=== PATIENT | female | born 1975 | race Caucasian/White ===

== ENCOUNTER → 2018-05-08 09:49 | Outpatient (CLI) | payer MEDICARE, BC, SELFPAY ==
[2018-05-08 10:51] LABS: Abs Immature Grans 0.03 k/cumm (0.0-0.09); Absolute Basophil Count 0.02 k/cumm (0.0-0.2); Absolute Eosinophil Count 0.11 k/cumm (0.0-0.7); Absolute Monocyte Count 0.44 k/cumm (0.11-0.7); Absolute Neutrophil Count 2.28 k/cumm (1.2-6.7); Basophils % 0.6; Eosinophils % 3.5; HCT 36.3 % (36.0-46.0); HGB 12.2 g/dL (12.0-15.5); Immature Grans % 0.9; Lymphocytes % 9.4; Mean Corp. HGB Concentration 33.6 g/dL (32.0-36.0); Mean Corpuscular Hemoglobin 33.2 pg (27.0-33.0); Mean Corpuscular Volume 98.6 fL (80-95); Mean Platelet Volume 9.7 fL (8.0-11.0); Monocytes % 13.8; Neutrophils % 71.8; Platelet Count 129 x1000/uL (130-400); RBC 3.68 m/cumm (4.00-5.20); RBC Distribution Width 18.2 % (11.7-14.6); White Blood Cell Count 3.18 k/cumm (4.4-10.8)
== END ==
PROVIDERS: PCP Family Medicine; Visit Provider Nurse Practitioner Adult Health
DX: C82.93 Follicular lymphoma, unspecified, intra-abdominal lymph nodes (principal)
CPT/HCPCS: 36415; 85025

== ENCOUNTER → 2018-05-16 11:56 | Outpatient (CLI) | payer MEDICARE, BC, SELFPAY ==
[2018-05-16 12:14] LABS: Abs Immature Grans 0.03 k/cumm (0.0-0.09); Absolute Eosinophil Count 0.04 k/cumm (0.0-0.7); HCT 31.6 % (36.0-46.0); HGB 10.8 g/dL (12.0-15.5); Mean Corp. HGB Concentration 34.2 g/dL (32.0-36.0); Mean Corpuscular Hemoglobin 34.1 pg (27.0-33.0); Mean Corpuscular Volume 99.7 fL (80-95); Mean Platelet Volume 8.8 fL (8.0-11.0); Platelet Count 111 x1000/uL (130-400); RBC 3.17 m/cumm (4.00-5.20); RBC Distribution Width 18.1 % (11.7-14.6)
[2018-05-16 13:00] LABS: Absolute Lymphocyte Count 0.19 k/cumm (1.2-3.4); Absolute Monocyte Count 0.06 k/cumm (0.11-0.7); Absolute Neutrophil Count 0.99 k/cumm (1.2-6.7); White Blood Cell Count 1.29 k/cumm (4.4-10.8)
[2018-05-16 13:02] LABS: Anisocytosis 1+; Hypochromasia 2+; Poikilocytes 2+
[2018-05-16 13:03] LABS: Diff Comment Manual Differential
== END ==
PROVIDERS: PCP Family Medicine; Visit Provider Nurse Practitioner Adult Health
DX: C82.93 Follicular lymphoma, unspecified, intra-abdominal lymph nodes (principal)
CPT/HCPCS: 36415; 85025

== ENCOUNTER → 2018-05-22 12:35 | Outpatient (CLI) | payer MEDICARE, BC, SELFPAY ==
[2018-05-22 13:31] LABS: Abs Immature Grans 0.07 k/cumm (0.0-0.09); HCT 33.5 % (36.0-46.0); HGB 11.5 g/dL (12.0-15.5); Mean Corp. HGB Concentration 34.3 g/dL (32.0-36.0); Mean Corpuscular Hemoglobin 33.8 pg (27.0-33.0); Mean Corpuscular Volume 98.5 fL (80-95); Mean Platelet Volume 12.5 fL (8.0-11.0); RBC Distribution Width 18.4 % (11.7-14.6)
[2018-05-22 14:13] LABS: Absolute Monocyte Count 0.21 k/cumm (0.11-0.7); Absolute Neutrophil Count 0.57 k/cumm (1.2-6.7); Atypical Lymphocytes % 2; Platelet Count 42 x1000/uL (130-400); White Blood Cell Count 1.11 k/cumm (4.4-10.8)
[2018-05-22 14:14] LABS: Absolute Eosinophil Count 0.02 k/cumm (0.0-0.7); Anisocytosis 1+
[2018-05-22 14:15] LABS: Poikilocytes 2+
== END ==
PROVIDERS: PCP Family Medicine; Visit Provider Nurse Practitioner Adult Health
DX: C82.93 Follicular lymphoma, unspecified, intra-abdominal lymph nodes (principal)
CPT/HCPCS: 36415; 85025

== ENCOUNTER 2018-05-30 13:42 | Inpatient (IN) | payer MEDICARE, BC, SELFPAY ==
[2018-05-30] VITALS (53 sets, daily range): BP systolic 74–106; BP diastolic 54–70; PULSE 58–130; RESP 14–33; TEMP 35.2–39.4; O2SAT 96–100
--- NOTE | 2018-05-30 14:31 | W.ED.GENAD ---
Discharge Plan Discharge Details Chief Complaint: Fever Clinical Impression: Neutropenic fever, Pneumonia, Sinusitis Reason For Visit: FEVER/VOMITING Admit Date/Time: 05/30/18 19:39 Admit Provider: Jordi Baez Attending Provider: Jordi Baez Primary Care Provider: Christy Enrique ED Provider: Yudy Souza Disposition Patient Disposition: [facility] INPATIENT Condition: Serious Discharge Data Discharge Date/Time-TO BE ENTERED AT DEPARTURE: 05/30/18 20:30 Medical Decision Making MDM Narrative Medical decision making narrative: Patient presents with chief complaint of fevers, chills, sinus pain x 4 days. On exam, she appears pale, dehydrated with rigors and malaise. Patient is febrile with temp of 39.4, she is tachycardic at 130. she is undergoing chemo, last received treatment 5 weeks ago. Is seen at [facility] in [place] for this. Was seen by PCP and begun on Augmentin for sinusitis. WBC 4 days ago was 1.1. Will obtain labs, CT of head and sinuses, cxr. We have been greatly delayed secondary to difficulty getting access. Once cultures are obtained, will start of Cefepime. Patient has not yet gone for imaging. Contacted by lab, WBC 0.3, platelet count 7, this is down from 47, ANC 110. Will contact [facility] once remaining labs have been obtained. Consulted with [facility] regarding laboratory findings, still awaiting imaging. Discussed above findings as well as other abnormalities noted on laboratory workup. Dr. Crocker, with oncology at [facility], call back and advised she would review the patient's chart and call us back. We discussed patients white count, ANC, platelet count, hypokalemia, kidney function. Potassium noted to be 3.0, we will begin replenishing this here. Creatinine 2.62, this is up slightly from baseline. Patient is recieving hydration while here. She does appear improved already, is currently on her second liter of fluids. Cefepime started. She received po Tylenol, temp is coming down. She is moving more in bed, appears much more comfortable. No longer rigoring, is more communicative and interactive. Spoke with [facility] once again, they agree with coverage with Cefepime. Also advised that she had right knee infection last year, advised checking this as possible source again. Evaluated patients right knee, no erythema, warmth, effusion. She has 2 surgical incisions. No pain with ROM either passive or active. She reports she has chronic pain in this knee but no acute change. CXR reviewed by radiologist. They advised findings are suspicious for mild airspace idsease in the posterior right lower lobe. Lungs are otherwise clear. No pneumothorax. No cardiomegaly. CT of the patient's sinuses reviewed by radiologist. They advised that there is extensive mucosal thickening and opacification of the maxillary sinuses with fluid levels in the right and left. Mucosal thickening within the left sphenoid sinus, clear right sphenoid sinus. No air-fluid levels of the sphenoid. Mucosal thickening wihtin the right and left frontal sinuses, no air fluid levels. Mucosal thickening of the bilateral ethmoid sinuses, no air-fluid levels. Smal right dillon bullosa. Occluded osteomeatal complexes. Midline bony nasal septum. Extensive left mastoid effusions. Tiny right mastoid effusions. No bone destruction. Mild bony thickening of the right and left maxillary sinuses consistent iwth chronic sinus inflammatory disease, no acute fracutre. Soft tissues are unremarkable. Discussed diagnosis of pneumonia and sinusitis with the patient. Discussed lab results. Advised admission for neutropenic fever, sinusitis, pneumonia. She is feeling much improved overall, likely associated with bringing her temp down and improving hydration status. Vital signs have normalized, patient is afebrile and HR is in the 80s. Consulted with Dr. Baez who evaluated the patient in the ED and agrees to admission. HPI - General Adult General Mode of arrival: ambulatory. Date/Time Provider Initiated Documentation: 05/30/18 14:09. Limitations to Documentation: no limitations. Information obtained by: patient and family. History of Present Illness 43 year old F presents to the emergency department with the chief complaint of Fever, sinus pain, described as severe, Quality is described as constant, and is localized to the head and face. Patient reports no radiation. Patient started experiencing this day(s) (4) and it has been constant. No relieving factors improve symptom(s), No exacerbating factors reported . Patient notes cough, diaphoresis, fever/chills, headaches, loss of appetite, malaise and nausea/vomiting (vomited x [address]); denies chest pain, rash and shortness of breath. Patient did receive the following treatments prior to arrival, none (Tylenol yesterday, no treatment today. She is on Augmentin placed on this 4 days ago by PCP for sinusitis) Related Data Home Medications Medication Instructions Recorded Confirmed acetaminophen [Tylenol Extra 1,000 mg PO Q6H PRN 05/30/18 05/30/18 Strength] Previous Rx's Medication Instructions Recorded albuterol sulfate 2.5 mg UPD Q4H PRN #20 vial 01/25/18 Allergies Allergy/AdvReac Type Severity Reaction Status Date / Time cytarabine AdvReac Severe neurological Verified 05/30/18 14:34 sxs NSAIDS (Non-Steroidal AdvReac Severe lymphoma/ki Verified 05/30/18 14:34 Anti-Inflamma dney General Stated Complaint: Fever LIAT: 2 Review of Systems Constitutional Reports anorexia, Reports body ache(s), Reports chills, Reports excessive sweating, Reports fatigue, Reports fever(s), Reports headache(s) (feels this is frontal and associated with sinus pain) and Reports weakness Eyes Patient Denies blurry vision, Denies change in vision and denies ENT Reports as per HPI, Denies dental pain, Denies vertigo, Denies dizziness, Denies dry mouth, Denies ear discharge, Denies otalgia, Reports headache(s) (feels this is frontal and associated with sinus pain), Denies mouth lesions, Denies mouth pain, Reports nasal congestion, Reports nasal discharge, Denies neck mass, Denies neck pain, Reports post nasal drip, Denies tinnitus, Reports sinus pain (points to maxillary and frontal sinuses bilaterally), Reports sinus pressure and Reports sore throat Cardiovascular Denies chest pain, Denies chest pain with activity, Denies pedal edema and Denies edema Respiratory Reports as per HPI, Reports cough, Denies hemoptysis, Denies pain with cough, Denies stridor and Denies wheezing Gastrointestinal Denies abdominal pain, Denies change in bowel habits, Denies coffee ground emesis, Denies diarrhea, Denies nausea (denies nausea currently) and Reports vomiting (x 1 just prior to arrival) Genitourinary Denies urinary frequency, Denies dyspareunia, Denies flank pain and Denies vaginal discharge Musculoskeletal Denies abnormal gait, Denies back pain, Reports arthralgias (reports chronic right knee pain, unchanged from baseline), Denies joint swelling, Denies limited range of motion and Denies neck pain Integumentary/Breasts Denies rash, Denies skin pain, Denies skin ulcer, Denies unusual bruising and Denies jaundice Neurologic Denies abnormal gait, Denies vertigo, Denies dizziness, Reports headache(s) (feels this is frontal and associated with sinus pain) and Reports weakness Endocrine Reports excessive sweating and Reports fatigue Allergic/Immunologic Denies wheezing PFSH Medical History B-cell lymphoma (Acute) Chronic renal insufficiency (Acute) Hypokalemia (Acute) PCOS (polycystic ovarian syndrome) (Acute) Pneumonia (Acute) Reactive arthritis of knee (Acute) DVT (deep venous thrombosis) (Chronic) Depression (Chronic) Multiple sclerosis (Chronic) Social History Smoking/Tobacco Use Status: Former Tobacco Use Surgical History Cholecystectomy Exam Const General: cooperative, diaphoretic, frail appearing, ill appearing, lethargic and other (rigors) Nutritional Appearance: cachectic Orientation: alert, awake and oriented x3 HENMT Head: normal to inspection, skull fracture palpable and normocephalic Ears: hearing grossly normal bilaterally, external ear abnormal, TM abnormal and unable to visualize TM General nose exam: external nose normal Face and sinus: sinuses tender and sinus tenderness frontal and maxillary Mouth: oral mucosae normal, lip normal, tongue normal and oropharynx normal (dry mucous membranes) Teeth and gingiva: dentition normal Throat: posterior oropharynx normal, tonsils normal, uvula midline, no peritonsillar masses and other (no trismus) Eyes Alignment and Position: alignment normal Periorbital: periorbital findings normal Eyelids: eyelids normal Conjunctivae: conjunctival abnormality bilaterally pallor Pupils: PERRL EOM: EOM intact bilaterally Direct ophthalmoscopy: normal light reflex Neck Neck: normal visual inspection, full ROM, lymphadenopathy noted, no meningeal signs, trachea midline, supple and no lymphadenopathy noted Chest Chest: normal inspection of the chest Resp Effort & Inspection: able to speak in complete sentences, cough Quality of cough: wet, not labored, no nasal flaring, tachypneic, no tripod positioning and no use of accessory muscles Auscultation: clear to auscultation bilaterally Cardio Rate: tachycardic Rhythm: regular rhythm Heart Sounds: S1 normal and S2 normal GI Inspection: normal to inspection Palpation: soft and no hepatosplenomegaly Percussion: normal to percussion Auscultation: normal bowel sounds Back/Spine/Pelvis Back: no CVA tenderness Skin General skin exam: no rashes or lesions noted Neuro General: alert, awake and oriented x3 Cranial Nerves: CN's II-XI intact bilaterally Cognition: normal cognition Speech: speech normal Extrem General: normal to inspection, full ROM, normal capillary refill, no joint enlargement, no pedal edema and no calf tenderness Course Vital Signs Temperature 39.4 C H 05/30/18 13:51 Pulse 130 H 05/30/18 13:51 Respiratory Rate 24 05/30/18 13:51 Blood Pressure 100/55 L 05/30/18 13:51 Pulse Oximetry 98 05/30/18 13:51 Temperature 39.4 C H 05/30/18 13:51 Pulse 130 H 05/30/18 13:51 Respiratory Rate 24 05/30/18 13:51 Blood Pressure 100/55 L 05/30/18 13:51 Pulse Oximetry 98 05/30/18 13:51
--- NOTE | 2018-05-30 14:35 | ED.GENADUL_ITS ---
Discharge Plan Discharge Details Chief Complaint: Fever Clinical Impression: Neutropenic fever, Pneumonia, Sinusitis Reason For Visit: FEVER/VOMITING Admit Date/Time: 05/30/18 19:39 Admit Provider: Jordi Baez Attending Provider: Jordi Baez Primary Care Provider: Christy Enrique ED Provider: Yudy Souza Disposition Patient Disposition: [facility] INPATIENT Condition: Serious Discharge Data Discharge Date/Time-TO BE ENTERED AT DEPARTURE: 05/30/18 20:30 Medical Decision Making MDM Narrative Medical decision making narrative: Patient presents with chief complaint of fevers, chills, sinus pain x 4 days. On exam, she appears pale, dehydrated with rigors and malaise. Patient is febrile with temp of 39.4, she is tachycardic at 130. she is undergoing chemo, last received treatment 5 weeks ago. Is seen at [facility] in [place] for this. Was seen by PCP and begun on Augmentin for sinusitis. WBC 4 days ago was 1.1. Will obtain labs, CT of head and sinuses, cxr. We have been greatly delayed secondary to difficulty getting access. Once cultures are obtained, will start of Cefepime. Patient has not yet gone for imaging. Contacted by lab, WBC 0.3, platelet count 7, this is down from 47, ANC 110. Will contact [facility] once remaining labs have been obtained. Consulted with [facility] regarding laboratory findings, still awaiting imaging. Discussed above findings as well as other abnormalities noted on laboratory workup. Dr. Crocker, with oncology at [facility], call back and advised she would review the patient's chart and call us back. We discussed patients white count, ANC, platelet count, hypokalemia, kidney function. Potassium noted to be 3.0, we will begin replenishing this here. Creatinine 2.62, this is up slightly from baseline. Patient is recieving hydration while here. She does appear improved already, is currently on her second liter of fluids. Cefepime started. She received po Tylenol, temp is coming down. She is moving more in bed, appears much more comfortable. No longer rigoring, is more communicative and interactive. Spoke with [facility] once again, they agree with coverage with Cefepime. Also advised that she had right knee infection last year, advised checking this as possible source again. Evaluated patients right knee, no erythema, warmth, effusion. She has 2 surgical incisions. No pain with ROM either passive or active. She reports she has chronic pain in this knee but no acute change. CXR reviewed by radiologist. They advised findings are suspicious for mild airspace idsease in the posterior right lower lobe. Lungs are otherwise clear. No pneumothorax. No cardiomegaly. CT of the patient's sinuses reviewed by radiologist. They advised that there is extensive mucosal thickening and opacification of the maxillary sinuses with fluid levels in the right and left. Mucosal thickening within the left sphenoid sinus, clear right sphenoid sinus. No air-fluid levels of the sphenoid. Mucosal thickening wihtin the right and left frontal sinuses, no air fluid levels. Mucosal thickening of the bilateral ethmoid sinuses, no air-fluid levels. Smal right dillon bullosa. Occluded osteomeatal complexes. Midline bony nasal septum. Extensive left mastoid effusions. Tiny right mastoid effusions. No bone destruction. Mild bony thickening of the right and left maxillary sinuses consistent iwth chronic sinus inflammatory disease, no acute fracutre. Soft tissues are unremarkable. Discussed diagnosis of pneumonia and sinusitis with the patient. Discussed lab results. Advised admission for neutropenic fever, sinusitis, pneumonia. She is feeling much improved overall, likely associated with bringing her temp down and improving hydration status. Vital signs have normalized, patient is afebrile and HR is in the 80s. Consulted with Dr. Baez who evaluated the patient in the ED and agrees to admission. HPI - General Adult General Mode of arrival: ambulatory . Date/Time Provider Initiated Documentation: 05/30/18 14:09 . Limitations to Documentation: no limitations . Information obtained by: patient and family . History of Present Illness 43 year old F presents to the emergency department with the chief complaint of Fever, sinus pain, described as severe, Quality is described as constant, and is localized to the head and face. Patient reports no radiation. Patient started experiencing this day(s) (4) and it has been constant. No relieving factors improve symptom(s), No exacerbating factors reported . Patient notes cough, diaphoresis, fever/chills, headaches, loss of appetite, malaise and nausea/vomiting (vomited x [address] here); denies chest pain, rash and shortness of breath. Patient did receive the following treatments prior to arrival, none (Tylenol yesterday, no treatment today. She is on Augmentin placed on this 4 days ago by PCP for sinusitis) Related Data Home Medications Medication Instructions Recorded Confirmed acetaminophen [Tylenol Extra 1,000 mg PO Q6H PRN 05/30/18 05/30/18 Strength] Previous Rx's Medication Instructions Recorded albuterol sulfate 2.5 mg UPD Q4H PRN #20 vial 01/25/18 Allergies Allergy/AdvReac Type Severity Reaction Status Date / Time cytarabine AdvReac Severe neurological Verified 05/30/18 14:34 sxs NSAIDS (Non-Steroidal AdvReac Severe lymphoma/ki Verified 05/30/18 14:34 Anti-Inflamma dney General Stated Complaint: Fever LIAT: 2 Review of Systems Constitutional Reports anorexia, Reports body ache(s), Reports chills, Reports excessive sweating, Reports fatigue, Reports fever(s), Reports headache(s) (feels this is frontal and associated with sinus pain) and Reports weakness Eyes Patient Denies blurry vision, Denies change in vision and denies ENT Reports as per HPI, Denies dental pain, Denies vertigo, Denies dizziness, Denies dry mouth, Denies ear discharge, Denies otalgia, Reports headache(s) ( feels this is frontal and associated with sinus pain), Denies mouth lesions, Denies mouth pain, Reports nasal congestion, Reports nasal discharge, Denies neck mass, Denies neck pain, Reports post nasal drip, Denies tinnitus, Reports sinus pain (points to maxillary and frontal sinuses bilaterally), Reports sinus pressure and Reports sore throat Cardiovascular Denies chest pain, Denies chest pain with activity, Denies pedal edema and Denies edema Respiratory Reports as per HPI, Reports cough, Denies hemoptysis, Denies pain with cough, Denies stridor and Denies wheezing Gastrointestinal Denies abdominal pain, Denies change in bowel habits, Denies coffee ground emesis, Denies diarrhea, Denies nausea (denies nausea currently) and Reports vomiting (x 1 just prior to arrival) Genitourinary Denies urinary frequency, Denies dyspareunia, Denies flank pain and Denies vaginal discharge Musculoskeletal Denies abnormal gait, Denies back pain, Reports arthralgias (reports chronic right knee pain, unchanged from baseline), Denies joint swelling, Denies limited range of motion and Denies neck pain Integumentary/Breasts Denies rash, Denies skin pain, Denies skin ulcer, Denies unusual bruising and Denies jaundice Neurologic Denies abnormal gait, Denies vertigo, Denies dizziness, Reports headache(s) ( feels this is frontal and associated with sinus pain) and Reports weakness Endocrine Reports excessive sweating and Reports fatigue Allergic/Immunologic Denies wheezing PFSH Medical History B-cell lymphoma (Acute) Chronic renal insufficiency (Acute) Hypokalemia (Acute) PCOS (polycystic ovarian syndrome) (Acute) Pneumonia (Acute) Reactive arthritis of knee (Acute) DVT (deep venous thrombosis) (Chronic) Depression (Chronic) Multiple sclerosis (Chronic) Social History Smoking/Tobacco Use Status: Former Tobacco Use Surgical History Cholecystectomy Exam Const General: cooperative, diaphoretic, frail appearing, ill appearing, lethargic and other (rigors) Nutritional Appearance: cachectic Orientation: alert, awake and oriented x3 HENMT Head: normal to inspection, skull fracture palpable and normocephalic Ears: hearing grossly normal bilaterally, external ear abnormal, TM abnormal and unable to visualize TM General nose exam: external nose normal Face and sinus: sinuses tender and sinus tenderness frontal and maxillary Mouth: oral mucosae normal, lip normal, tongue normal and oropharynx normal ( dry mucous membranes) Teeth and gingiva: dentition normal Throat: posterior oropharynx normal, tonsils normal, uvula midline, no peritonsillar masses and other (no trismus) Eyes Alignment and Position: alignment normal Periorbital: periorbital findings normal Eyelids: eyelids normal Conjunctivae: conjunctival abnormality bilaterally pallor Pupils: PERRL EOM: EOM intact bilaterally Direct ophthalmoscopy: normal light reflex Neck Neck: normal visual inspection, full ROM, lymphadenopathy noted, no meningeal signs, trachea midline, supple and no lymphadenopathy noted Chest Chest: normal inspection of the chest Resp Effort & Inspection: able to speak in complete sentences, cough Quality of cough : wet, not labored, no nasal flaring, tachypneic, no tripod positioning and no use of accessory muscles Auscultation: clear to auscultation bilaterally Cardio Rate: tachycardic Rhythm: regular rhythm Heart Sounds: S1 normal and S2 normal GI Inspection: normal to inspection Palpation: soft and no hepatosplenomegaly Percussion: normal to percussion Auscultation: normal bowel sounds Back/Spine/Pelvis Back: no CVA tenderness Skin General skin exam: no rashes or lesions noted Neuro General: alert, awake and oriented x3 Cranial Nerves: CN's II-XI intact bilaterally Cognition: normal cognition Speech: speech normal Extrem General: normal to inspection, full ROM, normal capillary refill, no joint enlargement, no pedal edema and no calf tenderness Course Vital Signs Temperature 39.4 C H 05/30/18 13:51 Pulse 130 H 05/30/18 13:51 Respiratory Rate 24 05/30/18 13:51 Blood Pressure 100/55 L 05/30/18 13:51 Pulse Oximetry 98 05/30/18 13:51 Temperature 39.4 C H 05/30/18 13:51 Pulse 130 H 05/30/18 13:51 Respiratory Rate 24 05/30/18 13:51 Blood Pressure 100/55 L 05/30/18 13:51 Pulse Oximetry 98 05/30/18 13:51
[2018-05-30 15:25] LABS: Abs Immature Grans 0.03 k/cumm (0.0-0.09); Absolute Basophil Count 0.01 k/cumm (0.0-0.2); Absolute Lymphocyte Count 0.19 k/cumm (1.2-3.4); Absolute Monocyte Count 0.04 k/cumm (0.11-0.7); Basophils % 2.6; HCT 29.7 % (36.0-46.0); HGB 10.5 g/dL (12.0-15.5); Immature Grans % 7.9; Mean Corp. HGB Concentration 35.4 g/dL (32.0-36.0); Mean Corpuscular Hemoglobin 33.5 pg (27.0-33.0); Mean Corpuscular Volume 94.9 fL (80-95); Monocytes % 10.5; RBC 3.13 m/cumm (4.00-5.20); RBC Distribution Width 17.2 % (11.7-14.6)
[2018-05-30] MEDS: Acetaminophen 500 MG TAB 1000 MG PO (15:34)
[2018-05-30] MEDS: Normal Saline 1,000 ML 1000 ML IV ×2 (15:34→20:20)
[2018-05-30 15:40] LABS: INR 1.1 (1.0-3.5); Prothrombin Time 10.5 sec (9.3-10.8)
[2018-05-30 15:42] LABS: ALT 14 U/L (12-78); AST 64 U/L (15-37); Albumin 2.8 g/dL (3.4-5.0); Alkaline Phosphatase 98 U/L (46-116); Anion Gap 9.4 mmol/L (3-11); BUN 27 mg/dL (7-18); Bilirubin, Total 0.8 mg/dL (0.2-1.0); CO2 23.6 mmol/L (21.0-32.0); CREATININE 2.62 mg/dL (0.55-1.02); Calcium 9.1 mg/dL (8.5-10.1); Chloride 95 mmol/L (98-107); Estimated GFR 19.73 (mL/min/1.73m2); Glucose 96 mg/dL (70-100); Sodium 128 mmol/L (136-145); Total Protein 7.1 g/dL (6.4-8.2)
[2018-05-30 15:45] LABS: Troponin I < 0.02 ng/mL (0.00-0.06)
--- NOTE | 2018-05-30 15:48 | W.ED.PROC ---
Procedures EJ/Peripheral Line Arm L: Time Out Performed: Yes Skin Cleansed in Sterile Fashion: Yes Size (gauge): 18 IV Secured and Dressing Applied: Yes Patient Tolerated Procedure: well Additional Comments: 1% lidocaine used to anesthetize the area locally. 1.88in extended catheter placed with guidance of [place]/S. Medical Decision Making Lab Data Lab Results 05/30/18 05/30/18 Range/Units 15:15 15:15 PT 10.5 (9.3-10.8) sec INR 1.1 (1.0-3.5) Sodium 128 L (136-145) mmol/L Potassium 3.0 L (3.5-5.1) mmol/L Chloride 95 L (98-107) mmol/L Carbon Dioxide 23.6 (21.0-32.0) mmol/L Anion Gap 9.4 (3-11) mmol/L BUN 27 H (7-18) mg/dL Creatinine 2.62 H (0.55-1.02) mg/dL Estimated GFR/1.73 m2 19.73 (mL/min/1.73m2) Glucose 96 (70-100) mg/dL Calcium 9.1 (8.5-10.1) mg/dL Total Bilirubin 0.8 (0.2-1.0) mg/dL AST 64 H (15-37) U/L ALT 14 (12-78) U/L Alkaline Phosphatase 98 (46-116) U/L Troponin I < 0.02 (0.00-0.06) ng/mL Total Protein 7.1 (6.4-8.2) g/dL Albumin 2.8 L (3.4-5.0) g/dL
[2018-05-30 15:58] LABS: White Blood Cell Count 0.38 k/cumm (4.4-10.8)
[2018-05-30 15:59] LABS: Absolute Neutrophil Count 0.11 k/cumm (1.2-6.7); Platelet Count 7 x1000/uL (130-400)
[2018-05-30 16:01] LABS: RBC Morphology Normal
[2018-05-30 16:13] LABS: D-Dimer 1664 ng/mlFEU (<500)
[2018-05-30] MEDS: CEFEPIME 2 GM in Normal Saline 100 ML IVPB (16:17)
[2018-05-30 16:19] LABS: Lactate-non-spesis 0.9 mmol/L (0.6-1.4)
--- NOTE | 2018-05-30 16:34 | DI.RAD_ITS ---
SYMPTOM/DIAGNOSIS: NEUTROPENIC FEVER AP AND LATERAL CHEST: Comparison is made with 02/10/18. Heart size and pulmonary vasculature are within normal limits. There are increased lung markings which appear to lie in the right lung base medially, more prominent than on the prior examination. This may represent atelectasis or pneumonia. The lungs are otherwise clear. No effusions or pneumothoraces are identified. The bones are intact. Degenerative changes are seen in the spine. IMPRESSION: Findings suspicious for a right basilar infiltrate. This may represent atelectasis or pneumonia.
--- NOTE | 2018-05-30 16:34 | DI.CT_ITS ---
SYMPTOM/DIAGNOSIS: NEUTROPENIC FEVER, SINUS PAIN SINUS CT: A noncontrast examination was performed. There is mild mucosal thickening in the frontal sinuses bilaterally. There is mucosal thickening in the ethmoid air cells bilaterally. There is mild mucosal thickening seen in the left sphenoid sinus. The right sphenoid sinus is clear. There is extensive near complete opacification of the maxillary sinuses bilaterally with fluid levels seen in the maxillary sinuses bilaterally. There is opacification of the mastoid air cells, left greater than right. There is thickening of the simeon of the maxillary sinuses and sphenoid sinuses consistent with chronic sinus disease. There is right middle turbinate dillon bullosa. There is obstruction of the ostiomeatal complexes bilaterally. The orbits and retro-orbital soft tissues are unremarkable. IMPRESSION: 1. Extensive sinus disease, particularly involving the maxillary sinuses. Findings consistent with chronic sinus disease. Fluid levels in the maxillary sinuses can be seen with acute sinusitis. 2. Bilateral mastoid effusions, left greater than right.
[2018-05-30] MEDS: Lactated Ringers 1,000 ML 1000 ML IV (16:51)
--- NOTE | 2018-05-30 17:28 | DI.VRAD_ITS ---
EXAM: CT Maxillofacial Sinuses Without Intravenous Contrast CLINICAL HISTORY: 43 years old, female; Pain; Other: Sinus pain neutropenic TECHNIQUE: Computed tomography images of the maxillofacial sinuses without intravenous contrast. Coronal reformatted images were created and reviewed. COMPARISON: No relevant prior studies available. FINDINGS: Maxillary sinuses: Extensive mucosal thickening and opacification with fluid levels in the right and left maxillary sinuses. Sphenoid sinuses: Mucosal thickening of the left sphenoid sinus. Clear right sphenoid sinus. No air-fluid levels. Frontal sinuses: Mucosal thickening within the right and left frontal sinuses. No air-fluid levels. Ethmoid air cells: Mucosal thickening of bilateral ethmoid sinuses. No air-fluid levels. Nasal cavity/septum: Small right dillon bullosa. Occluded osteomeatal complexes. Midline bony nasal septum. Mastoid air cells: Extensive left mastoid effusions. Tiny right mastoid effusions. Bones/joints: No bone destruction. Mild bony thickening of the right and left maxillary sinuses consistent with chronic sinus inflammatory disease. No acute fracture. Soft tissues: Unremarkable. IMPRESSION: 1. Paranasal sinus inflammatory disease, most severe in the maxillary sinuses. Severe mucosal thickening and fluid levels within both maxillary sinuses may be seen with acute sinusitis. 2. Bilateral mastoid effusions, worse on the left. Dictated and Authenticated by: Keshav Meyer MD. Ordering:JHONATAN CHRISTOPHER MD
--- NOTE | 2018-05-30 17:30 | DI.VRAD_ITS ---
EXAM: XR Chest, 2 Views CLINICAL HISTORY: 43 years old, female; Pain; Other: Neutropenic fever sinus pain TECHNIQUE: Frontal and lateral views of the chest. COMPARISON: CR - CHEST 2 VIEWS PA,LAT 02/10/2018 1:46 PM FINDINGS: Lungs: Mild patchy densities in the posterior right lower lobe seen on the lateral examination, slightly more prominent than those seen on the prior examination. The findings are suspicious for mild right posterior lower lobe airspace disease (atelectasis versus small pneumonia). The lungs are otherwise clear. Pleural space: Unremarkable. No pneumothorax. Heart: Unremarkable. No cardiomegaly. Mediastinum: Unremarkable. Bones/joints: Unremarkable. IMPRESSION: Findings suspicious for mild airspace disease in the posterior right lower lobe (atelectasis versus small pneumonia). Dictated and Authenticated by: Keshav Meyer MD. Ordering:JHONATAN CHRISTOPHER MD
[2018-05-30] MEDS: POTASSIUM CHLORIDE/D5-0.45NACL 1,000 ML 100 MEQ IV (19:01)
--- NOTE | 2018-05-30 19:15 | W.PM.HP.N ---
CC: fever, neutropenia HPI: 43 f with NHL, last chemo 5 weeks [employer], also undergoing XRT comes to ER with 1 week of fever and lethargy. Labs of note for WBC of 380 with ANC 110. CXR shows ? pneumonia and acute on chronic bilateral sinusitis. Pateinet endorses chronic PND, catarrh and cough, but unchanged over past 8 months. PMH NHL, chronic DVT, MS, HTN, depression, HSV, s/p choly, CTS All: see list Med: see list (note patient states not taking Ativan) PE: BP 94/70 (Patient reports baseline about 90/sys), p 91, RR 18, T 38.4 HEENT TM WNL , partially obscured AD but normal what is seen; neck supple; lungs clear; heart r/r/r w/o m/r/g; abd: soft, NT; extr: no edema Lab WBC 380, Hct 29, plt 7K Na 128, K 3.0, Bun 26, Cr 2.6 CXR: formal read ? right posterior infiltrate, none to my eye Sinus: acute on chronic sinusitis A/P: Neutropenic fever. Not convinced that sinuses or chest is source, will cover broadly, but certainly including those two potential sources. Will follow blood counts, replace K and hydrate with NS. As to pancytopenia itself: Unclear if prolonged reaction to chemo, disease progression or other unknown factor. Will trend out. Do not feel platelet transfusion required as no clinical signs bleeding. PFSH Social History Smoking/Tobacco Use Status: Former Tobacco Use Surgical History Cholecystectomy Meds Home Medications Medication Instructions Recorded Confirmed Type acyclovir 800 mg PO BID #180 tab-cap 10/18/15 05/30/18 Clinic escitalopram oxalate [Lexapro] 20 mg PO QAM #90 tab-cap 09/09/17 05/30/18 Clinic albuterol sulfate [Proair Hfa] 1 - 2 puff INHALATION QID PRN #1 10/17/17 05/30/18 Clinic inhaler lorazepam [Ativan] 1 mg PO HS #30 tab 02/22/18 05/30/18 Clinic bupropion HCl [Wellbutrin Xl] 300 mg PO DAILY #90 tab-cap 03/30/18 05/30/18 Clinic amoxicillin-pot clavulanate 1 tab-cap PO Q12H #14 tab-cap 05/26/18 05/30/18 Clinic benzonatate 100 - 200 mg PO TID #30 tab-cap 05/26/18 05/30/18 Clinic acetaminophen [Tylenol Extra 1,000 mg PO Q6H PRN 05/30/18 05/30/18 History Strength] Allergies Allergy/AdvReac Type Severity Reaction Status Date / Time cytarabine AdvReac Severe neurological Verified 05/30/18 14:34 sxs NSAIDS (Non-Steroidal AdvReac Severe lymphoma/ki Verified 05/30/18 14:34 Anti-Inflamma dney Results Labs : 05/30/18 15:15 05/30/18 15:15 Abnormal lab results 05/30/18 05/30/18 05/30/18 Range/Units 15:15 15:15 15:15 WBC 0.38 L* (4.4-10.8) k/cumm RBC 3.13 L (4.00-5.20) m/cumm Hgb 10.5 L (12.0-15.5) g/dL Hct 29.7 L (36.0-46.0) % MCH 33.5 H (27.0-33.0) pg RDW 17.2 H (11.7-14.6) % Plt Count 7 L* D (130-400) x1000/uL Absolute Neutrophils 0.11 L* (1.2-6.7) k/cumm Absolute Lymphocytes 0.19 L (1.2-3.4) k/cumm Absolute Monocytes 0.04 L (0.11-0.7) k/cumm D-Dimer 1664 H (<500) ng/mlFEU Sodium 128 L (136-145) mmol/L Potassium 3.0 L (3.5-5.1) mmol/L Chloride 95 L (98-107) mmol/L BUN 27 H (7-18) mg/dL Creatinine 2.62 H (0.55-1.02) mg/dL AST 64 H (15-37) U/L Albumin 2.8 L (3.4-5.0) g/dL Diabetes panel 05/30/18 Range/Units 15:15 Sodium 128 L (136-145) mmol/L Potassium 3.0 L (3.5-5.1) mmol/L Chloride 95 L (98-107) mmol/L Carbon Dioxide 23.6 (21.0-32.0) mmol/L BUN 27 H (7-18) mg/dL Creatinine 2.62 H (0.55-1.02) mg/dL Glucose 96 (70-100) mg/dL Calcium 9.1 (8.5-10.1) mg/dL AST 64 H (15-37) U/L ALT 14 (12-78) U/L Alkaline Phosphatase 98 (46-116) U/L Total Protein 7.1 (6.4-8.2) g/dL Albumin 2.8 L (3.4-5.0) g/dL Calcium panel 05/30/18 Range/Units 15:15 Calcium 9.1 (8.5-10.1) mg/dL Albumin 2.8 L (3.4-5.0) g/dL Pituitary panel 05/30/18 Range/Units 15:15 Sodium 128 L (136-145) mmol/L Potassium 3.0 L (3.5-5.1) mmol/L Chloride 95 L (98-107) mmol/L Carbon Dioxide 23.6 (21.0-32.0) mmol/L BUN 27 H (7-18) mg/dL Creatinine 2.62 H (0.55-1.02) mg/dL Glucose 96 (70-100) mg/dL Calcium 9.1 (8.5-10.1) mg/dL Adrenal panel 05/30/18 Range/Units 15:15 Sodium 128 L (136-145) mmol/L Potassium 3.0 L (3.5-5.1) mmol/L Chloride 95 L (98-107) mmol/L Carbon Dioxide 23.6 (21.0-32.0) mmol/L BUN 27 H (7-18) mg/dL Creatinine 2.62 H (0.55-1.02) mg/dL Glucose 96 (70-100) mg/dL Calcium 9.1 (8.5-10.1) mg/dL Total Bilirubin 0.8 (0.2-1.0) mg/dL AST 64 H (15-37) U/L ALT 14 (12-78) U/L Alkaline Phosphatase 98 (46-116) U/L Total Protein 7.1 (6.4-8.2) g/dL Albumin 2.8 L (3.4-5.0) g/dL Laboratory Tests 05/30/18 05/30/18 05/30/18 15:15 15:15 15:15 WBC 0.38 L* RBC 3.13 L Hgb 10.5 L Hct 29.7 L MCV 94.9 MCH 33.5 H MCHC 35.4 RDW 17.2 H Plt Count 7 L* D MPV Immature Gran % 7.9 Neutrophils % 29.0 Lymphocytes % 50.0 Monocytes % 10.5 Eosinophils % 0.0 Basophils % 2.6 Absolute Neutrophils 0.11 L* Absolute Lymphocytes 0.19 L Absolute Monocytes 0.04 L Absolute Eosinophils 0.00 Absolute Basophils 0.01 Differential Comment RBC Morphology Normal Poikilocytosis PT 10.5 INR 1.1 D-Dimer 1664 H Sodium 128 L Potassium 3.0 L Chloride 95 L Carbon Dioxide 23.6 Anion Gap 9.4 BUN 27 H Creatinine 2.62 H Estimated GFR/1.73 m2 19.73 Glucose 96 Lactate Calcium 9.1 Total Bilirubin 0.8 AST 64 H ALT 14 Alkaline Phosphatase 98 Troponin I < 0.02 Total Protein 7.1 Albumin 2.8 L 05/30/18 16:10 WBC RBC Hgb Hct MCV MCH MCHC RDW Plt Count MPV Immature Gran % Neutrophils % Lymphocytes % Monocytes % Eosinophils % Basophils % Absolute Neutrophils Absolute Lymphocytes Absolute Monocytes Absolute Eosinophils Absolute Basophils Differential Comment RBC Morphology Poikilocytosis PT INR D-Dimer Sodium Potassium Chloride Carbon Dioxide Anion Gap BUN Creatinine Estimated GFR/1.73 m2 Glucose Lactate 0.9 Calcium Total Bilirubin AST ALT Alkaline Phosphatase Troponin I Total Protein Albumin
[2018-05-30 19:51] LABS: Bilirubin Negative (Negative); Blood Trace-lysed (Negative); Clarity Clear; Glucose Negative (Negative); Ketones Negative (Negative); Leukocyte Esterase Negative (Negative); Nitrite Negative (Negative); Specific Gravity 1.015 (1.005-1.025); Urobilinogen 0.2 EU/dL (Up TO 0.2); pH 5.5 (5-8)
[2018-05-30 19:57] LABS: Bacteria Negative HPF (Negative); C & S Indicated? No; Casts 3-5 Fine Granular LPF (Negative); Crystals Moderate Amorphous HPF (Negative); Epithelial Cells Few HPF (Negative); Mucus Negative (Negative); RBC Negative (0-2)
[2018-05-30] MEDS: Benzonatate 100 MG CAP PO (21:32)
[2018-05-30] MEDS: POTASSIUM CHLORIDE/0.9% NACL 1,000 ML 150 MEQ IV (21:32)
[2018-05-30] MEDS: Acyclovir 400 MG TAB 800 MG PO (22:50)
[2018-05-31] VITALS (10 sets, daily range): BP systolic 85–96; BP diastolic 57–69; PULSE 62–81; RESP 16–20; TEMP 35.3–36.4; O2SAT 97–100
[2018-05-31] MEDS: POTASSIUM CHLORIDE/0.9% NACL 1,000 ML 150 MEQ IV ×3 (03:55→18:38)
[2018-05-31 07:10] LABS: Absolute Eosinophil Count 0.02 k/cumm (0.0-0.7); HCT 21.4 % (36.0-46.0); HGB 7.2 g/dL (12.0-15.5); Mean Corp. HGB Concentration 33.6 g/dL (32.0-36.0); Mean Corpuscular Hemoglobin 32.7 pg (27.0-33.0); Mean Corpuscular Volume 97.3 fL (80-95); RBC Distribution Width 17.1 % (11.7-14.6)
[2018-05-31 07:20] LABS: Anion Gap 10.5 mmol/L (3-11); CO2 18.5 mmol/L (21.0-32.0); Chloride 107 mmol/L (98-107); Potassium 3.5 mmol/L (3.5-5.1); Sodium 136 mmol/L (136-145)
[2018-05-31 07:40] LABS: White Blood Cell Count 0.61 k/cumm (4.4-10.8)
[2018-05-31 07:41] LABS: Platelet Count 7 x1000/uL (130-400)
[2018-05-31 07:42] LABS: Absolute Lymphocyte Count 0.37 k/cumm (1.2-3.4); Absolute Monocyte Count 0.05 k/cumm (0.11-0.7); Atypical Lymphocytes % 1
[2018-05-31 07:43] LABS: Absolute Neutrophil Count 0.17 k/cumm (1.2-6.7); Anisocytosis 2+; Diff Comment Manual Differential; Poikilocytes 2+
[2018-05-31] MEDS: Escitalopram 20 MG TAB PO (08:02)
[2018-05-31] MEDS: Benzonatate 100 MG CAP PO ×3 (08:02→21:03)
[2018-05-31] MEDS: Acyclovir 400 MG TAB 800 MG PO ×2 (08:02→21:03)
[2018-05-31] MEDS: buPROPion-XL 150 MG TABCR 300 MG PO (08:02)
[2018-05-31] MEDS: Acetaminophen 500 MG TAB 1000 MG PO ×3 (09:24→22:50)
[2018-05-31] MEDS: VANCOMYCIN 1,000 MG in Normal Saline 250 ML 166.667 MG IVPB (10:21)
--- NOTE | 2018-05-31 10:51 | PDOC.CMIN ---
- If Service Date Differs Date of service: 05/31/18 Time of Service: 10:51 Care Management Initial Assess REASON FOR HOSPITALIZATION:: Fever/Vomiting PAST MEDICAL HISTORY/PAST SURGICAL HISTORY:: Follicular B-cell lymphoma, Chronic renal insufficiency stage 4, Multiple sclerosis, Anxiety & Depression, H/O herpes simplex, Anemia, Carpal tunnel release, S/P cholecystectomy, S/P knee aspiration, S/P (R) knee arthroscopy PREVIOUS FUNCTIONAL STATUS/SOCIAL/FAMILY SUPPORTS:: Stacey lives in [place], [place] in her own home. She is , she has two school age children a son and daughter. She has a large family support system and friends in the community. Stacey is disabled. CURRENT FUNCTIONAL STATUS:: Stacey is lying in bed she is on precautions for neutropenia. Stacey will return home home when medically stable denies any needs at this time. ADVANCE DIRECTIVES:: None on file at [facility] Has patient been provided with information about the portal?: Yes Did the patient sign up for the portal?: No CODE STATUS:: Full Code INSURANCE COVERAGE / FINANCIAL ISSUES:: Medicare, BCBS CURRENT HOME/COMMUNITY SERVICES/EQUIPMENT:: [facility] for oncology treatments r/t non hodgkins lymphoma. PRIMARY CARE PHYSICIAN:: Christy Enrique POTENTIAL DISCHARGE NEEDS:: Follow up as directed with primary care and oncologist. PATIENT/FAMILY EDUCATION NEEDS:: Discharge education, limitation, and follow up plan of care self management and ask me three discussion. ANTICIPATED BARRIERS TO DISCHARGE:: None identified. TRANSPORTATION:: Via private car with family at time of discharge. PLAN:: Stacey will continue as a medical surgical patient no change in status today. She is receiving IV fluids, and antibiotics and is on oral antiviral. She will return home with when medically ready per provider. Readmission - Within the Past 30 Days Yes or No: N
[2018-05-31] MEDS: Normal Saline Flush 10 ML SYR IVP (11:05)
--- NOTE | 2018-05-31 11:19 | INITIAL_ITS ---
- If Service Date Differs Date of service: 05/31/18 Time of Service: 10:51 Care Management Initial Assess REASON FOR HOSPITALIZATION:: Fever/Vomiting PAST MEDICAL HISTORY/PAST SURGICAL HISTORY:: Follicular B-cell lymphoma, Chronic renal insufficiency stage 4, Multiple sclerosis, Anxiety & Depression, H /O herpes simplex, Anemia, Carpal tunnel release, S/P cholecystectomy, S/P knee aspiration, S/P (R) knee arthroscopy PREVIOUS FUNCTIONAL STATUS/SOCIAL/FAMILY SUPPORTS:: Stacey lives in [place], [place] in her own home. She is , she has two school age children a son and daughter. She has a large family support system and friends in the community. Stacey is disabled. CURRENT FUNCTIONAL STATUS:: Stacey is lying in bed she is on precautions for neutropenia. Stacey will return home home when medically stable denies any needs at this time. ADVANCE DIRECTIVES:: None on file at [facility] Has patient been provided with information about the portal?: Yes Did the patient sign up for the portal?: No CODE STATUS:: Full Code INSURANCE COVERAGE / FINANCIAL ISSUES:: Medicare, BCBS CURRENT HOME/COMMUNITY SERVICES/EQUIPMENT:: [facility] for oncology treatments r/t non hodgkins lymphoma. PRIMARY CARE PHYSICIAN:: Christy Enrique POTENTIAL DISCHARGE NEEDS:: Follow up as directed with primary care and oncologist. PATIENT/FAMILY EDUCATION NEEDS:: Discharge education, limitation, and follow up plan of care self management and ask me three discussion. ANTICIPATED BARRIERS TO DISCHARGE:: None identified. TRANSPORTATION:: Via private car with family at time of discharge. PLAN:: Stacey will continue as a medical surgical patient no change in status today. She is receiving IV fluids, and antibiotics and is on oral antiviral. She will return home with when medically ready per provider. Readmission - Within the Past 30 Days Yes or No: N
--- NOTE | 2018-05-31 11:21 | CHAPLAIN ---
Stacey was lying in bed when I visited. She said she is feeling some better. She's asked family members not to visit because of the precautions in place. Having not slept well last night, she hoping to rest today.
--- NOTE | 2018-05-31 12:09 | PHARADMIT ---
Addendum entered by Sharmila Romero 06/09/18 14:56: Pharmacy Note Subjective pt wants to go home per CM note Objective BP-86/54 other VS okay SCr-2.04(up) WBC-1.13 plt-18 ANC-0.41 Assessment vanco discontinued, cefepime and doxycycline continue neupogen continues, 1 units of platelets given yesterday Plan MD mentioned talking to hematology Original Note: Addendum entered by Chema Leiva III 06/07/18 11:43: Pharmacy Note Subjective Patient continues to be on reverse precautions, Remain afebrile. Objective VS-OK WBC- 1.12 ANC-0.231 Plts- 14 H&H- 8.8/26.1 Na-135 SCr-1.94. No BM Assessment Neupogen continues. On Vancomycin, Cefepime Plan Watch Vancomycn dosing SCr up again. Original Note: Addendum entered by Chema Leiva III 06/06/18 15:15: Pharmacy Note Subjective Still afebrile... Objective VS-OK, WBC-0.86 ANC--0.28 Plts-22 Assessment Vancomycin trough (25.9) dose held ...re-timed new frequency (q24hr) Cefepime continues until immune system recovers. Plan Continuing Neupogen Original Note: Addendum entered by Sharmila Romero 06/05/18 16:37: Pharmacy Note Subjective Objective VS-okay K+3.3 SCr-1.89(up) WBC-0.86(down) h/h-8.8/26.3(down) plt-24(up) ANC-0.24(down) Assessment vanco and cefepime continue Plan vanco trough scheduled for tomorrow, may be a little bit high due to last dose given late continue to order neupogen while order continues Original Note: Addendum entered by Chema Leiva III 06/04/18 12:04: Pharmacy Note Subjective Platelets dropped again. has ordered two units from [facility]. ANC & WBC continue to lag despite Neupogen therapy. Afebrile Objective VS-OK Lytes,SCr, H&H-OK Plts-8 ANC-0.32 WBC-0.91 Assessment Vancomycin & Cefepime continue while immune system is weak. Plan Be sure to order more Neupogen 480mcg. Original Note: Addendum entered by Chema Leiva III 06/03/18 14:56: Pharmacy Note Subjective ANC up grdadually, continue to treat prophylactically with IV ABX . Urine-negative. Objective VS-OK ANC-0.33 WBC-0.69 Plts-11 H&H-9.0/26.3 ad BM yesterday Assessment Neupogen continues, Vancomycin trough 23.6) dose adjusted, Cefepime continues. Plan She naif emainn here under treatment until ANC is above 0.50 Original Note: Addendum entered by Chema Leiva III 06/02/18 10:05: Pharmacy Note Subjective Patient to receive 2 units of blood today . Objective VS-OK ANC 0.17 WBC-0.57 Plts-18 H&H- 6.4/18.9 Last BM 05/31 Assessment Vancomycin adjusted due to improved renal functon (750MG q16hrs) Cefepime continues. Neupogen daily continues Plan Patient rmains afebrile, but awaiting immune system to improve Original Note: Addendum entered by Chema Leiva III 06/01/18 15:06: Pharmacy Note Subjective Patient recieived Platelets yesterday. Neupogen 480mcg daily has been started. believes her neutropenic fever is a delayed response to Chemotherapy. Objective VS-OK ANC-0.13 WBC-0.37 Plts-19 Assessment Vancomycin, Cefepime continues,Neupogen on order Plan Patient is showing improvement remains afebrile, continue current course of therapy. Original Note: Admission Pharmacy Clinical Review FEVER/VOMITING Code Status Full Code Current Weight 74.843 kg Renally Cleared and Narrow Therapeutic Index Meds CRCL ~23.4ML/MIN QTc Value / Action Taken BP Control, Fever 94/60 AFEBRILE Electrolytes reviewed OK DVT Prophylaxis NO Opiate Usage / Scheduled Bowel Regimen Ordered NO/NO Plt/SCr for Heparin / Enoxaparin 7/2.62 INR for Warfarin 1.1 H/H stable, WBC/Bands 7.2/21.4 Antibiotic appropriateness VANCOMYCIN, CEFEPIME Cultures and Sensitivities BC PENDING Surgical ABX d/c within 24 hr NA DM control / Insulin Dosing NA Heart Failure (Check EF%) (ALANA's, B-Block, Diuretics) NA IV to PO Switch Home Meds Reviewed Home Meds Not Ordered lorazepam [Ativan] 1 mg PO HS #30 tab 02/22/18 amoxicillin-pot clavulanate 1 tab-cap PO Q12H #14 tab-cap 05/26/18 Comments
--- NOTE | 2018-05-31 14:14 | W.PM.PROGNOT ---
Date of service: 05/31/18 Time of Service: 14:20 Assessment and Plan (1) Neutropenic fever: Current visit: Yes Status: Acute Initial presentation with neutropenic fever, with an ANC of 0.17. Urinalysis appears to be negative, but with imaging showing evidence of potential sinusitis as well as pulmonary infiltrate. CT of the sinuses show paranasal sinus inflammatory disease, most severe in the maxillary sinuses. Severe mucosal thickening was also noted with fluid levels within both maxillary sinuses, as seen with acute sinusitis. Also with bilateral mastoid effusions. Chest x-ray findings were suspicious for mild airspace disease in the posterior right lower lobe. Given her neutropenia the patient was initiated by cefepime in the emergency department, with vancomycin being added today due to evidence of pulmonary infiltrates. We will continue to await blood cultures and continue antibiotic therapy. Fever curve is favorable and the patient remains afebrile currently. Monitor closely. Given neutropenia will also start on Neulasta today. (2) Pneumonia: Current visit: No Status: Acute Treatment as above. (3) B-cell lymphoma: Current visit: No Status: Acute Discussed case with [facility] oncology. Patient is currently maintained on radio immunotherapy as well as rituximab, last received on May 03 of this year. (4) Pancytopenia: Current visit: Yes Status: Acute Evidence of significant pancytopenia, with neutropenia and significant thrombocytopenia by lab work. Mrs. Sahu is maintained on the radioimmunotherapy and rituximab for treatment of her relapsed follicular B-cell lymphoma. As per discussion with oncology at [facility] the expected josey of this combination treatment is rather prolonged. Following discussion plan will be administration of Neulasta as well as transfusion with irradiated platelets to maintain a count greater than 10. Monitor CBC carefully. (5) DVT prophylaxis: Current visit: Yes Status: Acute Avoid heparin given significant thrombocytopenia. Ensure SCDs. Subjective Interval history since last seen: 43-year-old woman with past medical history significant for follicular B-cell lymphoma, currently on treatment with radio immunotherapy, as well as rituximab, admitted from an [facility] emergency department on May with a diagnosis of neutropenic fever. Workup in the emergency department showed evidence for neutropenia, anemia, and significance thrombocytopenia. Chest x-ray showed evidence of a likely infiltrates. Patient was initially started on cefepime, with vancomycin being initiated due to evidence of potential pulmonary infiltrate. Today Mrs. Sahu reports improvement in overall symptoms, and she has remained afebrile since the time of admission. No other overnight events reported. Exam Const General: cooperative Orientation: alert, awake and oriented x3 Neck Neck: supple Resp Effort & Inspection: able to speak in complete sentences, not labored and no use of accessory muscles Auscultation: clear to auscultation bilaterally Cardio Heart Sounds: S1 normal and S2 normal GI Inspection: normal to inspection Palpation: soft Auscultation: normal bowel sounds Extrem General: no pedal edema Objective Objective Clinical Data: Abnormal lab results 05/30/18 05/30/18 05/30/18 Range/Units 15:15 15:15 15:15 WBC 0.38 L* (4.4-10.8) k/cumm RBC 3.13 L (4.00-5.20) m/cumm Hgb 10.5 L (12.0-15.5) g/dL Hct 29.7 L (36.0-46.0) % MCV (80-95) fL MCH 33.5 H (27.0-33.0) pg RDW 17.2 H (11.7-14.6) % Plt Count 7 L* D (130-400) x1000/uL Absolute Neutrophils 0.11 L* (1.2-6.7) k/cumm Absolute Lymphocytes 0.19 L (1.2-3.4) k/cumm Absolute Monocytes 0.04 L (0.11-0.7) k/cumm D-Dimer 1664 H (<500) ng/mlFEU Sodium 128 L (136-145) mmol/L Potassium 3.0 L (3.5-5.1) mmol/L Chloride 95 L (98-107) mmol/L Carbon Dioxide (21.0-32.0) mmol/L BUN 27 H (7-18) mg/dL Creatinine 2.62 H (0.55-1.02) mg/dL AST 64 H (15-37) U/L Albumin 2.8 L (3.4-5.0) g/dL Urine Protein (Negative) mg/dL Urine Blood (Negative) 05/30/18 05/31/18 05/31/18 Range/Units 19:30 06:50 06:50 WBC 0.61 L* D (4.4-10.8) k/cumm RBC 2.20 L (4.00-5.20) m/cumm Hgb 7.2 L D (12.0-15.5) g/dL Hct 21.4 L D (36.0-46.0) % MCV 97.3 H (80-95) fL MCH (27.0-33.0) pg RDW 17.1 H (11.7-14.6) % Plt Count 7 L* (130-400) x1000/uL Absolute Neutrophils 0.17 L* (1.2-6.7) k/cumm Absolute Lymphocytes 0.37 L (1.2-3.4) k/cumm Absolute Monocytes 0.05 L (0.11-0.7) k/cumm D-Dimer (<500) ng/mlFEU Sodium (136-145) mmol/L Potassium (3.5-5.1) mmol/L Chloride (98-107) mmol/L Carbon Dioxide 18.5 L (21.0-32.0) mmol/L BUN (7-18) mg/dL Creatinine (0.55-1.02) mg/dL AST (15-37) U/L Albumin (3.4-5.0) g/dL Urine Protein 100 H (Negative) mg/dL Urine Blood Trace-lysed H (Negative) Vital Signs Temp 35.3 C L 05/31/18 13:31 Pulse 74 05/31/18 13:31 Resp 16 05/31/18 13:31 BP 96/69 L 05/31/18 13:31 Pulse Ox 98 05/31/18 13:31 Intake & Output 05/30/18 05/31/18 05/31/18 23:59 11:59 23:59 Intake Total 5348.333 / 5348.333 2397.5 / 2397.5 Output Total 700 / 700 500 / 500 50 / 50 Balance 4648.333 / 4648.333 1897.5 / 1897.5 -50 / -50 Weight 74.843 kg Intake: IV 5348.333 / 5348.333 1907.5 / 1907.5 Oral 490 / 490 Output: Urine 700 / 700 500 / 500 Stool 50 / 50 Other: Urine Color Straw Straw Urine Appearance Clear Clear Urine Odor None Normal Stool Occult Blood Negative Stool Size Small Stool Characteristics Liquid Voiding Methods Toilet Toilet Laboratory Results WBC 0.61 k/cumm (4.4-10.8) L* D 05/31/18 06:50 RBC 2.20 m/cumm (4.00-5.20) L 05/31/18 06:50 Hgb 7.2 g/dL (12.0-15.5) L D 05/31/18 06:50 Hct 21.4 % (36.0-46.0) L D 05/31/18 06:50 MCV 97.3 fL (80-95) H 05/31/18 06:50 MCH 32.7 pg (27.0-33.0) 05/31/18 06:50 MCHC 33.6 g/dL (32.0-36.0) 05/31/18 06:50 RDW 17.1 % (11.7-14.6) H 05/31/18 06:50 Plt Count 7 x1000/uL (130-400) L* 05/31/18 06:50 MPV fL (8.0-11.0) 05/31/18 06:50 Immature Gran % 0.0 05/31/18 06:50 Neutrophils % 28.0 05/31/18 06:50 Lymphocytes % 59.0 05/31/18 06:50 Monocytes % 9.0 05/31/18 06:50 Eosinophils % 3.0 05/31/18 06:50 Basophils % 0.0 05/31/18 06:50 Absolute Neutrophils 0.17 k/cumm (1.2-6.7) L* 05/31/18 06:50 Absolute Lymphocytes 0.37 k/cumm (1.2-3.4) L 05/31/18 06:50 Absolute Monocytes 0.05 k/cumm (0.11-0.7) L 05/31/18 06:50 Absolute Eosinophils 0.02 k/cumm (0.0-0.7) 05/31/18 06:50 Absolute Basophils 0.00 k/cumm (0.0-0.2) 05/31/18 06:50 Differential Comment Manual differential 05/31/18 06:50 Atypical Lymphocytes 1 05/31/18 06:50 RBC Morphology See below 05/31/18 06:50 Poikilocytosis 2+ 05/31/18 06:50 Anisocytosis 2+ 05/31/18 06:50 PT 10.5 sec (9.3-10.8) 05/30/18 15:15 INR 1.1 (1.0-3.5) 05/30/18 15:15 D-Dimer 1664 ng/mlFEU (<500) H 05/30/18 15:15 Sodium 136 mmol/L (136-145) 05/31/18 06:50 Potassium 3.5 mmol/L (3.5-5.1) 05/31/18 06:50 Chloride 107 mmol/L (98-107) 05/31/18 06:50 Carbon Dioxide 18.5 mmol/L (21.0-32.0) L 05/31/18 06:50 Anion Gap 10.5 mmol/L (3-11) 05/31/18 06:50 BUN 27 mg/dL (7-18) H 05/30/18 15:15 Creatinine 2.62 mg/dL (0.55-1.02) H 05/30/18 15:15 Estimated GFR/1.73 m2 19.73 (mL/min/1.73m2) 05/30/18 15:15 Glucose 96 mg/dL (70-100) 05/30/18 15:15 Lactate 0.9 mmol/L (0.6-1.4) 05/30/18 16:10 Calcium 9.1 mg/dL (8.5-10.1) 05/30/18 15:15 Total Bilirubin 0.8 mg/dL (0.2-1.0) 05/30/18 15:15 AST 64 U/L (15-37) H 05/30/18 15:15 ALT 14 U/L (12-78) 05/30/18 15:15 Alkaline Phosphatase 98 U/L (46-116) 05/30/18 15:15 Troponin I < 0.02 ng/mL (0.00-0.06) 05/30/18 15:15 Total Protein 7.1 g/dL (6.4-8.2) 05/30/18 15:15 Albumin 2.8 g/dL (3.4-5.0) L 05/30/18 15:15 Urine Color Yellow (Yellow) 05/30/18 19:30 Urine Clarity Clear 05/30/18 19:30 Urine pH 5.5 (5-8) 05/30/18 19:30 Ur Specific [place] 1.015 (1.005-1.025) 05/30/18 19:30 Urine Protein 100 mg/dL (Negative) H 05/30/18 19:30 Urine Ketones Negative mg/dL (Negative) 05/30/18 19:30 Urine Blood Trace-lysed (Negative) H 05/30/18 19:30 Urine Nitrite Negative (Negative) 05/30/18 19:30 Urine Bilirubin Negative (Negative) 05/30/18 19:30 Urine Urobilinogen 0.2 EU/dL (Up TO 0.2) 05/30/18 19:30 Ur Leukocyte Esterase Negative (Negative) 05/30/18 19:30 Urine RBC Negative (0-2) 05/30/18 19:30 Urine WBC 3-5 HPF (0-5) 05/30/18 19:30 Ur Epithelial Cells Few HPF (Negative) 05/30/18 19:30 Urine Crystals Moderate amorphous HPF (Negative) 05/30/18 19:30 Urine Bacteria Negative HPF (Negative) 05/30/18 19:30 Urine Casts 3-5 fine granular LPF (Negative) 05/30/18 19:30 Urine Mucus Negative (Negative) 05/30/18 19:30 Ur Culture Indicated? No 05/30/18 19:30 Urine Glucose Negative mg/dL (Negative) 05/30/18 19:30
[2018-05-31] MEDS: CEFEPIME 2 GM in Normal Saline 100 ML IVPB (16:00)
[2018-06-01] VITALS (7 sets, daily range): BP systolic 100–117; BP diastolic 74–81; PULSE 73–80; RESP 14–19; TEMP 35.8–36.8; O2SAT 97–100
[2018-06-01] MEDS: POTASSIUM CHLORIDE/0.9% NACL 1,000 ML 150 MEQ IV (02:14)
[2018-06-01 08:25] LABS: Abs Immature Grans 0.03 k/cumm (0.0-0.09); Absolute Lymphocyte Count 0.19 k/cumm (1.2-3.4); Absolute Monocyte Count 0.02 k/cumm (0.11-0.7); Anion Gap 9.1 mmol/L (3-11); BUN 21 mg/dL (7-18); CO2 18.9 mmol/L (21.0-32.0); CREATININE 1.91 mg/dL (0.55-1.02); Calcium 7.6 mg/dL (8.5-10.1); Chloride 108 mmol/L (98-107); Estimated GFR 28.41 (mL/min/1.73m2); Glucose 78 mg/dL (70-100); HCT 21.1 % (36.0-46.0); HGB 7.1 g/dL (12.0-15.5); Mean Corp. HGB Concentration 33.6 g/dL (32.0-36.0); Mean Corpuscular Volume 98.1 fL (80-95); Potassium 3.9 mmol/L (3.5-5.1); RBC 2.15 m/cumm (4.00-5.20); RBC Distribution Width 17.5 % (11.7-14.6); Sodium 136 mmol/L (136-145)
[2018-06-01] MEDS: VANCOMYCIN 750 MG in Normal Saline 250 ML 166.667 MG IVPB (08:35)
[2018-06-01] MEDS: Benzonatate 100 MG CAP PO ×3 (08:36→20:08)
[2018-06-01] MEDS: Escitalopram 20 MG TAB PO (08:36)
[2018-06-01] MEDS: buPROPion-XL 150 MG TABCR 300 MG PO (08:36)
[2018-06-01] MEDS: Acyclovir 400 MG TAB 800 MG PO ×2 (08:36→20:08)
[2018-06-01 09:03] LABS: White Blood Cell Count 0.37 k/cumm (4.4-10.8)
[2018-06-01 09:04] LABS: Platelet Count 19 x1000/uL (130-400)
[2018-06-01 09:05] LABS: Absolute Eosinophil Count 0.04 k/cumm (0.0-0.7); Absolute Neutrophil Count 0.13 k/cumm (1.2-6.7); Atypical Lymphocytes % 0
[2018-06-01 09:06] LABS: Diff Comment Manual Differential
[2018-06-01 09:08] LABS: Anisocytosis 1+
--- NOTE | 2018-06-01 10:27 | PDOC.CMPRO ---
- If Service Date Differs Date of service: 06/01/18 Time of Service: 10:27 Care Management Progress Note S/O: Stacey is lying in bed when this conventional mortgage underwriter visits this morning. Yesterday she received one unit of platelets. Stacey remains on reverse precautions at this time and continues to receive IV antibiotics. DC plan reviewed which remains the same at this time. A: 43 y/o female admitted 05/30/18 for fever/vomiting P: Stacey will continue as a medical surgical patient no change in status today. She is receiving IV antibiotics and is on oral antiviral. She will return home with when medically ready per provider.
--- NOTE | 2018-06-01 10:33 | CMPROGNOTE_ITS ---
- If Service Date Differs Date of service: 06/01/18 Time of Service: 10:27 Care Management Progress Note S/O: Stacey is lying in bed when this public relations writer visits this morning. Yesterday she received one unit of platelets. Stacey remains on reverse precautions at this time and continues to receive IV antibiotics. DC plan reviewed which remains the same at this time. A: 43 y/o female admitted 05/30/18 for fever/vomiting P: Stacey will continue as a medical surgical patient no change in status today. She is receiving IV antibiotics and is on oral antiviral. She will return home with when medically ready per provider.
[2018-06-01] MEDS: Acetaminophen 500 MG TAB 1000 MG PO (12:20)
--- NOTE | 2018-06-01 12:25 | W.PM.PROGNOT ---
Assessment and Plan (1) Neutropenic fever: Current visit: Yes Status: Acute Initial presentation with neutropenic fever, with an ANC of 0.17. Urinalysis appears to be negative, but with imaging showing evidence of potential sinusitis as well as pulmonary infiltrate. CT of the sinuses show paranasal sinus inflammatory disease, most severe in the maxillary sinuses. Severe mucosal thickening was also noted with fluid levels within both maxillary sinuses, as seen with acute sinusitis. Also with bilateral mastoid effusions. Chest x-ray findings were suspicious for mild airspace disease in the posterior right lower lobe. Given her neutropenia the patient was initiated by cefepime (D#3) in the emergency department, with vancomycin (D#2) added due to evidence of pulmonary infiltrates. Blood Cultures with no growth X24 hours. Patient remains afebrile since time of admission. Monitor closely. Given neutropenia Ms. Lugo was also started on Neupogen. (2) Pneumonia: Current visit: No Status: Acute Day #3 of Cefepime, #2 Vancomycin. (3) B-cell lymphoma: Current visit: No Status: Acute Discussed case with [facility] oncology. Patient is currently maintained on radio immunotherapy as well as rituximab, last received on May 03 of this year. (4) Pancytopenia: Current visit: Yes Status: Acute Evidence of significant pancytopenia, with neutropenia and significant thrombocytopenia by lab work. No evidence of Schistocytes by blood smear, and with normal coags and bilirubin. Doubt TTP/HUS or DIC. S/p platelet transfusion with resultant increase from 7 --> 19. Mrs. Sahu is maintained on the radioimmunotherapy and rituximab for treatment of her relapsed follicular B-cell lymphoma. As per discussion with oncology at [facility] the expected josey of this combination treatment is rather prolonged. Following discussion plan will be administration of Neupogen as well as transfusion with irradiated platelets as above to maintain a count greater than 10. Monitor CBC carefully. (5) DVT prophylaxis: Current visit: Yes Status: Acute Avoid heparin given significant thrombocytopenia. Ensure SCDs. Subjective Interval history since last seen: 43-year-old woman with past medical history significant for follicular B-cell lymphoma, currently on treatment with radio immunotherapy and rituximab, admitted from an [facility] emergency department on May 30 with a diagnosis of neutropenic fever. Workup in the emergency department showed evidence for neutropenia, anemia, and significance thrombocytopenia. Chest x-ray showed evidence of a likely infiltrates. Patient was initially started on cefepime, with vancomycin being initiated due to evidence of potential pulmonary infiltrate. Mrs. Sahu was transfused with platelets, and Neupogen was initiated yesterday. She continues to report improvement in her overall symptoms, and she has remained afebrile since the time of admission. No other overnight events reported. Exam Const General: cooperative Orientation: alert, awake and oriented x3 Neck Neck: supple Resp Effort & Inspection: able to speak in complete sentences and not labored Auscultation: clear to auscultation bilaterally Cardio Rate: tachycardic Rhythm: regular rhythm Heart Sounds: S1 normal and S2 normal GI Palpation: soft Percussion: normal to percussion Auscultation: normal bowel sounds Skin General skin exam: no rashes or lesions noted Extrem General: no pedal edema Objective Objective Clinical Data: Abnormal lab results 06/01/18 06/01/18 Range/Units 07:58 07:58 WBC 0.37 L* D (4.4-10.8) k/cumm RBC 2.15 L (4.00-5.20) m/cumm Hgb 7.1 L (12.0-15.5) g/dL Hct 21.1 L (36.0-46.0) % MCV 98.1 H (80-95) fL RDW 17.5 H (11.7-14.6) % Plt Count 19 L* D (130-400) x1000/uL Absolute Neutrophils 0.13 L* (1.2-6.7) k/cumm Absolute Lymphocytes 0.19 L (1.2-3.4) k/cumm Absolute Monocytes 0.02 L (0.11-0.7) k/cumm Chloride 108 H (98-107) mmol/L Carbon Dioxide 18.9 L (21.0-32.0) mmol/L BUN 21 H D (7-18) mg/dL Creatinine 1.91 H D (0.55-1.02) mg/dL Calcium 7.6 L (8.5-10.1) mg/dL Vital Signs Temp 36.6 C 06/01/18 11:37 Pulse 76 06/01/18 11:37 Resp 16 06/01/18 11:37 BP 100/74 06/01/18 11:37 Pulse Ox 100 09/06/18 11:37 Intake & Output 05/31/18 06/01/18 06/01/18 23:59 11:59 23:59 Intake Total 1863.0 / 1863.0 3520 / 3520 Output Total 50 / 50 400 / 400 Balance 1813.0 / 1813.0 3120 / 3120 Intake: IV 1423.0 / 1423.0 1570 / 1570 Oral 240 / 240 1500 / 1500 Blood Product 200 / 200 400 / 400 Pheresis Platelets Unit 200 / 200 200 / 200 [id number] Pheresis Platelets Unit 200 / 200 [id number]* Other 50 / 50 Pheresis Platelets Unit 50 / 50 [id number]* Output: Urine 400 / 400 Stool 50 / 50 Other: Urine Color Yellow Urine Appearance Clear Clear Urine Odor Normal Stool Occult Blood Negative Stool Size Small Stool Characteristics Liquid Voiding Methods Toilet Laboratory Results WBC 0.37 k/cumm (4.4-10.8) L* D 06/01/18 07:58 RBC 2.15 m/cumm (4.00-5.20) L 06/01/18 07:58 Hgb 7.1 g/dL (12.0-15.5) L 06/01/18 07:58 Hct 21.1 % (36.0-46.0) L 06/01/18 07:58 MCV 98.1 fL (80-95) H 06/01/18 07:58 MCH 33.0 pg (27.0-33.0) 06/01/18 07:58 MCHC 33.6 g/dL (32.0-36.0) 06/01/18 07:58 RDW 17.5 % (11.7-14.6) H 06/01/18 07:58 Plt Count 19 x1000/uL (130-400) L* D 06/01/18 07:58 MPV 11.0 fL (8.0-11.0) 06/01/18 07:58 Immature Gran % 0.0 06/01/18 07:58 Neutrophils % 34.0 06/01/18 07:58 Lymphocytes % 50.0 06/01/18 07:58 Monocytes % 6.0 06/01/18 07:58 Eosinophils % 10.0 06/01/18 07:58 Basophils % 0.0 06/01/18 07:58 Absolute Neutrophils 0.13 k/cumm (1.2-6.7) L* 06/01/18 07:58 Band Neutrophils 0.0 % 06/01/18 07:58 Absolute Lymphocytes 0.19 k/cumm (1.2-3.4) L 06/01/18 07:58 Absolute Monocytes 0.02 k/cumm (0.11-0.7) L 06/01/18 07:58 Absolute Eosinophils 0.04 k/cumm (0.0-0.7) 06/01/18 07:58 Absolute Basophils 0.00 k/cumm (0.0-0.2) 06/01/18 07:58 Differential Comment Manual differential 06/01/18 07:58 Atypical Lymphocytes 0 06/01/18 07:58 RBC Morphology See below 05/31/18 06:50 Poikilocytosis 2+ 05/31/18 06:50 Anisocytosis 1+ 06/01/18 07:58 PT 10.5 sec (9.3-10.8) 05/30/18 15:15 INR 1.1 (1.0-3.5) 05/30/18 15:15 D-Dimer 1664 ng/mlFEU (<500) H 05/30/18 15:15 Sodium 136 mmol/L (136-145) 06/01/18 07:58 Potassium 3.9 mmol/L (3.5-5.1) 06/01/18 07:58 Chloride 108 mmol/L (98-107) H 06/01/18 07:58 Carbon Dioxide 18.9 mmol/L (21.0-32.0) L 06/01/18 07:58 Anion Gap 9.1 mmol/L (3-11) 06/01/18 07:58 BUN 21 mg/dL (7-18) H D 06/01/18 07:58 Creatinine 1.91 mg/dL (0.55-1.02) H D 06/01/18 07:58 Estimated GFR/1.73 m2 28.41 (mL/min/1.73m2) 06/01/18 07:58 Glucose 78 mg/dL (70-100) 06/01/18 07:58 Lactate 0.9 mmol/L (0.6-1.4) 05/30/18 16:10 Calcium 7.6 mg/dL (8.5-10.1) L 06/01/18 07:58 Total Bilirubin 0.8 mg/dL (0.2-1.0) 05/30/18 15:15 AST 64 U/L (15-37) H 05/30/18 15:15 ALT 14 U/L (12-78) 05/30/18 15:15 Alkaline Phosphatase 98 U/L (46-116) 05/30/18 15:15 Troponin I < 0.02 ng/mL (0.00-0.06) 05/30/18 15:15 Total Protein 7.1 g/dL (6.4-8.2) 05/30/18 15:15 Albumin 2.8 g/dL (3.4-5.0) L 05/30/18 15:15 Urine Color Yellow (Yellow) 05/30/18 19:30 Urine Clarity Clear 05/30/18 19:30 Urine pH 5.5 (5-8) 05/30/18 19:30 Ur Specific [place] 1.015 (1.005-1.025) 05/30/18 19:30 Urine Protein 100 mg/dL (Negative) H 05/30/18 19:30 Urine Ketones Negative mg/dL (Negative) 05/30/18 19:30 Urine Blood Trace-lysed (Negative) H 05/30/18 19:30 Urine Nitrite Negative (Negative) 05/30/18 19:30 Urine Bilirubin Negative (Negative) 05/30/18 19:30 Urine Urobilinogen 0.2 EU/dL (Up TO 0.2) 05/30/18 19:30 Ur Leukocyte Esterase Negative (Negative) 05/30/18 19:30 Urine RBC Negative (0-2) 05/30/18 19:30 Urine WBC 3-5 HPF (0-5) 05/30/18 19:30 Ur Epithelial Cells Few HPF (Negative) 05/30/18 19:30 Urine Crystals Moderate amorphous HPF (Negative) 05/30/18 19:30 Urine Bacteria Negative HPF (Negative) 05/30/18 19:30 Urine Casts 3-5 fine granular LPF (Negative) 05/30/18 19:30 Urine Mucus Negative (Negative) 05/30/18 19:30 Ur Culture Indicated? No 05/30/18 19:30 Urine Glucose Negative mg/dL (Negative) 05/30/18 19:30 Patient ABO/Rh O Negative 05/31/18 14:05
--- NOTE | 2018-06-01 12:40 | PGE_ITS ---
Assessment and Plan (1) Neutropenic fever: Current visit: Yes Status: Acute Initial presentation with neutropenic fever, with an ANC of 0.17. Urinalysis appears to be negative, but with imaging showing evidence of potential sinusitis as well as pulmonary infiltrate. CT of the sinuses show paranasal sinus inflammatory disease, most severe in the maxillary sinuses. Severe mucosal thickening was also noted with fluid levels within both maxillary sinuses, as seen with acute sinusitis. Also with bilateral mastoid effusions. Chest x-ray findings were suspicious for mild airspace disease in the posterior right lower lobe. Given her neutropenia the patient was initiated by cefepime (D#3) in the emergency department, with vancomycin (D#2) added due to evidence of pulmonary infiltrates. Blood Cultures with no growth X24 hours. Patient remains afebrile since time of admission. Monitor closely. Given neutropenia Ms. Lugo was also started on Neupogen. (2) Pneumonia: Current visit: No Status: Acute Day #3 of Cefepime, #2 Vancomycin. (3) B-cell lymphoma: Current visit: No Status: Acute Discussed case with [facility] oncology. Patient is currently maintained on radio immunotherapy as well as rituximab, last received on May 03 of this year. (4) Pancytopenia: Current visit: Yes Status: Acute Evidence of significant pancytopenia, with neutropenia and significant thrombocytopenia by lab work. No evidence of Schistocytes by blood smear, and with normal coags and bilirubin. Doubt TTP/HUS or DIC. S/p platelet transfusion with resultant increase from 7 --> 19. Mrs. Sahu is maintained on the radioimmunotherapy and rituximab for treatment of her relapsed follicular B-cell lymphoma. As per discussion with oncology at [facility] the expected josey of this combination treatment is rather prolonged. Following discussion plan will be administration of Neupogen as well as transfusion with irradiated platelets as above to maintain a count greater than 10. Monitor CBC carefully. (5) DVT prophylaxis: Current visit: Yes Status: Acute Avoid heparin given significant thrombocytopenia. Ensure SCDs. Subjective Interval history since last seen: 43-year-old woman with past medical history significant for follicular B-cell lymphoma, currently on treatment with radio immunotherapy and rituximab, admitted from an [facility] emergency department on May 30 with a diagnosis of neutropenic fever. Workup in the emergency department showed evidence for neutropenia, anemia, and significance thrombocytopenia. Chest x-ray showed evidence of a likely infiltrates. Patient was initially started on cefepime, with vancomycin being initiated due to evidence of potential pulmonary infiltrate. Mrs. Sahu was transfused with platelets, and Neupogen was initiated yesterday. She continues to report improvement in her overall symptoms, and she has remained afebrile since the time of admission. No other overnight events reported. Exam Const General: cooperative Orientation: alert, awake and oriented x3 Neck Neck: supple Resp Effort & Inspection: able to speak in complete sentences and not labored Auscultation: clear to auscultation bilaterally Cardio Rate: tachycardic Rhythm: regular rhythm Heart Sounds: S1 normal and S2 normal GI Palpation: soft Percussion: normal to percussion Auscultation: normal bowel sounds Skin General skin exam: no rashes or lesions noted Extrem General: no pedal edema Objective Objective Clinical Data: Abnormal lab results 06/01/18 06/01/18 Range/Units 07:58 07:58 WBC 0.37 L* D (4.4-10.8) k/cumm RBC 2.15 L (4.00-5.20) m/cumm Hgb 7.1 L (12.0-15.5) g/dL Hct 21.1 L (36.0-46.0) % MCV 98.1 H (80-95) fL RDW 17.5 H (11.7-14.6) % Plt Count 19 L* D (130-400) x1000/uL Absolute Neutrophils 0.13 L* (1.2-6.7) k/cumm Absolute Lymphocytes 0.19 L (1.2-3.4) k/cumm Absolute Monocytes 0.02 L (0.11-0.7) k/cumm Chloride 108 H (98-107) mmol/L Carbon Dioxide 18.9 L (21.0-32.0) mmol/L BUN 21 H D (7-18) mg/dL Creatinine 1.91 H D (0.55-1.02) mg/dL Calcium 7.6 L (8.5-10.1) mg/dL Vital Signs Temp 36.6 C 06/01/18 11:37 Pulse 76 06/01/18 11:37 Resp 16 06/01/18 11:37 BP 100/74 06/01/18 11:37 Pulse Ox 100 09/06/18 11:37 Intake & Output 05/31/18 06/01/18 06/01/18 23:59 11:59 23:59 Intake Total 1863.0 / 1863.0 3520 / 3520 Output Total 50 / 50 400 / 400 Balance 1813.0 / 1813.0 3120 / 3120 Intake: IV 1423.0 / 1423.0 1570 / 1570 Oral 240 / 240 1500 / 1500 Blood Product 200 / 200 400 / 400 Pheresis Platelets Unit 200 / 200 200 / 200 [id number] Pheresis Platelets Unit 200 / 200 [id number]* Other 50 / 50 Pheresis Platelets Unit 50 / 50 [id number]* Output: Urine 400 / 400 Stool 50 / 50 Other: Urine Color Yellow Urine Appearance Clear Clear Urine Odor Normal Stool Occult Blood Negative Stool Size Small Stool Characteristics Liquid Voiding Methods Toilet Laboratory Results WBC 0.37 k/cumm (4.4-10.8) L* D 06/01/18 07:58 RBC 2.15 m/cumm (4.00-5.20) L 06/01/18 07:58 Hgb 7.1 g/dL (12.0-15.5) L 06/01/18 07:58 Hct 21.1 % (36.0-46.0) L 06/01/18 07:58 MCV 98.1 fL (80-95) H 06/01/18 07:58 MCH 33.0 pg (27.0-33.0) 06/01/18 07:58 MCHC 33.6 g/dL (32.0-36.0) 06/01/18 07:58 RDW 17.5 % (11.7-14.6) H 06/01/18 07:58 Plt Count 19 x1000/uL (130-400) L* D 06/01/18 07:58 MPV 11.0 fL (8.0-11.0) 06/01/18 07:58 Immature Gran % 0.0 06/01/18 07:58 Neutrophils % 34.0 06/01/18 07:58 Lymphocytes % 50.0 06/01/18 07:58 Monocytes % 6.0 06/01/18 07:58 Eosinophils % 10.0 06/01/18 07:58 Basophils % 0.0 06/01/18 07:58 Absolute Neutrophils 0.13 k/cumm (1.2-6.7) L* 06/01/18 07:58 Band Neutrophils 0.0 % 06/01/18 07:58 Absolute Lymphocytes 0.19 k/cumm (1.2-3.4) L 06/01/18 07:58 Absolute Monocytes 0.02 k/cumm (0.11-0.7) L 06/01/18 07:58 Absolute Eosinophils 0.04 k/cumm (0.0-0.7) 06/01/18 07:58 Absolute Basophils 0.00 k/cumm (0.0-0.2) 06/01/18 07:58 Differential Comment Manual differential 06/01/18 07:58 Atypical Lymphocytes 0 06/01/18 07:58 RBC Morphology See below 05/31/18 06:50 Poikilocytosis 2+ 05/31/18 06:50 Anisocytosis 1+ 06/01/18 07:58 PT 10.5 sec (9.3-10.8) 05/30/18 15:15 INR 1.1 (1.0-3.5) 05/30/18 15:15 D-Dimer 1664 ng/mlFEU (<500) H 05/30/18 15:15 Sodium 136 mmol/L (136-145) 06/01/18 07:58 Potassium 3.9 mmol/L (3.5-5.1) 06/01/18 07:58 Chloride 108 mmol/L (98-107) H 06/01/18 07:58 Carbon Dioxide 18.9 mmol/L (21.0-32.0) L 06/01/18 07:58 Anion Gap 9.1 mmol/L (3-11) 06/01/18 07:58 BUN 21 mg/dL (7-18) H D 06/01/18 07:58 Creatinine 1.91 mg/dL (0.55-1.02) H D 06/01/18 07:58 Estimated GFR/1.73 m2 28.41 (mL/min/1.73m2) 06/01/18 07:58 Glucose 78 mg/dL (70-100) 06/01/18 07:58 Lactate 0.9 mmol/L (0.6-1.4) 05/30/18 16:10 Calcium 7.6 mg/dL (8.5-10.1) L 06/01/18 07:58 Total Bilirubin 0.8 mg/dL (0.2-1.0) 05/30/18 15:15 AST 64 U/L (15-37) H 05/30/18 15:15 ALT 14 U/L (12-78) 05/30/18 15:15 Alkaline Phosphatase 98 U/L (46-116) 05/30/18 15:15 Troponin I < 0.02 ng/mL (0.00-0.06) 05/30/18 15:15 Total Protein 7.1 g/dL (6.4-8.2) 05/30/18 15:15 Albumin 2.8 g/dL (3.4-5.0) L 05/30/18 15:15 Urine Color Yellow (Yellow) 05/30/18 19:30 Urine Clarity Clear 05/30/18 19:30 Urine pH 5.5 (5-8) 05/30/18 19:30 Ur Specific [place] 1.015 (1.005-1.025) 05/30/18 19:30 Urine Protein 100 mg/dL (Negative) H 05/30/18 19:30 Urine Ketones Negative mg/dL (Negative) 05/30/18 19:30 Urine Blood Trace-lysed (Negative) H 05/30/18 19:30 Urine Nitrite Negative (Negative) 05/30/18 19:30 Urine Bilirubin Negative (Negative) 05/30/18 19:30 Urine Urobilinogen 0.2 EU/dL (Up TO 0.2) 05/30/18 19:30 Ur Leukocyte Esterase Negative (Negative) 05/30/18 19:30 Urine RBC Negative (0-2) 05/30/18 19:30 Urine WBC 3-5 HPF (0-5) 05/30/18 19:30 Ur Epithelial Cells Few HPF (Negative) 05/30/18 19:30 Urine Crystals Moderate amorphous HPF (Negative) 05/30/18 19:30 Urine Bacteria Negative HPF (Negative) 05/30/18 19:30 Urine Casts 3-5 fine granular LPF (Negative) 05/30/18 19:30 Urine Mucus Negative (Negative) 05/30/18 19:30 Ur Culture Indicated? No 05/30/18 19:30 Urine Glucose Negative mg/dL (Negative) 05/30/18 19:30 Patient ABO/Rh O Negative 05/31/18 14:05
[2018-06-01] MEDS: Normal Saline Flush 10 ML SYR IVP (16:06)
[2018-06-01] MEDS: CEFEPIME 2 GM in Normal Saline 100 ML IVPB (16:06)
[2018-06-01] MEDS: LORazepam 1 MG TAB PO (22:24)
[2018-06-02] VITALS (11 sets, daily range): BP systolic 100–109; BP diastolic 61–79; PULSE 62–85; RESP 16–18; TEMP 36–37; O2SAT 98–100
[2018-06-02] MEDS: VANCOMYCIN 750 MG in Normal Saline 250 ML 166.667 MG IVPB ×2 (05:38→23:02)
[2018-06-02] MEDS: Normal Saline Flush 10 ML SYR IVP ×2 (07:33→15:49)
[2018-06-02] MEDS: Acyclovir 400 MG TAB 800 MG PO ×2 (07:33→19:59)
[2018-06-02] MEDS: Benzonatate 100 MG CAP PO ×3 (07:33→19:59)
[2018-06-02] MEDS: buPROPion-XL 150 MG TABCR 300 MG PO (07:33)
[2018-06-02] MEDS: Escitalopram 20 MG TAB PO (07:34)
[2018-06-02 07:49] LABS: Abs Immature Grans 0.04 k/cumm (0.0-0.09); Mean Corp. HGB Concentration 33.9 g/dL (32.0-36.0); Mean Corpuscular Hemoglobin 33.3 pg (27.0-33.0); Mean Corpuscular Volume 98.4 fL (80-95); Mean Platelet Volume 10.3 fL (8.0-11.0); RBC 1.92 m/cumm (4.00-5.20); RBC Distribution Width 17.3 % (11.7-14.6)
[2018-06-02 07:52] LABS: BUN 17 mg/dL (7-18); CREATININE 1.86 mg/dL (0.55-1.02); Calcium 7.8 mg/dL (8.5-10.1); Chloride 107 mmol/L (98-107); Glucose 83 mg/dL (70-100); Potassium 3.5 mmol/L (3.5-5.1); Sodium 135 mmol/L (136-145)
[2018-06-02 08:29] LABS: White Blood Cell Count 0.57 k/cumm (4.4-10.8)
[2018-06-02 08:30] LABS: HCT 18.9 % (36.0-46.0); HGB 6.4 g/dL (12.0-15.5)
[2018-06-02 08:31] LABS: Platelet Count 18 x1000/uL (130-400)
[2018-06-02 08:33] LABS: Absolute Eosinophil Count 0.02 k/cumm (0.0-0.7); Absolute Lymphocyte Count 0.32 k/cumm (1.2-3.4); Absolute Monocyte Count 0.04 k/cumm (0.11-0.7); Absolute Neutrophil Count 0.17 k/cumm (1.2-6.7); Atypical Lymphocytes % 0
[2018-06-02 08:34] LABS: Diff Comment Manual Differential; Macrocytosis 1+
[2018-06-02] MEDS: Magnesium Oxide 400 MG TAB PO (08:59)
[2018-06-02] MEDS: Potassium Chloride 20 MEQ TABCR 40 MEQ PO (08:59)
[2018-06-02] MEDS: Acetaminophen 500 MG TAB 1000 MG PO (14:48)
--- NOTE | 2018-06-02 15:35 | W.PM.PROGNOT ---
Date of service: 06/02/18 Time of Service: 15:36 Assessment and Plan (1) Neutropenic fever: Current visit: Yes Status: Acute Initial presentation with neutropenic fever, with an ANC of 0.17. Urinalysis appears to be negative, but with imaging showing evidence of potential sinusitis as well as pulmonary infiltrate. CT of the sinuses show paranasal sinus inflammatory disease, most severe in the maxillary sinuses. Severe mucosal thickening was also noted with fluid levels within both maxillary sinuses, as seen with acute sinusitis. Also with bilateral mastoid effusions. Chest x-ray findings were suspicious for mild airspace disease in the posterior right lower lobe. Given her neutropenia the patient was initiated by cefepime (D#4) in the emergency department, with vancomycin (D#3) added due to evidence of pulmonary infiltrates. Blood Cultures with no growth X48 hours. Patient remains afebrile since time of admission. Monitor closely. Given neutropenia Ms. Lugo was also started on Neupogen. (2) Pneumonia: Current visit: No Status: Acute Day #4 of Cefepime, #3 Vancomycin. (3) B-cell lymphoma: Current visit: No Status: Acute Discussed case with [facility] oncology. Patient is currently maintained on radio immunotherapy as well as rituximab, last received on May 03 of this year. (4) Pancytopenia: Current visit: Yes Status: Acute Evidence of significant pancytopenia, with neutropenia and significant thrombocytopenia by lab work. No evidence of Schistocytes by blood smear, and with normal coags and bilirubin. Doubt TTP/HUS or DIC. S/p platelet transfusion with resultant increase from 7 --> 19, now at 18 today. Significant anemia with Hemoglobin now <7 - will transfuse with 2 units of PRBC's. Mrs. Sahu is maintained on the radioimmunotherapy and rituximab for treatment of her relapsed follicular B-cell lymphoma. As per discussion with oncology at [facility] the expected josey of this combination treatment is rather prolonged. Following discussion plan will be administration of Neupogen as well as transfusion with irradiated platelets and PRBCs as above to maintain a count greater than 10 and Hemoglobin above 7. Monitor CBC carefully. (5) DVT prophylaxis: Current visit: Yes Status: Acute Avoid heparin given significant thrombocytopenia. Continue SCDs. Subjective Interval history since last seen: 43-year-old woman with past medical history significant for follicular B-cell lymphoma, currently on treatment with radioimmunotherapy and rituximab, admitted from an [facility] emergency department on May 30 with a diagnosis of neutropenic fever. Workup in the emergency department showed evidence for neutropenia, anemia, and significant thrombocytopenia. Chest x-ray showed evidence of likely infiltrates. Patient was initially started on cefepime, with vancomycin being initiated due to evidence of potential pulmonary infiltrate. Mrs. Sahu was transfused with platelets, and Neupogen was initiated yesterday. She continues to report improvement in her overall symptoms, and she has remained afebrile since the time of admission. Labwork this morning showed significant anemia, with worsening hemoglobin now <7. No other overnight events reported. Exam Const General: cooperative Orientation: alert, awake and oriented x3 Neck Neck: supple Resp Effort & Inspection: able to speak in complete sentences, not labored and no use of accessory muscles Auscultation: clear to auscultation bilaterally Cardio Rate: tachycardic Rhythm: regular rhythm Heart Sounds: S1 normal and S2 normal GI Inspection: normal to inspection Palpation: soft Percussion: normal to percussion Auscultation: normal bowel sounds Skin General skin exam: no rashes or lesions noted Extrem General: no pedal edema Objective Objective Clinical Data: Abnormal lab results 05/31/18 06/02/18 06/02/18 Range/Units 14:05 07:38 07:38 WBC 0.57 L* D (4.4-10.8) k/cumm RBC 1.92 L (4.00-5.20) m/cumm Hgb 6.4 L* (12.0-15.5) g/dL Hct 18.9 L* (36.0-46.0) % MCV 98.4 H (80-95) fL MCH 33.3 H (27.0-33.0) pg RDW 17.3 H (11.7-14.6) % Plt Count 18 L* (130-400) x1000/uL Absolute Neutrophils 0.17 L* (1.2-6.7) k/cumm Absolute Lymphocytes 0.32 L (1.2-3.4) k/cumm Absolute Monocytes 0.04 L (0.11-0.7) k/cumm Sodium 135 L (136-145) mmol/L Carbon Dioxide 17.0 L (21.0-32.0) mmol/L Creatinine 1.86 H (0.55-1.02) mg/dL Calcium 7.8 L (8.5-10.1) mg/dL Crossmatch See Detail Vital Signs Temp 37 C 06/02/18 07:10 Pulse 85 06/02/18 07:10 Resp 16 06/02/18 07:10 BP 109/74 06/02/18 07:10 Pulse Ox 98 06/02/18 07:20 Intake & Output 06/01/18 06/02/18 06/02/18 23:59 11:59 23:59 Intake Total 900 / 900 1060 / 1060 240 / 240 Output Total 0 / 2050 750 / 750 1200 / 1200 Balance -1150 / -1150 310 / 310 -960 / -960 Intake: IV 110 / 110 270 / 270 Oral 790 / 790 790 / 790 240 / 240 Output: Urine 2049 / 0 750 / 750 1100 / 1100 Stool 100 / 100 Other: Urine Color Yellow Pale Pale Yellow Yellow Urine Appearance Clear Clear Clear Urine Odor None None None Comment Void x1 in the toilet. Void x1 in the toilet. Void x1 in the toilet. Stool Occult Blood Negative Stool Size Moderate Stool Characteristics Soft Liquid Brown Voiding Methods Toilet Toilet Toilet Laboratory Results WBC 0.57 k/cumm (4.4-10.8) L* D 06/02/18 07:38 RBC 1.92 m/cumm (4.00-5.20) L 06/02/18 07:38 Hgb 6.4 g/dL (12.0-15.5) L* 06/02/18 07:38 Hct 18.9 % (36.0-46.0) L* 06/02/18 07:38 MCV 98.4 fL (80-95) H 06/02/18 07:38 MCH 33.3 pg (27.0-33.0) H 06/02/18 07:38 MCHC 33.9 g/dL (32.0-36.0) 06/02/18 07:38 RDW 17.3 % (11.7-14.6) H 06/02/18 07:38 Plt Count 18 x1000/uL (130-400) L* 06/02/18 07:38 MPV 10.3 fL (8.0-11.0) 06/02/18 07:38 Immature Gran % See Differential 06/02/18 07:38 Neutrophils % 28.0 06/02/18 07:38 Lymphocytes % 57.0 06/02/18 07:38 Monocytes % 7.0 06/02/18 07:38 Eosinophils % 4.0 06/02/18 07:38 Basophils % 0.0 06/02/18 07:38 Absolute Neutrophils 0.17 k/cumm (1.2-6.7) L* 06/02/18 07:38 Band Neutrophils 1.0 % 06/02/18 07:38 Absolute Lymphocytes 0.32 k/cumm (1.2-3.4) L 06/02/18 07:38 Absolute Monocytes 0.04 k/cumm (0.11-0.7) L 06/02/18 07:38 Absolute Eosinophils 0.02 k/cumm (0.0-0.7) 06/02/18 07:38 Absolute Basophils 0.00 k/cumm (0.0-0.2) 06/02/18 07:38 Metamyelocytes 2.0 % 06/02/18 07:38 Myelocytes 1.0 % 06/02/18 07:38 Differential Comment Manual differential 06/02/18 07:38 Atypical Lymphocytes 0 06/02/18 07:38 RBC Morphology See below 06/02/18 07:38 Poikilocytosis 2+ 05/31/18 06:50 Anisocytosis 1+ 06/01/18 07:58 Macrocytosis 1+ 06/02/18 07:38 PT 10.5 sec (9.3-10.8) 05/30/18 15:15 INR 1.1 (1.0-3.5) 05/30/18 15:15 D-Dimer 1664 ng/mlFEU (<500) H 05/30/18 15:15 Sodium 135 mmol/L (136-145) L 06/02/18 07:38 Potassium 3.5 mmol/L (3.5-5.1) 06/02/18 07:38 Chloride 107 mmol/L (98-107) 06/02/18 07:38 Carbon Dioxide 17.0 mmol/L (21.0-32.0) L 06/02/18 07:38 Anion Gap 11.0 mmol/L (3-11) 06/02/18 07:38 BUN 17 mg/dL (7-18) 06/02/18 07:38 Creatinine 1.86 mg/dL (0.55-1.02) H 06/02/18 07:38 Estimated GFR/1.73 m2 29.30 (mL/min/1.73m2) 06/02/18 07:38 Glucose 83 mg/dL (70-100) 06/02/18 07:38 Lactate 0.9 mmol/L (0.6-1.4) 05/30/18 16:10 Calcium 7.8 mg/dL (8.5-10.1) L 06/02/18 07:38 Total Bilirubin 0.8 mg/dL (0.2-1.0) 05/30/18 15:15 AST 64 U/L (15-37) H 05/30/18 15:15 ALT 14 U/L (12-78) 05/30/18 15:15 Alkaline Phosphatase 98 U/L (46-116) 05/30/18 15:15 Troponin I < 0.02 ng/mL (0.00-0.06) 05/30/18 15:15 Total Protein 7.1 g/dL (6.4-8.2) 05/30/18 15:15 Albumin 2.8 g/dL (3.4-5.0) L 05/30/18 15:15 Urine Color Yellow (Yellow) 05/30/18 19:30 Urine Clarity Clear 05/30/18 19:30 Urine pH 5.5 (5-8) 05/30/18 19:30 Ur Specific [place] 1.015 (1.005-1.025) 05/30/18 19:30 Urine Protein 100 mg/dL (Negative) H 05/30/18 19:30 Urine Ketones Negative mg/dL (Negative) 05/30/18 19:30 Urine Blood Trace-lysed (Negative) H 05/30/18 19:30 Urine Nitrite Negative (Negative) 05/30/18 19:30 Urine Bilirubin Negative (Negative) 05/30/18 19:30 Urine Urobilinogen 0.2 EU/dL (Up TO 0.2) 05/30/18 19:30 Ur Leukocyte Esterase Negative (Negative) 05/30/18 19:30 Urine RBC Negative (0-2) 05/30/18 19:30 Urine WBC 3-5 HPF (0-5) 05/30/18 19:30 Ur Epithelial Cells Few HPF (Negative) 05/30/18 19:30 Urine Crystals Moderate amorphous HPF (Negative) 05/30/18 19:30 Urine Bacteria Negative HPF (Negative) 05/30/18 19:30 Urine Casts 3-5 fine granular LPF (Negative) 05/30/18 19:30 Urine Mucus Negative (Negative) 05/30/18 19:30 Ur Culture Indicated? No 05/30/18 19:30 Urine Glucose Negative mg/dL (Negative) 05/30/18 19:30 Patient ABO/Rh O Negative 05/31/18 14:05 Antibody Screen Negative 05/31/18 14:05 Crossmatch See Detail 05/31/18 14:05
[2018-06-02] MEDS: CEFEPIME 2 GM in Normal Saline 100 ML IVPB (15:49)
--- NOTE | 2018-06-02 17:11 | PDOC.CMPRO ---
- If Service Date Differs Date of service: 06/02/18 Time of Service: 17:11 Care Management Progress Note S/O: Stacey is lying in bed when this investment underwriter visits this morning. Stacey is going to receive Irradiated Packed red blood cells this evening. Stacey remains on reverse precautions at this time and continues to receive IV antibiotics. DC plan reviewed which remains the same at this time. Anticipate she will need to transition to oral antibiotics prior to discharge. Provider will follow up with infectious disease to determine continued antibiotic course and length of treatment. Stacey's family is watching her children while she is in the hospital. A: 43 y/o female admitted 05/30/18 for fever/vomiting P: Stacey will continue as a medical surgical patient no change in status today. She is receiving IV antibiotics and is on oral antiviral. She will return home with when medically ready per provider.
--- NOTE | 2018-06-02 17:15 | CMPROGNOTE_ITS ---
- If Service Date Differs Date of service: 06/02/18 Time of Service: 17:11 Care Management Progress Note S/O: Stacey is lying in bed when this telegraphic typewriter mechanic visits this morning. Stacey is going to receive Irradiated Packed red blood cells this evening. Stacey remains on reverse precautions at this time and continues to receive IV antibiotics. DC plan reviewed which remains the same at this time. Anticipate she will need to transition to oral antibiotics prior to discharge. Provider will follow up with infectious disease to determine continued antibiotic course and length of treatment. Stacey's family is watching her children while she is in the hospital. A: 43 y/o female admitted 05/30/18 for fever/vomiting P: Stacey will continue as a medical surgical patient no change in status today. She is receiving IV antibiotics and is on oral antiviral. She will return home with when medically ready per provider.
[2018-06-02] MEDS: LORazepam 1 MG TAB PO (21:37)
[2018-06-02] MEDS: Acetaminophen 325 MG TAB 650 MG PO (22:12)
[2018-06-02] MEDS: diphenhydrAMINE 25 MG CAP PO (22:12)
[2018-06-03] VITALS (8 sets, daily range): BP systolic 97–136; BP diastolic 68–95; PULSE 60–78; RESP 16–20; TEMP 36.1–36.8; O2SAT 97–100
[2018-06-03 07:20] LABS: Absolute Eosinophil Count 0.03 k/cumm (0.0-0.7); HCT 26.3 % (36.0-46.0); Mean Corp. HGB Concentration 34.2 g/dL (32.0-36.0); Mean Corpuscular Hemoglobin 31.4 pg (27.0-33.0); Mean Corpuscular Volume 91.6 fL (80-95); RBC 2.87 m/cumm (4.00-5.20); RBC Distribution Width 19.5 % (11.7-14.6)
[2018-06-03 07:27] LABS: Anion Gap 10.5 mmol/L (3-11); BUN 17 mg/dL (7-18); CO2 19.5 mmol/L (21.0-32.0); CREATININE 1.77 mg/dL (0.55-1.02); Calcium 8.3 mg/dL (8.5-10.1); Chloride 108 mmol/L (98-107); Estimated GFR 31.02 (mL/min/1.73m2); Glucose 79 mg/dL (70-100); Potassium 3.9 mmol/L (3.5-5.1); Sodium 138 mmol/L (136-145)
[2018-06-03 07:40] LABS: White Blood Cell Count 0.69 k/cumm (4.4-10.8)
[2018-06-03 07:43] LABS: Absolute Lymphocyte Count 0.28 k/cumm (1.2-3.4); Absolute Neutrophil Count 0.33 k/cumm (1.2-6.7); Atypical Lymphocytes % 1
[2018-06-03 07:44] LABS: Absolute Monocyte Count 0.05 k/cumm (0.11-0.7); Anisocytosis 2+; Diff Comment Manual Differential
[2018-06-03 07:45] LABS: Platelet Count 11 x1000/uL (130-400)
[2018-06-03] MEDS: Acyclovir 400 MG TAB 800 MG PO ×2 (08:58→19:47)
[2018-06-03] MEDS: Benzonatate 100 MG CAP PO ×3 (08:58→19:49)
[2018-06-03] MEDS: buPROPion-XL 150 MG TABCR 300 MG PO (08:58)
[2018-06-03] MEDS: Escitalopram 20 MG TAB PO (08:58)
--- NOTE | 2018-06-03 09:26 | PDOC.CMPRO ---
- If Service Date Differs Date of service: 06/03/18 Time of Service: 09:26 Care Management Progress Note S/O: Stacey continues to be an inpatient anticipate no change in her status today. She continues to receive IV antibiotics her ANC is trending up however not yet to goal. Stacey remains on reverse precautions. DC plan reviewed which remains the same at this time. Anticipate she will need to transition to oral antibiotics prior to discharge. Provider will follow up with infectious disease to determine continued antibiotic course and length of treatment. Stacey's family is watching her children while she is in the hospital. A: 43 y/o female admitted 05/30/18 for fever/vomiting P: Stacey will continue as a medical surgical patient no change in status today. She is receiving IV antibiotics and is on oral antiviral. She will return home with when medically ready per provider.
--- NOTE | 2018-06-03 11:10 | W.PM.PROGNOT ---
Assessment and Plan (1) Neutropenic fever: Current visit: Yes Status: Acute Initial presentation with neutropenic fever, with an ANC of 0.17. Urinalysis appears to be negative, but with imaging showing evidence of potential sinusitis as well as pulmonary infiltrate. CT of the sinuses show paranasal sinus inflammatory disease, most severe in the maxillary sinuses. Severe mucosal thickening was also noted with fluid levels within both maxillary sinuses, as seen with acute sinusitis. Also with bilateral mastoid effusions. Chest x-ray findings were suspicious for mild airspace disease in the posterior right lower lobe. Given her neutropenia the patient was initiated by cefepime (D#5) in the emergency department, with vancomycin (D#4) added due to evidence of pulmonary infiltrates. Blood Cultures with no growth X72 hours. Patient remains afebrile since time of admission. Monitor closely. Given neutropenia Ms. Lugo was also started on Neupogen, with current ANC improved but still neutropenic. (2) Pneumonia: Current visit: Yes Status: Acute Day #5 of Cefepime, #4 Vancomycin. (3) B-cell lymphoma: Current visit: Yes Status: Acute Discussed case with [facility] oncology. Patient is currently maintained on radio immunotherapy as well as rituximab, last received on May 03 of this year. (4) Pancytopenia: Current visit: Yes Status: Acute Evidence of significant pancytopenia, with neutropenia and significant thrombocytopenia by lab work. No evidence of Schistocytes by blood smear, and with normal coags and bilirubin. Doubt TTP/HUS or DIC. S/p platelet transfusion with resultant increase from 7 --> 19, now at 11. Monitor and consider repeat transfusion when less than 10. Significant anemia with Hemoglobin <7 - improved to 9 with 2 units of PRBC's. Mrs. Sahu is maintained on the radioimmunotherapy and rituximab for treatment of her relapsed follicular B-cell lymphoma. As per discussion with oncology at [facility] the expected josey of this combination treatment is rather prolonged. Following discussion plan will be administration of Neupogen as well as transfusion with irradiated platelets and PRBCs as above to maintain a count greater than 10 and Hemoglobin above 7. Monitor CBC carefully. (5) Chronic renal insufficiency: Current visit: Yes Status: Acute Creatinine appears stable and actually better than baseline. Monitor, avoid nephrotoxins, and renally dose medications when appropriate. (6) DVT prophylaxis: Current visit: Yes Status: Acute Avoid heparin given significant thrombocytopenia. Continue SCDs. Subjective Interval history since last seen: 43-year-old woman with past medical history significant for follicular B-cell lymphoma, currently on treatment with radioimmunotherapy and rituximab, admitted from an [facility] emergency department on May 30 with a diagnosis of neutropenic fever. Workup in the emergency department showed evidence for neutropenia, anemia, and significant thrombocytopenia. Chest x-ray showed evidence of likely infiltrates, and CT showed sinusitis that was deemed likely acute. Patient was initially started on cefepime, with vancomycin being initiated due to evidence of potential pulmonary infiltrate. Mrs. Sahu was transfused with platelets, and Neupogen was initiated 06/01. She continues to report improvement in her overall symptoms, and she has remained afebrile since the time of admission. Labwork yesterday showed evidence of significant anemia with hemoglobin <7 which responded to transfusion with PRBCs. Platelet count remains above 10 but worsening. No other overnight events reported. She remains afebrile. Exam Const General: cooperative Orientation: alert, awake and oriented x3 Neck Neck: supple Resp Effort & Inspection: able to speak in complete sentences, not labored and no use of accessory muscles Auscultation: clear to auscultation bilaterally Cardio Rate: tachycardic Rhythm: regular rhythm Heart Sounds: S1 normal and S2 normal GI Inspection: normal to inspection Palpation: soft Percussion: normal to percussion Auscultation: normal bowel sounds Skin General skin exam: no rashes or lesions noted Extrem General: no pedal edema Objective Objective Clinical Data: Abnormal lab results 05/31/18 06/03/18 06/03/18 Range/Units 14:05 06:20 06:20 WBC 0.69 L* (4.4-10.8) k/cumm RBC 2.87 L (4.00-5.20) m/cumm Hgb 9.0 L D (12.0-15.5) g/dL Hct 26.3 L D (36.0-46.0) % RDW 19.5 H (11.7-14.6) % Plt Count 11 L* (130-400) x1000/uL Absolute Neutrophils 0.33 L* (1.2-6.7) k/cumm Absolute Lymphocytes 0.28 L (1.2-3.4) k/cumm Absolute Monocytes 0.05 L (0.11-0.7) k/cumm Chloride 108 H (98-107) mmol/L Carbon Dioxide 19.5 L (21.0-32.0) mmol/L Creatinine 1.77 H (0.55-1.02) mg/dL Calcium 8.3 L (8.5-10.1) mg/dL Crossmatch See Detail Vital Signs Temp 36.5 C 06/03/18 08:25 Pulse 65 06/03/18 08:25 Resp 18 06/03/18 08:25 BP 117/83 06/03/18 08:25 Pulse Ox 100 06/03/18 08:25 Intake & Output 06/02/18 06/02/18 06/03/18 11:59 23:59 11:59 Intake Total 1060 / 1060 947 / 947 696 / 696 Output Total 750 / 750 1950 / 1950 1000 / 1000 Balance 310 / 310 -1003 / -1003 -304 / -304 Intake: IV 270 / 270 110 / 110 0 / 0 Oral 790 / 790 480 / 480 360 / 360 Blood Product 357 / 357 336 / 336 Rbc Leuko Reduced Unit 336 / 336 [id number] Rbc Leuko Reduced Unit 357 / 357 [id number] Output: Urine 750 / 750 1850 / 1850 1000 / 1000 Stool 100 / 100 Other: Urine Color Pale Yellow Yellow Yellow Urine Appearance Clear Clear Clear Urine Odor None None Normal Comment Void x1 in the toilet. Void x1 in the toilet. Stool Occult Blood Negative Stool Size Moderate Stool Characteristics Soft Liquid Brown Voiding Methods Toilet Toilet Toilet Laboratory Results WBC 0.69 k/cumm (4.4-10.8) L* 06/03/18 06:20 RBC 2.87 m/cumm (4.00-5.20) L 06/03/18 06:20 Hgb 9.0 g/dL (12.0-15.5) L D 06/03/18 06:20 Hct 26.3 % (36.0-46.0) L D 06/03/18 06:20 MCV 91.6 fL (80-95) D 06/03/18 06:20 MCH 31.4 pg (27.0-33.0) 06/03/18 06:20 MCHC 34.2 g/dL (32.0-36.0) 06/03/18 06:20 RDW 19.5 % (11.7-14.6) H 06/03/18 06:20 Plt Count 11 x1000/uL (130-400) L* 06/03/18 06:20 MPV fL (8.0-11.0) 06/03/18 06:20 Immature Gran % 0.0 06/03/18 06:20 Neutrophils % 42.0 06/03/18 06:20 Lymphocytes % 40.0 06/03/18 06:20 Monocytes % 7.0 06/03/18 06:20 Eosinophils % 4.0 06/03/18 06:20 Basophils % 0.0 06/03/18 06:20 Absolute Neutrophils 0.33 k/cumm (1.2-6.7) L* 06/03/18 06:20 Band Neutrophils 6.0 % 06/03/18 06:20 Absolute Lymphocytes 0.28 k/cumm (1.2-3.4) L 06/03/18 06:20 Absolute Monocytes 0.05 k/cumm (0.11-0.7) L 06/03/18 06:20 Absolute Eosinophils 0.03 k/cumm (0.0-0.7) 06/03/18 06:20 Absolute Basophils 0.00 k/cumm (0.0-0.2) 06/03/18 06:20 Metamyelocytes 2.0 % 06/02/18 07:38 Myelocytes 1.0 % 06/02/18 07:38 Differential Comment Manual differential 06/03/18 06:20 Atypical Lymphocytes 1 06/03/18 06:20 RBC Morphology See below 06/03/18 06:20 Poikilocytosis 2+ 05/31/18 06:50 Anisocytosis 2+ 06/03/18 06:20 Macrocytosis 1+ 06/02/18 07:38 PT 10.5 sec (9.3-10.8) 05/30/18 15:15 INR 1.1 (1.0-3.5) 05/30/18 15:15 D-Dimer 1664 ng/mlFEU (<500) H 05/30/18 15:15 Sodium 138 mmol/L (136-145) 06/03/18 06:20 Potassium 3.9 mmol/L (3.5-5.1) 06/03/18 06:20 Chloride 108 mmol/L (98-107) H 06/03/18 06:20 Carbon Dioxide 19.5 mmol/L (21.0-32.0) L 06/03/18 06:20 Anion Gap 10.5 mmol/L (3-11) 06/03/18 06:20 BUN 17 mg/dL (7-18) 06/03/18 06:20 Creatinine 1.77 mg/dL (0.55-1.02) H 06/03/18 06:20 Estimated GFR/1.73 m2 31.02 (mL/min/1.73m2) 06/03/18 06:20 Glucose 79 mg/dL (70-100) 06/03/18 06:20 Lactate 0.9 mmol/L (0.6-1.4) 05/30/18 16:10 Calcium 8.3 mg/dL (8.5-10.1) L 06/03/18 06:20 Total Bilirubin 0.8 mg/dL (0.2-1.0) 05/30/18 15:15 AST 64 U/L (15-37) H 05/30/18 15:15 ALT 14 U/L (12-78) 05/30/18 15:15 Alkaline Phosphatase 98 U/L (46-116) 05/30/18 15:15 Troponin I < 0.02 ng/mL (0.00-0.06) 05/30/18 15:15 Total Protein 7.1 g/dL (6.4-8.2) 05/30/18 15:15 Albumin 2.8 g/dL (3.4-5.0) L 05/30/18 15:15 Urine Color Yellow (Yellow) 05/30/18 19:30 Urine Clarity Clear 05/30/18 19:30 Urine pH 5.5 (5-8) 05/30/18 19:30 Ur Specific [place] 1.015 (1.005-1.025) 05/30/18 19:30 Urine Protein 100 mg/dL (Negative) H 05/30/18 19:30 Urine Ketones Negative mg/dL (Negative) 05/30/18 19:30 Urine Blood Trace-lysed (Negative) H 05/30/18 19:30 Urine Nitrite Negative (Negative) 05/30/18 19:30 Urine Bilirubin Negative (Negative) 05/30/18 19:30 Urine Urobilinogen 0.2 EU/dL (Up TO 0.2) 05/30/18 19:30 Ur Leukocyte Esterase Negative (Negative) 05/30/18 19:30 Urine RBC Negative (0-2) 05/30/18 19:30 Urine WBC 3-5 HPF (0-5) 05/30/18 19:30 Ur Epithelial Cells Few HPF (Negative) 05/30/18 19:30 Urine Crystals Moderate amorphous HPF (Negative) 05/30/18 19:30 Urine Bacteria Negative HPF (Negative) 05/30/18 19:30 Urine Casts 3-5 fine granular LPF (Negative) 05/30/18 19:30 Urine Mucus Negative (Negative) 05/30/18 19:30 Ur Culture Indicated? No 05/30/18 19:30 Urine Glucose Negative mg/dL (Negative) 05/30/18 19:30 Patient ABO/Rh O Negative 05/31/18 14:05 Antibody Screen Negative 05/31/18 14:05 Crossmatch See Detail 05/31/18 14:05
--- NOTE | 2018-06-03 11:17 | PGE_ITS ---
Assessment and Plan (1) Neutropenic fever: Current visit: Yes Status: Acute Initial presentation with neutropenic fever, with an ANC of 0.17. Urinalysis appears to be negative, but with imaging showing evidence of potential sinusitis as well as pulmonary infiltrate. CT of the sinuses show paranasal sinus inflammatory disease, most severe in the maxillary sinuses. Severe mucosal thickening was also noted with fluid levels within both maxillary sinuses, as seen with acute sinusitis. Also with bilateral mastoid effusions. Chest x-ray findings were suspicious for mild airspace disease in the posterior right lower lobe. Given her neutropenia the patient was initiated by cefepime (D#5) in the emergency department, with vancomycin (D#4) added due to evidence of pulmonary infiltrates. Blood Cultures with no growth X72 hours. Patient remains afebrile since time of admission. Monitor closely. Given neutropenia Ms. Lugo was also started on Neupogen, with current ANC improved but still neutropenic. (2) Pneumonia: Current visit: Yes Status: Acute Day #5 of Cefepime, #4 Vancomycin. (3) B-cell lymphoma: Current visit: Yes Status: Acute Discussed case with [facility] oncology. Patient is currently maintained on radio immunotherapy as well as rituximab, last received on May 03 of this year. (4) Pancytopenia: Current visit: Yes Status: Acute Evidence of significant pancytopenia, with neutropenia and significant thrombocytopenia by lab work. No evidence of Schistocytes by blood smear, and with normal coags and bilirubin. Doubt TTP/HUS or DIC. S/p platelet transfusion with resultant increase from 7 --> 19, now at 11. Monitor and consider repeat transfusion when less than 10. Significant anemia with Hemoglobin <7 - improved to 9 with 2 units of PRBC's. Mrs. Sahu is maintained on the radioimmunotherapy and rituximab for treatment of her relapsed follicular B-cell lymphoma. As per discussion with oncology at [facility] the expected josey of this combination treatment is rather prolonged. Following discussion plan will be administration of Neupogen as well as transfusion with irradiated platelets and PRBCs as above to maintain a count greater than 10 and Hemoglobin above 7. Monitor CBC carefully. (5) Chronic renal insufficiency: Current visit: Yes Status: Acute Creatinine appears stable and actually better than baseline. Monitor, avoid nephrotoxins, and renally dose medications when appropriate. (6) DVT prophylaxis: Current visit: Yes Status: Acute Avoid heparin given significant thrombocytopenia. Continue SCDs. Subjective Interval history since last seen: 43-year-old woman with past medical history significant for follicular B-cell lymphoma, currently on treatment with radioimmunotherapy and rituximab, admitted from an [facility] emergency department on May 30 with a diagnosis of neutropenic fever. Workup in the emergency department showed evidence for neutropenia, anemia, and significant thrombocytopenia. Chest x-ray showed evidence of likely infiltrates , and CT showed sinusitis that was deemed likely acute. Patient was initially started on cefepime, with vancomycin being initiated due to evidence of potential pulmonary infiltrate. Mrs. Sahu was transfused with platelets, and Neupogen was initiated 06/01. She continues to report improvement in her overall symptoms, and she has remained afebrile since the time of admission. Labwork yesterday showed evidence of significant anemia with hemoglobin <7 which responded to transfusion with PRBCs. Platelet count remains above 10 but worsening. No other overnight events reported. She remains afebrile. Exam Const General: cooperative Orientation: alert, awake and oriented x3 Neck Neck: supple Resp Effort & Inspection: able to speak in complete sentences, not labored and no use of accessory muscles Auscultation: clear to auscultation bilaterally Cardio Rate: tachycardic Rhythm: regular rhythm Heart Sounds: S1 normal and S2 normal GI Inspection: normal to inspection Palpation: soft Percussion: normal to percussion Auscultation: normal bowel sounds Skin General skin exam: no rashes or lesions noted Extrem General: no pedal edema Objective Objective Clinical Data: Abnormal lab results 05/31/18 06/03/18 06/03/18 Range/Units 14:05 06:20 06:20 WBC 0.69 L* (4.4-10.8) k/cumm RBC 2.87 L (4.00-5.20) m/cumm Hgb 9.0 L D (12.0-15.5) g/dL Hct 26.3 L D (36.0-46.0) % RDW 19.5 H (11.7-14.6) % Plt Count 11 L* (130-400) x1000/uL Absolute Neutrophils 0.33 L* (1.2-6.7) k/cumm Absolute Lymphocytes 0.28 L (1.2-3.4) k/cumm Absolute Monocytes 0.05 L (0.11-0.7) k/cumm Chloride 108 H (98-107) mmol/L Carbon Dioxide 19.5 L (21.0-32.0) mmol/L Creatinine 1.77 H (0.55-1.02) mg/dL Calcium 8.3 L (8.5-10.1) mg/dL Crossmatch See Detail Vital Signs Temp 36.5 C 06/03/18 08:25 Pulse 65 06/03/18 08:25 Resp 18 06/03/18 08:25 BP 117/83 06/03/18 08:25 Pulse Ox 100 06/03/18 08:25 Intake & Output 06/02/18 06/02/18 06/03/18 11:59 23:59 11:59 Intake Total 1060 / 1060 947 / 947 696 / 696 Output Total 750 / 750 1950 / 1950 1000 / 1000 Balance 310 / 310 -1003 / -1003 -304 / -304 Intake: IV 270 / 270 110 / 110 0 / 0 Oral 790 / 790 480 / 480 360 / 360 Blood Product 357 / 357 336 / 336 Rbc Leuko Reduced Unit 336 / 336 [id number] Rbc Leuko Reduced Unit 357 / 357 [id number] Output: Urine 750 / 750 1850 / 1850 1000 / 1000 Stool 100 / 100 Other: Urine Color Pale Yellow Yellow Yellow Urine Appearance Clear Clear Clear Urine Odor None None Normal Comment Void x1 in the toilet. Void x1 in the toilet. Stool Occult Blood Negative Stool Size Moderate Stool Characteristics Soft Liquid Brown Voiding Methods Toilet Toilet Toilet Laboratory Results WBC 0.69 k/cumm (4.4-10.8) L* 06/03/18 06:20 RBC 2.87 m/cumm (4.00-5.20) L 06/03/18 06:20 Hgb 9.0 g/dL (12.0-15.5) L D 06/03/18 06:20 Hct 26.3 % (36.0-46.0) L D 06/03/18 06:20 MCV 91.6 fL (80-95) D 06/03/18 06:20 MCH 31.4 pg (27.0-33.0) 06/03/18 06:20 MCHC 34.2 g/dL (32.0-36.0) 06/03/18 06:20 RDW 19.5 % (11.7-14.6) H 06/03/18 06:20 Plt Count 11 x1000/uL (130-400) L* 06/03/18 06:20 MPV fL (8.0-11.0) 06/03/18 06:20 Immature Gran % 0.0 06/03/18 06:20 Neutrophils % 42.0 06/03/18 06:20 Lymphocytes % 40.0 06/03/18 06:20 Monocytes % 7.0 06/03/18 06:20 Eosinophils % 4.0 06/03/18 06:20 Basophils % 0.0 06/03/18 06:20 Absolute Neutrophils 0.33 k/cumm (1.2-6.7) L* 06/03/18 06:20 Band Neutrophils 6.0 % 06/03/18 06:20 Absolute Lymphocytes 0.28 k/cumm (1.2-3.4) L 06/03/18 06:20 Absolute Monocytes 0.05 k/cumm (0.11-0.7) L 06/03/18 06:20 Absolute Eosinophils 0.03 k/cumm (0.0-0.7) 06/03/18 06:20 Absolute Basophils 0.00 k/cumm (0.0-0.2) 06/03/18 06:20 Metamyelocytes 2.0 % 06/02/18 07:38 Myelocytes 1.0 % 06/02/18 07:38 Differential Comment Manual differential 06/03/18 06:20 Atypical Lymphocytes 1 06/03/18 06:20 RBC Morphology See below 06/03/18 06:20 Poikilocytosis 2+ 05/31/18 06:50 Anisocytosis 2+ 06/03/18 06:20 Macrocytosis 1+ 06/02/18 07:38 PT 10.5 sec (9.3-10.8) 05/30/18 15:15 INR 1.1 (1.0-3.5) 05/30/18 15:15 D-Dimer 1664 ng/mlFEU (<500) H 05/30/18 15:15 Sodium 138 mmol/L (136-145) 06/03/18 06:20 Potassium 3.9 mmol/L (3.5-5.1) 06/03/18 06:20 Chloride 108 mmol/L (98-107) H 06/03/18 06:20 Carbon Dioxide 19.5 mmol/L (21.0-32.0) L 06/03/18 06:20 Anion Gap 10.5 mmol/L (3-11) 06/03/18 06:20 BUN 17 mg/dL (7-18) 06/03/18 06:20 Creatinine 1.77 mg/dL (0.55-1.02) H 06/03/18 06:20 Estimated GFR/1.73 m2 31.02 (mL/min/1.73m2) 06/03/18 06:20 Glucose 79 mg/dL (70-100) 06/03/18 06:20 Lactate 0.9 mmol/L (0.6-1.4) 05/30/18 16:10 Calcium 8.3 mg/dL (8.5-10.1) L 06/03/18 06:20 Total Bilirubin 0.8 mg/dL (0.2-1.0) 05/30/18 15:15 AST 64 U/L (15-37) H 05/30/18 15:15 ALT 14 U/L (12-78) 05/30/18 15:15 Alkaline Phosphatase 98 U/L (46-116) 05/30/18 15:15 Troponin I < 0.02 ng/mL (0.00-0.06) 05/30/18 15:15 Total Protein 7.1 g/dL (6.4-8.2) 05/30/18 15:15 Albumin 2.8 g/dL (3.4-5.0) L 05/30/18 15:15 Urine Color Yellow (Yellow) 05/30/18 19:30 Urine Clarity Clear 05/30/18 19:30 Urine pH 5.5 (5-8) 05/30/18 19:30 Ur Specific [place] 1.015 (1.005-1.025) 05/30/18 19:30 Urine Protein 100 mg/dL (Negative) H 05/30/18 19:30 Urine Ketones Negative mg/dL (Negative) 05/30/18 19:30 Urine Blood Trace-lysed (Negative) H 05/30/18 19:30 Urine Nitrite Negative (Negative) 05/30/18 19:30 Urine Bilirubin Negative (Negative) 05/30/18 19:30 Urine Urobilinogen 0.2 EU/dL (Up TO 0.2) 05/30/18 19:30 Ur Leukocyte Esterase Negative (Negative) 05/30/18 19:30 Urine RBC Negative (0-2) 05/30/18 19:30 Urine WBC 3-5 HPF (0-5) 05/30/18 19:30 Ur Epithelial Cells Few HPF (Negative) 05/30/18 19:30 Urine Crystals Moderate amorphous HPF (Negative) 05/30/18 19:30 Urine Bacteria Negative HPF (Negative) 05/30/18 19:30 Urine Casts 3-5 fine granular LPF (Negative) 05/30/18 19:30 Urine Mucus Negative (Negative) 05/30/18 19:30 Ur Culture Indicated? No 05/30/18 19:30 Urine Glucose Negative mg/dL (Negative) 05/30/18 19:30 Patient ABO/Rh O Negative 05/31/18 14:05 Antibody Screen Negative 05/31/18 14:05 Crossmatch See Detail 05/31/18 14:05
[2018-06-03 13:33] LABS: Vancomycin, Trough 23.6 ug/mL (10.0-20.0)
[2018-06-03] MEDS: CEFEPIME 2 GM in Normal Saline 100 ML IVPB (16:55)
[2018-06-03] MEDS: Acetaminophen 500 MG TAB 1000 MG PO (19:49)
[2018-06-03] MEDS: LORazepam 1 MG TAB PO (19:50)
[2018-06-03] MEDS: VANCOMYCIN 750 MG in Normal Saline 250 ML 166.667 MG IVPB (22:17)
[2018-06-04] VITALS (11 sets, daily range): BP systolic 94–115; BP diastolic 50–83; PULSE 68–98; RESP 12–20; TEMP 36.3–36.7; O2SAT 96–100
[2018-06-04 07:25] LABS: Anion Gap 11.4 mmol/L (3-11); BUN 18 mg/dL (7-18); CO2 21.6 mmol/L (21.0-32.0); CREATININE 1.83 mg/dL (0.55-1.02); Calcium 8.7 mg/dL (8.5-10.1); Chloride 105 mmol/L (98-107); Estimated GFR 29.85 (mL/min/1.73m2); Glucose 83 mg/dL (70-100); Potassium 3.9 mmol/L (3.5-5.1); Sodium 138 mmol/L (136-145)
[2018-06-04 07:43] LABS: HCT 28.2 % (36.0-46.0); HGB 9.7 g/dL (12.0-15.5); Mean Corp. HGB Concentration 34.4 g/dL (32.0-36.0); Mean Corpuscular Hemoglobin 31.4 pg (27.0-33.0); Mean Corpuscular Volume 91.3 fL (80-95); RBC 3.09 m/cumm (4.00-5.20); White Blood Cell Count 0.91 k/cumm (4.4-10.8)
[2018-06-04 07:44] LABS: Platelet Count 8 x1000/uL (130-400)
[2018-06-04 07:45] LABS: Absolute Basophil Count 0.01 k/cumm (0.0-0.2); Absolute Eosinophil Count 0.03 k/cumm (0.0-0.7); Absolute Lymphocyte Count 0.45 k/cumm (1.2-3.4); Absolute Monocyte Count 0.11 k/cumm (0.11-0.7); Absolute Neutrophil Count 0.32 k/cumm (1.2-6.7); Atypical Lymphocytes % 3
[2018-06-04 07:46] LABS: Anisocytosis 2+; Diff Comment Manual Differential
[2018-06-04] MEDS: Escitalopram 20 MG TAB PO (08:55)
[2018-06-04] MEDS: buPROPion-XL 150 MG TABCR 300 MG PO (08:55)
[2018-06-04] MEDS: Acyclovir 400 MG TAB 800 MG PO ×2 (08:55→19:45)
[2018-06-04] MEDS: Benzonatate 100 MG CAP PO ×3 (08:55→19:45)
[2018-06-04] MEDS: Acetaminophen 325 MG TAB 650 MG PO (11:23)
[2018-06-04] MEDS: diphenhydrAMINE 25 MG CAP PO (11:24)
[2018-06-04] MEDS: Normal Saline Flush 10 ML SYR IVP ×2 (13:27→17:10)
--- NOTE | 2018-06-04 13:56 | PDOC.CMPRO ---
- If Service Date Differs Date of service: 06/04/18 Time of Service: 13:57 Care Management Progress Note S/O: Stacey continues to be an inpatient anticipate no change in her status today.She states she is feeling better and wants to return home. She misses her children who are staying with family. Sherine continues to be neutropenic, she is receiving irradiated platelet 2 units today. She continues to receive IV antibiotics her ANC is trending up however not yet to goal. Stacey remains on reverse precautions. DC plan reviewed which remains the same at this time. Anticipate she will need to transition to oral antibiotics prior to discharge. Provider will follow up with infectious disease to determine continued antibiotic course and length of treatment. A: 43 y/o female admitted 05/30/18 for fever/vomiting P: Stacey will continue as a medical surgical patient no change in status today. She is receiving IV antibiotics, platelets and is on oral antivirals. She continues to have daily lab draws. She will return home with when medically ready per provider.
--- NOTE | 2018-06-04 14:12 | PGE_ITS ---
Assessment and Plan (1) Neutropenic fever: Current visit: Yes Status: Acute Initial presentation with neutropenic fever, with an ANC of 0.17. Urinalysis appears to be negative, but with imaging showing evidence of potential sinusitis as well as pulmonary infiltrate. CT of the sinuses show paranasal sinus inflammatory disease, most severe in the maxillary sinuses. Severe mucosal thickening was also noted with fluid levels within both maxillary sinuses, as seen with acute sinusitis. Also with bilateral mastoid effusions. Chest x-ray findings were suspicious for mild airspace disease in the posterior right lower lobe. Given her neutropenia the patient was initiated by cefepime (D#6) in the emergency department, with vancomycin (D#5) added due to evidence of pulmonary infiltrates. Blood Cultures with no growth X96 hours. Patient remains afebrile since time of admission. Monitor closely. Given neutropenia Ms. Lugo was also started on Neupogen, with current ANC improved but still neutropenic. (2) Pneumonia: Current visit: Yes Status: Acute Day #6 of Cefepime, #5 Vancomycin. (3) B-cell lymphoma: Current visit: Yes Status: Acute Discussed case with [facility] oncology. Patient is currently maintained on radio-immunotherapy as well as rituximab, last received on May 03 of this year. (4) Pancytopenia: Current visit: Yes Status: Acute Evidence of significant pancytopenia, with neutropenia and significant thrombocytopenia by lab work. No evidence of Schistocytes by blood smear, and with normal coags and bilirubin. Doubt TTP/HUS or DIC. S/p platelet transfusion with resultant increase from 7 --> 19, now at 8. Will transfuse again with 2 units of platelets. Monitor closely. Significant anemia with Hemoglobin <7 - improved with 2 units of PRBC's. Mrs. Sahu is maintained on the radioimmunotherapy and rituximab for treatment of her relapsed follicular B-cell lymphoma. As per discussion with oncology at [facility] the expected josey of this combination treatment is rather prolonged. Following discussion plan will be administration of Neupogen as well as transfusion with irradiated platelets and PRBCs as above to maintain a count greater than 10 and Hemoglobin above 7. Monitor CBC carefully. (5) Chronic renal insufficiency: Current visit: Yes Status: Acute Creatinine appears stable and actually better than baseline. Monitor, avoid nephrotoxins, and renally dose medications when appropriate. (6) DVT prophylaxis: Current visit: Yes Status: Acute Avoid heparin given significant thrombocytopenia. Continue SCDs. Subjective Interval history since last seen: 43-year-old woman with past medical history significant for follicular B-cell lymphoma, currently on treatment with radioimmunotherapy and rituximab, admitted from an [facility] emergency department on May 30 with a diagnosis of neutropenic fever. Workup in the emergency department showed evidence for neutropenia, anemia, and significant thrombocytopenia. Chest x-ray showed evidence of likely infiltrates , and CT showed sinusitis that was deemed likely acute. Patient was initially started on cefepime, with vancomycin being initiated due to evidence of potential pulmonary infiltrate. Mrs. Sahu was transfused with platelets, and Neupogen was initiated 06/01. She continues to report improvement in her overall symptoms, and she has remained afebrile since the time of admission. Labwork previously showed evidence of significant anemia with hemoglobin <7 which responded to transfusion with PRBCs. Platelet count now < 10 again and worsening. No other overnight events reported. She remains afebrile. Exam Const General: cooperative Orientation: alert, awake and oriented x3 Neck Neck: supple Resp Effort & Inspection: able to speak in complete sentences, not labored and no use of accessory muscles Auscultation: clear to auscultation bilaterally Cardio Rate: tachycardic Rhythm: regular rhythm Heart Sounds: S1 normal and S2 normal GI Inspection: normal to inspection Palpation: soft Percussion: normal to percussion Auscultation: normal bowel sounds Skin General skin exam: no rashes or lesions noted Extrem General: no pedal edema Objective Objective Clinical Data: Abnormal lab results 06/04/18 06/04/18 Range/Units 06:20 06:20 WBC 0.91 L* D (4.4-10.8) k/cumm RBC 3.09 L (4.00-5.20) m/cumm Hgb 9.7 L (12.0-15.5) g/dL Hct 28.2 L (36.0-46.0) % RDW 20.0 H (11.7-14.6) % Plt Count 8 L* (130-400) x1000/uL Absolute Neutrophils 0.32 L* (1.2-6.7) k/cumm Absolute Lymphocytes 0.45 L (1.2-3.4) k/cumm Anion Gap 11.4 H (3-11) mmol/L Creatinine 1.83 H (0.55-1.02) mg/dL Vital Signs Temp 36.4 C L 06/04/18 13:17 Pulse 78 06/04/18 13:17 Resp 16 06/04/18 13:17 BP 97/66 L 06/04/18 13:17 Pulse Ox 96 06/04/18 13:17 Intake & Output 06/03/18 06/04/18 06/04/18 23:59 11:59 23:59 Intake Total 470 / 470 650 / 650 Output Total 450 / 450 1500 / 1500 Balance -850 / -850 Intake: IV 250 / 250 40 / 40 Oral 450 / 450 400 / 400 Blood Product Pheresis Platelets Unit [id number] Output: Urine 450 / 450 1500 / 1500 Other: Urine Color Yellow Yellow Urine Appearance Clear Clear Urine Odor Normal Normal Comment voided x 2 in toilet Voiding Methods Toilet Toilet Laboratory Results WBC 0.91 k/cumm (4.4-10.8) L* D 06/04/18 06:20 RBC 3.09 m/cumm (4.00-5.20) L 06/04/18 06:20 Hgb 9.7 g/dL (12.0-15.5) L 06/04/18 06:20 Hct 28.2 % (36.0-46.0) L 06/04/18 06:20 MCV 91.3 fL (80-95) 06/04/18 06:20 MCH 31.4 pg (27.0-33.0) 06/04/18 06:20 MCHC 34.4 g/dL (32.0-36.0) 06/04/18 06:20 RDW 20.0 % (11.7-14.6) H 06/04/18 06:20 Plt Count 8 x1000/uL (130-400) L* 06/04/18 06:20 MPV fL (8.0-11.0) 06/04/18 06:20 Immature Gran % 0.0 06/04/18 06:20 Neutrophils % 32.0 06/04/18 06:20 Lymphocytes % 46.0 06/04/18 06:20 Monocytes % 12.0 06/04/18 06:20 Eosinophils % 3.0 06/04/18 06:20 Basophils % 1.0 06/04/18 06:20 Absolute Neutrophils 0.32 k/cumm (1.2-6.7) L* 06/04/18 06:20 Band Neutrophils 3.0 % 06/04/18 06:20 Absolute Lymphocytes 0.45 k/cumm (1.2-3.4) L 06/04/18 06:20 Absolute Monocytes 0.11 k/cumm (0.11-0.7) 06/04/18 06:20 Absolute Eosinophils 0.03 k/cumm (0.0-0.7) 06/04/18 06:20 Absolute Basophils 0.01 k/cumm (0.0-0.2) 06/04/18 06:20 Metamyelocytes 2.0 % 06/02/18 07:38 Myelocytes 1.0 % 06/02/18 07:38 Differential Comment Manual differential 06/04/18 06:20 Atypical Lymphocytes 3 06/04/18 06:20 RBC Morphology See below 06/04/18 06:20 Poikilocytosis 2+ 05/31/18 06:50 Anisocytosis 2+ 06/04/18 06:20 Macrocytosis 1+ 06/02/18 07:38 PT 10.5 sec (9.3-10.8) 05/30/18 15:15 INR 1.1 (1.0-3.5) 05/30/18 15:15 D-Dimer 1664 ng/mlFEU (<500) H 05/30/18 15:15 Sodium 138 mmol/L (136-145) 06/04/18 06:20 Potassium 3.9 mmol/L (3.5-5.1) 06/04/18 06:20 Chloride 105 mmol/L (98-107) 06/04/18 06:20 Carbon Dioxide 21.6 mmol/L (21.0-32.0) 06/04/18 06:20 Anion Gap 11.4 mmol/L (3-11) H 06/04/18 06:20 BUN 18 mg/dL (7-18) 06/04/18 06:20 Creatinine 1.83 mg/dL (0.55-1.02) H 06/04/18 06:20 Estimated GFR/1.73 m2 29.85 (mL/min/1.73m2) 06/04/18 06:20 Glucose 83 mg/dL (70-100) 06/04/18 06:20 Lactate 0.9 mmol/L (0.6-1.4) 05/30/18 16:10 Calcium 8.7 mg/dL (8.5-10.1) 06/04/18 06:20 Total Bilirubin 0.8 mg/dL (0.2-1.0) 05/30/18 15:15 AST 64 U/L (15-37) H 05/30/18 15:15 ALT 14 U/L (12-78) 05/30/18 15:15 Alkaline Phosphatase 98 U/L (46-116) 05/30/18 15:15 Troponin I < 0.02 ng/mL (0.00-0.06) 05/30/18 15:15 Total Protein 7.1 g/dL (6.4-8.2) 05/30/18 15:15 Albumin 2.8 g/dL (3.4-5.0) L 05/30/18 15:15 Urine Color Yellow (Yellow) 05/30/18 19:30 Urine Clarity Clear 05/30/18 19:30 Urine pH 5.5 (5-8) 05/30/18 19:30 Ur Specific [place] 1.015 (1.005-1.025) 05/30/18 19:30 Urine Protein 100 mg/dL (Negative) H 05/30/18 19:30 Urine Ketones Negative mg/dL (Negative) 05/30/18 19:30 Urine Blood Trace-lysed (Negative) H 05/30/18 19:30 Urine Nitrite Negative (Negative) 05/30/18 19:30 Urine Bilirubin Negative (Negative) 05/30/18 19:30 Urine Urobilinogen 0.2 EU/dL (Up TO 0.2) 05/30/18 19:30 Ur Leukocyte Esterase Negative (Negative) 05/30/18 19:30 Urine RBC Negative (0-2) 05/30/18 19:30 Urine WBC 3-5 HPF (0-5) 05/30/18 19:30 Ur Epithelial Cells Few HPF (Negative) 05/30/18 19:30 Urine Crystals Moderate amorphous HPF (Negative) 05/30/18 19:30 Urine Bacteria Negative HPF (Negative) 05/30/18 19:30 Urine Casts 3-5 fine granular LPF (Negative) 05/30/18 19:30 Urine Mucus Negative (Negative) 05/30/18 19:30 Ur Culture Indicated? No 05/30/18 19:30 Urine Glucose Negative mg/dL (Negative) 05/30/18 19:30 Vancomycin Trough 23.6 ug/mL (10.0-20.0) H* 06/03/18 13:05 Patient ABO/Rh O Negative 06/04/18 06:20 Antibody Screen Negative 05/31/18 14:05 Crossmatch See Detail 05/31/18 14:05
[2018-06-04] MEDS: CEFEPIME 2 GM in Normal Saline 100 ML IVPB (17:10)
[2018-06-04] MEDS: VANCOMYCIN 750 MG in Normal Saline 250 ML 166.7 MG IVPB (19:44)
[2018-06-04] MEDS: LORazepam 1 MG TAB PO (22:01)
[2018-06-05 07:20] VITALS: BP 82/52; PULSE 70; RESP 16; TEMP 36.3; O2SAT 98
[2018-06-05 07:34] LABS: Anion Gap 8.7 mmol/L (3-11); BUN 19 mg/dL (7-18); CO2 24.3 mmol/L (21.0-32.0); CREATININE 1.89 mg/dL (0.55-1.02); Calcium 8.4 mg/dL (8.5-10.1); Chloride 106 mmol/L (98-107); Estimated GFR 28.76 (mL/min/1.73m2); Glucose 90 mg/dL (70-100); Potassium 3.3 mmol/L (3.5-5.1); Sodium 139 mmol/L (136-145)
[2018-06-05 07:36] LABS: Abs Immature Grans 0.06 k/cumm (0.0-0.09); Absolute Eosinophil Count 0.03 k/cumm (0.0-0.7); HCT 26.3 % (36.0-46.0); HGB 8.8 g/dL (12.0-15.5); Mean Corp. HGB Concentration 33.5 g/dL (32.0-36.0); Mean Corpuscular Hemoglobin 31.3 pg (27.0-33.0); Mean Corpuscular Volume 93.6 fL (80-95); Mean Platelet Volume 9.7 fL (8.0-11.0); RBC 2.81 m/cumm (4.00-5.20)
[2018-06-05] MEDS: Escitalopram 20 MG TAB PO (08:09)
[2018-06-05] MEDS: Acyclovir 400 MG TAB 800 MG PO ×2 (08:09→20:29)
[2018-06-05] MEDS: buPROPion-XL 150 MG TABCR 300 MG PO (08:09)
[2018-06-05] MEDS: Benzonatate 100 MG CAP PO ×3 (08:10→20:29)
[2018-06-05] MEDS: Normal Saline Flush 10 ML SYR IVP (08:22)
[2018-06-05] MEDS: Magnesium Oxide 400 MG TAB PO (08:23)
[2018-06-05] MEDS: Potassium Chloride 20 MEQ TABCR 40 MEQ PO (08:23)
[2018-06-05 08:38] LABS: White Blood Cell Count 0.86 k/cumm (4.4-10.8)
[2018-06-05 08:40] LABS: Platelet Count 24 x1000/uL (130-400)
[2018-06-05 08:44] LABS: Absolute Lymphocyte Count 0.48 k/cumm (1.2-3.4); Absolute Monocyte Count 0.09 k/cumm (0.11-0.7); Absolute Neutrophil Count 0.24 k/cumm (1.2-6.7); Atypical Lymphocytes % 3
[2018-06-05 08:45] LABS: Diff Comment Manual Differential
[2018-06-05 08:46] LABS: Anisocytosis 2+; Poikilocytes 1+
--- NOTE | 2018-06-05 10:10 | PDOC.CMPRO ---
- If Service Date Differs Date of service: 06/05/18 Time of Service: 10:10 Care Management Progress Note S/O: Stacey continues to be an acute inpatient anticipate no change in her status today She continues to receive IV antibiotics continue to trend her ANC which is not at goal.Stacey remains on reverse precautions. DC plan reviewed which remains the same at this time. Anticipate she will need to transition to oral antibiotics prior to discharge. She continues on daily Neupogen. Provider in consulting her oncologist and infectious disease to determine continued antibiotic course and length of treatment. A: 43 y/o female admitted 05/30/18 for fever/vomiting, with B-cell Non- Hodgkins lymphoma P: Stacey will continue as a medical surgical patient no change in status today. She is receiving IV antibiotics, and antiviral, and is receiving daily Neupogen injections. She continues to have daily lab draws. She will return home with when medically ready per provider.
--- NOTE | 2018-06-05 12:19 | W.PM.PROGNOT ---
Assessment and Plan (1) Neutropenic fever: Current visit: Yes Status: Acute Initial presentation with neutropenic fever, with an ANC of 0.17. Urinalysis appears to be negative, but with imaging showing evidence of potential sinusitis as well as pulmonary infiltrate. Given her neutropenia the patient was initiated by cefepime (D#7) in the emergency department, with vancomycin (D#6) added due to evidence of pulmonary infiltrates. Blood Cultures with no growth X120 hours. Patient remains afebrile since time of admission. Monitor closely. Given neutropenia Ms. Lugo was also started on Neupogen, with current ANC improved but still neutropenic. As per discussion with Heme/Onc plan is for discontinuation of Vancomycin soon, and continuation of Cefepime until no longer neutropenic. Will be contacting patient's clinic as well. (2) Pneumonia: Current visit: Yes Status: Acute Day #7 of Cefepime, #6 Vancomycin. (3) B-cell lymphoma: Current visit: Yes Status: Acute Discussed case with [facility] oncology. Patient is currently maintained on radio-immunotherapy as well as rituximab, last received on May 03 of this year. (4) Pancytopenia: Current visit: Yes Status: Acute Evidence of significant pancytopenia, with neutropenia and significant thrombocytopenia by lab work. No evidence of Schistocytes by blood smear, and with normal coags and bilirubin. Doubt TTP/HUS or DIC. S/p platelet transfusion with resultant increase from 7 --> 19, now at 8. Transfused again with 2 units of platelets, now at 24. Monitor closely. Significant anemia with Hemoglobin <7 - improved with 2 units of PRBC's. Mrs. Sahu is maintained on the radioimmunotherapy and rituximab for treatment of her relapsed follicular B-cell lymphoma. As per discussion with Hem/Onc at [facility] the expected josey of this combination treatment is rather prolonged. Following discussion plan will be administration of Neupogen as well as transfusion with irradiated platelets and PRBCs as above to maintain a count greater than 10 and Hemoglobin above 7. Monitor CBC carefully. (5) Chronic renal insufficiency: Current visit: Yes Status: Acute Creatinine appears stable and actually better than baseline. Monitor, avoid nephrotoxins, and renally dose medications when appropriate. (6) DVT prophylaxis: Current visit: Yes Status: Acute Avoid heparin given significant thrombocytopenia. Continue SCDs. Subjective Interval history since last seen: 43-year-old woman with past medical history significant for follicular B-cell lymphoma, currently on treatment with radioimmunotherapy and rituximab, admitted from an [facility] emergency department on May 30 with a diagnosis of neutropenic fever. Workup in the emergency department showed evidence for neutropenia, anemia, and significant thrombocytopenia. Chest x-ray showed evidence of likely infiltrates, and CT showed sinusitis that was deemed likely acute. Patient was initially started on cefepime, with vancomycin being initiated due to evidence of potential pulmonary infiltrate. Mrs. Sahu was transfused with platelets, and Neupogen was initiated 06/01. She continues to report improvement in her overall symptoms, and she has remained afebrile since the time of admission. Labwork previously showed evidence of significant anemia with hemoglobin <7 which responded to transfusion with PRBCs. Platelet count were again < 10 yesterday, and Mrs. Lugo was transfused again with good response by platelet count this morning. No other overnight events reported. She remains afebrile. Exam Const General: cooperative Orientation: alert, awake and oriented x3 Neck Neck: supple Resp Effort & Inspection: able to speak in complete sentences, not labored and no use of accessory muscles Auscultation: clear to auscultation bilaterally Cardio Rate: tachycardic Rhythm: regular rhythm Heart Sounds: S1 normal and S2 normal GI Inspection: normal to inspection Palpation: soft Percussion: normal to percussion Auscultation: normal bowel sounds Skin General skin exam: no rashes or lesions noted Extrem General: no pedal edema Objective Objective Clinical Data: Abnormal lab results 06/05/18 06/05/18 Range/Units 06:55 06:55 WBC 0.86 L* (4.4-10.8) k/cumm RBC 2.81 L (4.00-5.20) m/cumm Hgb 8.8 L (12.0-15.5) g/dL Hct 26.3 L (36.0-46.0) % RDW 19.0 H (11.7-14.6) % Plt Count 24 L* D (130-400) x1000/uL Absolute Neutrophils 0.24 L* (1.2-6.7) k/cumm Absolute Lymphocytes 0.48 L (1.2-3.4) k/cumm Absolute Monocytes 0.09 L (0.11-0.7) k/cumm Potassium 3.3 L (3.5-5.1) mmol/L BUN 19 H (7-18) mg/dL Creatinine 1.89 H (0.55-1.02) mg/dL Calcium 8.4 L (8.5-10.1) mg/dL Vital Signs Temp 36.3 C L 06/05/18 07:20 Pulse 70 06/05/18 07:20 Resp 16 06/05/18 07:20 BP 82/52 L 06/05/18 07:20 Pulse Ox 98 06/05/18 07:20 Intake & Output 06/04/18 06/05/18 06/05/18 23:59 11:59 23:59 Intake Total 771 / 771 400 / 400 Output Total 1600 / 1600 1600 / 1600 Balance -829 / -829 -1200 / -1200 Intake: IV 430 / 430 Oral 400 / 400 Blood Product Pheresis Platelets Unit 52 / 52 [id number] Pheresis Platelets Unit 39 / 39 [id number] Other 250 / 250 Pheresis Platelets Unit 200 / 200 [id number] Pheresis Platelets Unit 50 / 50 [id number] Output: Urine 1600 / 1600 1600 / 1600 Other: Urine Color Yellow Yellow Urine Appearance Clear Clear Urine Odor Normal None Voiding Methods Toilet Toilet Laboratory Results WBC 0.86 k/cumm (4.4-10.8) L* 06/05/18 06:55 RBC 2.81 m/cumm (4.00-5.20) L 06/05/18 06:55 Hgb 8.8 g/dL (12.0-15.5) L 06/05/18 06:55 Hct 26.3 % (36.0-46.0) L 06/05/18 06:55 MCV 93.6 fL (80-95) 06/05/18 06:55 MCH 31.3 pg (27.0-33.0) 06/05/18 06:55 MCHC 33.5 g/dL (32.0-36.0) 06/05/18 06:55 RDW 19.0 % (11.7-14.6) H 06/05/18 06:55 Plt Count 24 x1000/uL (130-400) L* D 06/05/18 06:55 MPV 9.7 fL (8.0-11.0) 06/05/18 06:55 Immature Gran % See Differential 06/05/18 06:55 Neutrophils % 17.0 06/05/18 06:55 Lymphocytes % 53.0 06/05/18 06:55 Monocytes % 11.0 06/05/18 06:55 Eosinophils % 4.0 06/05/18 06:55 Basophils % 0.0 06/05/18 06:55 Absolute Neutrophils 0.24 k/cumm (1.2-6.7) L* 06/05/18 06:55 Band Neutrophils 11.0 % 06/05/18 06:55 Absolute Lymphocytes 0.48 k/cumm (1.2-3.4) L 06/05/18 06:55 Absolute Monocytes 0.09 k/cumm (0.11-0.7) L 06/05/18 06:55 Absolute Eosinophils 0.03 k/cumm (0.0-0.7) 06/05/18 06:55 Absolute Basophils 0.00 k/cumm (0.0-0.2) 06/05/18 06:55 Metamyelocytes 1.0 % 06/05/18 06:55 Myelocytes 1.0 % 06/02/18 07:38 Differential Comment Manual differential 06/05/18 06:55 Atypical Lymphocytes 3 06/05/18 06:55 RBC Morphology See below 06/05/18 06:55 Poikilocytosis 1+ 06/05/18 06:55 Anisocytosis 2+ 06/05/18 06:55 Macrocytosis 1+ 06/02/18 07:38 PT 10.5 sec (9.3-10.8) 05/30/18 15:15 INR 1.1 (1.0-3.5) 05/30/18 15:15 D-Dimer 1664 ng/mlFEU (<500) H 05/30/18 15:15 Sodium 139 mmol/L (136-145) 06/05/18 06:55 Potassium 3.3 mmol/L (3.5-5.1) L 06/05/18 06:55 Chloride 106 mmol/L (98-107) 06/05/18 06:55 Carbon Dioxide 24.3 mmol/L (21.0-32.0) 06/05/18 06:55 Anion Gap 8.7 mmol/L (3-11) 06/05/18 06:55 BUN 19 mg/dL (7-18) H 06/05/18 06:55 Creatinine 1.89 mg/dL (0.55-1.02) H 06/05/18 06:55 Estimated GFR/1.73 m2 28.76 (mL/min/1.73m2) 06/05/18 06:55 Glucose 90 mg/dL (70-100) 06/05/18 06:55 Lactate 0.9 mmol/L (0.6-1.4) 05/30/18 16:10 Calcium 8.4 mg/dL (8.5-10.1) L 06/05/18 06:55 Total Bilirubin 0.8 mg/dL (0.2-1.0) 05/30/18 15:15 AST 64 U/L (15-37) H 05/30/18 15:15 ALT 14 U/L (12-78) 05/30/18 15:15 Alkaline Phosphatase 98 U/L (46-116) 05/30/18 15:15 Troponin I < 0.02 ng/mL (0.00-0.06) 05/30/18 15:15 Total Protein 7.1 g/dL (6.4-8.2) 05/30/18 15:15 Albumin 2.8 g/dL (3.4-5.0) L 05/30/18 15:15 Urine Color Yellow (Yellow) 05/30/18 19:30 Urine Clarity Clear 05/30/18 19:30 Urine pH 5.5 (5-8) 05/30/18 19:30 Ur Specific [place] 1.015 (1.005-1.025) 05/30/18 19:30 Urine Protein 100 mg/dL (Negative) H 05/30/18 19:30 Urine Ketones Negative mg/dL (Negative) 05/30/18 19:30 Urine Blood Trace-lysed (Negative) H 05/30/18 19:30 Urine Nitrite Negative (Negative) 05/30/18 19:30 Urine Bilirubin Negative (Negative) 05/30/18 19:30 Urine Urobilinogen 0.2 EU/dL (Up TO 0.2) 05/30/18 19:30 Ur Leukocyte Esterase Negative (Negative) 05/30/18 19:30 Urine RBC Negative (0-2) 05/30/18 19:30 Urine WBC 3-5 HPF (0-5) 05/30/18 19:30 Ur Epithelial Cells Few HPF (Negative) 05/30/18 19:30 Urine Crystals Moderate amorphous HPF (Negative) 05/30/18 19:30 Urine Bacteria Negative HPF (Negative) 05/30/18 19:30 Urine Casts 3-5 fine granular LPF (Negative) 05/30/18 19:30 Urine Mucus Negative (Negative) 05/30/18 19:30 Ur Culture Indicated? No 05/30/18 19:30 Urine Glucose Negative mg/dL (Negative) 05/30/18 19:30 Vancomycin Trough 23.6 ug/mL (10.0-20.0) H* 06/03/18 13:05 Patient ABO/Rh O Negative 06/04/18 06:20 Antibody Screen Negative 05/31/18 14:05 Crossmatch See Detail 05/31/18 14:05
--- NOTE | 2018-06-05 12:27 | PGE_ITS ---
Assessment and Plan (1) Neutropenic fever: Current visit: Yes Status: Acute Initial presentation with neutropenic fever, with an ANC of 0.17. Urinalysis appears to be negative, but with imaging showing evidence of potential sinusitis as well as pulmonary infiltrate. Given her neutropenia the patient was initiated by cefepime (D#7) in the emergency department, with vancomycin (D#6) added due to evidence of pulmonary infiltrates. Blood Cultures with no growth X120 hours. Patient remains afebrile since time of admission. Monitor closely. Given neutropenia Ms. Lugo was also started on Neupogen, with current ANC improved but still neutropenic. As per discussion with Heme/Onc plan is for discontinuation of Vancomycin soon, and continuation of Cefepime until no longer neutropenic. Will be contacting patient's clinic as well. (2) Pneumonia: Current visit: Yes Status: Acute Day #7 of Cefepime, #6 Vancomycin. (3) B-cell lymphoma: Current visit: Yes Status: Acute Discussed case with [facility] oncology. Patient is currently maintained on radio-immunotherapy as well as rituximab, last received on May 03 of this year. (4) Pancytopenia: Current visit: Yes Status: Acute Evidence of significant pancytopenia, with neutropenia and significant thrombocytopenia by lab work. No evidence of Schistocytes by blood smear, and with normal coags and bilirubin. Doubt TTP/HUS or DIC. S/p platelet transfusion with resultant increase from 7 --> 19, now at 8. Transfused again with 2 units of platelets, now at 24. Monitor closely. Significant anemia with Hemoglobin <7 - improved with 2 units of PRBC's. Mrs. Sahu is maintained on the radioimmunotherapy and rituximab for treatment of her relapsed follicular B-cell lymphoma. As per discussion with Hem/Onc at [facility] the expected josey of this combination treatment is rather prolonged. Following discussion plan will be administration of Neupogen as well as transfusion with irradiated platelets and PRBCs as above to maintain a count greater than 10 and Hemoglobin above 7. Monitor CBC carefully. (5) Chronic renal insufficiency: Current visit: Yes Status: Acute Creatinine appears stable and actually better than baseline. Monitor, avoid nephrotoxins, and renally dose medications when appropriate. (6) DVT prophylaxis: Current visit: Yes Status: Acute Avoid heparin given significant thrombocytopenia. Continue SCDs. Subjective Interval history since last seen: 43-year-old woman with past medical history significant for follicular B-cell lymphoma, currently on treatment with radioimmunotherapy and rituximab, admitted from an [facility] emergency department on May 30 with a diagnosis of neutropenic fever. Workup in the emergency department showed evidence for neutropenia, anemia, and significant thrombocytopenia. Chest x-ray showed evidence of likely infiltrates , and CT showed sinusitis that was deemed likely acute. Patient was initially started on cefepime, with vancomycin being initiated due to evidence of potential pulmonary infiltrate. Mrs. Sahu was transfused with platelets, and Neupogen was initiated 06/01. She continues to report improvement in her overall symptoms, and she has remained afebrile since the time of admission. Labwork previously showed evidence of significant anemia with hemoglobin <7 which responded to transfusion with PRBCs. Platelet count were again < 10 yesterday, and Mrs. Lugo was transfused again with good response by platelet count this morning. No other overnight events reported. She remains afebrile. Exam Const General: cooperative Orientation: alert, awake and oriented x3 Neck Neck: supple Resp Effort & Inspection: able to speak in complete sentences, not labored and no use of accessory muscles Auscultation: clear to auscultation bilaterally Cardio Rate: tachycardic Rhythm: regular rhythm Heart Sounds: S1 normal and S2 normal GI Inspection: normal to inspection Palpation: soft Percussion: normal to percussion Auscultation: normal bowel sounds Skin General skin exam: no rashes or lesions noted Extrem General: no pedal edema Objective Objective Clinical Data: Abnormal lab results 06/05/18 06/05/18 Range/Units 06:55 06:55 WBC 0.86 L* (4.4-10.8) k/cumm RBC 2.81 L (4.00-5.20) m/cumm Hgb 8.8 L (12.0-15.5) g/dL Hct 26.3 L (36.0-46.0) % RDW 19.0 H (11.7-14.6) % Plt Count 24 L* D (130-400) x1000/uL Absolute Neutrophils 0.24 L* (1.2-6.7) k/cumm Absolute Lymphocytes 0.48 L (1.2-3.4) k/cumm Absolute Monocytes 0.09 L (0.11-0.7) k/cumm Potassium 3.3 L (3.5-5.1) mmol/L BUN 19 H (7-18) mg/dL Creatinine 1.89 H (0.55-1.02) mg/dL Calcium 8.4 L (8.5-10.1) mg/dL Vital Signs Temp 36.3 C L 06/05/18 07:20 Pulse 70 06/05/18 07:20 Resp 16 06/05/18 07:20 BP 82/52 L 06/05/18 07:20 Pulse Ox 98 06/05/18 07:20 Intake & Output 06/04/18 06/05/18 06/05/18 23:59 11:59 23:59 Intake Total 771 / 771 400 / 400 Output Total 1600 / 1600 1600 / 1600 Balance -829 / -829 -1200 / -1200 Intake: IV 430 / 430 Oral 400 / 400 Blood Product Pheresis Platelets Unit 52 / 52 [id number] Pheresis Platelets Unit 39 / 39 [id number] Other 250 / 250 Pheresis Platelets Unit 200 / 200 [id number] Pheresis Platelets Unit 50 / 50 [id number] Output: Urine 1600 / 1600 1600 / 1600 Other: Urine Color Yellow Yellow Urine Appearance Clear Clear Urine Odor Normal None Voiding Methods Toilet Toilet Laboratory Results WBC 0.86 k/cumm (4.4-10.8) L* 06/05/18 06:55 RBC 2.81 m/cumm (4.00-5.20) L 06/05/18 06:55 Hgb 8.8 g/dL (12.0-15.5) L 06/05/18 06:55 Hct 26.3 % (36.0-46.0) L 06/05/18 06:55 MCV 93.6 fL (80-95) 06/05/18 06:55 MCH 31.3 pg (27.0-33.0) 06/05/18 06:55 MCHC 33.5 g/dL (32.0-36.0) 06/05/18 06:55 RDW 19.0 % (11.7-14.6) H 06/05/18 06:55 Plt Count 24 x1000/uL (130-400) L* D 06/05/18 06:55 MPV 9.7 fL (8.0-11.0) 06/05/18 06:55 Immature Gran % See Differential 06/05/18 06:55 Neutrophils % 17.0 06/05/18 06:55 Lymphocytes % 53.0 06/05/18 06:55 Monocytes % 11.0 06/05/18 06:55 Eosinophils % 4.0 06/05/18 06:55 Basophils % 0.0 06/05/18 06:55 Absolute Neutrophils 0.24 k/cumm (1.2-6.7) L* 06/05/18 06:55 Band Neutrophils 11.0 % 06/05/18 06:55 Absolute Lymphocytes 0.48 k/cumm (1.2-3.4) L 06/05/18 06:55 Absolute Monocytes 0.09 k/cumm (0.11-0.7) L 06/05/18 06:55 Absolute Eosinophils 0.03 k/cumm (0.0-0.7) 06/05/18 06:55 Absolute Basophils 0.00 k/cumm (0.0-0.2) 06/05/18 06:55 Metamyelocytes 1.0 % 06/05/18 06:55 Myelocytes 1.0 % 06/02/18 07:38 Differential Comment Manual differential 06/05/18 06:55 Atypical Lymphocytes 3 06/05/18 06:55 RBC Morphology See below 06/05/18 06:55 Poikilocytosis 1+ 06/05/18 06:55 Anisocytosis 2+ 06/05/18 06:55 Macrocytosis 1+ 06/02/18 07:38 PT 10.5 sec (9.3-10.8) 05/30/18 15:15 INR 1.1 (1.0-3.5) 05/30/18 15:15 D-Dimer 1664 ng/mlFEU (<500) H 05/30/18 15:15 Sodium 139 mmol/L (136-145) 06/05/18 06:55 Potassium 3.3 mmol/L (3.5-5.1) L 06/05/18 06:55 Chloride 106 mmol/L (98-107) 06/05/18 06:55 Carbon Dioxide 24.3 mmol/L (21.0-32.0) 06/05/18 06:55 Anion Gap 8.7 mmol/L (3-11) 06/05/18 06:55 BUN 19 mg/dL (7-18) H 06/05/18 06:55 Creatinine 1.89 mg/dL (0.55-1.02) H 06/05/18 06:55 Estimated GFR/1.73 m2 28.76 (mL/min/1.73m2) 06/05/18 06:55 Glucose 90 mg/dL (70-100) 06/05/18 06:55 Lactate 0.9 mmol/L (0.6-1.4) 05/30/18 16:10 Calcium 8.4 mg/dL (8.5-10.1) L 06/05/18 06:55 Total Bilirubin 0.8 mg/dL (0.2-1.0) 05/30/18 15:15 AST 64 U/L (15-37) H 05/30/18 15:15 ALT 14 U/L (12-78) 05/30/18 15:15 Alkaline Phosphatase 98 U/L (46-116) 05/30/18 15:15 Troponin I < 0.02 ng/mL (0.00-0.06) 05/30/18 15:15 Total Protein 7.1 g/dL (6.4-8.2) 05/30/18 15:15 Albumin 2.8 g/dL (3.4-5.0) L 05/30/18 15:15 Urine Color Yellow (Yellow) 05/30/18 19:30 Urine Clarity Clear 05/30/18 19:30 Urine pH 5.5 (5-8) 05/30/18 19:30 Ur Specific [place] 1.015 (1.005-1.025) 05/30/18 19:30 Urine Protein 100 mg/dL (Negative) H 05/30/18 19:30 Urine Ketones Negative mg/dL (Negative) 05/30/18 19:30 Urine Blood Trace-lysed (Negative) H 05/30/18 19:30 Urine Nitrite Negative (Negative) 05/30/18 19:30 Urine Bilirubin Negative (Negative) 05/30/18 19:30 Urine Urobilinogen 0.2 EU/dL (Up TO 0.2) 05/30/18 19:30 Ur Leukocyte Esterase Negative (Negative) 05/30/18 19:30 Urine RBC Negative (0-2) 05/30/18 19:30 Urine WBC 3-5 HPF (0-5) 05/30/18 19:30 Ur Epithelial Cells Few HPF (Negative) 05/30/18 19:30 Urine Crystals Moderate amorphous HPF (Negative) 05/30/18 19:30 Urine Bacteria Negative HPF (Negative) 05/30/18 19:30 Urine Casts 3-5 fine granular LPF (Negative) 05/30/18 19:30 Urine Mucus Negative (Negative) 05/30/18 19:30 Ur Culture Indicated? No 05/30/18 19:30 Urine Glucose Negative mg/dL (Negative) 05/30/18 19:30 Vancomycin Trough 23.6 ug/mL (10.0-20.0) H* 06/03/18 13:05 Patient ABO/Rh O Negative 06/04/18 06:20 Antibody Screen Negative 05/31/18 14:05 Crossmatch See Detail 05/31/18 14:05
[2018-06-05] MEDS: traMADol 50 MG TAB PO ×2 (13:50→20:28)
[2018-06-05] MEDS: VANCOMYCIN 750 MG in Normal Saline 250 ML 167 MG IVPB (15:02)
[2018-06-05] MEDS: POTASSIUM CHLORIDE 20 MEQ, POTASSIUM CHLORIDE 10 MEQ 30 MEQ PO (15:05)
[2018-06-05] MEDS: Doxycycline Hyclate 100 MG CAP PO (15:06)
[2018-06-05 16:22] VITALS: BP 112/82; PULSE 77; RESP 18; TEMP 36.8; O2SAT 100
--- NOTE | 2018-06-05 16:22 | NUR.NOTE ---
Patient had an episode of nausea at about 1530. Patient felt it was due to her increasing pain. Her pulse was 77, bp 112 /77 temp 36.5. She also stated to have had half a john with [facility], and felt sick immediately after. After her brief incident of emesis , she felt better in the regard of nausea but still felt in pain, will attempt tylenol next
[2018-06-05] MEDS: CEFEPIME 2 GM in Normal Saline 100 ML IVPB (16:44)
[2018-06-05] MEDS: Acetaminophen 500 MG TAB 1000 MG PO (16:45)
[2018-06-05] MEDS: LORazepam 1 MG TAB PO (20:29)
[2018-06-06 00:35] VITALS: BP 87/60; PULSE 75; RESP 15; TEMP 36.4; O2SAT 96
[2018-06-06] MEDS: Doxycycline Hyclate 100 MG CAP PO ×2 (02:51→19:13)
[2018-06-06 02:54] VITALS: BP 103/75
[2018-06-06 07:34] LABS: Abs Immature Grans 0.07 k/cumm (0.0-0.09); HCT 27.5 % (36.0-46.0); HGB 9.2 g/dL (12.0-15.5); Mean Corp. HGB Concentration 33.5 g/dL (32.0-36.0); Mean Corpuscular Hemoglobin 31.4 pg (27.0-33.0); Mean Corpuscular Volume 93.9 fL (80-95); Mean Platelet Volume 9.6 fL (8.0-11.0); RBC 2.93 m/cumm (4.00-5.20)
[2018-06-06 07:49] LABS: Anion Gap 7.5 mmol/L (3-11); BUN 22 mg/dL (7-18); CO2 25.5 mmol/L (21.0-32.0); CREATININE 1.89 mg/dL (0.55-1.02); Calcium 8.7 mg/dL (8.5-10.1); Chloride 103 mmol/L (98-107); Estimated GFR 28.76 (mL/min/1.73m2); Glucose 92 mg/dL (70-100); Potassium 4.2 mmol/L (3.5-5.1); Sodium 136 mmol/L (136-145)
[2018-06-06 08:17] LABS: White Blood Cell Count 0.86 k/cumm (4.4-10.8)
[2018-06-06 08:21] LABS: Absolute Eosinophil Count 0.02 k/cumm (0.0-0.7); Absolute Lymphocyte Count 0.48 k/cumm (1.2-3.4); Absolute Monocyte Count 0.07 k/cumm (0.11-0.7); Absolute Neutrophil Count 0.28 k/cumm (1.2-6.7); Diff Comment Manual Differential
[2018-06-06 08:22] LABS: Hypochromasia 1+
[2018-06-06 08:23] LABS: Platelet Count 22 x1000/uL (130-400)
[2018-06-06] MEDS: Escitalopram 20 MG TAB PO (08:28)
[2018-06-06] MEDS: Benzonatate 100 MG CAP PO ×3 (08:28→19:13)
[2018-06-06] MEDS: Acyclovir 400 MG TAB 800 MG PO ×2 (08:28→19:13)
[2018-06-06] MEDS: buPROPion-XL 150 MG TABCR 300 MG PO (08:28)
[2018-06-06 09:12] VITALS: BP 106/78; PULSE 75; RESP 17; TEMP 36.6; O2SAT 100
[2018-06-06 09:34] LABS: Vancomycin, Trough 25.9 ug/mL (10.0-20.0)
--- NOTE | 2018-06-06 13:47 | PDOC.CMPRO ---
- If Service Date Differs Date of service: 06/06/18 Time of Service: 13:47 Care Management Progress Note S/O: Stacey is lying in bed this morning, pleasant throughout interaction. Stacey is hopeful to be able to return home soon as she misses her children. Stacey continues to be on reverse precautions and is receiving IV antibiotics. CM reviewed DC plan which remains unchanged at this time. A: 43 y/o female admitted 05/30/18 for fever/vomiting, with B-cell Non- Hodgkins lymphoma P: Stacey will continue as a medical surgical patient no change in status today. She is receiving IV antibiotics, and antiviral, and is receiving daily Neupogen injections. She continues to have daily lab draws. She will return home with when medically ready per provider.
[2018-06-06] MEDS: CEFEPIME 2 GM in Normal Saline 100 ML IVPB (16:47)
[2018-06-06] MEDS: Normal Saline Flush 10 ML SYR IVP (17:54)
--- NOTE | 2018-06-06 17:58 | PGE_ITS ---
Date of service: 06/06/18 Time of Service: 17:53 Assessment and Plan (1) Neutropenic fever: Current visit: Yes Status: Acute ANC remains low at 280. Continue reverse precautions. Continue cefepime and vancomycin. (2) Pancytopenia: Current visit: Yes Status: Acute White count remains low at 860, platelets are low at 22,000, hemoglobin hematocrit are stable. Continue to follow daily counts. No transfusion today. (3) Depression: Current visit: Yes Status: Chronic Depression seems to be stable. Displays a full affect today. Continue present meds. (4) B-cell lymphoma: Current visit: Yes Status: Acute Continues on Neupogen for bone marrow support. Follow-up with oncology as an outpatient. (5) Reactive arthritis of knee: Current visit: No Status: Acute She is on doxycycline 100 mg twice daily for 1 more month. Further follow -up with infectious disease. (6) Discharge planning issues: Current visit: Yes Status: Acute Continue to monitor in acute care status. Plan is to continue on IV antibiotics until her ANC is greater than 500. We can DC the vancomycin tomorrow if she is stable. Continue cefepime and doxycycline. She remains a full code. Subjective Patient reports: no new complaints and feels better Interval history since last seen: Patient denies any physical complaints. She expresses a desire to go home. She understands that her counts remain low and she still requires IV antibiotics to protect her from infection. Exam Narrative Exam Narrative: Patient appears comfortable and in no respiratory distress. Her affect is full. She had no respiratory difficulty, no cough, denied any physical ailments. Objective Objective Clinical Data: Abnormal lab results 06/06/18 06/06/18 06/06/18 Range/Units 06:45 06:45 09:02 WBC 0.86 L* (4.4-10.8) k/cumm RBC 2.93 L (4.00-5.20) m/cumm Hgb 9.2 L (12.0-15.5) g/dL Hct 27.5 L (36.0-46.0) % RDW 19.0 H (11.7-14.6) % Plt Count 22 L* (130-400) x1000/uL Absolute Neutrophils 0.28 L* (1.2-6.7) k/cumm Absolute Lymphocytes 0.48 L (1.2-3.4) k/cumm Absolute Monocytes 0.07 L (0.11-0.7) k/cumm BUN 22 H (7-18) mg/dL Creatinine 1.89 H (0.55-1.02) mg/dL Vancomycin Trough 25.9 H* (10.0-20.0) ug/mL Vital Signs Temp 36.6 C 06/06/18 09:12 Pulse 75 06/06/18 09:12 Resp 17 06/06/18 09:12 BP 106/78 06/06/18 09:12 Pulse Ox 100 06/06/18 09:12 Intake & Output 06/05/18 06/06/18 06/06/18 23:59 11:59 23:59 Intake Total 395 / 395 480 / 480 100 / 100 Output Total 1450 / 1450 1949 / 1950 Balance -1055 / -1055 -1470 / -1470 100 / 100 Intake: IV 395 / 395 100 / 100 Oral 480 / 480 Output: Urine 1450 / 1450 1949 Other: Urine Color Yellow Yellow Straw Urine Appearance Clear Clear Urine Odor None Normal Comment hat in toilet emptied. Voiding Methods Toilet Toilet Laboratory Results WBC 0.86 k/cumm (4.4-10.8) L* 06/06/18 06:45 RBC 2.93 m/cumm (4.00-5.20) L 06/06/18 06:45 Hgb 9.2 g/dL (12.0-15.5) L 06/06/18 06:45 Hct 27.5 % (36.0-46.0) L 06/06/18 06:45 MCV 93.9 fL (80-95) 06/06/18 06:45 MCH 31.4 pg (27.0-33.0) 06/06/18 06:45 MCHC 33.5 g/dL (32.0-36.0) 06/06/18 06:45 RDW 19.0 % (11.7-14.6) H 06/06/18 06:45 Plt Count 22 x1000/uL (130-400) L* 06/06/18 06:45 MPV 9.6 fL (8.0-11.0) 06/06/18 06:45 Immature Gran % See Differential 06/06/18 06:45 Neutrophils % 30.0 06/06/18 06:45 Lymphocytes % 56.0 06/06/18 06:45 Monocytes % 8.0 06/06/18 06:45 Eosinophils % 2.0 06/06/18 06:45 Basophils % 0.0 06/06/18 06:45 Absolute Neutrophils 0.28 k/cumm (1.2-6.7) L* 06/06/18 06:45 Band Neutrophils 2.0 % 06/06/18 06:45 Absolute Lymphocytes 0.48 k/cumm (1.2-3.4) L 06/06/18 06:45 Absolute Monocytes 0.07 k/cumm (0.11-0.7) L 06/06/18 06:45 Absolute Eosinophils 0.02 k/cumm (0.0-0.7) 06/06/18 06:45 Absolute Basophils 0.00 k/cumm (0.0-0.2) 06/06/18 06:45 Metamyelocytes 2.0 % 06/06/18 06:45 Myelocytes 1.0 % 06/02/18 07:38 Differential Comment Manual differential 06/06/18 06:45 Atypical Lymphocytes 3 06/05/18 06:55 RBC Morphology See below 06/06/18 06:45 Hypochromasia 1+ 06/06/18 06:45 Poikilocytosis 1+ 06/05/18 06:55 Anisocytosis 2+ 06/05/18 06:55 Macrocytosis 1+ 06/02/18 07:38 PT 10.5 sec (9.3-10.8) 05/30/18 15:15 INR 1.1 (1.0-3.5) 05/30/18 15:15 D-Dimer 1664 ng/mlFEU (<500) H 05/30/18 15:15 Sodium 136 mmol/L (136-145) 06/06/18 06:45 Potassium 4.2 mmol/L (3.5-5.1) D 06/06/18 06:45 Chloride 103 mmol/L (98-107) 06/06/18 06:45 Carbon Dioxide 25.5 mmol/L (21.0-32.0) 06/06/18 06:45 Anion Gap 7.5 mmol/L (3-11) 06/06/18 06:45 BUN 22 mg/dL (7-18) H 06/06/18 06:45 Creatinine 1.89 mg/dL (0.55-1.02) H 06/06/18 06:45 Estimated GFR/1.73 m2 28.76 (mL/min/1.73m2) 06/06/18 06:45 Glucose 92 mg/dL (70-100) 06/06/18 06:45 Lactate 0.9 mmol/L (0.6-1.4) 05/30/18 16:10 Calcium 8.7 mg/dL (8.5-10.1) 06/06/18 06:45 Total Bilirubin 0.8 mg/dL (0.2-1.0) 05/30/18 15:15 AST 64 U/L (15-37) H 05/30/18 15:15 ALT 14 U/L (12-78) 05/30/18 15:15 Alkaline Phosphatase 98 U/L (46-116) 05/30/18 15:15 Troponin I < 0.02 ng/mL (0.00-0.06) 05/30/18 15:15 Total Protein 7.1 g/dL (6.4-8.2) 05/30/18 15:15 Albumin 2.8 g/dL (3.4-5.0) L 05/30/18 15:15 Urine Color Yellow (Yellow) 05/30/18 19:30 Urine Clarity Clear 05/30/18 19:30 Urine pH 5.5 (5-8) 05/30/18 19:30 Ur Specific [place] 1.015 (1.005-1.025) 05/30/18 19:30 Urine Protein 100 mg/dL (Negative) H 05/30/18 19:30 Urine Ketones Negative mg/dL (Negative) 05/30/18 19:30 Urine Blood Trace-lysed (Negative) H 05/30/18 19:30 Urine Nitrite Negative (Negative) 05/30/18 19:30 Urine Bilirubin Negative (Negative) 05/30/18 19:30 Urine Urobilinogen 0.2 EU/dL (Up TO 0.2) 05/30/18 19:30 Ur Leukocyte Esterase Negative (Negative) 05/30/18 19:30 Urine RBC Negative (0-2) 05/30/18 19:30 Urine WBC 3-5 HPF (0-5) 05/30/18 19:30 Ur Epithelial Cells Few HPF (Negative) 05/30/18 19:30 Urine Crystals Moderate amorphous HPF (Negative) 05/30/18 19:30 Urine Bacteria Negative HPF (Negative) 05/30/18 19:30 Urine Casts 3-5 fine granular LPF (Negative) 05/30/18 19:30 Urine Mucus Negative (Negative) 05/30/18 19:30 Ur Culture Indicated? No 05/30/18 19:30 Urine Glucose Negative mg/dL (Negative) 05/30/18 19:30 Vancomycin Trough 25.9 ug/mL (10.0-20.0) H* 06/06/18 09:02 Patient ABO/Rh O Negative 06/04/18 06:20 Antibody Screen Negative 05/31/18 14:05 Crossmatch See Detail 05/31/18 14:05
[2018-06-06] MEDS: VANCOMYCIN 750 MG in Normal Saline 250 ML 166.667 MG IVPB (19:12)
[2018-06-06 20:23] VITALS: BP 99/66; PULSE 86; RESP 19; TEMP 37.6; O2SAT 98
[2018-06-06] MEDS: LORazepam 1 MG TAB PO (20:23)
[2018-06-07 04:07] VITALS: BP 88/60; PULSE 72; RESP 18; TEMP 36.4; O2SAT 98
[2018-06-07] MEDS: Doxycycline Hyclate 100 MG CAP PO ×2 (05:51→17:20)
[2018-06-07 06:56] LABS: Abs Immature Grans 0.07 k/cumm (0.0-0.09); Anion Gap 7.2 mmol/L (3-11); BUN 24 mg/dL (7-18); CO2 26.8 mmol/L (21.0-32.0); CREATININE 1.94 mg/dL (0.55-1.02); Calcium 8.8 mg/dL (8.5-10.1); Chloride 101 mmol/L (98-107); Estimated GFR 27.91 (mL/min/1.73m2); Glucose 90 mg/dL (70-100); HCT 26.1 % (36.0-46.0); HGB 8.8 g/dL (12.0-15.5); Mean Corp. HGB Concentration 33.7 g/dL (32.0-36.0); Mean Corpuscular Hemoglobin 31.8 pg (27.0-33.0); Mean Corpuscular Volume 94.2 fL (80-95); Mean Platelet Volume 10.1 fL (8.0-11.0); RBC 2.77 m/cumm (4.00-5.20); RBC Distribution Width 18.6 % (11.7-14.6); Sodium 135 mmol/L (136-145)
[2018-06-07 07:03] LABS: White Blood Cell Count 1.12 k/cumm (4.4-10.8)
[2018-06-07 07:30] VITALS: BP 94/65; PULSE 72; RESP 18; TEMP 36.3; O2SAT 98
[2018-06-07] MEDS: Benzonatate 100 MG CAP PO ×3 (07:48→19:11)
[2018-06-07] MEDS: Escitalopram 20 MG TAB PO (07:48)
[2018-06-07] MEDS: Acyclovir 400 MG TAB 800 MG PO ×2 (07:48→19:11)
[2018-06-07] MEDS: buPROPion-XL 150 MG TABCR 300 MG PO (07:49)
[2018-06-07 08:06] LABS: Platelet Count 14 x1000/uL (130-400)
[2018-06-07 08:08] LABS: Absolute Eosinophil Count 0.04 k/cumm (0.0-0.7); Absolute Monocyte Count 0.09 k/cumm (0.11-0.7)
[2018-06-07 08:09] LABS: Absolute Lymphocyte Count 0.67 k/cumm (1.2-3.4); Atypical Lymphocytes % 2
[2018-06-07 08:10] LABS: Absolute Neutrophil Count 0.31 k/cumm (1.2-6.7); Diff Comment Manual Differential
[2018-06-07 08:11] LABS: Anisocytosis 1+; Hypochromasia 2+
--- NOTE | 2018-06-07 11:16 | PDOC.CMPRO ---
- If Service Date Differs Date of service: 06/07/18 Time of Service: 11:16 Care Management Progress Note S/O: Stacey continues to be on reverse precautions and is receiving IV antibiotics. CM reviewed DC plan which remains unchanged at this time. Stacey is comfortable she wants to return home however understands why she continues to need hospitalization. Stacey will continue to have daily lab draws to monitor WBC, awaiting ANC to return to goal. A: 43 y/o female admitted 05/30/18 for fever/vomiting, with B-cell Non- Hodgkins lymphoma P: Stacey will continue as a medical surgical patient no change in status today. She is receiving IV antibiotics, and antiviral, and is receiving daily Neupogen injections. She continues to have daily lab draws. She will return home with when medically ready per provider.
[2018-06-07] MEDS: Normal Saline Flush 10 ML SYR IVP (14:47)
[2018-06-07 15:40] VITALS: BP 84/55; PULSE 88; RESP 18; TEMP 36.6; O2SAT 100
[2018-06-07 15:59] VITALS: BP 100/62
[2018-06-07] MEDS: CEFEPIME 2 GM in Normal Saline 100 ML IVPB (16:34)
[2018-06-07] MEDS: VANCOMYCIN 750 MG in Normal Saline 250 ML 166.667 MG IVPB (17:20)
--- NOTE | 2018-06-07 18:38 | PGE_ITS ---
Date of service: 06/07/18 Time of Service: 18:33 Assessment and Plan (1) Neutropenic fever: Current visit: Yes Status: Acute ANC is come up to 310. No fevers. No evidence of opportunistic infection at this point. Recheck counts again in the a.m. Continue reverse precautions. (2) Pancytopenia: Current visit: Yes Status: Acute White count has come up to 1120. Hemoglobin stable. Platelets dropped to 14,000 no evidence of bleeding. Recheck counts in the a.m. (3) B-cell lymphoma: Current visit: Yes Status: Acute Holding on further chemo for now. Continue to monitor in acute care status. Subjective Patient reports: no new complaints Interval history since last seen: Feels fine. No respiratory issues. No GI issues. She says she is fairly solitary and is not upset about staying in the hospital at this point. Exam Const General: cooperative, healthy appearing, comfortable, no acute distress, well developed and well groomed Nutritional Appearance: average body habitus Orientation: alert, awake and oriented x3 Chest Chest: normal inspection of the chest Resp Effort & Inspection: normal respiratory effort Auscultation: clear to auscultation bilaterally Cardio Rate: regular rate Rhythm: regular rhythm Heart Sounds: S1 normal, S2 normal and no murmurs GI Inspection: normal to inspection Palpation: soft and nontender Back/Spine/Pelvis Back: no CVA tenderness Skin General skin exam: no rashes or lesions noted and no petechiae Neuro General: alert, awake and moves all extremities Extrem Right upper extremity: no edema Left upper extremity: no edema Right lower extremity: no edema Left lower extremity: no edema Psych Appearance: grossly normal Mood: congruent mood Affect: normal affect Attitude: cooperative Thought Process: normal Objective Objective Clinical Data: Abnormal lab results 06/07/18 06/07/18 Range/Units 06:25 06:25 WBC 1.12 L* D (4.4-10.8) k/cumm RBC 2.77 L (4.00-5.20) m/cumm Hgb 8.8 L (12.0-15.5) g/dL Hct 26.1 L (36.0-46.0) % RDW 18.6 H (11.7-14.6) % Plt Count 14 L* (130-400) x1000/uL Absolute Neutrophils 0.31 L* (1.2-6.7) k/cumm Absolute Lymphocytes 0.67 L (1.2-3.4) k/cumm Absolute Monocytes 0.09 L (0.11-0.7) k/cumm Sodium 135 L (136-145) mmol/L BUN 24 H (7-18) mg/dL Creatinine 1.94 H (0.55-1.02) mg/dL Vital Signs Temp 36.6 C 06/07/18 15:40 Pulse 88 06/07/18 15:40 Resp 18 06/07/18 15:40 BP 100/62 06/07/18 15:59 Pulse Ox 100 06/07/18 15:40 Intake & Output 06/06/18 06/07/18 06/07/18 23:59 11:59 23:59 Intake Total 1388 / 1388 600 / 600 100 / 100 Output Total 800 / 800 Balance 588 / 588 600 / 600 100 / 100 Intake: IV 588 / 588 100 / 100 Oral 800 / 800 600 / 600 0 / 0 Output: Urine 800 / 800 Other: Urine Color Straw Urine Appearance Clear Clear Urine Odor Normal Comment UP INDEPENDENTLY TO TOILET, URINE NOT SEEN Stool Size Small Stool Characteristics Soft Liquid Voiding Methods Toilet Laboratory Results WBC 1.12 k/cumm (4.4-10.8) L* D 06/07/18 06:25 RBC 2.77 m/cumm (4.00-5.20) L 06/07/18 06:25 Hgb 8.8 g/dL (12.0-15.5) L 06/07/18 06:25 Hct 26.1 % (36.0-46.0) L 06/07/18 06:25 MCV 94.2 fL (80-95) 06/07/18 06:25 MCH 31.8 pg (27.0-33.0) 06/07/18 06:25 MCHC 33.7 g/dL (32.0-36.0) 06/07/18 06:25 RDW 18.6 % (11.7-14.6) H 06/07/18 06:25 Plt Count 14 x1000/uL (130-400) L* 06/07/18 06:25 MPV 10.1 fL (8.0-11.0) 06/07/18 06:25 Immature Gran % 0.0 06/07/18 06:25 Neutrophils % 26.0 06/07/18 06:25 Lymphocytes % 58.0 06/07/18 06:25 Monocytes % 8.0 06/07/18 06:25 Eosinophils % 4.0 06/07/18 06:25 Basophils % 0.0 06/07/18 06:25 Absolute Neutrophils 0.31 k/cumm (1.2-6.7) L* 06/07/18 06:25 Band Neutrophils 2.0 % 06/07/18 06:25 Absolute Lymphocytes 0.67 k/cumm (1.2-3.4) L 06/07/18 06:25 Absolute Monocytes 0.09 k/cumm (0.11-0.7) L 06/07/18 06:25 Absolute Eosinophils 0.04 k/cumm (0.0-0.7) 06/07/18 06:25 Absolute Basophils 0.00 k/cumm (0.0-0.2) 06/07/18 06:25 Metamyelocytes 2.0 % 06/06/18 06:45 Myelocytes 1.0 % 06/02/18 07:38 Differential Comment Manual differential 06/07/18 06:25 Atypical Lymphocytes 2 06/07/18 06:25 RBC Morphology See below 06/07/18 06:25 Hypochromasia 2+ 06/07/18 06:25 Poikilocytosis 1+ 06/05/18 06:55 Anisocytosis 1+ 06/07/18 06:25 Macrocytosis 1+ 06/02/18 07:38 PT 10.5 sec (9.3-10.8) 05/30/18 15:15 INR 1.1 (1.0-3.5) 05/30/18 15:15 D-Dimer 1664 ng/mlFEU (<500) H 05/30/18 15:15 Sodium 135 mmol/L (136-145) L 06/07/18 06:25 Potassium 4.0 mmol/L (3.5-5.1) 06/07/18 06:25 Chloride 101 mmol/L (98-107) 06/07/18 06:25 Carbon Dioxide 26.8 mmol/L (21.0-32.0) 06/07/18 06:25 Anion Gap 7.2 mmol/L (3-11) 06/07/18 06:25 BUN 24 mg/dL (7-18) H 06/07/18 06:25 Creatinine 1.94 mg/dL (0.55-1.02) H 06/07/18 06:25 Estimated GFR/1.73 m2 27.91 (mL/min/1.73m2) 06/07/18 06:25 Glucose 90 mg/dL (70-100) 06/07/18 06:25 Lactate 0.9 mmol/L (0.6-1.4) 05/30/18 16:10 Calcium 8.8 mg/dL (8.5-10.1) 06/07/18 06:25 Total Bilirubin 0.8 mg/dL (0.2-1.0) 05/30/18 15:15 AST 64 U/L (15-37) H 05/30/18 15:15 ALT 14 U/L (12-78) 05/30/18 15:15 Alkaline Phosphatase 98 U/L (46-116) 05/30/18 15:15 Troponin I < 0.02 ng/mL (0.00-0.06) 05/30/18 15:15 Total Protein 7.1 g/dL (6.4-8.2) 05/30/18 15:15 Albumin 2.8 g/dL (3.4-5.0) L 05/30/18 15:15 Urine Color Yellow (Yellow) 05/30/18 19:30 Urine Clarity Clear 05/30/18 19:30 Urine pH 5.5 (5-8) 05/30/18 19:30 Ur Specific [place] 1.015 (1.005-1.025) 05/30/18 19:30 Urine Protein 100 mg/dL (Negative) H 05/30/18 19:30 Urine Ketones Negative mg/dL (Negative) 05/30/18 19:30 Urine Blood Trace-lysed (Negative) H 05/30/18 19:30 Urine Nitrite Negative (Negative) 05/30/18 19:30 Urine Bilirubin Negative (Negative) 05/30/18 19:30 Urine Urobilinogen 0.2 EU/dL (Up TO 0.2) 05/30/18 19:30 Ur Leukocyte Esterase Negative (Negative) 05/30/18 19:30 Urine RBC Negative (0-2) 05/30/18 19:30 Urine WBC 3-5 HPF (0-5) 05/30/18 19:30 Ur Epithelial Cells Few HPF (Negative) 05/30/18 19:30 Urine Crystals Moderate amorphous HPF (Negative) 05/30/18 19:30 Urine Bacteria Negative HPF (Negative) 05/30/18 19:30 Urine Casts 3-5 fine granular LPF (Negative) 05/30/18 19:30 Urine Mucus Negative (Negative) 05/30/18 19:30 Ur Culture Indicated? No 05/30/18 19:30 Urine Glucose Negative mg/dL (Negative) 05/30/18 19:30 Vancomycin Trough 25.9 ug/mL (10.0-20.0) H* 06/06/18 09:02 Patient ABO/Rh O Negative 06/04/18 06:20 Antibody Screen Negative 05/31/18 14:05 Crossmatch See Detail 05/31/18 14:05
[2018-06-07] MEDS: LORazepam 1 MG TAB PO (19:11)
[2018-06-08] VITALS (8 sets, daily range): BP systolic 80–100; BP diastolic 53–64; PULSE 74–87; RESP 16–20; TEMP 36.3–36.9; O2SAT 95–100
[2018-06-08] MEDS: Doxycycline Hyclate 100 MG CAP PO ×2 (06:07→17:31)
[2018-06-08 07:38] LABS: HCT 26.1 % (36.0-46.0); HGB 8.7 g/dL (12.0-15.5); RBC 2.74 m/cumm (4.00-5.20); White Blood Cell Count 1.13 k/cumm (4.4-10.8)
[2018-06-08 07:39] LABS: Mean Corp. HGB Concentration 33.3 g/dL (32.0-36.0); Mean Corpuscular Hemoglobin 31.8 pg (27.0-33.0); Mean Corpuscular Volume 95.3 fL (80-95); Platelet Count 11 x1000/uL (130-400); RBC Distribution Width 18.1 % (11.7-14.6)
[2018-06-08 07:40] LABS: Absolute Lymphocyte Count 0.52 k/cumm (1.2-3.4); Absolute Monocyte Count 0.15 k/cumm (0.11-0.7); Absolute Neutrophil Count 0.43 k/cumm (1.2-6.7)
[2018-06-08 07:41] LABS: Absolute Eosinophil Count 0.03 k/cumm (0.0-0.7); Anisocytosis 2+; Diff Comment Manual Differential; Hypochromasia 1+
[2018-06-08] MEDS: buPROPion-XL 150 MG TABCR 300 MG PO (08:54)
[2018-06-08] MEDS: Acyclovir 400 MG TAB 800 MG PO ×2 (08:54→20:48)
[2018-06-08] MEDS: Escitalopram 20 MG TAB PO (08:55)
[2018-06-08] MEDS: Benzonatate 100 MG CAP PO ×3 (08:55→20:48)
[2018-06-08] MEDS: Normal Saline Flush 10 ML SYR IVP ×2 (11:23→16:27)
--- NOTE | 2018-06-08 12:07 | PDOC.CMPRO ---
- If Service Date Differs Date of service: 06/08/18 Time of Service: 12:07 Care Management Progress Note S/O: Stacey continues to be on reverse precautions and is receiving IV antibiotics. CM reviewed DC plan which remains unchanged at this time. Stacey is comfortable she wants to return home however understands why she continues to need hospitalization. She would like to be discharged by Tuesday her son has his first soccer game. Stacey will continue to have daily lab draws to monitor WBC, awaiting ANC to return to goal. She will have a platelet transfusion today and continues on IV antibiotics. A: 43 y/o female admitted 05/30/18 for fever/vomiting, with B-cell Non- Hodgkins lymphoma P: Stacey will continue as a medical surgical patient no change in status today. She is receiving IV antibiotics, and antiviral, and is receiving daily Neupogen injections. She continues to have daily lab draws. She will return home with when medically ready per provider.
[2018-06-08] MEDS: CEFEPIME 2 GM in Normal Saline 100 ML IVPB (16:27)
[2018-06-08] MEDS: VANCOMYCIN 750 MG in Normal Saline 250 ML 166.667 MG IVPB (17:30)
--- NOTE | 2018-06-08 19:11 | W.PM.PROGNOT ---
Date of service: 06/08/18 Time of Service: 19:11 Assessment and Plan (1) Neutropenic fever: Current visit: Yes Status: Acute No further fevers. ANC now 420. She continues to show improvement. DC reverse precautions once ANC greater than 500. (2) Pancytopenia: Current visit: Yes Status: Acute Counts continue to improve. Recheck counts again in the a.m. (3) B-cell lymphoma: Current visit: Yes Status: Acute Stable continue to hold on further Rx until counts returned to normal. (4) Thrombocytopenia: Current visit: Yes Status: Chronic Platelets dropped to 11,000 today. Will transfuse 1 unit of platelets. Recheck counts in the a.m. (5) Discharge planning issues: Current visit: Yes Status: Acute Continue to monitor in acute care status until counts improve. Subjective Patient reports: no new complaints Interval history since last seen: Feels well no new complaints. Mild cough with clear sputum. No fever chills or rigors. Exam Narrative Exam Narrative: She looks well. Displays a full affect. No respiratory difficulties whatsoever. Benign exam. Objective Objective Clinical Data: Abnormal lab results 06/08/18 Range/Units 06:35 WBC 1.13 L* (4.4-10.8) k/cumm RBC 2.74 L (4.00-5.20) m/cumm Hgb 8.7 L (12.0-15.5) g/dL Hct 26.1 L (36.0-46.0) % MCV 95.3 H (80-95) fL RDW 18.1 H (11.7-14.6) % Plt Count 11 L* (130-400) x1000/uL Absolute Neutrophils 0.43 L* (1.2-6.7) k/cumm Absolute Lymphocytes 0.52 L (1.2-3.4) k/cumm Vital Signs Temp 36.5 C 06/08/18 15:30 Pulse 75 06/08/18 15:30 Resp 18 06/08/18 15:30 BP 90/58 L 06/08/18 15:30 Pulse Ox 99 06/08/18 15:30 Intake & Output 06/07/18 06/08/18 06/08/18 23:59 11:59 23:59 Intake Total 590 / 590 240 / 240 100 / 100 Output Total 100 / 100 Balance 590 / 590 140 / 140 100 / 100 Intake: IV 350 / 350 100 / 100 Oral 240 / 240 240 / 240 Output: Emesis 100 / 100 Other: Comment pt. up independently throughout shift Stool Size Small Stool Characteristics Soft Liquid Emesis Description Bile Voiding Methods Toilet Laboratory Results WBC 1.13 k/cumm (4.4-10.8) L* 06/08/18 06:35 RBC 2.74 m/cumm (4.00-5.20) L 06/08/18 06:35 Hgb 8.7 g/dL (12.0-15.5) L 06/08/18 06:35 Hct 26.1 % (36.0-46.0) L 06/08/18 06:35 MCV 95.3 fL (80-95) H 06/08/18 06:35 MCH 31.8 pg (27.0-33.0) 06/08/18 06:35 MCHC 33.3 g/dL (32.0-36.0) 06/08/18 06:35 RDW 18.1 % (11.7-14.6) H 06/08/18 06:35 Plt Count 11 x1000/uL (130-400) L* 06/08/18 06:35 MPV fL (8.0-11.0) 06/08/18 06:35 Immature Gran % 0.0 06/08/18 06:35 Neutrophils % 38.0 06/08/18 06:35 Lymphocytes % 46.0 06/08/18 06:35 Monocytes % 13.0 06/08/18 06:35 Eosinophils % 3.0 06/08/18 06:35 Basophils % 0.0 06/08/18 06:35 Absolute Neutrophils 0.43 k/cumm (1.2-6.7) L* 06/08/18 06:35 Band Neutrophils 2.0 % 06/07/18 06:25 Absolute Lymphocytes 0.52 k/cumm (1.2-3.4) L 06/08/18 06:35 Absolute Monocytes 0.15 k/cumm (0.11-0.7) 06/08/18 06:35 Absolute Eosinophils 0.03 k/cumm (0.0-0.7) 06/08/18 06:35 Absolute Basophils 0.00 k/cumm (0.0-0.2) 06/08/18 06:35 Metamyelocytes 2.0 % 06/06/18 06:45 Myelocytes 1.0 % 06/02/18 07:38 Differential Comment Manual differential 06/08/18 06:35 Atypical Lymphocytes 2 06/07/18 06:25 RBC Morphology See below 06/08/18 06:35 Hypochromasia 1+ 06/08/18 06:35 Poikilocytosis 1+ 06/05/18 06:55 Anisocytosis 2+ 06/08/18 06:35 Macrocytosis 1+ 06/02/18 07:38 PT 10.5 sec (9.3-10.8) 05/30/18 15:15 INR 1.1 (1.0-3.5) 05/30/18 15:15 D-Dimer 1664 ng/mlFEU (<500) H 05/30/18 15:15 Sodium 135 mmol/L (136-145) L 06/07/18 06:25 Potassium 4.0 mmol/L (3.5-5.1) 06/07/18 06:25 Chloride 101 mmol/L (98-107) 06/07/18 06:25 Carbon Dioxide 26.8 mmol/L (21.0-32.0) 06/07/18 06:25 Anion Gap 7.2 mmol/L (3-11) 06/07/18 06:25 BUN 24 mg/dL (7-18) H 06/07/18 06:25 Creatinine 1.94 mg/dL (0.55-1.02) H 06/07/18 06:25 Estimated GFR/1.73 m2 27.91 (mL/min/1.73m2) 06/07/18 06:25 Glucose 90 mg/dL (70-100) 06/07/18 06:25 Lactate 0.9 mmol/L (0.6-1.4) 05/30/18 16:10 Calcium 8.8 mg/dL (8.5-10.1) 06/07/18 06:25 Total Bilirubin 0.8 mg/dL (0.2-1.0) 05/30/18 15:15 AST 64 U/L (15-37) H 05/30/18 15:15 ALT 14 U/L (12-78) 05/30/18 15:15 Alkaline Phosphatase 98 U/L (46-116) 05/30/18 15:15 Troponin I < 0.02 ng/mL (0.00-0.06) 05/30/18 15:15 Total Protein 7.1 g/dL (6.4-8.2) 05/30/18 15:15 Albumin 2.8 g/dL (3.4-5.0) L 05/30/18 15:15 Urine Color Yellow (Yellow) 05/30/18 19:30 Urine Clarity Clear 05/30/18 19:30 Urine pH 5.5 (5-8) 05/30/18 19:30 Ur Specific [place] 1.015 (1.005-1.025) 05/30/18 19:30 Urine Protein 100 mg/dL (Negative) H 05/30/18 19:30 Urine Ketones Negative mg/dL (Negative) 05/30/18 19:30 Urine Blood Trace-lysed (Negative) H 05/30/18 19:30 Urine Nitrite Negative (Negative) 05/30/18 19:30 Urine Bilirubin Negative (Negative) 05/30/18 19:30 Urine Urobilinogen 0.2 EU/dL (Up TO 0.2) 05/30/18 19:30 Ur Leukocyte Esterase Negative (Negative) 05/30/18 19:30 Urine RBC Negative (0-2) 05/30/18 19:30 Urine WBC 3-5 HPF (0-5) 05/30/18 19:30 Ur Epithelial Cells Few HPF (Negative) 05/30/18 19:30 Urine Crystals Moderate amorphous HPF (Negative) 05/30/18 19:30 Urine Bacteria Negative HPF (Negative) 05/30/18 19:30 Urine Casts 3-5 fine granular LPF (Negative) 05/30/18 19:30 Urine Mucus Negative (Negative) 05/30/18 19:30 Ur Culture Indicated? No 05/30/18 19:30 Urine Glucose Negative mg/dL (Negative) 05/30/18 19:30 Vancomycin Trough 25.9 ug/mL (10.0-20.0) H* 06/06/18 09:02 Patient ABO/Rh O Negative 06/08/18 06:35 Antibody Screen Negative 05/31/18 14:05 Crossmatch See Detail 05/31/18 14:05
[2018-06-08] MEDS: LORazepam 1 MG TAB PO (21:16)
[2018-06-09] MEDS: Doxycycline Hyclate 100 MG CAP PO ×2 (06:56→18:05)
[2018-06-09 07:24] LABS: Abs Immature Grans 0.07 k/cumm (0.0-0.09); Absolute Basophil Count 0.01 k/cumm (0.0-0.2); HCT 26.3 % (36.0-46.0); HGB 8.7 g/dL (12.0-15.5); Mean Corp. HGB Concentration 33.1 g/dL (32.0-36.0); Mean Corpuscular Hemoglobin 31.5 pg (27.0-33.0); Mean Corpuscular Volume 95.3 fL (80-95); Mean Platelet Volume 9.2 fL (8.0-11.0); RBC 2.76 m/cumm (4.00-5.20)
[2018-06-09 07:29] LABS: Anion Gap 8.6 mmol/L (3-11); BUN 30 mg/dL (7-18); CO2 27.4 mmol/L (21.0-32.0); CREATININE 2.04 mg/dL (0.55-1.02); Calcium 8.9 mg/dL (8.5-10.1); Chloride 102 mmol/L (98-107); Estimated GFR 26.33 (mL/min/1.73m2); Glucose 88 mg/dL (70-100); Potassium 3.9 mmol/L (3.5-5.1); Sodium 138 mmol/L (136-145)
[2018-06-09 07:58] LABS: White Blood Cell Count 1.13 k/cumm (4.4-10.8)
[2018-06-09 07:59] LABS: Absolute Neutrophil Count 0.41 k/cumm (1.2-6.7); Platelet Count 18 x1000/uL (130-400)
[2018-06-09 08:00] LABS: Absolute Eosinophil Count 0.01 k/cumm (0.0-0.7); Absolute Lymphocyte Count 0.54 k/cumm (1.2-3.4); Absolute Monocyte Count 0.09 k/cumm (0.11-0.7); Atypical Lymphocytes % 0; Diff Comment Manual Differential; RBC Morphology Normal
[2018-06-09] MEDS: Acyclovir 400 MG TAB 800 MG PO ×2 (09:00→20:00)
[2018-06-09] MEDS: Normal Saline Flush 10 ML SYR IVP (09:00)
[2018-06-09] MEDS: Escitalopram 20 MG TAB PO (09:01)
[2018-06-09] MEDS: Benzonatate 100 MG CAP PO ×3 (09:01→19:59)
[2018-06-09] MEDS: buPROPion-XL 150 MG TABCR 300 MG PO (09:01)
[2018-06-09 09:04] VITALS: BP 86/54; PULSE 84; RESP 20; TEMP 36.5; O2SAT 98
--- NOTE | 2018-06-09 12:35 | PDOC.CMPRO ---
- If Service Date Differs Date of service: 06/09/18 Time of Service: 12:35 Care Management Progress Note S/O: Stacey continues to be on reverse precautions and is receiving IV antibiotics. CM reviewed DC plan which remains unchanged at this time. Stacey states she is board and she expresses wanting to go home. Pt did receive a phone call while CM in the room and Stacey is unable to continue meeting with CM at that time. She would like to be discharged by Tuesday her son has his first soccer game. Stacey will continue to have daily lab draws to monitor WBC, awaiting ANC to return to goal. CM intended to review possible palliative services with patient and unable to complete at this time. Will plan to reproach when she has time to discuss referral and purpose of the services. A: 43 y/o female admitted 05/30/18 for fever/vomiting, with B-cell Non- Hodgkins lymphoma P: Stacey will continue as a medical surgical patient no change in status today. She is receiving IV antibiotics, and antiviral, and is receiving daily Neupogen injections. She continues to have daily lab draws. She will return home with when medically ready per provider.
--- NOTE | 2018-06-09 12:41 | CMPROGNOTE_ITS ---
- If Service Date Differs Date of service: 06/09/18 Time of Service: 12:35 Care Management Progress Note S/O: Stacey continues to be on reverse precautions and is receiving IV antibiotics. CM reviewed DC plan which remains unchanged at this time. Stacey states she is board and she expresses wanting to go home. Pt did receive a phone call while CM in the room and Stacey is unable to continue meeting with CM at that time. She would like to be discharged by Tuesday her son has his first soccer game. Stacey will continue to have daily lab draws to monitor WBC , awaiting ANC to return to goal. CM intended to review possible palliative services with patient and unable to complete at this time. Will plan to reproach when she has time to discuss referral and purpose of the services. A: 43 y/o female admitted 05/30/18 for fever/vomiting, with B-cell Non- Hodgkins lymphoma P: Stacey will continue as a medical surgical patient no change in status today. She is receiving IV antibiotics, and antiviral, and is receiving daily Neupogen injections. She continues to have daily lab draws. She will return home with when medically ready per provider.
[2018-06-09 16:07] VITALS: BP 95/63; PULSE 85; RESP 17; TEMP 36.3; O2SAT 99
[2018-06-09] MEDS: Normal Saline 500 ML IV (16:26)
[2018-06-09] MEDS: CEFEPIME 2 GM in Normal Saline 100 ML IVPB (16:27)
--- NOTE | 2018-06-09 16:32 | W.PM.PROGNOT ---
Date of service: 06/09/18 Time of Service: 16:32 Assessment and Plan (1) Thrombocytopenia: Current visit: Yes Status: Chronic Her platelets came back at 18,000. I spoke with Dr. Claire hematology at [facility]. He felt that a transfusion threshold of 5004 the platelets would be okay as an inpatient. Obviously with assessment for bleeding. The goal is to minimize platelet transfusion to prevent platelet antibodies. As an outpatient the goal would be to keep her above 20,000 platelets. He feels she will need platelet transfusions twice a week for a few weeks once discharged. Plan is for blood work every Tuesday and . He will see her in his clinic on or Fridays. (2) Neutropenic fever: Current visit: Yes Status: Acute No further fevers. Will DC the vancomycin today. Continue cefepime and doxycycline. The plan is to discharge on Levaquin 750 mg p.o. daily once her ANC is greater than 500. (3) Pancytopenia: Current visit: Yes Status: Acute She continues on daily Filgranstin. The plan is to discharge once ANC is greater than 500. One day after discharge she should come back in and get a dose of Neulasta, a long-acting call in the stimulating factor. Her josey from this recent radiation therapy can last up to 12 weeks. (4) Depression: Current visit: Yes Status: Chronic This appears to be stable. She displays a full affect. She seems willing to accept her treatments at this time. Remains on reverse isolation precautions. (5) B-cell lymphoma: Current visit: Yes Status: Acute This is the last of several therapeutics that she has had for her B-cell lymphoma. Thus far there appears to be a good response. (6) Chronic renal insufficiency: Current visit: Yes Status: Acute Creatinine is bumped to 2.04. She may not be taking adequate p.o. Will encourage p.o. fluids and recheck labs in the a.m. (7) Discharge planning issues: Current visit: Yes Status: Acute Continue to monitor in acute care status. Remains on reverse precautions. Goal is ANC greater than 500. Subjective Patient reports: no new complaints Interval history since last seen: Feels fine. She thinks her cough is a little better. She has no desire to cough most of the time and occasionally has a small paroxysm of cough productive of clear sputum. No fever chills or rigors. Her overall attitude remains good. 1 of her goals was to make her child's soccer game on Tuesday. She is somewhat disappointed that it may not happen. Exam Narrative Exam Narrative: She is lying comfortable in bed. No respiratory difficulty. Her posterior lung exam is completely clear. Her heart sounds are regular, no murmur. Abdomen is soft and nontender. Skin showed no lesions. Objective Objective Clinical Data: Abnormal lab results 06/09/18 06/09/18 Range/Units 06:55 06:55 WBC 1.13 L* (4.4-10.8) k/cumm RBC 2.76 L (4.00-5.20) m/cumm Hgb 8.7 L (12.0-15.5) g/dL Hct 26.3 L (36.0-46.0) % MCV 95.3 H (80-95) fL RDW 18.0 H (11.7-14.6) % Plt Count 18 L* D (130-400) x1000/uL Absolute Neutrophils 0.41 L* (1.2-6.7) k/cumm Absolute Lymphocytes 0.54 L (1.2-3.4) k/cumm Absolute Monocytes 0.09 L (0.11-0.7) k/cumm BUN 30 H (7-18) mg/dL Creatinine 2.04 H (0.55-1.02) mg/dL Vital Signs Temp 36.3 C L 06/09/18 16:07 Pulse 85 06/09/18 16:07 Resp 17 06/09/18 16:07 BP 95/63 L 06/09/18 16:07 Pulse Ox 99 06/09/18 16:07 Intake & Output 06/08/18 06/09/18 06/09/18 23:59 11:59 23:59 Intake Total 790 / 790 410 / 410 Balance 790 / 790 410 / 410 Intake: IV 350 / 350 10 / 10 Oral 240 / 240 400 / 400 Blood Product 200 / 200 Pheresis Platelets Unit 200 / 200 [id number] Other: Urine Color Yellow Urine Appearance Clear Clear Comment pt. up independently throughout shift void x 1 during noc Voiding Methods Toilet Toilet Toilet Laboratory Results WBC 1.13 k/cumm (4.4-10.8) L* 06/09/18 06:55 RBC 2.76 m/cumm (4.00-5.20) L 06/09/18 06:55 Hgb 8.7 g/dL (12.0-15.5) L 06/09/18 06:55 Hct 26.3 % (36.0-46.0) L 06/09/18 06:55 MCV 95.3 fL (80-95) H 06/09/18 06:55 MCH 31.5 pg (27.0-33.0) 06/09/18 06:55 MCHC 33.1 g/dL (32.0-36.0) 06/09/18 06:55 RDW 18.0 % (11.7-14.6) H 06/09/18 06:55 Plt Count 18 x1000/uL (130-400) L* D 06/09/18 06:55 MPV 9.2 fL (8.0-11.0) 06/09/18 06:55 Immature Gran % See Differential 06/09/18 06:55 Neutrophils % 36.0 06/09/18 06:55 Lymphocytes % 48.0 06/09/18 06:55 Monocytes % 8.0 06/09/18 06:55 Eosinophils % 1.0 06/09/18 06:55 Basophils % 1.0 06/09/18 06:55 Absolute Neutrophils 0.41 k/cumm (1.2-6.7) L* 06/09/18 06:55 Band Neutrophils 0.0 % 06/09/18 06:55 Absolute Lymphocytes 0.54 k/cumm (1.2-3.4) L 06/09/18 06:55 Absolute Monocytes 0.09 k/cumm (0.11-0.7) L 06/09/18 06:55 Absolute Eosinophils 0.01 k/cumm (0.0-0.7) 06/09/18 06:55 Absolute Basophils 0.01 k/cumm (0.0-0.2) 06/09/18 06:55 Metamyelocytes 2.0 % 06/09/18 06:55 Myelocytes 4.0 % 06/09/18 06:55 Differential Comment Manual differential 06/09/18 06:55 Atypical Lymphocytes 0 06/09/18 06:55 RBC Morphology Normal 06/09/18 06:55 Hypochromasia 1+ 06/08/18 06:35 Poikilocytosis 1+ 06/05/18 06:55 Anisocytosis 2+ 06/08/18 06:35 Macrocytosis 1+ 06/02/18 07:38 PT 10.5 sec (9.3-10.8) 05/30/18 15:15 INR 1.1 (1.0-3.5) 05/30/18 15:15 D-Dimer 1664 ng/mlFEU (<500) H 05/30/18 15:15 Sodium 138 mmol/L (136-145) 06/09/18 06:55 Potassium 3.9 mmol/L (3.5-5.1) 06/09/18 06:55 Chloride 102 mmol/L (98-107) 06/09/18 06:55 Carbon Dioxide 27.4 mmol/L (21.0-32.0) 06/09/18 06:55 Anion Gap 8.6 mmol/L (3-11) 06/09/18 06:55 BUN 30 mg/dL (7-18) H 06/09/18 06:55 Creatinine 2.04 mg/dL (0.55-1.02) H 06/09/18 06:55 Estimated GFR/1.73 m2 26.33 (mL/min/1.73m2) 06/09/18 06:55 Glucose 88 mg/dL (70-100) 06/09/18 06:55 Lactate 0.9 mmol/L (0.6-1.4) 05/30/18 16:10 Calcium 8.9 mg/dL (8.5-10.1) 06/09/18 06:55 Total Bilirubin 0.8 mg/dL (0.2-1.0) 05/30/18 15:15 AST 64 U/L (15-37) H 05/30/18 15:15 ALT 14 U/L (12-78) 05/30/18 15:15 Alkaline Phosphatase 98 U/L (46-116) 05/30/18 15:15 Troponin I < 0.02 ng/mL (0.00-0.06) 05/30/18 15:15 Total Protein 7.1 g/dL (6.4-8.2) 05/30/18 15:15 Albumin 2.8 g/dL (3.4-5.0) L 05/30/18 15:15 Urine Color Yellow (Yellow) 05/30/18 19:30 Urine Clarity Clear 05/30/18 19:30 Urine pH 5.5 (5-8) 05/30/18 19:30 Ur Specific [place] 1.015 (1.005-1.025) 05/30/18 19:30 Urine Protein 100 mg/dL (Negative) H 05/30/18 19:30 Urine Ketones Negative mg/dL (Negative) 05/30/18 19:30 Urine Blood Trace-lysed (Negative) H 05/30/18 19:30 Urine Nitrite Negative (Negative) 05/30/18 19:30 Urine Bilirubin Negative (Negative) 05/30/18 19:30 Urine Urobilinogen 0.2 EU/dL (Up TO 0.2) 05/30/18 19:30 Ur Leukocyte Esterase Negative (Negative) 05/30/18 19:30 Urine RBC Negative (0-2) 05/30/18 19:30 Urine WBC 3-5 HPF (0-5) 05/30/18 19:30 Ur Epithelial Cells Few HPF (Negative) 05/30/18 19:30 Urine Crystals Moderate amorphous HPF (Negative) 05/30/18 19:30 Urine Bacteria Negative HPF (Negative) 05/30/18 19:30 Urine Casts 3-5 fine granular LPF (Negative) 05/30/18 19:30 Urine Mucus Negative (Negative) 05/30/18 19:30 Ur Culture Indicated? No 05/30/18 19:30 Urine Glucose Negative mg/dL (Negative) 05/30/18 19:30 Vancomycin Trough 25.9 ug/mL (10.0-20.0) H* 06/06/18 09:02 Patient ABO/Rh O Negative 06/08/18 06:35 Antibody Screen Negative 05/31/18 14:05 Crossmatch See Detail 05/31/18 14:05
[2018-06-09 19:54] VITALS: BP 96/66; PULSE 79; RESP 16; TEMP 36.8; O2SAT 100
[2018-06-09] MEDS: LORazepam 1 MG TAB PO (19:59)
[2018-06-10 00:07] VITALS: BP 77/50; PULSE 75; RESP 15; TEMP 35.9; O2SAT 99
[2018-06-10] MEDS: Doxycycline Hyclate 100 MG CAP PO (05:56)
[2018-06-10 06:20] LABS: HCT 28.5 % (36.0-46.0); HGB 9.4 g/dL (12.0-15.5); Mean Corpuscular Hemoglobin 31.3 pg (27.0-33.0); Mean Platelet Volume 13.5 fL (8.0-11.0); RBC Distribution Width 17.9 % (11.7-14.6)
[2018-06-10 06:26] LABS: Platelet Count 21 x1000/uL (130-400); White Blood Cell Count 1.46 k/cumm (4.4-10.8)
[2018-06-10 06:43] LABS: Anion Gap 7.9 mmol/L (3-11); BUN 34 mg/dL (7-18); CO2 30.1 mmol/L (21.0-32.0); CREATININE 2.24 mg/dL (0.55-1.02); Calcium 9.6 mg/dL (8.5-10.1); Chloride 101 mmol/L (98-107); Estimated GFR 23.64 (mL/min/1.73m2); Glucose 90 mg/dL (70-100); Sodium 139 mmol/L (136-145)
[2018-06-10 07:30] VITALS: O2SAT 98
[2018-06-10 08:07] VITALS: BP 88/61; PULSE 81; RESP 16; TEMP 36.2; O2SAT 100
[2018-06-10] MEDS: buPROPion-XL 150 MG TABCR 300 MG PO (08:34)
[2018-06-10] MEDS: Acyclovir 400 MG TAB 800 MG PO (08:34)
[2018-06-10] MEDS: Escitalopram 20 MG TAB PO (08:35)
[2018-06-10] MEDS: Benzonatate 100 MG CAP PO ×2 (08:35→14:03)
--- NOTE | 2018-06-10 12:31 | PGE_ITS ---
Date of service: 06/10/18 Time of Service: 12:30 Assessment and Plan (1) Neutropenic fever: Current visit: Yes Status: Acute Patient has been afebrile and hemodynamically stable with no active evidence of ongoing infection she will continue to receive cefepime and doxycycline IV until her ANC is greater than 500 her vancomycin was discontinued yesterday. (2) Pancytopenia: Current visit: Yes Status: Acute Stable with platelets up from 18 to 21 today and ANC at 410. We will continue to closely monitor. Continue Neupogen daily will receive Neulasta after discharge as per oncology (3) DVT prophylaxis: Current visit: Yes Status: Acute Ab stockings and ambulation only in the setting of thrombocytopenia and active bleeding risk (4) Discharge planning issues: Current visit: Yes Status: Acute Plan is to discharge to home once her ANC is greater than 500 she will be discharged on antibiotics until otherwise advised by her oncologist Subjective Patient reports: no new complaints Interval history since last seen: This is a 43-year-old female patient with B- cell lymphoma who was admitted to med/surg unit for neutropenic fever on cefepime and doxycycline IV until her ANC is greater than 500, her vancomycin has been discontinued yesterday. She reports feeling great . Hemodynamically she has been stable she has been afebrile she is eating and drinking bowels and bladder are functioning she is looking forward to returning home soon. Exam Const General: cooperative, healthy appearing, comfortable, no acute distress, well developed and well groomed Nutritional Appearance: average body habitus Orientation: alert, awake and oriented x3 HENMT Head: normal to inspection Mouth: moist mucous membranes Chest Chest: normal inspection of the chest Resp Effort & Inspection: normal respiratory effort Auscultation: clear to auscultation bilaterally Cardio Rate: regular rate Rhythm: regular rhythm GI Inspection: normal to inspection Neuro General: alert, awake and oriented x3 Extrem General: normal to inspection and full ROM Objective Objective Clinical Data: Abnormal lab results 06/10/18 06/10/18 Range/Units 06:14 06:14 WBC 1.46 L* (4.4-10.8) k/cumm RBC 3.00 L (4.00-5.20) m/cumm Hgb 9.4 L (12.0-15.5) g/dL Hct 28.5 L (36.0-46.0) % RDW 17.9 H (11.7-14.6) % Plt Count 21 L* (130-400) x1000/uL MPV 13.5 H (8.0-11.0) fL BUN 34 H (7-18) mg/dL Creatinine 2.24 H (0.55-1.02) mg/dL Vital Signs Temp 36.2 C L 06/10/18 08:07 Pulse 81 06/10/18 08:07 Resp 16 06/10/18 08:07 BP 88/61 L 06/10/18 08:07 Pulse Ox 100 06/10/18 08:07 Intake & Output 06/09/18 06/10/18 06/10/18 23:59 11:59 23:59 Intake Total 100.001 / 100.001 Balance 100.001 / 100.001 Intake: IV 100.001 / 100.001 Other: Urine Color Yellow Urine Appearance Clear Urine Odor Normal Comment PT VOIDS INDEPENDENTLY IN ROOM, SHE REPORTS NO CONCERNS Voiding Methods Toilet Laboratory Results WBC 1.46 k/cumm (4.4-10.8) L* 06/10/18 06:14 RBC 3.00 m/cumm (4.00-5.20) L 06/10/18 06:14 Hgb 9.4 g/dL (12.0-15.5) L 06/10/18 06:14 Hct 28.5 % (36.0-46.0) L 06/10/18 06:14 MCV 95.0 fL (80-95) 06/10/18 06:14 MCH 31.3 pg (27.0-33.0) 06/10/18 06:14 MCHC 33.0 g/dL (32.0-36.0) 06/10/18 06:14 RDW 17.9 % (11.7-14.6) H 06/10/18 06:14 Plt Count 21 x1000/uL (130-400) L* 06/10/18 06:14 MPV 13.5 fL (8.0-11.0) H 06/10/18 06:14 Immature Gran % See Differential 06/09/18 06:55 Neutrophils % 36.0 06/09/18 06:55 Lymphocytes % 48.0 06/09/18 06:55 Monocytes % 8.0 06/09/18 06:55 Eosinophils % 1.0 06/09/18 06:55 Basophils % 1.0 06/09/18 06:55 Absolute Neutrophils 0.41 k/cumm (1.2-6.7) L* 06/09/18 06:55 Band Neutrophils 0.0 % 06/09/18 06:55 Absolute Lymphocytes 0.54 k/cumm (1.2-3.4) L 06/09/18 06:55 Absolute Monocytes 0.09 k/cumm (0.11-0.7) L 06/09/18 06:55 Absolute Eosinophils 0.01 k/cumm (0.0-0.7) 06/09/18 06:55 Absolute Basophils 0.01 k/cumm (0.0-0.2) 06/09/18 06:55 Metamyelocytes 2.0 % 06/09/18 06:55 Myelocytes 4.0 % 06/09/18 06:55 Differential Comment Manual differential 06/09/18 06:55 Atypical Lymphocytes 0 06/09/18 06:55 RBC Morphology Normal 06/09/18 06:55 Hypochromasia 1+ 06/08/18 06:35 Poikilocytosis 1+ 06/05/18 06:55 Anisocytosis 2+ 06/08/18 06:35 Macrocytosis 1+ 06/02/18 07:38 PT 10.5 sec (9.3-10.8) 05/30/18 15:15 INR 1.1 (1.0-3.5) 05/30/18 15:15 D-Dimer 1664 ng/mlFEU (<500) H 05/30/18 15:15 Sodium 139 mmol/L (136-145) 06/10/18 06:14 Potassium 4.0 mmol/L (3.5-5.1) 06/10/18 06:14 Chloride 101 mmol/L (98-107) 06/10/18 06:14 Carbon Dioxide 30.1 mmol/L (21.0-32.0) 06/10/18 06:14 Anion Gap 7.9 mmol/L (3-11) 06/10/18 06:14 BUN 34 mg/dL (7-18) H 06/10/18 06:14 Creatinine 2.24 mg/dL (0.55-1.02) H 06/10/18 06:14 Estimated GFR/1.73 m2 23.64 (mL/min/1.73m2) 06/10/18 06:14 Glucose 90 mg/dL (70-100) 06/10/18 06:14 Lactate 0.9 mmol/L (0.6-1.4) 05/30/18 16:10 Calcium 9.6 mg/dL (8.5-10.1) 06/10/18 06:14 Total Bilirubin 0.8 mg/dL (0.2-1.0) 05/30/18 15:15 AST 64 U/L (15-37) H 05/30/18 15:15 ALT 14 U/L (12-78) 05/30/18 15:15 Alkaline Phosphatase 98 U/L (46-116) 05/30/18 15:15 Troponin I < 0.02 ng/mL (0.00-0.06) 05/30/18 15:15 Total Protein 7.1 g/dL (6.4-8.2) 05/30/18 15:15 Albumin 2.8 g/dL (3.4-5.0) L 05/30/18 15:15 Urine Color Yellow (Yellow) 05/30/18 19:30 Urine Clarity Clear 05/30/18 19:30 Urine pH 5.5 (5-8) 05/30/18 19:30 Ur Specific [place] 1.015 (1.005-1.025) 05/30/18 19:30 Urine Protein 100 mg/dL (Negative) H 05/30/18 19:30 Urine Ketones Negative mg/dL (Negative) 05/30/18 19:30 Urine Blood Trace-lysed (Negative) H 05/30/18 19:30 Urine Nitrite Negative (Negative) 05/30/18 19:30 Urine Bilirubin Negative (Negative) 05/30/18 19:30 Urine Urobilinogen 0.2 EU/dL (Up TO 0.2) 05/30/18 19:30 Ur Leukocyte Esterase Negative (Negative) 05/30/18 19:30 Urine RBC Negative (0-2) 05/30/18 19:30 Urine WBC 3-5 HPF (0-5) 05/30/18 19:30 Ur Epithelial Cells Few HPF (Negative) 05/30/18 19:30 Urine Crystals Moderate amorphous HPF (Negative) 05/30/18 19:30 Urine Bacteria Negative HPF (Negative) 05/30/18 19:30 Urine Casts 3-5 fine granular LPF (Negative) 05/30/18 19:30 Urine Mucus Negative (Negative) 05/30/18 19:30 Ur Culture Indicated? No 05/30/18 19:30 Urine Glucose Negative mg/dL (Negative) 05/30/18 19:30 Vancomycin Trough 25.9 ug/mL (10.0-20.0) H* 06/06/18 09:02 Patient ABO/Rh O Negative 06/08/18 06:35 Antibody Screen Negative 05/31/18 14:05 Crossmatch See Detail 05/31/18 14:05
[2018-06-10 13:31] VITALS: BP 87/58; PULSE 75; RESP 19; TEMP 36.6; O2SAT 99
--- NOTE | 2018-06-10 13:51 | W.PM.DS.N ---
Date of service: 06/10/18 DS: Diagnosis Discharge Diagnosis (1) Neutropenic fever: Status: Acute (2) Pancytopenia: Status: Acute (3) DVT prophylaxis: Status: Acute (4) Discharge planning issues: Status: Acute Discharge Plan Disposition Patient Disposition: HOME Condition: Serious Discharge Details Reason For Visit: FEVER/VOMITING Admit Date/Time: 05/30/18 19:39 Admit Provider: Jordi Baez Attending Provider: Jordi Baez Primary Care [facility] Hospital Course: This is a 43-year-old female patient with B-cell lymphoma who presented to the emergency department 11 days ago with complaints of fever and malaise. Workup in the emergency department was concerning for pneumonia and pancytopenia with ANC of 110. She was admitted to med/surg unit for neutropenic fever on cefepime and vancomycin and doxycycline IV. Her oncologist recommended that she stay on IV antibiotics until her ANC is greater than 500, she has been receiving Neupogen daily with a steady improvement in her ANC. She has been afebrile and hemodynamically stable . She has had negative cultures to date. Her vancomycin has been discontinued yesterday. She reports feeling great today. Hemodynamically she has been stable she has been afebrile she is eating and drinking bowels and bladder are functioning. Today her ANC is 0.64 so she does meet criteria for discharge her oncology. We have been following her creatinine which was up again to 2.4 she has been advised to push fluids as it was thought to be due to inadequate fluid intake. She will need to continue following her kidney functions at discharge. She will be discharged on Levaquin 750 mg daily and doxycycline 100 mg twice daily until advised by her oncologist. She has standing lab work that is due on June 12. Her prescriptions will be called to [facility] in [facility] and New Rx's Prescriptions: New doxycycline hyclate 100 mg Capsule 100 mg PO Q12H Qty: 60 RF: 0 lorazepam 1 mg Tablet 1 mg PO HS Qty: 14 RF: 0 levofloxacin [Levaquin] 750 mg tablet 750 mg PO DAILY Qty: 30 RF: 0 ondansetron 4 mg tablet,disintegrating 4 mg PO TID PRN (Reason: nausea) 5 Days Qty: 10 RF: 0 Continue acyclovir 800 MG tablet 800 mg PO BID Qty: 180 RF: 4 escitalopram oxalate [Lexapro] 20 MG tablet 20 mg PO QAM Qty: 90 RF: 4 albuterol sulfate [ProAir HFA] 8.5 GM HFA aerosol inhaler 1 - 2 puff Inhalation QID PRNQty: 1 RF: 4 lorazepam [Ativan] 1 MG tablet 1 mg PO HS Qty: 30 RF: 1 bupropion HCl [Wellbutrin XL] 300 MG tablet extended release 24 hr 300 mg PO DAILY Qty: 90 RF: 4 benzonatate 100 MG capsule 100 - 200 mg PO TID Qty: 30 RF: 0 acetaminophen [Tylenol Extra Strength] 500 mg Tablet 1,000 mg PO Q6H PRNRF: 0 albuterol sulfate 2.5 MG/3 ML solution for nebulization 2.5 mg UPD Q4H PRNQty: 20 RF: 0 Discontinued amoxicillin-pot clavulanate 1 EACH tablet 1 tab-cap PO Q12H Qty: 14 RF: 0 Discharge Instructions Instructions: Neutropenia (DC) Additional Instructions: Push fluids drinking at least 6-8 glasses of water daily to stay well-hydrated. Take antibiotics as prescribed until advised otherwise. Lab draw as scheduled for Tuesday, June 12, 2018. Return immediately for new or worsening symptoms. [facility] have been called to [facility] and [facility] Stand Alone Forms: Nursing Discharge Form Referrals: Christy Enrique MD [Primary Care Provider] - (Please call the office on Tuesday to schedule a follow up appointment for within the next week or two. [phone]) Activity:: Activity as Tolerated Equipment/Supplies:: No Equipment Needed Diet:: regular diet Discharge Orders Discharge Orders: Discharge Order (Routine); Ordered 06/10/18 Ordered By: Kasandra Mcintyre Discharge Data Discharge Date/Time-TO BE ENTERED AT DEPARTURE: 06/10/18 14:27 Exam Const General: cooperative, healthy appearing, comfortable, no acute distress, well developed and well groomed Nutritional Appearance: average body habitus Orientation: alert, awake and oriented x3 HENMT Head: normal to inspection Mouth: moist mucous membranes abnormal Resp Effort & Inspection: normal respiratory effort Auscultation: clear to auscultation bilaterally Cardio Rate: regular rate Rhythm: regular rhythm GI Inspection: normal to inspection Palpation: soft Auscultation: normal bowel sounds Skin General skin exam: no rashes or lesions noted Neuro General: alert, awake and oriented x3 Cognition: normal cognition Speech: speech normal Gait: normal gait Motor: muscle tone normal throughout Extrem General: normal to inspection and full ROM DS: Data Vitals/I&O Vitals and I&O: Vital Signs Temp 36.6 C 06/10/18 13:31 Pulse 75 06/10/18 13:31 Resp 19 06/10/18 13:31 BP 87/58 L 06/10/18 13:31 Pulse Ox 99 06/10/18 13:31 Intake & Output 06/09/18 06/10/18 06/10/18 23:59 11:59 23:59 Intake Total 100.001 / 100.001 Balance 100.001 / 100.001 Intake: IV 100.001 / 100.001 Other: Urine Color Yellow Urine Appearance Clear Urine Odor Normal Comment PT VOIDS INDEPENDENTLY IN ROOM, SHE REPORTS NO CONCERNS Voiding Methods Toilet Labs on day of discharge: Labs from last 24 hours 06/10/18 06/10/18 06:14 06:14 WBC 1.46 L* RBC 3.00 L Hgb 9.4 L Hct 28.5 L MCV 95.0 MCH 31.3 MCHC 33.0 RDW 17.9 H Plt Count 21 L* MPV 13.5 H Sodium 139 Potassium 4.0 Chloride 101 Carbon Dioxide 30.1 Anion Gap 7.9 BUN 34 H Creatinine 2.24 H Estimated GFR/1.73 m2 23.64 Glucose 90 Calcium 9.6
--- NOTE | 2018-06-10 13:54 | DSE_ITS ---
Date of service: 06/10/18 DS: Diagnosis Discharge Diagnosis (1) Neutropenic fever: Status: Acute (2) Pancytopenia: Status: Acute (3) DVT prophylaxis: Status: Acute (4) Discharge planning issues: Status: Acute Discharge Plan Disposition Patient Disposition: HOME Condition: Serious Discharge Details Reason For Visit: FEVER/VOMITING Admit Date/Time: 05/30/18 19:39 Admit Provider: Jordi Baez Attending Provider: Jordi Baez Primary Care Provider: [facility] Course Hospital Course: This is a 43-year-old female patient with B-cell lymphoma who presented to the emergency department 11 days ago with complaints of fever and malaise. Workup in the emergency department was concerning for pneumonia and pancytopenia with ANC of 110. She was admitted to med/surg unit for neutropenic fever on cefepime and vancomycin and doxycycline IV. Her oncologist recommended that she stay on IV antibiotics until her ANC is greater than 500, she has been receiving Neupogen daily with a steady improvement in her ANC. She has been afebrile and hemodynamically stable . She has had negative cultures to date. Her vancomycin has been discontinued yesterday. She reports feeling great today. Hemodynamically she has been stable she has been afebrile she is eating and drinking bowels and bladder are functioning. Today her ANC is 0.64 so she does meet criteria for discharge her oncology. We have been following her creatinine which was up again to 2.4 she has been advised to push fluids as it was thought to be due to inadequate fluid intake. She will need to continue following her kidney functions at discharge. She will be discharged on Levaquin 750 mg daily and doxycycline 100 mg twice daily until advised by her oncologist. She has standing lab work that is due on June 12. Her prescriptions will be called to [facility] in [facility] and New Rx's Prescriptions: New doxycycline hyclate 100 mg Capsule 100 mg PO Q12H Qty: 60 RF: 0 lorazepam 1 mg Tablet 1 mg PO HS Qty: 14 RF: 0 levofloxacin [Levaquin] 750 mg tablet 750 mg PO DAILY Qty: 30 RF: 0 ondansetron 4 mg tablet,disintegrating 4 mg PO TID PRN (Reason: nausea) 5 Days Qty: 10 RF: 0 Continue acyclovir 800 MG tablet 800 mg PO BID Qty: 180 RF: 4 escitalopram oxalate [Lexapro] 20 MG tablet 20 mg PO QAM Qty: 90 RF: 4 albuterol sulfate [ProAir HFA] 8.5 GM HFA aerosol inhaler 1 - 2 puff Inhalation QID PRNQty: 1 RF: 4 lorazepam [Ativan] 1 MG tablet 1 mg PO HS Qty: 30 RF: 1 bupropion HCl [Wellbutrin XL] 300 MG tablet extended release 24 hr 300 mg PO DAILY Qty: 90 RF: 4 benzonatate 100 MG capsule 100 - 200 mg PO TID Qty: 30 RF: 0 acetaminophen [Tylenol Extra Strength] 500 mg Tablet 1,000 mg PO Q6H PRNRF: 0 albuterol sulfate 2.5 MG/3 ML solution for nebulization 2.5 mg UPD Q4H PRNQty: 20 RF: 0 Discontinued amoxicillin-pot clavulanate 1 EACH tablet 1 tab-cap PO Q12H Qty: 14 RF: 0 Discharge Instructions Instructions: Neutropenia (DC) Additional Instructions: Push fluids drinking at least 6-8 glasses of water daily to stay well-hydrated. Take antibiotics as prescribed until advised otherwise. Lab draw as scheduled for Tuesday, June 12, 2018. Return immediately for new or worsening symptoms. Your [facility] have been called to [facility] and [facility] Stand Alone Forms: Nursing Discharge Form Referrals: Christy Enrique MD [Primary Care Provider] - (Please call the office on Tuesday to schedule a follow up appointment for within the next week or two. [phone]) Activity:: Activity as Tolerated Equipment/Supplies:: No Equipment Needed Diet:: regular diet Discharge Orders Discharge Orders: Discharge Order (Routine); Ordered 06/10/18 Ordered By: Kasandra Mcintyre Discharge Data Discharge Date/Time-TO BE ENTERED AT DEPARTURE: 06/10/18 14:27 Exam Const General: cooperative, healthy appearing, comfortable, no acute distress, well developed and well groomed Nutritional Appearance: average body habitus Orientation: alert, awake and oriented x3 HENMT Head: normal to inspection Mouth: moist mucous membranes abnormal Resp Effort & Inspection: normal respiratory effort Auscultation: clear to auscultation bilaterally Cardio Rate: regular rate Rhythm: regular rhythm GI Inspection: normal to inspection Palpation: soft Auscultation: normal bowel sounds Skin General skin exam: no rashes or lesions noted Neuro General: alert, awake and oriented x3 Cognition: normal cognition Speech: speech normal Gait: normal gait Motor: muscle tone normal throughout Extrem General: normal to inspection and full ROM DS: Data Vitals/I&O Vitals and I&O: Vital Signs Temp 36.6 C 06/10/18 13:31 Pulse 75 06/10/18 13:31 Resp 19 06/10/18 13:31 BP 87/58 L 06/10/18 13:31 Pulse Ox 99 06/10/18 13:31 Intake & Output 06/09/18 06/10/18 06/10/18 23:59 11:59 23:59 Intake Total 100.001 / 100.001 Balance 100.001 / 100.001 Intake: IV 100.001 / 100.001 Other: Urine Color Yellow Urine Appearance Clear Urine Odor Normal Comment PT VOIDS INDEPENDENTLY IN ROOM, SHE REPORTS NO CONCERNS Voiding Methods Toilet Labs on day of discharge: Labs from last 24 hours 06/10/18 06/10/18 06:14 06:14 WBC 1.46 L* RBC 3.00 L Hgb 9.4 L Hct 28.5 L MCV 95.0 MCH 31.3 MCHC 33.0 RDW 17.9 H Plt Count 21 L* MPV 13.5 H Sodium 139 Potassium 4.0 Chloride 101 Carbon Dioxide 30.1 Anion Gap 7.9 BUN 34 H Creatinine 2.24 H Estimated GFR/1.73 m2 23.64 Glucose 90 Calcium 9.6
--- NOTE | 2018-06-10 14:15 | PDOC.CMDIS ---
LACE Index Scoring Tool - Questions: Length of Stay (in days): 7 - 13 Acuity (Admit via E.D.?): Yes Comorbidities: Any Tumor, Liver or Renal Disease E.D. Visits: 1 - Answers: Total Score: 14 Risk of Readmission: High Risk Care Management Discharge Reason for Hospitalization: Fever/Vomiting Discharge Plan: Stacey was anxious to return home when met with her. She reported her daughter has a soccer game in the next few days and she has not been able to see her play yet this season. Stacey shared that her daughter scored four goals in her last game, and would really love to see her play. Stacey will return home with no additional services anticipated. She will transport via private vehicle with family. Patient/Family Education Needs: Review discharge instructions, discuss Ask Me Three.
== END 2018-06-10 14:27 | disposition home or self-care (01) | DRG 808 ==
LOC: ER 20:17 → MS 23:03
PROVIDERS: Family Medicine; Internal Medicine; Admitting Provider General Practice; Emergency Provider Physician Assistant; PCP Family Medicine; Visit Provider Internal Medicine
DX: D70.9 Neutropenia, unspecified (principal); J18.9 Pneumonia, unspecified organism; C85.10 Unspecified B-cell lymphoma, unspecified site; I82.509 Chronic embolism and thrombosis of unspecified deep veins of unspecified lower extremity; M02.369 Reiter's disease, unspecified knee; R50.81 Fever presenting with conditions classified elsewhere; D61.818 Other pancytopenia; J01.80 Other acute sinusitis; J32.8 Other chronic sinusitis; F32.9 Major depressive disorder, single episode, unspecified; N18.9 Chronic kidney disease, unspecified; I12.9 Hypertensive chronic kidney disease with stage 1 through stage 4 chronic kidney disease, or unspecified chronic kidney disease
CPT/HCPCS: 36415; 36416; 36430; 80048; 80051; 80053; 82962; 85027; 86850; 86900; 86901; 86920; 86945; 87040; 93005; 96361; 96365; 99222; 99232; 99233; 99239; 99285; 70486; 71046; 80202; 81003; 81015; 83605; 84484; 85025; 85379; 85610; 86644; 93010; J3490; P9016; P9035

== ENCOUNTER 2018-06-12 08:36 | Outpatient (CLI) | payer MEDICARE, BC, SELFPAY ==
[2018-06-12 09:07] LABS: Abs Immature Grans 0.03 k/cumm (0.0-0.09); HCT 30.1 % (36.0-46.0); HGB 10.3 g/dL (12.0-15.5); Mean Corp. HGB Concentration 34.2 g/dL (32.0-36.0); Mean Corpuscular Hemoglobin 32.6 pg (27.0-33.0); Mean Corpuscular Volume 95.3 fL (80-95); RBC 3.16 m/cumm (4.00-5.20); RBC Distribution Width 17.8 % (11.7-14.6); White Blood Cell Count 2.17 k/cumm (4.4-10.8)
[2018-06-12 10:00] LABS: Absolute Eosinophil Count 0.02 k/cumm (0.0-0.7); Absolute Lymphocyte Count 0.65 k/cumm (1.2-3.4); Absolute Monocyte Count 0.22 k/cumm (0.11-0.7); Absolute Neutrophil Count 1.28 k/cumm (1.2-6.7)
[2018-06-12 10:01] LABS: Anisocytosis 1+; Diff Comment Manual Differential; Hypochromasia 1+; Macrocytosis 1+
[2018-06-12 10:03] LABS: Platelet Count 12 x1000/uL (130-400)
== END 2018-06-12 08:56 ==
PROVIDERS: PCP Family Medicine; Visit Provider Nurse Practitioner Adult Health
DX: C82.93 Follicular lymphoma, unspecified, intra-abdominal lymph nodes (principal)
CPT/HCPCS: 36415; 85025

== ENCOUNTER 2018-06-13 01:29 | Outpatient (RCR) | payer MEDICARE, BC, SELFPAY ==
[2018-06-13] MEDS: Normal Saline Flush 10 ML SYR IVP (09:00)
[2018-06-13 09:45] VITALS: BP 97/71; PULSE 70; RESP 18; TEMP 36.8; O2SAT 100
[2018-06-13 10:08] VITALS: BP 105/76; PULSE 71; RESP 18; TEMP 36.7
== END 2018-06-25 23:59 | disposition home or self-care (01) ==
LOC: INF 01:29
PROVIDERS: PCP Family Medicine; Visit Provider Internal Medicine Hematology & Oncology
DX: C85.10 Unspecified B-cell lymphoma, unspecified site (principal)
CPT/HCPCS: 36415; 36430; 86900; 86901; 86945; 85025; 86644; P9035

== ENCOUNTER 2018-06-19 08:15 | Outpatient (CLI) | payer MEDICARE, BC, SELFPAY ==
[2018-06-19 08:45] LABS: HCT 26.8 % (36.0-46.0); HGB 9.2 g/dL (12.0-15.5); Mean Corp. HGB Concentration 34.3 g/dL (32.0-36.0); Mean Corpuscular Hemoglobin 32.5 pg (27.0-33.0); Mean Corpuscular Volume 94.7 fL (80-95); Mean Platelet Volume 11.2 fL (8.0-11.0); RBC 2.83 m/cumm (4.00-5.20); White Blood Cell Count 5.51 k/cumm (4.4-10.8)
[2018-06-19 09:23] LABS: Absolute Eosinophil Count 0.06 k/cumm (0.0-0.7); Absolute Monocyte Count 0.22 k/cumm (0.11-0.7); Platelet Count 23 x1000/uL (130-400)
[2018-06-19 09:24] LABS: Absolute Basophil Count 0.06 k/cumm (0.0-0.2); Absolute Lymphocyte Count 0.77 k/cumm (1.2-3.4)
[2018-06-19 09:25] LABS: Hypochromasia 2+
[2018-06-19 09:26] LABS: Poikilocytes 2+
== END 2018-06-19 08:35 ==
PROVIDERS: PCP Family Medicine; Visit Provider Nurse Practitioner Adult Health
DX: C82.93 Follicular lymphoma, unspecified, intra-abdominal lymph nodes (principal)
CPT/HCPCS: 36415; 85025

== ENCOUNTER 2018-06-26 08:25 | Outpatient (CLI) | payer MEDICARE, BC, SELFPAY ==
[2018-06-26 08:54] LABS: Abs Immature Grans 0.09 k/cumm (0.0-0.09); Absolute Basophil Count 0.02 k/cumm (0.0-0.2); Absolute Eosinophil Count 0.01 k/cumm (0.0-0.7); Absolute Lymphocyte Count 0.56 k/cumm (1.2-3.4); Absolute Monocyte Count 0.53 k/cumm (0.11-0.7); Absolute Neutrophil Count 3.54 k/cumm (1.2-6.7); Basophils % 0.4; Eosinophils % 0.2; HCT 27.4 % (36.0-46.0); HGB 9.3 g/dL (12.0-15.5); Immature Grans % 1.9; Lymphocytes % 11.8; Mean Corp. HGB Concentration 33.9 g/dL (32.0-36.0); Mean Corpuscular Hemoglobin 33.1 pg (27.0-33.0); Mean Corpuscular Volume 97.5 fL (80-95); Mean Platelet Volume 9.9 fL (8.0-11.0); Monocytes % 11.2; Neutrophils % 74.5; RBC 2.81 m/cumm (4.00-5.20); RBC Distribution Width 19.5 % (11.7-14.6); White Blood Cell Count 4.75 k/cumm (4.4-10.8)
[2018-06-26 09:10] LABS: Anisocytosis 2+; Diff Comment RBC Morph Reviewed; Macrocytosis 1+; Microcytosis 1+; Platelet Count 55 x1000/uL (130-400); Polychromasia Present
== END 2018-06-26 08:45 ==
PROVIDERS: PCP Family Medicine; Visit Provider Nurse Practitioner Adult Health
DX: C82.93 Follicular lymphoma, unspecified, intra-abdominal lymph nodes (principal)
CPT/HCPCS: 36415; 85025

== ENCOUNTER 2018-07-04 08:29 | Outpatient (CLI) | payer MEDICARE, BC, SELFPAY ==
[2018-07-04 08:55] LABS: Abs Immature Grans 0.04 k/cumm (0.0-0.09); Absolute Basophil Count 0.04 k/cumm (0.0-0.2); Absolute Eosinophil Count 0.03 k/cumm (0.0-0.7); Absolute Lymphocyte Count 0.69 k/cumm (1.2-3.4); Absolute Neutrophil Count 1.59 k/cumm (1.2-6.7); Basophils % 1.4; HCT 26.3 % (36.0-46.0); HGB 8.8 g/dL (12.0-15.5); Immature Grans % 1.4; Lymphocytes % 23.9; Mean Corp. HGB Concentration 33.5 g/dL (32.0-36.0); Mean Corpuscular Hemoglobin 33.2 pg (27.0-33.0); Mean Corpuscular Volume 99.2 fL (80-95); Mean Platelet Volume 9.3 fL (8.0-11.0); Monocytes % 17.3; Platelet Count 110 x1000/uL (130-400); RBC 2.65 m/cumm (4.00-5.20); RBC Distribution Width 22.3 % (11.7-14.6); White Blood Cell Count 2.89 k/cumm (4.4-10.8)
== END 2018-07-04 08:49 ==
PROVIDERS: PCP Family Medicine; Visit Provider Nurse Practitioner Adult Health
DX: C82.93 Follicular lymphoma, unspecified, intra-abdominal lymph nodes (principal)
CPT/HCPCS: 36415; 85025

== ENCOUNTER 2018-07-10 09:15 | Outpatient (CLI) | payer MEDICARE, BC, SELFPAY ==
[2018-07-10 09:56] LABS: Abs Immature Grans 0.02 k/cumm (0.0-0.09); Absolute Basophil Count 0.04 k/cumm (0.0-0.2); Absolute Eosinophil Count 0.04 k/cumm (0.0-0.7); Absolute Lymphocyte Count 0.69 k/cumm (1.2-3.4); Absolute Monocyte Count 0.52 k/cumm (0.11-0.7); Absolute Neutrophil Count 2.02 k/cumm (1.2-6.7); Basophils % 1.2; Eosinophils % 1.2; HCT 25.6 % (36.0-46.0); HGB 8.5 g/dL (12.0-15.5); Immature Grans % 0.6; Lymphocytes % 20.7; Mean Corp. HGB Concentration 33.2 g/dL (32.0-36.0); Mean Corpuscular Hemoglobin 35.1 pg (27.0-33.0); Mean Corpuscular Volume 105.8 fL (80-95); Mean Platelet Volume 9.7 fL (8.0-11.0); Monocytes % 15.6; Neutrophils % 60.7; Platelet Count 134 x1000/uL (130-400); RBC 2.42 m/cumm (4.00-5.20); RBC Distribution Width 25.9 % (11.7-14.6); White Blood Cell Count 3.33 k/cumm (4.4-10.8)
== END 2018-07-10 09:35 ==
PROVIDERS: PCP Family Medicine; Visit Provider Nurse Practitioner Adult Health
DX: C82.93 Follicular lymphoma, unspecified, intra-abdominal lymph nodes (principal)
CPT/HCPCS: 36415; 85025

== ENCOUNTER 2018-07-17 08:24 | Outpatient (CLI) | payer MEDICARE, BC, SELFPAY ==
[2018-07-17 08:45] LABS: HCT 26.1 % (36.0-46.0); HGB 8.8 g/dL (12.0-15.5); Mean Corp. HGB Concentration 33.7 g/dL (32.0-36.0); Mean Corpuscular Hemoglobin 36.5 pg (27.0-33.0); Mean Corpuscular Volume 108.3 fL (80-95); Mean Platelet Volume 9.5 fL (8.0-11.0); Platelet Count 122 x1000/uL (130-400); RBC 2.41 m/cumm (4.00-5.20); RBC Distribution Width 26.6 % (11.7-14.6); White Blood Cell Count 2.64 k/cumm (4.4-10.8)
[2018-07-17 09:29] LABS: Absolute Eosinophil Count 0.08 k/cumm (0.0-0.7); Absolute Lymphocyte Count 0.66 k/cumm (1.2-3.4); Absolute Monocyte Count 0.18 k/cumm (0.11-0.7); Absolute Neutrophil Count 1.72 k/cumm (1.2-6.7); Atypical Lymphocytes % 1
[2018-07-17 09:30] LABS: Anisocytosis 3+; Hypochromasia 2+; Macrocytosis 2+; Polychromasia Present
[2018-07-17 09:31] LABS: Poikilocytes 2+
== END 2018-07-17 08:44 ==
PROVIDERS: PCP Family Medicine; Visit Provider Internal Medicine Hematology & Oncology
DX: C82.93 Follicular lymphoma, unspecified, intra-abdominal lymph nodes (principal)
CPT/HCPCS: 36415; 85025

== ENCOUNTER 2018-07-24 08:46 | Outpatient (CLI) | payer MEDICARE, BC, SELFPAY ==
[2018-07-24 09:14] LABS: Abs Immature Grans 0.01 k/cumm (0.0-0.09); Absolute Basophil Count 0.04 k/cumm (0.0-0.2); Absolute Eosinophil Count 0.05 k/cumm (0.0-0.7); Absolute Lymphocyte Count 0.61 k/cumm (1.2-3.4); Absolute Monocyte Count 0.42 k/cumm (0.11-0.7); Absolute Neutrophil Count 1.56 k/cumm (1.2-6.7); Basophils % 1.5; Eosinophils % 1.9; HCT 28.1 % (36.0-46.0); HGB 9.3 g/dL (12.0-15.5); Immature Grans % 0.4; Lymphocytes % 22.7; Mean Corp. HGB Concentration 33.1 g/dL (32.0-36.0); Mean Corpuscular Hemoglobin 36.9 pg (27.0-33.0); Mean Corpuscular Volume 111.5 fL (80-95); Mean Platelet Volume 9.4 fL (8.0-11.0); Monocytes % 15.6; Neutrophils % 57.9; Platelet Count 122 x1000/uL (130-400); RBC 2.52 m/cumm (4.00-5.20); RBC Distribution Width 25.6 % (11.7-14.6); White Blood Cell Count 2.69 k/cumm (4.4-10.8)
== END 2018-07-24 09:06 ==
PROVIDERS: PCP Family Medicine; Visit Provider Internal Medicine Hematology & Oncology
DX: C82.93 Follicular lymphoma, unspecified, intra-abdominal lymph nodes (principal)
CPT/HCPCS: 36415; 85025

== ENCOUNTER 2018-07-31 08:32 | Outpatient (CLI) | payer MEDICARE, BC, SELFPAY ==
[2018-07-31 09:25] LABS: Abs Immature Grans 0.02 k/cumm (0.0-0.09); Absolute Basophil Count 0.07 k/cumm (0.0-0.2); Absolute Eosinophil Count 0.16 k/cumm (0.0-0.7); Absolute Lymphocyte Count 0.53 k/cumm (1.2-3.4); Absolute Neutrophil Count 1.82 k/cumm (1.2-6.7); Basophils % 2.3; Eosinophils % 5.2; HCT 26.7 % (36.0-46.0); HGB 9.1 g/dL (12.0-15.5); Immature Grans % 0.6; Lymphocytes % 17.1; Mean Corp. HGB Concentration 34.1 g/dL (32.0-36.0); Mean Corpuscular Hemoglobin 37.9 pg (27.0-33.0); Mean Corpuscular Volume 111.3 fL (80-95); Mean Platelet Volume 10.6 fL (8.0-11.0); Monocytes % 16.1; Neutrophils % 58.7; RBC Distribution Width 22.8 % (11.7-14.6)
[2018-07-31 10:25] LABS: Anisocytosis 3+; Diff Comment RBC Morph Reviewed; Macrocytosis 2+; Microcytosis 1+; Platelet Count 106 x1000/uL (130-400); Polychromasia Present; Tear Drop Cells 2+
== END 2018-07-31 08:52 ==
PROVIDERS: PCP Family Medicine; Visit Provider Internal Medicine Hematology & Oncology
DX: C82.93 Follicular lymphoma, unspecified, intra-abdominal lymph nodes (principal)
CPT/HCPCS: 36415; 85025

== ENCOUNTER 2018-08-07 08:15 | Outpatient (CLI) | payer MEDICARE, BC, SELFPAY ==
[2018-08-07 08:35] LABS: Abs Immature Grans 0.02 k/cumm (0.0-0.09); Absolute Basophil Count 0.02 k/cumm (0.0-0.2); Absolute Eosinophil Count 0.08 k/cumm (0.0-0.7); Absolute Lymphocyte Count 0.66 k/cumm (1.2-3.4); Absolute Monocyte Count 0.47 k/cumm (0.11-0.7); Absolute Neutrophil Count 1.78 k/cumm (1.2-6.7); Basophils % 0.7; Eosinophils % 2.6; HCT 27.7 % (36.0-46.0); HGB 9.5 g/dL (12.0-15.5); Immature Grans % 0.7; Lymphocytes % 21.8; Mean Corp. HGB Concentration 34.3 g/dL (32.0-36.0); Mean Corpuscular Hemoglobin 38.6 pg (27.0-33.0); Mean Corpuscular Volume 112.6 fL (80-95); Mean Platelet Volume 10.2 fL (8.0-11.0); Monocytes % 15.5; Neutrophils % 58.7; RBC 2.46 m/cumm (4.00-5.20); RBC Distribution Width 20.4 % (11.7-14.6); White Blood Cell Count 3.03 k/cumm (4.4-10.8)
[2018-08-07 08:45] LABS: Anisocytosis 3+; Diff Comment Diff Reviewed; Hypochromasia 2+; Macrocytosis 2+; Polychromasia Present
[2018-08-07 08:46] LABS: Poikilocytes 3+
[2018-08-07 08:47] LABS: Platelet Count 104 x1000/uL (130-400)
== END 2018-08-07 08:35 ==
PROVIDERS: PCP Family Medicine; Visit Provider Internal Medicine Hematology & Oncology
DX: C82.93 Follicular lymphoma, unspecified, intra-abdominal lymph nodes (principal)
CPT/HCPCS: 36415; 85025

== ENCOUNTER 2018-10-20 16:03 | Emergency (ER) | payer MEDICARE, BC, SELFPAY ==
[2018-10-20 16:10] VITALS: BP 124/76; PULSE 66; RESP 18; TEMP 36.6; O2SAT 99
--- NOTE | 2018-10-20 16:19 | DI.RAD_ITS ---
SYMPTOM/DIAGNOSIS: PALPITATIONS, R/O ACUTE DISEASE PA AND LATERAL CHEST: Comparison is made with 30 May 2018. A port is now seen overlying the right chest with the tip in the superior vena cava. The heart size is normal. There is again noted to be left sided volume loss and mild left sided pleural thickening. The lungs are otherwise clear. No infiltrate, effusion or pulmonary edema is seen. No pulmonary nodules or adenopathy are identified. IMPRESSION: No acute abnormality.
[2018-10-20 16:31] LABS: Abs Immature Grans 0.03 k/cumm (0.0-0.09); HCT 29.8 % (36.0-46.0); HGB 9.8 g/dL (12.0-15.5); Mean Corp. HGB Concentration 32.9 g/dL (32.0-36.0); Mean Corpuscular Hemoglobin 33.6 pg (27.0-33.0); Mean Corpuscular Volume 102.1 fL (80-95); Mean Platelet Volume 9.5 fL (8.0-11.0); Platelet Count 122 x1000/uL (130-400); RBC 2.92 m/cumm (4.00-5.20); RBC Distribution Width 13.4 % (11.7-14.6); White Blood Cell Count 4.78 k/cumm (4.4-10.8)
[2018-10-20] MEDS: Normal Saline Flush 10 ML SYR IVP (16:36)
[2018-10-20 16:46] LABS: ALT 7 U/L (12-78); AST 21 U/L (15-37); Albumin 2.7 g/dL (3.4-5.0); Alkaline Phosphatase 81 U/L (46-116); Anion Gap 10.7 mmol/L (3-11); BUN 23 mg/dL (7-18); Bilirubin, Total 0.2 mg/dL (0.2-1.0); CO2 25.3 mmol/L (21.0-32.0); CREATININE 2.32 mg/dL (0.55-1.02); Calcium 8.7 mg/dL (8.5-10.1); Chloride 103 mmol/L (98-107); Glucose 106 mg/dL (70-100); Magnesium 1.6 mg/dL (1.8-2.4); Potassium 3.4 mmol/L (3.5-5.1); Sodium 139 mmol/L (136-145); Total Protein 6.3 g/dL (6.4-8.2)
[2018-10-20 16:48] LABS: Troponin I < 0.02 ng/mL (0.00-0.06)
[2018-10-20 17:03] LABS: Absolute Eosinophil Count 0.05 k/cumm (0.0-0.7); Absolute Lymphocyte Count 1.82 k/cumm (1.2-3.4); Absolute Monocyte Count 0.48 k/cumm (0.11-0.7); Absolute Neutrophil Count 2.44 k/cumm (1.2-6.7); Diff Comment Manual Differential
[2018-10-20 17:04] LABS: Anisocytosis 1+; Hypochromasia 2+; Macrocytosis 1+; Poikilocytes 2+
--- NOTE | 2018-10-20 17:36 | NUR.NOTE ---
pt stated that she is having heart fluttering but the monitor is SR ER doctor notified Nursing Note:
[2018-10-20 17:38] VITALS: BP 114/84; PULSE 65; RESP 14; O2SAT 100
--- NOTE | 2018-10-20 17:52 | DI.VRAD_ITS ---
EXAM: XR Chest, 2 Views EXAM DATE/TIME: 10/20/2018 4:22 PM CLINICAL HISTORY: 43 years old, female; Signs and symptoms; Other: Palpitations; Patient HX: Palpitations; Per PT: Since 1330hrs TECHNIQUE: XR of the chest, 2 views. COMPARISON: SC XR CHEST 2V PA LATERAL 05/30/2018 4:50 PM FINDINGS: Lungs: Unremarkable. No consolidation. Pleural space: Blunting in the left costophrenic angle may represent pleural reaction or small pleural effusion. Heart/Mediastinum: Unremarkable. No cardiomegaly. Vasculature: MediPort terminates in the superior vena cava Bones/joints: Unremarkable. IMPRESSION: Blunting in the left costophrenic angle may represent pleural reaction or small pleural effusion. Dictated and Authenticated by: Dawit Gallo MD. Ordering:RYANNE Pleitez MD
--- NOTE | 2018-10-20 18:11 | ED.GENADUL_ITS ---
Discharge Plan Disposition Patient Disposition: HOME Condition: Improving Discharge Details Chief Complaint: Palpitatns Clinical Impression: Palpitations, Atypical chest pain Primary Care Provider: Christy Enrique ED Provider: Pricilla Art Home Meds and New Rx's Prescriptions: Continued albuterol sulfate [ProAir HFA] 90 mcg/actuation HFA aerosol inhaler 1 - 2 puff Inhalation QID PRN (Reason: bronchospasm) Qty: 1 RF: 4 lorazepam [Ativan] 1 mg tablet 1 mg PO HS Qty: 30 RF: 1 acyclovir 800 MG tablet 800 mg PO BID Qty: 180 RF: 4 escitalopram oxalate [Lexapro] 20 MG tablet 20 mg PO QAM Qty: 90 RF: 4 bupropion HCl [Wellbutrin XL] 300 MG tablet extended release 24 hr 300 mg PO DAILY Qty: 90 RF: 4 benzonatate 100 MG capsule 100 - 200 mg PO TID Qty: 30 RF: 0 acetaminophen [Tylenol Extra Strength] 500 mg Tablet 1,000 mg PO Q6H PRNRF: 0 doxycycline hyclate 100 mg Capsule 100 mg PO Q12H Qty: 60 RF: 0 levofloxacin [Levaquin] 750 mg tablet 750 mg PO DAILY Qty: 30 RF: 0 albuterol sulfate 2.5 MG/3 ML solution for nebulization 2.5 mg UPD Q4H PRNQty: 20 RF: 0 Discharge Instructions Instructions: Chest Pain (ED), Palpitations (ED) Additional Instructions: Take your regular medications as directed. Follow-up with your primary care doctor or your oncologist in the next week for reevaluation. Return immediately to the emergency department any worsening or new concerning symptoms. Return your Zio patch as directed per respiratory therapy. Discharge Data Discharge Date/Time-TO BE ENTERED AT DEPARTURE: 10/20/18 19:44 Discharge Physician: Pricilla Art Medical Decision Making 43-year-old female with a history of non-Hodgkin's lymphoma currently on chemo for the past 4 years who presents with a complaint of palpitations and chest pain today. Chest pain now resolved and palpitations intermittent. EKG on arrival notes a rate of 66, sinus and no acute ST elevation or depression. Cardiac workup ordered on arrival and unremarkable. Troponin negative. Patient has a history of chronic renal insufficiency and creatinine 2.32. She has been as high as 3.92 since 2016. Patient states she had recent right arm IV infiltration for which she is taking Dilaudid twice daily. Patient states she feels like her chest pain radiates from this and is muscular skeletal. She has no complaints of shortness of breath, nausea or vomiting and her vitals are within normal limits with normal oxygen saturation. Again she has no chest pain since arrival to the emergency department. CXR notes blunting in the left costophrenic angle which may be a small pleural effusion but no obvious acute disease. Patient has a low well score based on her history of active malignancy but otherwise no other acute PE risk factors. She has no tachycardia, hypotension or hypoxia. She has no leg pain or swelling, recent travel or recent surgery. Discussed with patient that with her history of malignancy, with a complaint of palpitations and intermittent chest pain, pulmonary embolism could be a possibility however her exam does not appear consistent with this. Due to her history of chronic kidney disease, we will not be able to obtain a CT chest. Discussed that the plan would be for a VQ scan but the patient is refusing this at this time. She understands the risks of and disability due to this and demonstrates capacity to make decisions. Heart score 1, low risk. She is agreeable to stay for a second troponin. 1930 --second troponin negative. Patient states she feels much better and de nies any palpitations or chest pain at this time. A zio patch was placed. Patient is requesting to leave. She is instructed to follow-up with the primary care doctor and oncologist. She is instructed return at any time if worse. Medical Records Medical records reviewed: Yes I reviewed the patient's medical records. Imaging Data Radiologic Study: Radiologist's impression: XR Chest, 2 Views FINDINGS: Lungs: Unremarkable. No consolidation. Pleural space: Blunting in the left costophrenic angle may represent pleural reaction or small pleural effusion. Heart/Mediastinum: Unremarkable. No cardiomegaly. Vasculature: MediPort terminates in the superior vena cava Bones/joints: Unremarkable. IMPRESSION: Blunting in the left costophrenic angle may represent pleural reaction or small pleural effusion. Lab Data Lab results reviewed: Yes I reviewed the patient's lab results. Laboratory Tests Range/Units 10/20/18 10/20/18 10/20/18 16:15 16:15 18:37 WBC (4.4-10.8) k/cumm 4.78 RBC (4.00-5.20) m/cumm 2.92 L Hgb (12.0-15.5) g/dL 9.8 L Hct (36.0-46.0) % 29.8 L MCV (80-95) fL 102.1 H MCH (27.0-33.0) pg 33.6 H MCHC (32.0-36.0) g/dL 32.9 RDW (11.7-14.6) % 13.4 Plt Count (130-400) x1000/uL 122 L MPV (8.0-11.0) fL 9.5 Immature Gran % 0.0 Neutrophils % 45.0 Band Neutrophils % % 6.0 Lymphocytes % 38.0 Monocytes % 10.0 Eosinophils % 1.0 Basophils % 0.0 Absolute Neutrophils (1.2-6.7) k/cumm 2.44 Absolute Lymphocytes (1.2-3.4) k/cumm 1.82 Absolute Monocytes (0.11-0.7) k/cumm 0.48 Absolute Eosinophils (0.0-0.7) k/cumm 0.05 Absolute Basophils (0.0-0.2) k/cumm 0.00 Differential Comment Manual differential RBC Morphology See below Hypochromasia 2+ Poikilocytosis 2+ Anisocytosis 1+ Macrocytosis 1+ Sodium (136-145) mmol/L 139 Potassium (3.5-5.1) mmol/L 3.4 L Chloride (98-107) mmol/L 103 Carbon Dioxide (21.0-32.0) mmol/L 25.3 Anion Gap (3-11) mmol/L 10.7 BUN (7-18) mg/dL 23 H Creatinine (0.55-1.02) mg/dL 2.32 H Estimated GFR/1.73 m2 (mL/min/1.73m2) 22.70 Glucose (70-100) mg/dL 106 H Calcium (8.5-10.1) mg/dL 8.7 Magnesium (1.8-2.4) mg/dL 1.6 L Total Bilirubin (0.2-1.0) mg/dL 0.2 AST (15-37) U/L 21 ALT (12-78) U/L 7 L Alkaline Phosphatase (46-116) U/L 81 Troponin I (0.00-0.06) ng/mL < 0.02 < 0.02 Total Protein (6.4-8.2) g/dL 6.3 L Albumin (3.4-5.0) g/dL 2.7 L HPI General Mode of arrival: ambulatory . Date/Time Provider Initiated Documentation: 10/20/18 16:18 . Limitations to Documentation: no limitations . Information obtained by: patient . HPI Narrative: Patient is a 43-year-old female with a history of non-Hodgkin's lymphoma diagnosed first in 2013 who has had chemo off and on for the past 4 years, restarted 9 weeks ago with last chemo session last week who presents with complaint of palpitations that started 1:30 PM today while laying in bed. Patient states the palpitations have been off and on since they started but denies any at present. States she had some chest pain earlier today but denies any at present. She states the chest pain felt sharp. States she thought the pain in her chest was more musculoskeletal as it radiates occasionally into her right arm. States she has had right arm pain off and on for the past 2 weeks due to an IV infiltration for which she has been taking Dilaudid twice daily. Patient denies any shortness of breath, nausea, vomiting, dizziness, fever or cough. Related Data Home Medications Medication Instructions Recorded Confirmed acyclovir 800 mg PO BID #180 tab-cap 10/18/15 06/21/18 escitalopram oxalate [Lexapro] 20 mg PO QAM #90 tab-cap 09/09/17 06/21/18 albuterol sulfate 2.5 mg UPD Q4H PRN #20 vial 01/25/18 06/21/18 bupropion HCl [Wellbutrin XL] 300 mg PO DAILY #90 tab-cap 03/30/18 06/21/18 benzonatate 100 - 200 mg PO TID #30 tab-cap 05/26/18 06/21/18 acetaminophen [Tylenol Extra 1,000 mg PO Q6H PRN 05/30/18 06/21/18 Strength] doxycycline hyclate 100 mg PO Q12H #60 cap 06/10/18 06/21/18 levofloxacin [Levaquin] 750 mg PO DAILY #30 tab 06/10/18 06/21/18 albuterol sulfate HFA 90 1 - 2 puff INHALATION QID PRN #1 06/21/18 06/21/18 mcg/actuation aerosol inhaler inhaler lorazepam 1 mg tablet 1 mg PO HS #30 tab 06/21/18 06/21/18 Previous Rx's Medication Instructions Recorded escitalopram oxalate [Lexapro] 20 mg PO QAM #90 tab-cap 09/09/17 albuterol sulfate 2.5 mg UPD Q4H PRN #20 vial 01/25/18 bupropion HCl [Wellbutrin XL] 300 mg PO DAILY #90 tab-cap 03/30/18 benzonatate 100 - 200 mg PO TID #30 tab-cap 05/26/18 doxycycline hyclate 100 mg PO Q12H #60 cap 06/10/18 levofloxacin [Levaquin] 750 mg PO DAILY #30 tab 06/10/18 albuterol sulfate HFA 90 1 - 2 puff INHALATION QID PRN #1 06/21/18 mcg/actuation aerosol inhaler inhaler lorazepam 1 mg tablet 1 mg PO HS #30 tab 06/21/18 Allergies Allergy/AdvReac Type Severity Reaction Status Date / Time cytarabine AdvReac Severe neurological Verified 06/21/18 10:14 sxs NSAIDS (Non-Steroidal AdvReac Severe lymphoma/ki Verified 06/21/18 10:14 Anti-Inflamma dney General Stated Complaint: Palpitatns LIAT: 2 Review of Systems Review of Systems All systems reviewed & are unremarkable except as noted in HPI and below Constitutional Reports as per HPI, Denies chills and Denies fever(s) Eyes Denies blurry vision ENT Denies dizziness, Denies sore throat and Denies throat swelling Cardiovascular Denies chest pain, Reports palpitations and Denies dyspnea Respiratory Denies dyspnea Gastrointestinal Denies abdominal pain, Denies diarrhea and Denies vomiting Genitourinary Denies hematuria and Denies dysuria Musculoskeletal Denies back pain and Denies numbness Integumentary/Breasts Denies lesions and Denies rash Neurologic Denies dizziness and Denies numbness Endocrine Reports palpitations Allergic/Immunologic Denies throat swelling PFSH Medical History Neutropenic fever (Acute) Pancytopenia (Acute) Polycystic ovarian syndrome (Chronic) Stable multiple sclerosis (Chronic) Depression (Chronic) Cellulitis of left arm (Resolved 01/15/14) Pleural effusion associated with pulmonary infection (Resolved) Pneumonia (Acute) B-cell lymphoma (Acute) Anemia associated with chemotherapy (Acute) Chronic renal insufficiency (Acute) B-cell lymphoma (Acute) Chronic renal insufficiency (Acute) Hypokalemia (Acute) PCOS (polycystic ovarian syndrome) (Acute) Pneumonia (Acute) Reactive arthritis of knee (Acute) DVT (deep venous thrombosis) (Chronic) Depression (Chronic) Multiple sclerosis (Chronic) Surgical History History of surgery (Chronic) Cholecystectomy Social History Smoking/Tobacco Use Status: Former Tobacco Use Exam Const General: cooperative, healthy appearing and no acute distress HENMT Head: normal to inspection Face and sinus: normal facial exam Eyes General: appearance normal, both eyes and all related structures Pupils: PERRL EOM: EOM intact bilaterally Neck Neck: normal visual inspection and No submandibular swelling Lymphatic: no lymphadenopathy noted Chest Chest: normal inspection of the chest and no tenderness Resp Effort & Inspection: normal respiratory effort and able to speak in complete sentences Auscultation: clear to auscultation bilaterally Cardio Rate: regular rate Rhythm: regular rhythm GI Inspection: normal to inspection Palpation: soft, not firm, not rigid and nontender Auscultation: normal bowel sounds Skin General skin exam: no rashes or lesions noted Neuro General: alert, awake and oriented x3 Cognition: normal cognition Speech: speech normal Motor: muscle tone normal throughout Sensory Exam: no sensory deficits noted Extrem General: normal to inspection, full ROM, no calf tenderness bilaterally and no edema Psych Appearance: grossly normal Mental Status: mental status grossly normal Speech and Movement: speech and movement normal Affect: normal affect Course Vital Signs Temperature 97.9 F 10/20/18 16:10 Pulse 66 10/20/18 16:10 Respiratory Rate 18 10/20/18 16:10 Blood Pressure 124/76 10/20/18 16:10 Pulse Oximetry 99 10/20/18 16:10 Temperature 97.9 F 10/20/18 16:10 Temperature Source Temporal Artery Scan 10/20/18 16:10 Pulse 65 10/20/18 17:38 Respiratory Rate 14 10/20/18 17:38 Respiratory Effort Non-Labored 10/20/18 16:10 Blood Pressure 114/84 10/20/18 17:38 Pulse Oximetry 100 10/20/18 17:38 Oxygen Delivery Method Room Air 10/20/18 17:38 Oxygen Flow Rate 0 10/20/18 17:38 Pain Level 0 10/20/18 17:38 Lab/Test Results Lab/Test Results: Laboratory Tests Range/Units 10/20/18 10/20/18 16:15 16:15 WBC (4.4-10.8) k/cumm 4.78 RBC (4.00-5.20) m/cumm 2.92 L Hgb (12.0-15.5) g/dL 9.8 L Hct (36.0-46.0) % 29.8 L MCV (80-95) fL 102.1 H MCH (27.0-33.0) pg 33.6 H MCHC (32.0-36.0) g/dL 32.9 RDW (11.7-14.6) % 13.4 Plt Count (130-400) x1000/uL 122 L MPV (8.0-11.0) fL 9.5 Immature Gran % 0.0 Neutrophils % 45.0 Band Neutrophils % % 6.0 Lymphocytes % 38.0 Monocytes % 10.0 Eosinophils % 1.0 Basophils % 0.0 Absolute Neutrophils (1.2-6.7) k/cumm 2.44 Absolute Lymphocytes (1.2-3.4) k/cumm 1.82 Absolute Monocytes (0.11-0.7) k/cumm 0.48 Absolute Eosinophils (0.0-0.7) k/cumm 0.05 Absolute Basophils (0.0-0.2) k/cumm 0.00 Differential Comment Manual differential RBC Morphology See below Hypochromasia 2+ Poikilocytosis 2+ Anisocytosis 1+ Macrocytosis 1+ Sodium (136-145) mmol/L 139 Potassium (3.5-5.1) mmol/L 3.4 L Chloride (98-107) mmol/L 103 Carbon Dioxide (21.0-32.0) mmol/L 25.3 Anion Gap (3-11) mmol/L 10.7 BUN (7-18) mg/dL 23 H Creatinine (0.55-1.02) mg/dL 2.32 H Estimated GFR/1.73 m2 (mL/min/1.73m2) 22.70 Glucose (70-100) mg/dL 106 H Calcium (8.5-10.1) mg/dL 8.7 Magnesium (1.8-2.4) mg/dL 1.6 L Total Bilirubin (0.2-1.0) mg/dL 0.2 AST (15-37) U/L 21 ALT (12-78) U/L 7 L Alkaline Phosphatase (46-116) U/L 81 Troponin I (0.00-0.06) ng/mL < 0.02 Total Protein (6.4-8.2) g/dL 6.3 L Albumin (3.4-5.0) g/dL 2.7 L POC- Test(urine) Negative
[2018-10-20 19:01] VITALS: BP 113/75; PULSE 64; RESP 14; TEMP 36.5; O2SAT 100
[2018-10-20 19:09] LABS: Troponin I < 0.02 ng/mL (0.00-0.06)
[2018-10-20 19:42] VITALS: BP 113/75; PULSE 64; RESP 14; TEMP 36.5; O2SAT 100
[2018-10-20] MEDS: Heparin 500 UNITS/5 ML SYRINGE (19:44)
== END 2018-10-20 19:44 | disposition home or self-care (01) ==
PROVIDERS: Emergency Provider Physician Assistant; PCP Family Medicine
DX: R07.9 Chest pain, unspecified (principal); R00.2 Palpitations; C85.90 Non-Hodgkin lymphoma, unspecified, unspecified site; Z79.899 Other long term (current) drug therapy; Z94.84 Stem cells transplant status; Z95.828 Presence of other vascular implants and grafts; G35 Multiple sclerosis
CPT/HCPCS: 36591; 80053; 81025; 93005; 93225; 99284; 71046; 83735; 84484; 85025; 93010; 99285

== ENCOUNTER 2018-11-21 09:45 | Inpatient (IN) | payer MEDICARE, BC, SELFPAY ==
[2018-11-21] VITALS (72 sets, daily range): BP systolic 83–124; BP diastolic 53–74; PULSE 71–111; RESP 4–30; TEMP 36.6–38.6; O2SAT 94–100
--- NOTE | 2018-11-21 09:58 | DI.CT_ITS ---
SYMPTOMS/DIAGNOSIS: S/P FALL, ? ACUTE PROCESS CT BRAIN: Noncontrast examination was performed. Comparison 05/30/18. The ventricles and sulci are consistent with the patient's age. No evidence of an acute intracranial hemorrhage, midline shift or mass effect is identified. There are areas of decreased attenuation in the white matter suggesting small vessel ischemic disease or other demyelinating process. These areas appear stable compared to 05/30/18. No skull fracture is seen. There is near complete opacification of the maxillary sinuses. There is thickening of the simeon of the maxillary sinuses. These findings are suggestive of chronic sinusitis. IMPRESSION: No acute intracranial process. CT SCAN OF THE CERVICAL SPINE. Multiple contiguous axial images of the cervical spine were obtained. Sagittal and coronal reformatted images were evaluated on the Siemens workstation. There is normal alignment. No acute fractures or subluxations are seen. The prevertebral soft tissues are unremarkable. IMPRESSION: No acute fracture or subluxation in the cervical spine. The findings were discussed with the emergency department on the date of the examination.
--- NOTE | 2018-11-21 09:58 | DI.RAD_ITS ---
SYMPTOMS/DIAGNOSIS: S/P FALL, ? ACUTE FRACTURE, COUGH, ? ACUTE DISEASE/PNEUMONIA LEFT KNEE: Four views. No acute fracture or dislocation is identified. RIGHT KNEE: Four views. No acute fracture or dislocation is identified. No radiopaque foreign bodies are seen in the soft tissues. There are degenerative changes seen in the knee. IMPRESSION: No acute fracture or dislocation. PELVIS: Single view. No acute fracture or dislocation is seen. The bones are normally mineralized. The sacroiliac joints and symphysis pubis are intact. The soft tissues are unremarkable. IMPRESSION: No acute fracture or dislocation. AP CHEST: Comparison 10/20/18. The heart size and pulmonary vasculature are within normal limits. The lungs are clear and well expanded. No effusions or pneumothoraces are identified. The tip of the indwelling central venous catheter is in good position in the region of the junction of the superior vena cava and right atrium. The bones appear intact. IMPRESSION: No acute pulmonary process.
--- NOTE | 2018-11-21 10:03 | ED.GENADUL_ITS ---
Discharge Plan Disposition Patient Disposition: [facility] IN[facility]IENT Condition: Fair Discharge Details Chief Complaint: GenMedical Clinical Impression: UTI (urinary tract infection), Dehydration, Generalized weakness, Sepsis, Hypotension, Bandemia Reason For Visit: SEPSIS, UTI Admit Date/Time: 11/21/18 13:36 Admit Provider: Rod Sands Attending Provider: Rod Sands Primary Care Provider: Christy Enrique ED Provider: Pricilla Art Discharge Data Discharge Date/Time-TO BE ENTERED AT DEPARTURE: 11/21/18 15:42 Medical Decision Making 43-year-old female with a history of non-Hodgkin's lymphoma currently on chemotherapy who presents for episode of dizziness last night in which she fell striking her knees on the ground, with significant weakness and fatigue since then. Also admits to recent cold symptoms for the past 2 weeks. Temp 103 tympanic per EMS. Heart rate 90s, systolic blood pressure 108. Temp on arrival 100.7 oral. Patient appears generally weak and lethargic. She has dried feces noted to her bilateral lower extremities and states she was unable to make it to the bathroom at times this morning. C-spine/T-spine/L-spine clinically cleared. Chest and abdomen nontender. Some pain with range of motion in right hip and bilateral knee knees. Differential diagnosis includes influenza, pneumonia, UTI. Will place an IV, bolus IV fluids, labs, CK, lactate, blood cultures, urinalysis, chest x-ray, CT head/C-spine, pelvis x-ray bilateral knee x-rays. Will also give a dose of Tylenol and albuterol neb treatment. Due to her lethargy and report of dizziness, will check a CT head and C-spine. Will also check pelvis x-ray and bilateral knee x-rays. 1215 --labs and imaging reviewed. Influenza negative. White blood cell count 3 which is close to baseline, hemoglobin 8.1 which is one-point lower than baseline recently. Platelets 88 which is low compared to recent baseline. 9 bands. Creatinine 2.55 which is close to her recent baseline. Magnesium 1.1, CK 337. Troponin negative. Urinalysis notes UTI. Imaging reviewed and all negative. Will admit for significant dehydration, fatigue, generalized weakness, fever, UTI in a cancer pt currently on chemo. No neutropenia. 1230 --d/w hospitalist - accepts pt for admission. 1320 --pt drowsy but arousable. Alert and able to answer questions appropriately when aroused. 1400 --BP downtrending, SBP 88. Patient seems very drowsy, she is arousable and oriented x3. She seems significantly dehydrated. Starting another liter IV bolus. D/w hospitalist, will change from med surg to ICU for likely sepsis, Will consider central line placement. 1425 --BP improving, systolic 102. Pt is more awake and alert. Can hold on central line at this time. Hospitalist notified and agreeable. Medical Records Medical records reviewed: Yes I reviewed the patient's medical records. Imaging Data Radiologic Study: Radiologist's impression: CT BRAIN: Noncontrast examination was performed. Comparison 05/30/18. The ventricles and sulci are consistent with the patient's age. No evidence of an acute intracranial hemorrhage, midline shift or mass effect is identified. There are areas of decreased attenuation in the white matter suggesting small vessel ische neal disease or other demyelinating process. These areas appear stable compared to 05/30/18. No skull fracture is seen. There is near complete opacification of the maxillary sinuses. There is thickening of the simeon of the maxillary sinuses. These findings are suggestive of chronic sinusitis. IMPRESSION: No acute intracranial process. CT SCAN OF THE CERVICAL SPINE. Multiple contiguous axial images of the cervical spine were obtained. Sagittal and coronal reformatted images were evaluated on the Siemens workstation. There is normal alignment. No acute fractures or subluxations are seen. The prevertebral soft tissues are unremarkable. IMPRESSION: No acute fracture or subluxation in the cervical spine. LEFT KNEE: Four views. No acute fracture or dislocation is identified. RIGHT KNEE: Four views. No acute fracture or dislocation is identified. No radiopaque foreign bodies are seen in the soft tissues. There are degenerative changes seen in the knee. IMPRESSION: No acute fracture or dislocation. PELVIS: Single view. No acute fracture or dislocation is seen. The bones are normally mineralized. The sacroiliac joints and symphysis pubis are intact. The soft tissues are unremarkable. IMPRESSION: No acute fracture or dislocation. AP CHEST: Comparison 10/20/18. The heart size and pulmonary vasculature are within normal limits. The lungs are clear and well expanded. No effusions or pneumothoraces are identified. The tip of the indwelling central venous catheter is in good position in the region of the junction of the superior vena cava and right atrium. The bones appear intact. IMPRESSION: No acute pulmonary process. Lab Data Lab results reviewed: Yes I reviewed the patient's lab results. 11/21/18 10:38 Urine - Reflex from Ua Urine Culture - Pending 11/21/18 10:20 Blood Blood Culture - Pending 11/21/18 09:57 Nasopharynx Influenza Types A,B Antigen - Final 11/21/18 09:37 Blood Blood Culture - Pending Laboratory Tests Range/Units 11/21/18 11/21/18 11/21/18 10:20 10:20 10:20 WBC (4.4-10.8) k/cumm 3.00 L RBC (4.00-5.20) m/cumm 2.57 L Hgb (12.0-15.5) g/dL 8.1 L Hct (36.0-46.0) % 25.0 L MCV (80-95) fL 97.3 H MCH (27.0-33.0) pg 31.5 MCHC (32.0-36.0) g/dL 32.4 RDW (11.7-14.6) % 14.4 Plt Count (130-400) x1000/uL 88 L MPV (8.0-11.0) fL 10.2 Immature Gran % See Differential Neutrophils % 75.0 Band Neutrophils % % 9.0 Lymphocytes % 2.0 Monocytes % 10.0 Eosinophils % 0.0 Basophils % 0.0 Metamyelocytes % % 1.0 Myelocytes % % 3.0 Absolute Neutrophils (1.2-6.7) k/cumm 2.52 Absolute Lymphocytes (1.2-3.4) k/cumm 0.06 L Absolute Monocytes (0.11-0.7) k/cumm 0.30 Absolute Eosinophils (0.0-0.7) k/cumm 0.00 Absolute Basophils (0.0-0.2) k/cumm 0.00 Differential Comment Manual differential RBC Morphology See below Polychromasia Present Hypochromasia 1+ Poikilocytosis 1+ Anisocytosis 1+ Microcytosis 1+ Macrocytosis 1+ Sodium (136-145) mmol/L 134 L Potassium (3.5-5.1) mmol/L 3.4 L Chloride (98-107) mmol/L 100 Carbon Dioxide (21.0-32.0) mmol/L 22.9 Anion Gap (3-11) mmol/L 11.1 H BUN (7-18) mg/dL 32 H Creatinine (0.55-1.02) mg/dL 2.55 H Estimated GFR/1.73 m2 (mL/min/1.73m2) 20.36 Glucose (70-100) mg/dL 96 Lactate (0.6-1.4) mmol/l 0.6 Calcium (8.5-10.1) mg/dL 8.2 L Magnesium (1.8-2.4) mg/dL 1.1 L Total Bilirubin (0.2-1.0) mg/dL 0.7 AST (15-37) U/L 30 ALT (12-78) U/L 5 L Alkaline Phosphatase (46-116) U/L 71 Creatine Kinase (26-192) U/L 337 H Troponin I (0.00-0.06) ng/mL < 0.02 Total Protein (6.4-8.2) g/dL 5.7 L Albumin (3.4-5.0) g/dL 2.5 L Lipase (73-393) U/L 50 L Urine Color (Yellow) Urine Clarity Urine pH (5-8) Ur Specific Fosters (1.005-1.025) Urine Protein (Negative) mg/dL Urine Ketones (Negative) mg/dL Urine Blood (Negative) Urine Nitrite (Negative) Urine Bilirubin (Negative) Urine Urobilinogen (Up TO 0.2) EU/dL Ur Leukocyte Esterase (Negative) Urine RBC (0-2) Urine WBC (0-5) HPF Ur Epithelial Cells (Negative) HPF Urine Crystals Urine Bacteria (Negative) HPF Urine Casts (Negative) LPF Urine Mucus Ur Culture Indicated? Urine Glucose (Negative) mg/dL Urine HCG, Qual Range/Units 11/21/18 11/21/18 10:38 10:38 WBC (4.4-10.8) k/cumm RBC (4.00-5.20) m/cumm Hgb (12.0-15.5) g/dL Hct (36.0-46.0) % MCV (80-95) fL MCH (27.0-33.0) pg MCHC (32.0-36.0) g/dL RDW (11.7-14.6) % Plt Count (130-400) x1000/uL MPV (8.0-11.0) fL Immature Gran % Neutrophils % Band Neutrophils % % Lymphocytes % Monocytes % Eosinophils % Basophils % Metamyelocytes % % Myelocytes % % Absolute Neutrophils (1.2-6.7) k/cumm Absolute Lymphocytes (1.2-3.4) k/cumm Absolute Monocytes (0.11-0.7) k/cumm Absolute Eosinophils (0.0-0.7) k/cumm Absolute Basophils (0.0-0.2) k/cumm Differential Comment RBC Morphology Polychromasia Hypochromasia Poikilocytosis Anisocytosis Microcytosis Macrocytosis Sodium (136-145) mmol/L Potassium (3.5-5.1) mmol/L Chloride (98-107) mmol/L Carbon Dioxide (21.0-32.0) mmol/L Anion Gap (3-11) mmol/L BUN (7-18) mg/dL Creatinine (0.55-1.02) mg/dL Estimated GFR/1.73 m2 (mL/min/1.73m2) Glucose (70-100) mg/dL Lactate (0.6-1.4) mmol/l Calcium (8.5-10.1) mg/dL Magnesium (1.8-2.4) mg/dL Total Bilirubin (0.2-1.0) mg/dL AST (15-37) U/L ALT (12-78) U/L Alkaline Phosphatase (46-116) U/L Creatine Kinase (26-192) U/L Troponin I (0.00-0.06) ng/mL Total Protein (6.4-8.2) g/dL Albumin (3.4-5.0) g/dL Lipase (73-393) U/L Urine Color (Yellow) Yellow Urine Clarity Sl cloudy Urine pH (5-8) 5.5 Ur Specific Fosters (1.005-1.025) 1.015 Urine Protein (Negative) mg/dL 30 H Urine Ketones (Negative) mg/dL Negative Urine Blood (Negative) Moderate H Urine Nitrite (Negative) Positive H Urine Bilirubin (Negative) Negative Urine Urobilinogen (Up TO 0.2) EU/dL 0.2 Ur Leukocyte Esterase (Negative) Small H Urine RBC (0-2) 3-5 H Urine WBC (0-5) HPF >50 Ur Epithelial Cells (Negative) HPF Few Urine Crystals Not Applicable Urine Bacteria (Negative) HPF Many Urine Casts (Negative) LPF 0-2 coarse granular Urine Mucus Not Applicable Ur Culture Indicated? Yes Urine Glucose (Negative) mg/dL Negative Urine HCG, Qual Negative ECG Data Attestation: I personally reviewed and interpreted this ECG (s) as follows: Interpretation: rate of 98, sinus, no acute ST elevation or depression. QTc 439. QRS 92. HPI General Mode of arrival: EMS . Date/Time Provider Initiated Documentation: 11/21/18 10:02 . Limitations to Documentation: no limitations . Information obtained by: patient . HPI Narrative: Patient is a 43-year-old female who presents the ED with a complaint of dizziness with fall last night. Patient states she was turning around in her bedroom to get something out of her dresser and she turned quickly, became dizzy and fell to the ground. She states she fell gently and denies any significant injury. She does admit to some knee pain after the fall. She states she was too weak and tired to get up from the ground, so her daughter made her bed and she slept on her bedroom floor all night. Patient admits to feeling extremely weak and tired this morning. EMS states that patient required significant assistance getting into the stretcher. Patient is currently receiving chemo for non-Hodgkin's lymphoma, her last treatment was 3 days ago. Patient also admits to cold symptoms for the past 2 weeks. She states she did not receive a flu shot this year. She states she is followed by [facility] oncology Dr. Claire. Patient last ate at 6 PM last night. Patient denies any known fevers, head injury, headache, neck pain, chest pain, abdominal pain, chest pain, shortness of breath, vomiting, diarrhea or urinary symptoms. EMS states that patient had a temp of 103 tympanic this morning. Related Data Home Medications Medication Instructions Recorded Confirmed acyclovir 800 mg PO BID #180 tab-cap 10/18/15 11/21/18 escitalopram oxalate [Lexapro] 20 mg PO QAM #90 tab-cap 09/09/17 11/21/18 albuterol sulfate 2.5 mg UPD Q4H PRN #20 vial 01/25/18 11/21/18 bupropion HCl [Wellbutrin XL] 300 mg PO DAILY #90 tab-cap 18 11/21/18 acetaminophen [Tylenol Extra 1,000 mg PO Q6H PRN 05/30/18 11/21/18 Strength] doxycycline hyclate 100 mg PO Q12H #60 cap 06/10/18 11/21/18 albuterol sulfate HFA 90 1 - 2 puff INHALATION QID PRN #1 06/21/18 11/21/18 mcg/actuation aerosol inhaler inhaler Previous Rx's Medication Instructions Recorded escitalopram oxalate [Lexapro] 20 mg PO QAM #90 tab-cap 09/09/17 albuterol sulfate 2.5 mg UPD Q4H PRN #20 vial 01/25/18 bupropion HCl [Wellbutrin XL] 300 mg PO DAILY #90 tab-cap 03/30/18 doxycycline hyclate 100 mg PO Q12H #60 cap 06/10/18 albuterol sulfate HFA 90 1 - 2 puff INHALATION QID PRN #1 06/21/18 mcg/actuation aerosol inhaler inhaler Allergies Allergy/AdvReac Type Severity Reaction Status Date / Time cytarabine AdvReac Severe neurological Verified 11/21/18 11:02 sxs NSAIDS (Non-Steroidal AdvReac Severe lymphoma/ki Verified 11/21/18 11:02 Anti-Inflamma dney General Stated Complaint: GenMedical LIAT: 3 Review of Systems Review of Systems All systems reviewed & are unremarkable except as noted in HPI and below Constitutional Reports as per HPI, Denies chills, Reports fatigue, Denies fever(s) and Reports weakness Eyes Denies blurry vision ENT Denies dizziness, Denies sore throat and Denies throat swelling Cardiovascular Denies chest pain and Denies dyspnea Respiratory Reports cough and Denies dyspnea Gastrointestinal Denies abdominal pain, Denies diarrhea and Denies vomiting Genitourinary Denies hematuria and Denies dysuria Musculoskeletal Denies back pain and Denies numbness Integumentary/Breasts Denies lesions and Denies rash Neurologic Denies dizziness, Denies focal weakness, Denies numbness and Reports weakness Endocrine Reports fatigue Allergic/Immunologic Denies throat swelling [facility] Medical History Renal insufficiency (Chronic 06/03/15) Obesity (Chronic) Multiple sclerosis (Chronic 01/19/13) Lymphoma (Chronic 05/03/14) Irregular menstruation (Chronic 09/14/13) Gouty arthritis (Chronic 04/05/17) Essential hypertension (Chronic 09/04/13) Depression (Chronic 09/03/14) Thrombocytopenia (Chronic) DVT prophylaxis (Acute) Pancytopenia (Chronic) Polycystic ovarian syndrome (Chronic) Depression (Chronic) Cellulitis of left arm (Resolved 01/15/14) Pleural effusion associated with pulmonary infection (Resolved) Pneumonia (Resolved) Chronic deep vein thrombosis (DVT) of both femoral veins (Chronic) 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 (Acute) Chronic renal insufficiency (Acute) Hypokalemia (Acute) PCOS (polycystic ovarian syndrome) (Acute) Pneumonia (Acute) Reactive arthritis of knee (Acute) DVT (deep venous thrombosis) (Chronic) Depression (Chronic) Multiple sclerosis (Chronic) Surgical History History of surgery (Chronic) Cholecystectomy Social History Smoking and Tabacco status: Former Tobacco Use Exam Const General: cooperative, ill appearing and No well hydrated Orientation: alert, awake and oriented x3 HENMT Head: normal to inspection Ears: hearing grossly normal bilaterally, external ears normal and TM's normal bilaterally General nose exam: external nose normal Face and sinus: normal facial exam Mouth: mucous membranes dry Teeth and gingiva: dentition normal Throat: postnasal drainage (Green discharge in posterior pharynx) Eyes General: appearance normal, both eyes and all related structures Eyelids: eyelids normal Pupils: PERRL EOM: EOM intact bilaterally Neck Neck: normal visual inspection Lymphatic: no lymphadenopathy noted Chest Chest: normal inspection of the chest, normal palpation of entire chest wall and no tenderness Resp Effort & Inspection: normal respiratory effort and able to speak in complete sentences Auscultation: clear to auscultation bilaterally Cardio Rate: regular rate Rhythm: regular rhythm GI Inspection: normal to inspection Palpation: soft, not firm, no guarding, no hepatosplenomegaly, no masses and tender suprapubicly Auscultation: normal bowel sounds Back/Spine/Pelvis Cervical Spine: No cervical spinal tenderness Thoracic/Lumbar Spine: thoracic and lumbar spine normal to inspection, No thoracic spinal tenderness and No lumbar spinal tenderness Pelvis: no pain with anterior-posterior compression Skin Other: dried feces noted to b/l lower extremities Neuro General: alert, awake, oriented x3, moves all extremities, no meningeal signs, no focal motor deficits and other (drowsy, lethargic) Cranial Nerves: CN's II-XI intact bilaterally Cognition: normal cognition Speech: speech normal Motor: muscle tone normal throughout and strength 5/5 throughout Sensory Exam: no sensory deficits noted Extrem Right upper extremity: normal to inspection and full ROM Left upper extremity: normal to inspection and full ROM Right lower extremity: hip/thigh Details: normal to inspection and abnormal ROM Details: pain with passive ROM during, knee Details: tenderness Location: of the patella and ecchymosis (anterior) and foot Details: vascular exam Details: dorsalis pedis pulse present and posterior tibial pulse present Left lower extremity: hip/thigh Details: normal to inspection and normal ROM, knee Details: tenderness Location: of the patella and ecchymosis (anterior) and foot Details: vascular exam Details: dorsalis pedis pulse present and posterior tibial pulse present Psych Appearance: grossly normal Mental Status: mental status grossly normal Speech and Movement: speech and movement normal Affect: normal affect Thought Process: normal Course Vital Signs Temperature 97.9 F 11/21/18 09:46 Pulse 106 H 11/21/18 09:46 Respiratory Rate 18 11/21/18 09:46 Blood Pressure 108/70 11/21/18 09:46 Pulse Oximetry 100 11/21/18 09:46 Temperature 100.7 F H 11/21/18 09:57 Temperature Source Oral 11/21/18 09:57 Pulse 106 H 11/21/18 09:46 Respiratory Rate 18 11/21/18 09:46 Respiratory Effort Incrsd Work of Breathing 11/21/18 09:51 Blood Pressure 108/70 11/21/18 09:46 Blood Pressure Position Supine 11/21/18 09:46 Pulse Oximetry 100 11/21/18 09:46 Oxygen Delivery Method Nasal Cannula 11/21/18 09:46 Oxygen Flow Rate 4 11/21/18 09:46 Pain Level 3 11/21/18 09:46 Lab/Test Results Lab/Test Results: 11/21/18 09:57 Nasopharynx Influenza Types A,B Antigen - Pending 11/21/18 09:37 Blood Blood Culture - Pending 11/21/18 09:37 Blood Blood Culture - Pending
[2018-11-21] MEDS: Normal Saline 1,000 ML 1000 ML IV (10:26)
[2018-11-21] MEDS: Acetaminophen 500 MG TAB 1000 MG PO (10:29)
[2018-11-21] MEDS: Albuterol/Ipratropium 3 ML UPD VIAL UPD (10:29)
--- NOTE | 2018-11-21 10:31 | NUR.NOTE ---
patient medicated per MD order Nursing Note:
[2018-11-21 10:35] LABS: Lactate-non-spesis 0.6 mmol/l (0.6-1.4)
[2018-11-21 10:36] LABS: HGB 8.1 g/dL (12.0-15.5); Mean Corp. HGB Concentration 32.4 g/dL (32.0-36.0); Mean Corpuscular Hemoglobin 31.5 pg (27.0-33.0); Mean Corpuscular Volume 97.3 fL (80-95); Mean Platelet Volume 10.2 fL (8.0-11.0); RBC 2.57 m/cumm (4.00-5.20); RBC Distribution Width 14.4 % (11.7-14.6)
[2018-11-21 10:52] LABS: Bilirubin Negative (Negative); Blood Moderate (Negative); Clarity Sl Cloudy; Glucose Negative (Negative); Ketones Negative (Negative); Leukocyte Esterase Small (Negative); Nitrite Positive (Negative); Specific Gravity 1.015 (1.005-1.025); Urobilinogen 0.2 EU/dL (Up TO 0.2); pH 5.5 (5-8)
[2018-11-21 10:53] LABS: AST 30 U/L (15-37); Albumin 2.5 g/dL (3.4-5.0); Alkaline Phosphatase 71 U/L (46-116); Anion Gap 11.1 mmol/L (3-11); BUN 32 mg/dL (7-18); Bilirubin, Total 0.7 mg/dL (0.2-1.0); CO2 22.9 mmol/L (21.0-32.0); CREATININE 2.55 mg/dL (0.55-1.02); Calcium 8.2 mg/dL (8.5-10.1); Chloride 100 mmol/L (98-107); Creatine Kinase 337 U/L (26-192); Estimated GFR 20.36 (mL/min/1.73m2); Glucose 96 mg/dL (70-100); Lipase 50 U/L (73-393); Magnesium 1.1 mg/dL (1.8-2.4); Potassium 3.4 mmol/L (3.5-5.1); Sodium 134 mmol/L (136-145); Total Protein 5.7 g/dL (6.4-8.2)
[2018-11-21 10:55] LABS: ALT 5 U/L (12-78); Troponin I < 0.02 ng/mL (0.00-0.06)
[2018-11-21 11:04] LABS: Platelet Count 88 x1000/uL (130-400)
[2018-11-21 11:07] LABS: Absolute Lymphocyte Count 0.06 k/cumm (1.2-3.4); Absolute Neutrophil Count 2.52 k/cumm (1.2-6.7); Diff Comment Manual Differential
[2018-11-21 11:08] LABS: Anisocytosis 1+; Hypochromasia 1+; Macrocytosis 1+; Microcytosis 1+; Poikilocytes 1+; Polychromasia Present
[2018-11-21 11:12] LABS: HCG Qual (Urine) Negative; WBC >50 HPF (0-5)
[2018-11-21 11:13] LABS: Bacteria Many HPF (Negative); Casts 0-2 Coarse Granular LPF (Negative); Epithelial Cells Few HPF (Negative)
[2018-11-21 11:14] LABS: C & S Indicated? Yes
--- NOTE | 2018-11-21 12:12 | NUR.NOTE ---
patient returned from DI, placed on monmitor call light within [facility] Nursing Note:
--- NOTE | 2018-11-21 13:01 | NUR.NOTE ---
patient awaiting admission. will continue to monitor Nursing Note:
--- NOTE | 2018-11-21 13:32 | PDOC.ERCMPRO ---
Care Management Progress Note 11/21-Petr FERRIS requested this CM call [facility] in [place] for med list. At this time, Stacey is unable to verify her meds. [facility] and she will fax the med list to this ED.
--- NOTE | 2018-11-21 13:34 | CMPROGNOTE_ITS ---
Care Management Progress Note 11/21-Petr FERRIS requested this CM call [email or web address] in [place] for med list. At this time, Stacey is unable to verify her meds. [facility] at [facility] and she will fax the med list to this ED.
--- NOTE | 2018-11-21 13:55 | NUR.NOTE ---
patient blood pressure has been trending downward, aware, 2nd liter bolus infusing Nursing Note:
--- NOTE | 2018-11-21 14:45 | NUR.NOTE ---
patient more alert, using bed levy, liquid stool x 1, will continue to monitor Nursing Note:
--- NOTE | 2018-11-21 15:43 | NUR.NOTE ---
report given to RN Subha ICU, patient being transfered to ICU with RN Nursing Note:
[2018-11-21] MEDS: Doxycycline Hyclate 100 MG CAP PO (17:48)
--- NOTE | 2018-11-21 17:54 | W.PM.HP.N ---
Date of service: 11/21/18 Time of Service: 17:55 Assessment and Plan (1) Sepsis: Current visit: Yes Status: Acute Based on evidence of Tachycardia, Hypotension, altered mental status and Urinary source. Patient also with low WBC and platelet count, but chronic (history of pancytopenia). Broad Coverage to include MRSA and ESBL with Vanco and Meropenem, renally dosed. Prior culture results not revealing. Monitor blood and urine cultures, repeat lactate, maintain on aggressive IVFs, and initiate pressor therapy if needed via port. Will also check renal ultrasound. (2) Renal insufficiency: Current visit: Yes Status: Chronic INDERJIT on CKD. Continue IVFs, renally dose medications, and avoid nephrotoxins. Baseline creatinine is 1.8-2.2 (3) Lymphoma: Current visit: Yes Status: Chronic Discovered as patient was found to have an elevated creatinine, with evidence of hydronephrosis on ultrasound. Subsequent CT showed Retroperitoneal Mass, biopsy with Lymphoma in 2014. Follicular B-Cell Lymphoma, recurrent. Has initially undergone multiple cycles of R-CHOP, High dose Methotrexate, and is s/p Autologous Stem Cell Transplant. Her Lymphoma relapsed, and then recurred despite treatment with Lenalidomide and Rituximab. Patient is also s/p cycles of R-DHAP & R-ICE. Last oncology note with report of patient on Obinotuzimab and Bendamustine. Follows chronically with [facility] [place]. (4) Pancytopenia: Current visit: Yes Status: Chronic Noted. Currently not neutropenic, and hgb and platelet count appear stable. Monitor closely. (5) DVT prophylaxis: Current visit: Yes Status: Acute Heparin SC, with very close monitoring of platelet count. History of Present Illness Chief Complaint: Fall Narrative: 43 year old woman with a history of Recurrent Lymphoma, Pancytopenia, and prior Neutropenic Fever with Pneumonia, referred for admission on 11/21 from [facility] Emergency Department with a diagnosis of Sepsis. Ms. Lugo has a history of MS, HTN, Gout, and CKD. 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 She also follows with [facility] [place] for recurrent Follicular B-Cell Lymphoma, currently on chemotherapy. The patient reported feeling weak at home, with onset of fever 2 days ago. She also reported a 2 week history of coughing. She suffered a fall last night without striking her head, and could not get back up from the floor. Her 9 year old daughter made her a soft bedding on the floor, and in the morning she was discovered by her brother. She was transported to the ED by EMS, and found to be hypotensive, tachycardic, and eventually with an altered mental status consisting of somnolence. Labwork was significant for pancytopenia, mild INDERJIT on CKD, hypokalemia and hypomagnesemia, and a UTI. Her CPK was checked and minimally elevated only. Imaging with CT of the brain, Pelvic Xray, b/l knee xray, and CXR were all negative. She was referred for admission at that time. Review of Systems Review of Systems All systems reviewed & are unremarkable except as noted in HPI and below PFSH Medical History Renal insufficiency (Chronic 06/03/15) Obesity (Chronic) Multiple sclerosis (Chronic 01/19/13) Lymphoma (Chronic 05/03/14) Irregular menstruation (Chronic 09/14/13) Gouty arthritis (Chronic 04/05/17) Essential hypertension (Chronic 09/04/13) Depression (Chronic 09/03/14) Thrombocytopenia (Chronic) DVT prophylaxis (Acute) Pancytopenia (Chronic) Polycystic ovarian syndrome (Chronic) Depression (Chronic) Cellulitis of left arm (Resolved 01/15/14) Pleural effusion associated with pulmonary infection (Resolved) Pneumonia (Resolved) Chronic deep vein thrombosis (DVT) of both femoral veins (Chronic) 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 (Acute) Chronic renal insufficiency (Acute) Hypokalemia (Acute) PCOS (polycystic ovarian syndrome) (Acute) Pneumonia (Acute) Reactive arthritis of knee (Acute) DVT (deep venous thrombosis) (Chronic) Depression (Chronic) Multiple sclerosis (Chronic) Surgical History History of surgery (Chronic) Cholecystectomy Social History Smoking and Tabacco status: Former Tobacco Use Meds Home Medications Medication Instructions Recorded Confirmed Type acyclovir 800 mg PO BID #180 tab-cap 10/18/15 11/21/18 History escitalopram oxalate [Lexapro] 20 mg PO QAM #90 tab-cap 09/09/17 11/21/18 Rx albuterol sulfate 2.5 mg UPD Q4H PRN #20 vial 01/25/18 11/21/18 Rx bupropion HCl [Wellbutrin XL] 300 mg PO DAILY #90 tab-cap 03/30/18 11/21/18 Rx acetaminophen [Tylenol Extra 1,000 mg PO Q6H PRN 05/30/18 11/21/18 History Strength] doxycycline hyclate 100 mg PO Q12H #60 cap 06/10/18 11/21/18 Rx albuterol sulfate HFA 90 1 - 2 puff INHALATION QID PRN #1 06/21/18 11/21/18 Rx mcg/actuation aerosol inhaler inhaler Allergies Allergy/AdvReac Type Severity Reaction Status Date / Time cytarabine AdvReac Severe neurological Verified 11/21/18 11:02 sxs NSAIDS (Non-Steroidal AdvReac Severe lymphoma/ki Verified 11/21/18 11:02 Anti-Inflamma dney Exam Narrative Exam Narrative: GEN: Patient appears somnolent but arousable, appropriate when answering questions. Oriented X3. Acutely ill appearing. Neck: Supple CV: Regular, tachycardic Pulmonary: Minimal bibasilar crackles, otherwise clear Abdomen: +BS, soft, NT, ND Vasc: No LE Edema Results Labs : 11/21/18 10:20 11/21/18 10:20 Laboratory Results - last 24 hr 11/21/18 11/21/18 11/21/18 10:20 10:20 10:20 WBC 3.00 L RBC 2.57 L Hgb 8.1 L Hct 25.0 L MCV 97.3 H MCH 31.5 MCHC 32.4 RDW 14.4 Plt Count 88 L MPV 10.2 Immature Gran % See Differential Neutrophils % 75.0 Band Neutrophils % 9.0 Lymphocytes % 2.0 Monocytes % 10.0 Eosinophils % 0.0 Basophils % 0.0 Metamyelocytes % 1.0 Myelocytes % 3.0 Absolute Neutrophils 2.52 Absolute Lymphocytes 0.06 L Absolute Monocytes 0.30 Absolute Eosinophils 0.00 Absolute Basophils 0.00 Differential Comment Manual differential RBC Morphology See below Polychromasia Present Hypochromasia 1+ Poikilocytosis 1+ Anisocytosis 1+ Microcytosis 1+ Macrocytosis 1+ Sodium 134 L Potassium 3.4 L Chloride 100 Carbon Dioxide 22.9 Anion Gap 11.1 H BUN 32 H Creatinine 2.55 H Estimated GFR/1.73 m2 20.36 Glucose 96 Lactate 0.6 Calcium 8.2 L Magnesium 1.1 L Total Bilirubin 0.7 AST 30 ALT 5 L Alkaline Phosphatase 71 Creatine Kinase 337 H Troponin I < 0.02 Total Protein 5.7 L Albumin 2.5 L Lipase 50 L Urine Color Urine Clarity Urine pH Ur Specific [place] Urine Protein Urine Ketones Urine Blood Urine Nitrite Urine Bilirubin Urine Urobilinogen Ur Leukocyte Esterase Urine RBC Urine WBC Ur Epithelial Cells Urine Crystals Urine Bacteria Urine Casts Urine Mucus Ur Culture Indicated? Urine Glucose Urine HCG, Qual 11/21/18 11/21/18 10:38 10:38 WBC RBC Hgb Hct MCV MCH MCHC RDW Plt Count MPV Immature Gran % Neutrophils % Band Neutrophils % Lymphocytes % Monocytes % Eosinophils % Basophils % Metamyelocytes % Myelocytes % Absolute Neutrophils Absolute Lymphocytes Absolute Monocytes Absolute Eosinophils Absolute Basophils Differential Comment RBC Morphology Polychromasia Hypochromasia Poikilocytosis Anisocytosis Microcytosis Macrocytosis Sodium Potassium Chloride Carbon Dioxide Anion Gap BUN Creatinine Estimated GFR/1.73 m2 Glucose Lactate Calcium Magnesium Total Bilirubin AST ALT Alkaline Phosphatase Creatine Kinase Troponin I Total Protein Albumin Lipase Urine Color Yellow Urine Clarity Sl cloudy Urine pH 5.5 Ur Specific [place] 1.015 Urine Protein 30 H Urine Ketones Negative Urine Blood Moderate H Urine Nitrite Positive H Urine Bilirubin Negative Urine Urobilinogen 0.2 Ur Leukocyte Esterase Small H Urine RBC 3-5 H Urine WBC >50 Ur Epithelial Cells Few Urine Crystals Not Applicable Urine Bacteria Many Urine Casts 0-2 coarse granular Urine Mucus Not Applicable Ur Culture Indicated? Yes Urine Glucose Negative Urine HCG, Qual Negative Last Vital Signs Temp 37.3 C 11/21/18 16:00 Pulse 76 11/21/18 17:30 Resp 17 11/21/18 17:30 BP 86/56 L 11/21/18 17:30 Pulse Ox 97 11/21/18 17:30
[2018-11-21] MEDS: Heparin 5,000 UNITS/ML VIAL 5000 UNITS SC (18:34)
[2018-11-21] MEDS: Potassium Chloride 20 MEQ TABCR 40 MEQ PO (18:34)
[2018-11-21] MEDS: MAGNESIUM SULFATE 2 GM/50 ML BAG IV ×2 (19:59→21:39)
[2018-11-21] MEDS: Normal Saline 1,000 ML 250 ML IV (20:21)
[2018-11-21] MEDS: Acyclovir 400 MG TAB 800 MG PO (20:29)
[2018-11-21] MEDS: Acetaminophen 325 MG TAB 650 MG PO (23:16)
[2018-11-22] VITALS (135 sets, daily range): BP systolic 88–139; BP diastolic 53–86; PULSE 66–101; RESP 0–37; TEMP 36.7–38.3; O2SAT 1–100
[2018-11-22] MEDS: Albuterol/Ipratropium 3 ML UPD VIAL UPD (00:12)
[2018-11-22] MEDS: Normal Saline 1,000 ML 250 ML IV ×2 (00:25→04:29)
[2018-11-22] MEDS: Heparin 5,000 UNITS/ML VIAL 5000 UNITS SC (03:38)
[2018-11-22] MEDS: Acetaminophen 325 MG TAB 650 MG PO ×2 (04:35→18:33)
[2018-11-22 07:29] LABS: Lactate-non-spesis 0.4 mmol/l (0.6-1.4)
[2018-11-22 07:41] LABS: Abs Immature Grans 0.09 k/cumm (0.0-0.09); Absolute Basophil Count 0.01 k/cumm (0.0-0.2); Mean Corp. HGB Concentration 31.3 g/dL (32.0-36.0); Mean Platelet Volume 9.6 fL (8.0-11.0); RBC 1.97 m/cumm (4.00-5.20); RBC Distribution Width 14.6 % (11.7-14.6)
[2018-11-22 07:49] LABS: Anion Gap 10.4 mmol/L (3-11); BUN 26 mg/dL (7-18); CO2 19.6 mmol/L (21.0-32.0); CREATININE 2.32 mg/dL (0.55-1.02); Calcium 7.5 mg/dL (8.5-10.1); Chloride 111 mmol/L (98-107); Creatine Kinase 316 U/L (26-192); Glucose 75 mg/dL (70-100); Magnesium 2.2 mg/dL (1.8-2.4); Sodium 141 mmol/L (136-145)
--- NOTE | 2018-11-22 07:52 | INITIAL_ITS ---
- If Service Date Differs Date of service: 11/22/18 Time of Service: 07:50 Care Management Initial Assess REASON FOR HOSPITALIZATION:: Sepsis, UTI PAST MEDICAL HISTORY/PAST SURGICAL HISTORY:: Follicular B-cell lymphoma, Chronic renal insufficiency stage 4, Multiple sclerosis, Anxiety & Depression, H/O herpes simplex, Anemia, Carpal tunnel release, S/P cholecystectomy, S/P knee aspiration, S/P (R) knee arthroscopy PREVIOUS FUNCTIONAL STATUS/SOCIAL/FAMILY SUPPORTS:: Stacey lives in [place], [place] in her own home. She is , she has two school age children a son and daughter. She has a large family support system and friends in the community. Stacey is disabled. CURRENT FUNCTIONAL STATUS:: Stacey is sleeping when CM enters the room. CM did not awake the patient. CM reviewed the plan with primary nurse. ADVANCE DIRECTIVES:: None on file- CM provided forms for her to review Has patient been provided with information about the portal?: Yes Did the patient sign up for the portal?: No (enrolled) CODE STATUS:: Full Code INSURANCE COVERAGE / FINANCIAL ISSUES:: Medicare and BCBS CURRENT HOME/COMMUNITY SERVICES/EQUIPMENT:: [facility] PRIMARY CARE PHYSICIAN:: POTENTIAL DISCHARGE NEEDS:: Follow-up appointment primary care, and oncologist as directed. PATIENT/FAMILY EDUCATION NEEDS:: Discharge education, limitations, follow-up plan of care, asked me 3 and self-management, ANTICIPATED BARRIERS TO DISCHARGE:: None identified. TRANSPORTATION:: Via private car with family at time of discharge. PLAN:: Stacey, is receiving care in the ICU, antibiotics and fluids. She will have transfusion today related to her low h/h and platelet count. She will be discharged home when medically ready per provider. Anticipate no addtional services and follow up with her primary care and oncology as directed.
[2018-11-22 08:35] LABS: White Blood Cell Count 1.07 k/cumm (4.4-10.8)
[2018-11-22 08:36] LABS: HGB 6.1 g/dL (12.0-15.5)
[2018-11-22 08:37] LABS: HCT 19.5 % (36.0-46.0)
[2018-11-22 08:38] LABS: Absolute Neutrophil Count 0.88 k/cumm (1.2-6.7); Platelet Count 67 x1000/uL (130-400)
[2018-11-22 08:39] LABS: Absolute Eosinophil Count 0.03 k/cumm (0.0-0.7); Absolute Lymphocyte Count 0.06 k/cumm (1.2-3.4); Absolute Monocyte Count 0.06 k/cumm (0.11-0.7); Atypical Lymphocytes % 1
[2018-11-22 08:40] LABS: Diff Comment Manual Differential
[2018-11-22 08:41] LABS: Anisocytosis 1+; Macrocytosis 1+; Microcytosis 1+; Polychromasia Present
[2018-11-22 08:43] LABS: Poikilocytes 1+
--- NOTE | 2018-11-22 08:44 | DI.US_ITS ---
SYMPTOM/DIAGNOSIS: UROSEPSIS, UTI RENAL ULTRASOUND: Routine examination. Comparison is made with 02/06/14. The right kidney measures 11.5 cm. long. No renal mass, calculus or obstruction is seen. There is blood flow to the right kidney. The left kidney measures 9.5 cm. long. There is marked hydronephrosis. No obstructing stone is seen. The degree of dilatation of the collecting system is slightly more prominent compared to the examination from 2014. No solid renal mass is seen. There is blood flow to the left kidney. The prevoid urinary bladder volume is 50 cc's. The ureteral jets were not visualized. The patient has a felton catheter in place. The bladder wall is not thickened. Note is made of free fluid in the pelvis and a small left pleural effusion. IMPRESSION: 1. Marked left hydronephrosis. No evidence of an obstructing stone. 2. Small left pleural effusion. 3. Free fluid in the pelvis.
[2018-11-22] MEDS: Normal Saline Flush 10 ML SYR IVP (09:21)
[2018-11-22] MEDS: Escitalopram 20 MG TAB PO (09:24)
[2018-11-22] MEDS: Folic Acid 1 MG TAB PO (09:24)
[2018-11-22] MEDS: buPROPion-XL 150 MG TABCR 300 MG PO (09:24)
[2018-11-22] MEDS: Acyclovir 400 MG TAB 800 MG PO ×2 (09:24→20:13)
[2018-11-22] MEDS: Doxycycline Hyclate 100 MG CAP PO ×2 (09:26→17:31)
[2018-11-22] MEDS: Normal Saline 1,000 ML 175 ML IV ×2 (11:38→20:13)
--- NOTE | 2018-11-22 12:25 | DI.RAD_ITS ---
SYMPTOMS/DIAGNOSIS: ? PNEUMONIA, SEPSIS PA AND LATERAL CHEST: Comparison 10/20/18 and 11/21/18. The heart size and pulmonary vasculature are within normal limits. There is unchanged mild elevation of the left hemidiaphragm. No infiltrates or effusions are seen. No pneumothorax is identified. The tip of the indwelling central venous catheter is in good position at the junction of the superior vena cava and right atrium. Mild degenerative changes are seen in the spine. IMPRESSION: No acute pulmonary process.
--- NOTE | 2018-11-22 18:27 | W.PM.PROGNOT ---
Date of Service Date of service: 11/22/18 Time of Service: 18:28 Assessment and Plan (1) Sepsis: Current visit: Yes Status: Acute Based on evidence of Tachycardia, Hypotension, altered mental status and Urinary source. Patient also with low WBC and platelet count, but chronic (history of pancytopenia). Appears resolved. Broad Coverage to include MRSA and ESBL with Vanco and Meropenem, renally dosed. Prior culture results not revealing. Monitor blood and urine cultures. Repeat lactate normalized. Decrease rate but continue IVFs. (2) Renal insufficiency: Current visit: Yes Status: Chronic INEDRJIT on CKD, with creatinine back to baseline with IVFs. Given sepsis picture a renal ultrasound was obtained showing significant left side hydronephrosis. 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 Avoid nephrotoxins, and avoid nephrotoxins. Baseline creatinine is 1.8-2.2 - monitor renal function. (3) Lymphoma: Current visit: Yes Status: Chronic Discovered as patient was found to have an elevated creatinine, with evidence of hydronephrosis on ultrasound. Subsequent CT showed Retroperitoneal Mass, biopsy with Lymphoma in 2015. Follicular B-Cell Lymphoma, recurrent. Has initially undergone multiple cycles of R-CHOP, High dose Methotrexate, and is s/p Autologous Stem Cell Transplant. Her Lymphoma relapsed, and then recurred despite treatment with Lenalidomide and Rituximab. Patient is also s/p cycles of R-DHAP & R-ICE. Last oncology note with report of patient on Obinotuzimab and Bendamustine, confirmed via conversation with [facility] Hematology today. (4) Pancytopenia: Current visit: Yes Status: Chronic Noted. Worsened this morning with IVF resuscitation. Currently not neutropenic, but hgb with significant drop. Transfuse with 2 units. Monitor closely. (5) DVT prophylaxis: Current visit: Yes Status: Acute Heparin SC on hold given drop in platelet count. Continue SCDs, TEDs. Subjective Interval history since last seen: 43 year old woman with a history of Recurrent Lymphoma, Pancytopenia, and prior Neutropenic Fever with Pneumonia, referred for admission on 11/21 from [facility] Emergency Department with a diagnosis of Sepsis. Ms. Lugo has a history of MS, HTN, Gout, and CKD. 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 She also follows with [facility] for recurrent Follicular B-Cell Lymphoma, currently on chemotherapy. The patient reported feeling weak at home, with onset of fever 2 days ago. She also reported a 2 week history of coughing. She suffered a fall last night without striking her head, and could not get back up from the floor. Her 9 year old daughter made her a soft bedding on the floor, and in the morning she was discovered by her brother. She was transported to the ED by EMS, and found to be hypotensive, tachycardic, and eventually with an altered mental status consisting of somnolence. Labwork was significant for pancytopenia, mild INDERJIT on CKD, hypokalemia and hypomagnesemia, and a UTI. Her CPK was checked and minimally elevated only. Imaging with CT of the brain, Pelvic Xray, b/l knee xray, and CXR were all negative. She was referred for admission at that time. The patient was significantly hypotensive following admission, but responded well to fluid resuscitation. Her tachycardia is resolved, and her mental status has improved. She is now afebrile. Exam Narrative Exam Narrative: General: Patient appears comfortable, AAOX3, NAD Neck: Supple CV: Regular, nontachycardic, S1S2, No rubs, murmurs, or gallops. Pulmonary: Clear to auscultation bilaterally, no crackles, wheezing, or rhonchi Abdomen: + Bowel Sounds, soft, nontender, nondistended Vascular: No lower extremity edema Psych: Normal mood and affect. Objective Objective Clinical Data: Abnormal lab results 11/22/18 11/22/18 11/22/18 Range/Units 07:10 07:10 07:10 WBC 1.07 L* D (4.4-10.8) k/cumm RBC 1.97 L (4.00-5.20) m/cumm Hgb 6.1 L* (12.0-15.5) g/dL Hct 19.5 L* D (36.0-46.0) % MCV 99.0 H (80-95) fL MCHC 31.3 L (32.0-36.0) g/dL Plt Count 67 L (130-400) x1000/uL Absolute Neutrophils 0.88 L (1.2-6.7) k/cumm Absolute Lymphocytes 0.06 L (1.2-3.4) k/cumm Absolute Monocytes 0.06 L (0.11-0.7) k/cumm Chloride 111 H (98-107) mmol/L Carbon Dioxide 19.6 L (21.0-32.0) mmol/L BUN 26 H (7-18) mg/dL Creatinine 2.32 H (0.55-1.02) mg/dL Lactate 0.4 L (0.6-1.4) mmol/l Calcium 7.5 L (8.5-10.1) mg/dL Creatine Kinase 316 H (26-192) U/L Crossmatch 11/22/18 Range/Units 09:16 WBC (4.4-10.8) k/cumm RBC (4.00-5.20) m/cumm Hgb (12.0-15.5) g/dL Hct (36.0-46.0) % MCV (80-95) fL MCHC (32.0-36.0) g/dL Plt Count (130-400) x1000/uL Absolute Neutrophils (1.2-6.7) k/cumm Absolute Lymphocytes (1.2-3.4) k/cumm Absolute Monocytes (0.11-0.7) k/cumm Chloride (98-107) mmol/L Carbon Dioxide (21.0-32.0) mmol/L BUN (7-18) mg/dL Creatinine (0.55-1.02) mg/dL Lactate (0.6-1.4) mmol/l Calcium (8.5-10.1) mg/dL Creatine Kinase (26-192) U/L Crossmatch See Detail Vital Signs Temperature 37.7 C H 11/22/18 17:10 Temperature Source Temporal Artery Scan 11/22/18 15:56 Pulse 86 11/22/18 17:10 Pulse 76 11/22/18 15:45 Respiratory Rate 29 H 11/22/18 17:10 Respiratory Effort Non-Labored 11/22/18 15:56 Respiratory Depth Shallow 11/22/18 15:56 Respiratory Pattern Normal 11/22/18 15:56 Blood Pressure 128/80 11/22/18 17:10 Blood Pressure Mean 90 11/22/18 15:56 Blood Pressure Position Supine 11/22/18 15:56 Pulse Oximetry 100 11/22/18 17:10 Oxygen Delivery Method Room Air 11/22/18 17:10 Oxygen Flow Rate 0 11/22/18 17:10 Pain Level 0 11/22/18 15:56 Comment 11/22/18 00:03 Intake & Output 11/21/18 11/22/18 11/22/18 23:59 11:59 23:59 Intake Total 1511.667 / 4793.720 0220 / 4480.833 1260.833 / 4480.833 Output Total 1075 / 1075 Balance 1511.667 / 4021.970 9541 / 3405.833 1260.833 / 3405.833 Weight 78.5 kg 69.7 kg Intake: IV 1391.667 / 7768.062 7997 / 3770.833 670.833 / 3770.833 Oral 120 / 120 120 / 360 240 / 360 Blood Product 350 / 350 Rbc Leuko Reduced Unit 350 / 350 [id number] Output: Urine 950 / 950 Stool 125 / 125 Other: Urine Color Yellow Pale Yellow Urine Appearance Clear Comment felton catheter in place, patent and draining Felton intact and draining slightly cloudy urine. Felton intact and draining cloudy urine with white clumps noted in Felton tubing. Stool Occult Blood Negative Stool Characteristics Liquid Laboratory Results WBC 1.07 k/cumm (4.4-10.8) L* D 11/22/18 07:10 RBC 1.97 m/cumm (4.00-5.20) L 11/22/18 07:10 Hgb 6.1 g/dL (12.0-15.5) L* 11/22/18 07:10 Hct 19.5 % (36.0-46.0) L* D 11/22/18 07:10 MCV 99.0 fL (80-95) H 11/22/18 07:10 MCH 31.0 pg (27.0-33.0) 11/22/18 07:10 MCHC 31.3 g/dL (32.0-36.0) L 11/22/18 07:10 RDW 14.6 % (11.7-14.6) 11/22/18 07:10 Plt Count 67 x1000/uL (130-400) L 11/22/18 07:10 MPV 9.6 fL (8.0-11.0) 11/22/18 07:10 Immature Gran % See Differential 11/22/18 07:10 Neutrophils % 75.0 11/22/18 07:10 Band Neutrophils % 7.0 % 11/22/18 07:10 Lymphocytes % 5.0 11/22/18 07:10 Atypical Lymphs % 1 11/22/18 07:10 Monocytes % 6.0 11/22/18 07:10 Eosinophils % 3.0 11/22/18 07:10 Basophils % 1.0 11/22/18 07:10 Metamyelocytes % 2.0 % 11/22/18 07:10 Myelocytes % 3.0 % 11/21/18 10:20 Absolute Neutrophils 0.88 k/cumm (1.2-6.7) L 11/22/18 07:10 Absolute Lymphocytes 0.06 k/cumm (1.2-3.4) L 11/22/18 07:10 Absolute Monocytes 0.06 k/cumm (0.11-0.7) L 11/22/18 07:10 Absolute Eosinophils 0.03 k/cumm (0.0-0.7) 11/22/18 07:10 Absolute Basophils 0.01 k/cumm (0.0-0.2) 11/22/18 07:10 Differential Comment Manual differential 11/22/18 07:10 RBC Morphology See below 11/22/18 07:10 Polychromasia Present 11/22/18 07:10 Hypochromasia 1+ 11/21/18 10:20 Poikilocytosis 1+ 11/22/18 07:10 Anisocytosis 1+ 11/22/18 07:10 Microcytosis 1+ 11/22/18 07:10 Macrocytosis 1+ 11/22/18 07:10 Sodium 141 mmol/L (136-145) 11/22/18 07:10 Potassium 4.0 mmol/L (3.5-5.1) 11/22/18 07:10 Chloride 111 mmol/L (98-107) H 11/22/18 07:10 Carbon Dioxide 19.6 mmol/L (21.0-32.0) L 11/22/18 07:10 Anion Gap 10.4 mmol/L (3-11) 11/22/18 07:10 BUN 26 mg/dL (7-18) H 11/22/18 07:10 Creatinine 2.32 mg/dL (0.55-1.02) H 11/22/18 07:10 Estimated GFR/1.73 m2 22.70 (mL/min/1.73m2) 11/22/18 07:10 Glucose 75 mg/dL (70-100) 11/22/18 07:10 Lactate 0.4 mmol/l (0.6-1.4) L 11/22/18 07:10 Calcium 7.5 mg/dL (8.5-10.1) L 11/22/18 07:10 Magnesium 2.2 mg/dL (1.8-2.4) 11/22/18 07:10 Total Bilirubin 0.7 mg/dL (0.2-1.0) 11/21/18 10:20 AST 30 U/L (15-37) 11/21/18 10:20 ALT 5 U/L (12-78) L 11/21/18 10:20 Alkaline Phosphatase 71 U/L (46-116) 11/21/18 10:20 Creatine Kinase 316 U/L (26-192) H 11/22/18 07:10 Troponin I < 0.02 ng/mL (0.00-0.06) 11/21/18 10:20 Total Protein 5.7 g/dL (6.4-8.2) L 11/21/18 10:20 Albumin 2.5 g/dL (3.4-5.0) L 11/21/18 10:20 Lipase 50 U/L (73-393) L 11/21/18 10:20 Urine Color Yellow (Yellow) 11/21/18 10:38 Urine Clarity Sl cloudy 11/21/18 10:38 Urine pH 5.5 (5-8) 11/21/18 10:38 Ur Specific [place] 1.015 (1.005-1.025) 11/21/18 10:38 Urine Protein 30 mg/dL (Negative) H 11/21/18 10:38 Urine Ketones Negative mg/dL (Negative) 11/21/18 10:38 Urine Blood Moderate (Negative) H 11/21/18 10:38 Urine Nitrite Positive (Negative) H 11/21/18 10:38 Urine Bilirubin Negative (Negative) 11/21/18 10:38 Urine Urobilinogen 0.2 EU/dL (Up TO 0.2) 11/21/18 10:38 Ur Leukocyte Esterase Small (Negative) H 11/21/18 10:38 Urine RBC 3-5 (0-2) H 11/21/18 10:38 Urine WBC >50 HPF (0-5) 11/21/18 10:38 Ur Epithelial Cells Few HPF (Negative) 11/21/18 10:38 Urine Crystals Not Applicable 11/21/18 10:38 Urine Bacteria Many HPF (Negative) 11/21/18 10:38 Urine Casts 0-2 coarse granular LPF (Negative) 11/21/18 10:38 Urine Mucus Not Applicable 11/21/18 10:38 Ur Culture Indicated? Yes 11/21/18 10:38 Urine Glucose Negative mg/dL (Negative) 11/21/18 10:38 Urine HCG, Qual Negative 11/21/18 10:38 Patient ABO/Rh O Negative 11/22/18 09:16 Antibody Screen Negative 11/22/18 09:16 Crossmatch See Detail 11/22/18 09:16
--- NOTE | 2018-11-22 18:32 | PGE_ITS ---
Date of Service Date of service: 11/22/18 Time of Service: 18:28 Assessment and Plan (1) Sepsis: Current visit: Yes Status: Acute Based on evidence of Tachycardia, Hypotension, altered mental status and Urinary source. Patient also with low WBC and platelet count, but chronic (history of pancytopenia). Appears resolved. Broad Coverage to include MRSA and ESBL with Vanco and Meropenem, renally dosed. Prior culture results not revealing. Monitor blood and urine cultures. Repeat lactate normalized. Decrease rate but continue IVFs. (2) Renal insufficiency: Current visit: Yes Status: Chronic INDERJIT on CKD, with creatinine back to baseline with IVFs. Given sepsis picture a renal ultrasound was obtained showing significant left side hydronephrosis. 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 Avoid nephrotoxins, and avoid nephrotoxins. Baseline creatinine is 1.8-2.2 - monitor renal function. (3) Lymphoma: Current visit: Yes Status: Chronic Discovered as patient was found to have an elevated creatinine, with evidence of hydronephrosis on ultrasound. Subsequent CT showed Retroperitoneal Mass, biopsy with Lymphoma in 2015. Follicular B-Cell Lymphoma, recurrent. Has initially undergone multiple cycles of R-CHOP, High dose Methotrexate, and is s/p Autologous Stem Cell Transplant. Her Lymphoma relapsed, and then recurred despite treatment with Lenalidomide and Rituximab. Patient is also s/p cycles of R-DHAP & R-ICE. Last oncology note with report of patient on Obinotuzimab and Bendamustine, confirmed via conversation with [facility] [place] today. (4) Pancytopenia: Current visit: Yes Status: Chronic Noted. Worsened this morning with IVF resuscitation. Currently not neutropenic, but hgb with significant drop. Transfuse with 2 units. Monitor closely. (5) DVT prophylaxis: Current visit: Yes Status: Acute Heparin SC on hold given drop in platelet count. Continue SCDs, TEDs. Subjective Interval history since last seen: 43 year old woman with a history of Recurrent Lymphoma, Pancytopenia, and prior Neutropenic Fever with Pneumonia, referred for admission on 11/21 from [facility] Emergency Department with a diagnosis of Sepsis. Ms. Lugo has a history of MS, HTN, Gout, and CKD. 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 She also follows with [facility] [place] Follicular B- Cell Lymphoma, currently on chemotherapy. The patient reported feeling weak at home, with onset of fever 2 days ago. She also reported a 2 week history of coughing. She suffered a fall last night without striking her head, and could not get back up from the floor. Her 9 year old daughter made her a soft bedding on the floor, and in the morning she was discovered by her brother. She was transported to the ED by EMS, and found to be hypotensive, tachycardic, and eventually with an altered mental status consisting of somnolence. Labwork was significant for pancytopenia, mild INDERJIT on CKD, hypokalemia and hypomagnesemia, and a UTI. Her CPK was checked and minimally elevated only. Imaging with CT of t he brain, Pelvic Xray, b/l knee xray, and CXR were all negative. She was referred for admission at that time. The patient was significantly hypotensive following admission, but responded well to fluid resuscitation. Her tachycardia is resolved, and her mental status has improved. She is now afebrile. Exam Narrative Exam Narrative: General: Patient appears comfortable, AAOX3, NAD Neck: Supple CV: Regular, nontachycardic, S1S2, No rubs, murmurs, or gallops. Pulmonary: Clear to auscultation bilaterally, no crackles, wheezing, or rhonchi Abdomen: + Bowel Sounds, soft, nontender, nondistended Vascular: No lower extremity edema Psych: Normal mood and affect. Objective Objective Clinical Data: Abnormal lab results 11/22/18 11/22/18 11/22/18 Range/Units 07:10 07:10 07:10 WBC 1.07 L* D (4.4-10.8) k/cumm RBC 1.97 L (4.00-5.20) m/cumm Hgb 6.1 L* (12.0-15.5) g/dL Hct 19.5 L* D (36.0-46.0) % MCV 99.0 H (80-95) fL MCHC 31.3 L (32.0-36.0) g/dL Plt Count 67 L (130-400) x1000/uL Absolute Neutrophils 0.88 L (1.2-6.7) k/cumm Absolute Lymphocytes 0.06 L (1.2-3.4) k/cumm Absolute Monocytes 0.06 L (0.11-0.7) k/cumm Chloride 111 H (98-107) mmol/L Carbon Dioxide 19.6 L (21.0-32.0) mmol/L BUN 26 H (7-18) mg/dL Creatinine 2.32 H (0.55-1.02) mg/dL Lactate 0.4 L (0.6-1.4) mmol/l Calcium 7.5 L (8.5-10.1) mg/dL Creatine Kinase 316 H (26-192) U/L Crossmatch 11/22/18 Range/Units 09:16 WBC (4.4-10.8) k/cumm RBC (4.00-5.20) m/cumm Hgb (12.0-15.5) g/dL Hct (36.0-46.0) % MCV (80-95) fL MCHC (32.0-36.0) g/dL Plt Count (130-400) x1000/uL Absolute Neutrophils (1.2-6.7) k/cumm Absolute Lymphocytes (1.2-3.4) k/cumm Absolute Monocytes (0.11-0.7) k/cumm Chloride (98-107) mmol/L Carbon Dioxide (21.0-32.0) mmol/L BUN (7-18) mg/dL Creatinine (0.55-1.02) mg/dL Lactate (0.6-1.4) mmol/l Calcium (8.5-10.1) mg/dL Creatine Kinase (26-192) U/L Crossmatch See Detail Vital Signs Temperature 37.7 C H 11/22/18 17:10 Temperature Source Temporal Artery Scan 11/22/18 15:56 Pulse 86 11/22/18 17:10 Pulse 76 11/22/18 15:45 Respiratory Rate 29 H 11/22/18 17:10 Respiratory Effort Non-Labored 11/22/18 15:56 Respiratory Depth Shallow 11/22/18 15:56 Respiratory Pattern Normal 11/22/18 15:56 Blood Pressure 128/80 11/22/18 17:10 Blood Pressure Mean 90 11/22/18 15:56 Blood Pressure Position Supine 11/22/18 15:56 Pulse Oximetry 100 11/22/18 17:10 Oxygen Delivery Method Room Air 11/22/18 17:10 Oxygen Flow Rate 0 11/22/18 17:10 Pain Level 0 11/22/18 15:56 Comment 11/22/18 00:03 Intake & Output 11/21/18 11/22/18 11/22/18 23:59 11:59 23:59 Intake Total 1511.667 / 8543.622 1544 / 4480.833 1260.833 / 4480.833 Output Total 1075 / 1075 Balance 1511.667 / 2246.807 0699 / 3405.833 1260.833 / 3405.833 Weight 78.5 kg 69.7 kg Intake: IV 1391.667 / 3897.120 3201 / 3770.833 670.833 / 3770.833 Oral 120 / 120 120 / 360 240 / 360 Blood Product 350 / 350 Rbc Leuko Reduced Unit 350 / 350 [id number] Output: Urine 950 / 950 Stool 125 / 125 Other: Urine Color Yellow Pale Yellow Urine Appearance Clear Comment felton catheter in place, patent and draining [place] intact and draining slightly cloudy urine. [place] intact and draining cloudy urine with white clumps noted in [place] tubing. Stool Occult Blood Negative Stool Characteristics Liquid Laboratory Results WBC 1.07 k/cumm (4.4-10.8) L* D 11/22/18 07:10 RBC 1.97 m/cumm (4.00-5.20) L 11/22/18 07:10 Hgb 6.1 g/dL (12.0-15.5) L* 11/22/18 07:10 Hct 19.5 % (36.0-46.0) L* D 11/22/18 07:10 MCV 99.0 fL (80-95) H 11/22/18 07:10 MCH 31.0 pg (27.0-33.0) 11/22/18 07:10 MCHC 31.3 g/dL (32.0-36.0) L 11/22/18 07:10 RDW 14.6 % (11.7-14.6) 11/22/18 07:10 Plt Count 67 x1000/uL (130-400) L 11/22/18 07:10 MPV 9.6 fL (8.0-11.0) 11/22/18 07:10 Immature Gran % See Differential 11/22/18 07:10 Neutrophils % 75.0 11/22/18 07:10 Band Neutrophils % 7.0 % 11/22/18 07:10 Lymphocytes % 5.0 11/22/18 07:10 Atypical Lymphs % 1 11/22/18 07:10 Monocytes % 6.0 11/22/18 07:10 Eosinophils % 3.0 11/22/18 07:10 Basophils % 1.0 11/22/18 07:10 Metamyelocytes % 2.0 % 11/22/18 07:10 Myelocytes % 3.0 % 11/21/18 10:20 Absolute Neutrophils 0.88 k/cumm (1.2-6.7) L 11/22/18 07:10 Absolute Lymphocytes 0.06 k/cumm (1.2-3.4) L 11/22/18 07:10 Absolute Monocytes 0.06 k/cumm (0.11-0.7) L 11/22/18 07:10 Absolute Eosinophils 0.03 k/cumm (0.0-0.7) 11/22/18 07:10 Absolute Basophils 0.01 k/cumm (0.0-0.2) 11/22/18 07:10 Differential Comment Manual differential 11/22/18 07:10 RBC Morphology See below 11/22/18 07:10 Polychromasia Present 11/22/18 07:10 Hypochromasia 1+ 11/21/18 10:20 Poikilocytosis 1+ 11/22/18 07:10 Anisocytosis 1+ 11/22/18 07:10 Microcytosis 1+ 11/22/18 07:10 Macrocytosis 1+ 11/22/18 07:10 Sodium 141 mmol/L (136-145) 11/22/18 07:10 Potassium 4.0 mmol/L (3.5-5.1) 11/22/18 07:10 Chloride 111 mmol/L (98-107) H 11/22/18 07:10 Carbon Dioxide 19.6 mmol/L (21.0-32.0) L 11/22/18 07:10 Anion Gap 10.4 mmol/L (3-11) 11/22/18 07:10 BUN 26 mg/dL (7-18) H 11/22/18 07:10 Creatinine 2.32 mg/dL (0.55-1.02) H 11/22/18 07:10 Estimated GFR/1.73 m2 22.70 (mL/min/1.73m2) 11/22/18 07:10 Glucose 75 mg/dL (70-100) 11/22/18 07:10 Lactate 0.4 mmol/l (0.6-1.4) L 11/22/18 07:10 Calcium 7.5 mg/dL (8.5-10.1) L 11/22/18 07:10 Magnesium 2.2 mg/dL (1.8-2.4) 11/22/18 07:10 Total Bilirubin 0.7 mg/dL (0.2-1.0) 11/21/18 10:20 AST 30 U/L (15-37) 11/21/18 10:20 ALT 5 U/L (12-78) L 11/21/18 10:20 Alkaline Phosphatase 71 U/L (46-116) 11/21/18 10:20 Creatine Kinase 316 U/L (26-192) H 11/22/18 07:10 Troponin I < 0.02 ng/mL (0.00-0.06) 11/21/18 10:20 Total Protein 5.7 g/dL (6.4-8.2) L 11/21/18 10:20 Albumin 2.5 g/dL (3.4-5.0) L 11/21/18 10:20 Lipase 50 U/L (73-393) L 11/21/18 10:20 Urine Color Yellow (Yellow) 11/21/18 10:38 Urine Clarity Sl cloudy 11/21/18 10:38 Urine pH 5.5 (5-8) 11/21/18 10:38 Ur Specific [place] 1.015 (1.005-1.025) 11/21/18 10:38 Urine Protein 30 mg/dL (Negative) H 11/21/18 10:38 Urine Ketones Negative mg/dL (Negative) 11/21/18 10:38 Urine Blood Moderate (Negative) H 11/21/18 10:38 Urine Nitrite Positive (Negative) H 11/21/18 10:38 Urine Bilirubin Negative (Negative) 11/21/18 10:38 Urine Urobilinogen 0.2 EU/dL (Up TO 0.2) 11/21/18 10:38 Ur Leukocyte Esterase Small (Negative) H 11/21/18 10:38 Urine RBC 3-5 (0-2) H 11/21/18 10:38 Urine WBC >50 HPF (0-5) 11/21/18 10:38 Ur Epithelial Cells Few HPF (Negative) 11/21/18 10:38 Urine Crystals Not Applicable 11/21/18 10:38 Urine Bacteria Many HPF (Negative) 11/21/18 10:38 Urine Casts 0-2 coarse granular LPF (Negative) 11/21/18 10:38 Urine Mucus Not Applicable 11/21/18 10:38 Ur Culture Indicated? Yes 11/21/18 10:38 Urine Glucose Negative mg/dL (Negative) 11/21/18 10:38 Urine HCG, Qual Negative 11/21/18 10:38 Patient ABO/Rh O Negative 11/22/18 09:16 Antibody Screen Negative 11/22/18 09:16 Crossmatch See Detail 11/22/18 09:16
[2018-11-22] MEDS: HYDROmorphone 2 MG TAB 1 MG PO (20:15)
[2018-11-23] VITALS (92 sets, daily range): BP systolic 102–126; BP diastolic 65–95; PULSE 65–112; RESP 9–29; TEMP 36.2–37.5; O2SAT 96–100
[2018-11-23] MEDS: Normal Saline 1,000 ML 175 ML IV (02:35)
[2018-11-23] MEDS: Doxycycline Hyclate 100 MG CAP PO ×2 (05:43→17:55)
[2018-11-23 07:51] LABS: Anion Gap 10.8 mmol/L (3-11); BUN 22 mg/dL (7-18); CO2 19.2 mmol/L (21.0-32.0); CREATININE 2.03 mg/dL (0.55-1.02); Chloride 109 mmol/L (98-107); Estimated GFR 26.48 (mL/min/1.73m2); Glucose 76 mg/dL (70-100); Magnesium 1.7 mg/dL (1.8-2.4); Potassium 3.6 mmol/L (3.5-5.1); Sodium 139 mmol/L (136-145)
[2018-11-23 08:02] LABS: Absolute Basophil Count 0.01 k/cumm (0.0-0.2); HCT 25.5 % (36.0-46.0); HGB 8.3 g/dL (12.0-15.5); Mean Corp. HGB Concentration 32.5 g/dL (32.0-36.0); Mean Corpuscular Hemoglobin 29.9 pg (27.0-33.0); Mean Corpuscular Volume 91.7 fL (80-95); Mean Platelet Volume 9.9 fL (8.0-11.0); Platelet Count 63 x1000/uL (130-400); RBC 2.78 m/cumm (4.00-5.20)
[2018-11-23 09:11] LABS: Absolute Lymphocyte Count 0.02 k/cumm (1.2-3.4); Absolute Monocyte Count 0.14 k/cumm (0.11-0.7); Absolute Neutrophil Count 0.81 k/cumm (1.2-6.7)
[2018-11-23 09:12] LABS: Absolute Eosinophil Count 0.11 k/cumm (0.0-0.7); Anisocytosis 1+; Diff Comment Manual Differential; Microcytosis 1+
[2018-11-23 09:13] LABS: Poikilocytes 1+
--- NOTE | 2018-11-23 09:47 | PDOC.CMPRO ---
- If Service Date Differs Date of service: 11/23/18 Time of Service: 09:47 Care Management Progress Note S/O: CM met with patient in the room. Stacey is being moved to the floor today she continues on IV antibiotic. Anticipate she will have no additional services at time of discharge she will follow up with primary care and oncology as directed. She was scheduled for chemo which will be rescheduled by the Pt. A: Stacey is a 43 year old female admitted with sepsis, UTI P:Stacey, is receiving care in the ICU, antibiotics and fluids. She will be discharged home when medically ready per provider. Anticipate no additional services and follow up with her primary care and oncology as directed.
[2018-11-23] MEDS: Potassium Chloride 20 MEQ TABCR 40 MEQ PO (09:50)
[2018-11-23] MEDS: Acyclovir 400 MG TAB 800 MG PO ×2 (09:50→21:17)
[2018-11-23] MEDS: Folic Acid 1 MG TAB PO (09:50)
[2018-11-23] MEDS: Escitalopram 20 MG TAB PO (09:50)
[2018-11-23] MEDS: buPROPion-XL 150 MG TABCR 300 MG PO (09:50)
[2018-11-23] MEDS: MAGNESIUM SULFATE 1 GM/100 ML BAG IVPB (10:31)
--- NOTE | 2018-11-23 14:53 | PT.INTREAT ---
Date of service: 11/23/18 Time of Service: 15:00 PT Notes 11/23/18 Orders received for PT consult this morning. Attempted PT evaluation on 4 attempts without success due to issues with patient's catheter, then due to significant fatigue after walking with nursing. Will attempt consult tomorrow am. Lucina Clay, PT, DPT [facility]
--- NOTE | 2018-11-23 16:08 | PHARADMIT ---
Admission Pharmacy Clinical Review SEPSIS, UTI Code Status Full Code Current Weight Wgt-71 kg Renally Cleared and Narrow Therapeutic Index Meds CrCl~ 30.2 mL/min Meds-OK QTc Value / Action Taken QTc-439 na BP Control, Fever BP- 111/72 Tmax- 37.6C Electrolytes reviewed Na- 139 K+3.6 Mag-1.7 DVT Prophylaxis TEDS, SCDs Opiate Usage / Scheduled Bowel Regimen Ordered Yes Yes Plt/SCr for Heparin / Enoxaparin Plts-63 SCr-2.03 INR for Warfarin na H/H stable, WBC/Bands H&H- 8.3/25.5 (after 2 units) WBC-1.10 ANC- 0.81 Antibiotic appropriateness Doxycycline, Meropenem, Bactrim (Vanco dc'd), Acyclovir Cultures and Sensitivities Blood-No growth/48hrs, Urine-Klebsiellla (Bactrim) Surgical ABX d/c within 24 hr na DM control / Insulin Dosing BG-76 Heart Failure (Check EF%) (ALANA's, B-Block, Diuretics) none IV to PO Switch No Home Meds Reviewed Yes Home Meds Not Ordered Augmentin, Benzonatate, Ativan Comments CKI-316 (26-192)
--- NOTE | 2018-11-23 16:19 | W.PM.PROGNOT ---
Date of Service Date of service: 11/23/18 Time of Service: 16:21 Assessment and Plan (1) Sepsis: Current visit: Yes Status: Acute Based on evidence of Tachycardia, Hypotension, altered mental status, with a urinary source for infection. Patient also with low WBC and platelet count, but chronic (history of pancytopenia). Appears resolved. Broad Coverage to include MRSA and ESBL with Vanco and Meropenem, renally dosed, changed to single agent Meropenem due to culture results. Repeat lactate normalized. Decrease rate but continue IVFs. (2) UTI (urinary tract infection): Current visit: Yes Status: Acute Urine with only 50-100,000 growth of Citrobacter Freundii and Klebsiella, but with Urinalysis positive for Nitrite & LE, with gross Pyuria on microscopy. Klebsiella appears pansensitive, but Citrobacter is Multi-Drug Resistant. Sensitivity to TMP-SMX noted, but patient already on three times a week Bactrim and with CKD. As species is sensitive to Carbapenem therapy will consider changing to once daily Ertapenem for completion of a 14 day course - patient has port in place for access. Today is Day #3 of antibiotic therapy. (3) Renal insufficiency: Current visit: Yes Status: Chronic INDERJIT on CKD, with creatinine back to baseline with IVFs. Given sepsis picture a renal ultrasound was obtained showing significant left side hydronephrosis. 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 Avoid nephrotoxins, and avoid nephrotoxins. Baseline creatinine is 1.8-2.2 - monitor renal function. (4) Lymphoma: Current visit: Yes Status: Chronic Discovered as patient was found to have an elevated creatinine, with evidence of hydronephrosis on ultrasound. Subsequent CT showed Retroperitoneal Mass, biopsy with Lymphoma in 2015. Follicular B-Cell Lymphoma, recurrent. Has initially undergone multiple cycles of R-CHOP, High dose Methotrexate, and is s/p Autologous Stem Cell Transplant. Her Lymphoma relapsed, and then recurred despite treatment with Lenalidomide and Rituximab. Patient is also s/p cycles of R-DHAP & R-ICE. Last oncology note with report of patient on Obinotuzimab and Bendamustine, confirmed via conversation with [facility]. (5) Pancytopenia: Current visit: Yes Status: Chronic Noted. Worsened this morning with IVF resuscitation. Currently not neutropenic, but hgb with significant drop, s/p 2 units of PRBCs with appropriate response. Monitor closely. (6) DVT prophylaxis: Current visit: Yes Status: Acute Heparin SC on hold given drop in platelet count. Continue SCDs, TEDs. Subjective Interval history since last seen: 43 year old woman with a history of Recurrent Lymphoma, Pancytopenia, and prior Neutropenic Fever with PNA, referred for admission on 11/21 from [facility] Emergency Department with a diagnosis of Sepsis. Ms. Luog has a history of MS, HTN, Gout, and CKD. 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 She also follows with [facility] for recurrent Follicular B-Cell Lymphoma, currently on chemotherapy. The patient reported feeling weak at home, with onset of fever 2 days prior to admission, as well as a 2 week history of coughing. She suffered a fall on the night prior to admission without striking her head, but could not get back up from the floor. Her 9 year old daughter made her a soft bedding on the floor, and in the morning she was discovered by her brother. She was transported to the ED by EMS, and found to be hypotensive, tachycardic, and eventually with an altered mental status consisting of somnolence. Labwork was significant for pancytopenia, mild INDERJIT on CKD, hypokalemia, hypomagnesemia, and a UTI. Her CPK was checked and minimally elevated only. Imaging with CT of the brain, Pelvic Xray, b/l knee xray, and CXR were all negative. She was referred for admission at that time. The patient was significantly hypotensive following admission, but responded well to fluid resuscitation. Her tachycardia is resolved, and her mental status is at baseline, as is her renal function. Urine Cultures are growing an essentially pansensitive Klebsiella, and a MDR Citrobacter Freundii. She remains afebrile. Exam Narrative Exam Narrative: General: Patient appears comfortable, AAOX3, NAD Neck: Supple CV: Regular, nontachycardic, S1S2, No rubs, murmurs, or gallops. Pulmonary: Clear to auscultation bilaterally, no crackles, wheezing, or rhonchi Abdomen: + Bowel Sounds, soft, nontender, nondistended Vascular: No lower extremity edema Psych: Normal mood and affect. Objective Objective Clinical Data: Abnormal lab results 11/22/18 11/23/18 11/23/18 Range/Units 09:16 07:32 07:32 WBC 1.10 L* (4.4-10.8) k/cumm RBC 2.78 L (4.00-5.20) m/cumm Hgb 8.3 L D (12.0-15.5) g/dL Hct 25.5 L D (36.0-46.0) % RDW 19.0 H (11.7-14.6) % Plt Count 63 L (130-400) x1000/uL Absolute Neutrophils 0.81 L (1.2-6.7) k/cumm Absolute Lymphocytes 0.02 L (1.2-3.4) k/cumm Chloride 109 H (98-107) mmol/L Carbon Dioxide 19.2 L (21.0-32.0) mmol/L BUN 22 H (7-18) mg/dL Creatinine 2.03 H (0.55-1.02) mg/dL Calcium 8.0 L (8.5-10.1) mg/dL Magnesium 1.7 L (1.8-2.4) mg/dL Crossmatch See Detail Vital Signs Temperature 37.5 C 11/23/18 13:30 Temperature Source Temporal Artery Scan 11/23/18 13:30 Pulse 84 11/23/18 14:05 Pulse 87 11/23/18 14:40 Respiratory Rate 20 11/23/18 14:40 Respiratory Effort 11/23/18 13:30 Respiratory Depth Normal 11/23/18 13:30 Respiratory Pattern Normal 11/23/18 13:30 Blood Pressure 111/72 11/23/18 14:05 Blood Pressure Mean 81 11/23/18 14:05 Blood Pressure Position Supine 11/22/18 15:56 Pulse Oximetry 99 11/23/18 14:40 Oxygen Delivery Method Room Air 11/23/18 13:30 Oxygen Flow Rate 0 11/23/18 13:30 Pain Level 0 11/23/18 15:44 Comment 11/22/18 18:37 Intake & Output 11/22/18 11/23/18 11/23/18 23:59 11:59 23:59 Intake Total 2300.833 / 5520.833 1200 / 1520 320 / 1520 Output Total 800 / 1875 1350 / 1350 Balance 1500.833 / 3645.833 -150 / 170 320 / 170 Weight 71 kg Intake: IV 970.833 / 4070.833 1000 / 1000 Oral 480 / 600 200 / 520 320 / 520 Blood Product 850 / 850 Rbc Leuko Reduced Unit 350 / 350 [id number] Rbc Leuko Reduced Unit 500 / 500 [id number] Output: Urine 800 / 1750 1350 / 1350 Other: Urine Color Pale Yellow Straw Urine Appearance Clear Clear Comment [place] intact and draining cloudy urine with white clumps noted in Vargas tubing. Vargas catheter in place. Vargas catheter in place. Stool Occult Blood Negative Negative Stool Size Large Moderate Stool Characteristics Liquid Liquid Brown Brown Laboratory Results WBC 1.10 k/cumm (4.4-10.8) L* 11/23/18 07:32 RBC 2.78 m/cumm (4.00-5.20) L 11/23/18 07:32 Hgb 8.3 g/dL (12.0-15.5) L D 11/23/18 07:32 Hct 25.5 % (36.0-46.0) L D 11/23/18 07:32 MCV 91.7 fL (80-95) 11/23/18 07:32 MCH 29.9 pg (27.0-33.0) 11/23/18 07:32 MCHC 32.5 g/dL (32.0-36.0) 11/23/18 07:32 RDW 19.0 % (11.7-14.6) H 11/23/18 07:32 Plt Count 63 x1000/uL (130-400) L 11/23/18 07:32 MPV 9.9 fL (8.0-11.0) 11/23/18 07:32 Immature Gran % 0.0 11/23/18 07:32 Neutrophils % 70.0 11/23/18 07:32 Band Neutrophils % 4.0 % 11/23/18 07:32 Lymphocytes % 2.0 11/23/18 07:32 Atypical Lymphs % 1 11/22/18 07:10 Monocytes % 13.0 11/23/18 07:32 Eosinophils % 10.0 11/23/18 07:32 Basophils % 1.0 11/23/18 07:32 Metamyelocytes % 2.0 % 11/22/18 07:10 Myelocytes % 3.0 % 11/21/18 10:20 Absolute Neutrophils 0.81 k/cumm (1.2-6.7) L 11/23/18 07:32 Absolute Lymphocytes 0.02 k/cumm (1.2-3.4) L 11/23/18 07:32 Absolute Monocytes 0.14 k/cumm (0.11-0.7) 11/23/18 07:32 Absolute Eosinophils 0.11 k/cumm (0.0-0.7) 11/23/18 07:32 Absolute Basophils 0.01 k/cumm (0.0-0.2) 11/23/18 07:32 Differential Comment Manual differential 11/23/18 07:32 RBC Morphology See below 11/23/18 07:32 Polychromasia Present 11/22/18 07:10 Hypochromasia 1+ 11/21/18 10:20 Poikilocytosis 1+ 11/23/18 07:32 Anisocytosis 1+ 11/23/18 07:32 Microcytosis 1+ 11/23/18 07:32 Macrocytosis 1+ 11/22/18 07:10 Sodium 139 mmol/L (136-145) 11/23/18 07:32 Potassium 3.6 mmol/L (3.5-5.1) 11/23/18 07:32 Chloride 109 mmol/L (98-107) H 11/23/18 07:32 Carbon Dioxide 19.2 mmol/L (21.0-32.0) L 11/23/18 07:32 Anion Gap 10.8 mmol/L (3-11) 11/23/18 07:32 BUN 22 mg/dL (7-18) H 11/23/18 07:32 Creatinine 2.03 mg/dL (0.55-1.02) H 11/23/18 07:32 Estimated GFR/1.73 m2 26.48 (mL/min/1.73m2) 11/23/18 07:32 Glucose 76 mg/dL (70-100) 11/23/18 07:32 Lactate 0.4 mmol/l (0.6-1.4) L 11/22/18 07:10 Calcium 8.0 mg/dL (8.5-10.1) L 11/23/18 07:32 Magnesium 1.7 mg/dL (1.8-2.4) L 11/23/18 07:32 Total Bilirubin 0.7 mg/dL (0.2-1.0) 11/21/18 10:20 AST 30 U/L (15-37) 11/21/18 10:20 ALT 5 U/L (12-78) L 11/21/18 10:20 Alkaline Phosphatase 71 U/L (46-116) 11/21/18 10:20 Creatine Kinase 316 U/L (26-192) H 11/22/18 07:10 Troponin I < 0.02 ng/mL (0.00-0.06) 11/21/18 10:20 Total Protein 5.7 g/dL (6.4-8.2) L 11/21/18 10:20 Albumin 2.5 g/dL (3.4-5.0) L 11/21/18 10:20 Lipase 50 U/L (73-393) L 11/21/18 10:20 Urine Color Yellow (Yellow) 11/21/18 10:38 Urine Clarity Sl cloudy 11/21/18 10:38 Urine pH 5.5 (5-8) 11/21/18 10:38 Ur Specific [place] 1.015 (1.005-1.025) 11/21/18 10:38 Urine Protein 30 mg/dL (Negative) H 11/21/18 10:38 Urine Ketones Negative mg/dL (Negative) 11/21/18 10:38 Urine Blood Moderate (Negative) H 11/21/18 10:38 Urine Nitrite Positive (Negative) H 11/21/18 10:38 Urine Bilirubin Negative (Negative) 11/21/18 10:38 Urine Urobilinogen 0.2 EU/dL (Up TO 0.2) 11/21/18 10:38 Ur Leukocyte Esterase Small (Negative) H 11/21/18 10:38 Urine RBC 3-5 (0-2) H 11/21/18 10:38 Urine WBC >50 HPF (0-5) 11/21/18 10:38 Ur Epithelial Cells Few HPF (Negative) 11/21/18 10:38 Urine Crystals Not Applicable 11/21/18 10:38 Urine Bacteria Many HPF (Negative) 11/21/18 10:38 Urine Casts 0-2 coarse granular LPF (Negative) 11/21/18 10:38 Urine Mucus Not Applicable 11/21/18 10:38 Ur Culture Indicated? Yes 11/21/18 10:38 Urine Glucose Negative mg/dL (Negative) 11/21/18 10:38 Urine HCG, Qual Negative 11/21/18 10:38 Patient ABO/Rh O Negative 11/22/18 09:16 Antibody Screen Negative 11/22/18 09:16 Crossmatch See Detail 11/22/18 09:16
--- NOTE | 2018-11-23 16:24 | PGE_ITS ---
Date of Service Date of service: 11/23/18 Time of Service: 16:21 Assessment and Plan (1) Sepsis: Current visit: Yes Status: Acute Based on evidence of Tachycardia, Hypotension, altered mental status, with a urinary source for infection. Patient also with low WBC and platelet count, but chronic (history of pancytopenia). Appears resolved. Broad Coverage to include MRSA and ESBL with Vanco and Meropenem, renally dosed, changed to single agent Meropenem due to culture results. Repeat lactate normalized. Decrease rate but continue IVFs. (2) UTI (urinary tract infection): Current visit: Yes Status: Acute Urine with only 50-100,000 growth of Citrobacter Freundii and Klebsiella, but with Urinalysis positive for Nitrite & LE, with gross Pyuria on microscopy. Klebsiella appears pansensitive, but Citrobacter is Multi-Drug Resistant. Sensitivity to TMP-SMX noted, but patient already on three times a week Bactrim and with CKD. As species is sensitive to Carbapenem therapy will consider changing to once daily Ertapenem for completion of a 14 day course - patient has port in place for access. Today is Day #3 of antibiotic therapy. (3) Renal insufficiency: Current visit: Yes Status: Chronic INDERJIT on CKD, with creatinine back to baseline with IVFs. Given sepsis picture a renal ultrasound was obtained showing significant left side hydronephrosis. 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 Avoid nephrotoxins, and avoid nephrotoxins. Baseline creatinine is 1.8-2.2 - monitor renal function. (4) Lymphoma: Current visit: Yes Status: Chronic Discovered as patient was found to have an elevated creatinine, with evidence of hydronephrosis on ultrasound. Subsequent CT showed Retroperitoneal Mass, biopsy with Lymphoma in 2015. Follicular B-Cell Lymphoma, recurrent. Has initially undergone multiple cycles of R-CHOP, High dose Methotrexate, and is s/p Autologous Stem Cell Transplant. Her Lymphoma relapsed, and then recurred despite treatment with Lenalidomide and Rituximab. Patient is also s/p cycles of R-DHAP & R-ICE. Last oncology note with report of patient on Obinotuzimab and Bendamustine, confirmed via conversation with [facility] Hematology. (5) Pancytopenia: Current visit: Yes Status: Chronic Noted. Worsened this morning with IVF resuscitation. Currently not ne utropenic, but hgb with significant drop, s/p 2 units of PRBCs with appropriate response. Monitor closely. (6) DVT prophylaxis: Current visit: Yes Status: Acute Heparin SC on hold given drop in platelet count. Continue SCDs, TEDs. Subjective Interval history since last seen: 43 year old woman with a history of Recurrent Lymphoma, Pancytopenia, and prior Neutropenic Fever with PNA, referred for admission on 11/21 from [facility] Emergency Department with a diagnosis of Sepsis. Ms. Lugo has a history of MS, HTN, Gout, and CKD. 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 She also follows with [facility] for recurrent Follicular B-Cell Lymphoma, currently on chemotherapy. The patient reported feeling weak at home, with onset of fever 2 days prior to admission, as well as a 2 week history of coughing. She suffered a fall on the night prior to admission without striking her head, but could not get back up from the floor. Her 9 year old daughter made her a soft bedding on the floor, and in the morning she was discovered by her brother. She was transported to the ED by EMS, and found to be hypotensive, tachycardic, and eventually with an altered mental status consisting of somnolence. Labwork was significant for pancytopenia, mild INDERJIT on CKD, hypokalemia, hypomagnesemia, and a UTI. Her CPK was checked and minimally elevated only. Imaging with CT of the brain, Pelvic Xray, b/l knee xray, and CXR were all negative. She was referred for admission at that time. The patient was significantly hypotensive following admission, but responded well to fluid resuscitation. Her tachycardia is resolved, and her mental status is at baseline, as is her renal function. Urine Cultures are growing an essentially pansensitive Klebsiella, and a MDR Citrobacter Freundii. She remains afebrile. Exam Narrative Exam Narrative: General: Patient appears comfortable, AAOX3, NAD Neck: Supple CV: Regular, nontachycardic, S1S2, No rubs, murmurs, or gallops. Pulmonary: Clear to auscultation bilaterally, no crackles, wheezing, or rhonchi Abdomen: + Bowel Sounds, soft, nontender, nondistended Vascular: No lower extremity edema Psych: Normal mood and affect. Objective Objective Clinical Data: Abnormal lab results 11/22/18 11/23/18 11/23/18 Range/Units 09:16 07:32 07:32 WBC 1.10 L* (4.4-10.8) k/cumm RBC 2.78 L (4.00-5.20) m/cumm Hgb 8.3 L D (12.0-15.5) g/dL Hct 25.5 L D (36.0-46.0) % RDW 19.0 H (11.7-14.6) % Plt Count 63 L (130-400) x1000/uL Absolute Neutrophils 0.81 L (1.2-6.7) k/cumm Absolute Lymphocytes 0.02 L (1.2-3.4) k/cumm Chloride 109 H (98-107) mmol/L Carbon Dioxide 19.2 L (21.0-32.0) mmol/L BUN 22 H (7-18) mg/dL Creatinine 2.03 H (0.55-1.02) mg/dL Calcium 8.0 L (8.5-10.1) mg/dL Magnesium 1.7 L (1.8-2.4) mg/dL Crossmatch See Detail Vital Signs Temperature 37.5 C 11/23/18 13:30 Temperature Source Temporal Artery Scan 11/23/18 13:30 Pulse 84 11/23/18 14:05 Pulse 87 11/23/18 14:40 Respiratory Rate 20 11/23/18 14:40 Respiratory Effort 11/23/18 13:30 Respiratory Depth Normal 11/23/18 13:30 Respiratory Pattern Normal 11/23/18 13:30 Blood Pressure 111/72 11/23/18 14:05 Blood Pressure Mean 81 11/23/18 14:05 Blood Pressure Position Supine 11/22/18 15:56 Pulse Oximetry 99 11/23/18 14:40 Oxygen Delivery Method Room Air 11/23/18 13:30 Oxygen Flow Rate 0 11/23/18 13:30 Pain Level 0 11/23/18 15:44 Comment 11/22/18 18:37 Intake & Output 11/22/18 11/23/18 11/23/18 23:59 11:59 23:59 Intake Total 2300.833 / 5520.833 1200 / 1520 320 / 1520 Output Total 800 / 1875 1350 / 1350 Balance 1500.833 / 3645.833 -150 / 170 320 / 170 Weight 71 kg Intake: IV 970.833 / 4070.833 1000 / 1000 Oral 480 / 600 200 / 520 320 / 520 Blood Product 850 / 850 Rbc Leuko Reduced Unit 350 / 350 [id number] Rbc Leuko Reduced Unit 500 / 500 [id number] Output: Urine 800 / 1750 1350 / 1350 Other: Urine Color Pale Yellow Straw Urine Appearance Clear Clear Comment Vargas intact and draining cloudy urine with white clumps noted in Vargas tubing. Vargas catheter in place. Vargas catheter in place. Stool Occult Blood Negative Negative Stool Size Large Moderate Stool Characteristics Liquid Liquid Brown Brown Laboratory Results WBC 1.10 k/cumm (4.4-10.8) L* 11/23/18 07:32 RBC 2.78 m/cumm (4.00-5.20) L 11/23/18 07:32 Hgb 8.3 g/dL (12.0-15.5) L D 11/23/18 07:32 Hct 25.5 % (36.0-46.0) L D 11/23/18 07:32 MCV 91.7 fL (80-95) 11/23/18 07:32 MCH 29.9 pg (27.0-33.0) 11/23/18 07:32 MCHC 32.5 g/dL (32.0-36.0) 11/23/18 07:32 RDW 19.0 % (11.7-14.6) H 11/23/18 07:32 Plt Count 63 x1000/uL (130-400) L 11/23/18 07:32 MPV 9.9 fL (8.0-11.0) 11/23/18 07:32 Immature Gran % 0.0 11/23/18 07:32 Neutrophils % 70.0 11/23/18 07:32 Band Neutrophils % 4.0 % 11/23/18 07:32 Lymphocytes % 2.0 11/23/18 07:32 Atypical Lymphs % 1 11/22/18 07:10 Monocytes % 13.0 11/23/18 07:32 Eosinophils % 10.0 11/23/18 07:32 Basophils % 1.0 11/23/18 07:32 Metamyelocytes % 2.0 % 11/22/18 07:10 Myelocytes % 3.0 % 11/21/18 10:20 Absolute Neutrophils 0.81 k/cumm (1.2-6.7) L 11/23/18 07:32 Absolute Lymphocytes 0.02 k/cumm (1.2-3.4) L 11/23/18 07:32 Absolute Monocytes 0.14 k/cumm (0.11-0.7) 11/23/18 07:32 Absolute Eosinophils 0.11 k/cumm (0.0-0.7) 11/23/18 07:32 Absolute Basophils 0.01 k/cumm (0.0-0.2) 11/23/18 07:32 Differential Comment Manual differential 11/23/18 07:32 RBC Morphology See below 11/23/18 07:32 Polychromasia Present 11/22/18 07:10 Hypochromasia 1+ 11/21/18 10:20 Poikilocytosis 1+ 11/23/18 07:32 Anisocytosis 1+ 11/23/18 07:32 Microcytosis 1+ 11/23/18 07:32 Macrocytosis 1+ 11/22/18 07:10 Sodium 139 mmol/L (136-145) 11/23/18 07:32 Potassium 3.6 mmol/L (3.5-5.1) 11/23/18 07:32 Chloride 109 mmol/L (98-107) H 11/23/18 07:32 Carbon Dioxide 19.2 mmol/L (21.0-32.0) L 11/23/18 07:32 Anion Gap 10.8 mmol/L (3-11) 11/23/18 07:32 BUN 22 mg/dL (7-18) H 11/23/18 07:32 Creatinine 2.03 mg/dL (0.55-1.02) H 11/23/18 07:32 Estimated GFR/1.73 m2 26.48 (mL/min/1.73m2) 11/23/18 07:32 Glucose 76 mg/dL (70-100) 11/23/18 07:32 Lactate 0.4 mmol/l (0.6-1.4) L 11/22/18 07:10 Calcium 8.0 mg/dL (8.5-10.1) L 11/23/18 07:32 Magnesium 1.7 mg/dL (1.8-2.4) L 11/23/18 07:32 Total Bilirubin 0.7 mg/dL (0.2-1.0) 11/21/18 10:20 AST 30 U/L (15-37) 11/21/18 10:20 ALT 5 U/L (12-78) L 11/21/18 10:20 Alkaline Phosphatase 71 U/L (46-116) 11/21/18 10:20 Creatine Kinase 316 U/L (26-192) H 11/22/18 07:10 Troponin I < 0.02 ng/mL (0.00-0.06) 11/21/18 10:20 Total Protein 5.7 g/dL (6.4-8.2) L 11/21/18 10:20 Albumin 2.5 g/dL (3.4-5.0) L 11/21/18 10:20 Lipase 50 U/L (73-393) L 11/21/18 10:20 Urine Color Yellow (Yellow) 11/21/18 10:38 Urine Clarity Sl cloudy 11/21/18 10:38 Urine pH 5.5 (5-8) 11/21/18 10:38 Ur Specific [place] 1.015 (1.005-1.025) 11/21/18 10:38 Urine Protein 30 mg/dL (Negative) H 11/21/18 10:38 Urine Ketones Negative mg/dL (Negative) 11/21/18 10:38 Urine Blood Moderate (Negative) H 11/21/18 10:38 Urine Nitrite Positive (Negative) H 11/21/18 10:38 Urine Bilirubin Negative (Negative) 11/21/18 10:38 Urine Urobilinogen 0.2 EU/dL (Up TO 0.2) 11/21/18 10:38 Ur Leukocyte Esterase Small (Negative) H 11/21/18 10:38 Urine RBC 3-5 (0-2) H 11/21/18 10:38 Urine WBC >50 HPF (0-5) 11/21/18 10:38 Ur Epithelial Cells Few HPF (Negative) 11/21/18 10:38 Urine Crystals Not Applicable 11/21/18 10:38 Urine Bacteria Many HPF (Negative) 11/21/18 10:38 Urine Casts 0-2 coarse granular LPF (Negative) 11/21/18 10:38 Urine Mucus Not Applicable 11/21/18 10:38 Ur Culture Indicated? Yes 11/21/18 10:38 Urine Glucose Negative mg/dL (Negative) 11/21/18 10:38 Urine HCG, Qual Negative 11/21/18 10:38 Patient ABO/Rh O Negative 11/22/18 09:16 Antibody Screen Negative 11/22/18 09:16 Crossmatch See Detail 11/22/18 09:16
[2018-11-23] MEDS: Acetaminophen 325 MG TAB 650 MG PO (17:55)
[2018-11-23] MEDS: Normal Saline Flush 10 ML SYR IVP (21:17)
[2018-11-24] MEDS: Acetaminophen 325 MG TAB PO (01:10)
[2018-11-24] MEDS: Normal Saline 1,000 ML 175 ML IV ×2 (01:11→06:34)
[2018-11-24] MEDS: HYDROmorphone 2 MG TAB 1 MG PO (01:11)
[2018-11-24 03:32] VITALS: O2SAT 99
[2018-11-24] MEDS: Doxycycline Hyclate 100 MG CAP PO (05:59)
--- NOTE | 2018-11-24 07:03 | NUR.NOTE ---
Pt vomited x 1 after 3m mins after taking doxycycline 100mg. State it makes her feel nauseated. Charge nurse informed
[2018-11-24 07:19] LABS: Abs Immature Grans 0.02 k/cumm (0.0-0.09); Absolute Lymphocyte Count 0.06 k/cumm (1.2-3.4); HCT 25.5 % (36.0-46.0); HGB 8.3 g/dL (12.0-15.5); Mean Corp. HGB Concentration 32.5 g/dL (32.0-36.0); Mean Corpuscular Hemoglobin 29.7 pg (27.0-33.0); Mean Corpuscular Volume 91.4 fL (80-95); Mean Platelet Volume 10.8 fL (8.0-11.0); RBC 2.79 m/cumm (4.00-5.20); RBC Distribution Width 18.8 % (11.7-14.6)
[2018-11-24 07:20] VITALS: BP 118/83; PULSE 78; RESP 14; TEMP 36.4; O2SAT 100
[2018-11-24 07:40] LABS: Anion Gap 8.2 mmol/L (3-11); BUN 18 mg/dL (7-18); CO2 21.8 mmol/L (21.0-32.0); CREATININE 1.98 mg/dL (0.55-1.02); Calcium 8.5 mg/dL (8.5-10.1); Chloride 109 mmol/L (98-107); Estimated GFR 27.26 (mL/min/1.73m2); Glucose 84 mg/dL (70-100); Magnesium 1.6 mg/dL (1.8-2.4); Sodium 139 mmol/L (136-145)
[2018-11-24 08:25] LABS: Platelet Count 72 x1000/uL (130-400); White Blood Cell Count 1.48 k/cumm (4.4-10.8)
[2018-11-24 08:27] LABS: Absolute Eosinophil Count 0.06 k/cumm (0.0-0.7); Absolute Neutrophil Count 0.93 k/cumm (1.2-6.7)
[2018-11-24 08:28] LABS: Anisocytosis 2+; Diff Comment Manual Differential; Poikilocytes 1+; Polychromasia Present
[2018-11-24] MEDS: Sulfameth/Trimeth DS TAB 1 TAB PO (08:28)
[2018-11-24] MEDS: Pantoprazole 40 MG VIAL IVP (08:29)
[2018-11-24] MEDS: Acyclovir 400 MG TAB 800 MG PO (08:29)
[2018-11-24] MEDS: Normal Saline Flush 10 ML SYR IVP ×2 (08:29→15:24)
[2018-11-24] MEDS: buPROPion-XL 150 MG TABCR 300 MG PO (08:29)
[2018-11-24] MEDS: Escitalopram 20 MG TAB PO (08:29)
[2018-11-24] MEDS: Folic Acid 1 MG TAB PO (08:29)
--- NOTE | 2018-11-24 10:30 | PDOC.CMDIS ---
- If Service Date Differs Date of service: 11/24/18 Time of Service: 10:30 LACE Index Scoring Tool - Questions: Length of Stay (in days): 4 - 6 Acuity (Admit via E.D.?): Yes Comorbidities: Any Tumor E.D. Visits: 6 - Answers: Total Score: 13 Risk of Readmission: High Risk Care Management Discharge Reason for Hospitalization: Sepsis, UTI Discharge Plan: Stacey will be discharged home today with outpatient daily antibiotics through the infusion room. CM coordinated orders for infusion room treatment she will come in once a day for IV antibiotics. Stacey wants to return home, she will follow[facility]. She states she is unable to sleep while she is in the hospital. CM did provide education on local resources including palliative care. Stacey declines any additional resources at this time. Patient/Family Education Needs: Discharge education, limitations and follow up plan of care including ask me three education and self management.
[2018-11-24] MEDS: MAGNESIUM SULFATE 2 GM/50 ML BAG IVPB (11:36)
--- NOTE | 2018-11-24 14:15 | W.PM.DS.N ---
Date of service: 11/24/18 Time of Service: 14:18 DS: Diagnosis Discharge Diagnosis (1) Sepsis: Status: Acute (2) UTI (urinary tract infection): Status: Acute (3) Renal insufficiency: Status: Chronic (4) Lymphoma: Status: Chronic (5) Pancytopenia: Status: Chronic Discharge Plan Disposition Patient Disposition: HOME Condition: Stable Discharge Details Chief Complaint: GenMedical Reason For Visit: SEPSIS, UTI Admit Date/Time: 11/21/18 13:36 Admit Provider: Rod Sands Attending Provider: Rod Sands Primary Care Provider: Christy Enrique ED Provider: Pricilla Art Hospital Course Hospital Course: CC: Fall HPI: 43 year old woman with a history of Recurrent Lymphoma, Pancytopenia, and prior Neutropenic Fever with PNA, referred for admission on 11/[address] [facility] Emergency Department with a diagnosis of Sepsis. Ms. Lugo has a history of MS, HTN, Gout, and CKD. 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 She also follows with [facility] for recurrent Follicular B-Cell Lymphoma, currently on chemotherapy. The patient reported feeling weak at home, with onset of fever 2 days prior to admission, as well as a 2 week history of coughing. She suffered a fall on the night prior to admission without striking her head, but could not get back up from the floor. Her 9 year old daughter made her a soft bedding on the floor, and in the morning she was discovered by her brother. She was transported to the ED by EMS, and found to be hypotensive, tachycardic, and eventually with an altered mental status consisting of somnolence. Labwork was significant for pancytopenia, mild INDERJIT on CKD, hypokalemia, hypomagnesemia, and a UTI. Her CPK was checked and minimally elevated only, and improved by the next morning. Imaging with CT of the brain, Pelvic Xray, b/l knee xray, and CXR were all negative. She was referred for admission at that time. The patient was significantly hypotensive following admission, but responded well to fluid resuscitation. Her tachycardia resolved, and her mental status is at baseline, as is her renal function. Urine Cultures are growing an essentially pansensitive Klebsiella, and a MDR Citrobacter Freundii. She remains afebrile. Hospital Course: (1) Sepsis: Based on evidence of Tachycardia, Hypotension, altered mental status, with a urinary source for infection. Patient also with low WBC and platelet count, but chronic (history of pancytopenia). Appears resolved. Broad Coverage to include MRSA and ESBL with Vanco and Meropenem, renally dosed, changed to single agent Meropenem due to culture results. Repeat lactate normalized. Patient was changed to Once daily Ertapenem for ease of administration, with plans for completion of a 14 day course with outpatient infusion via patien'ts port. (2) UTI (urinary tract infection): Urine with only 50-100,000 growth of Citrobacter Freundii and Klebsiella, but with Urinalysis positive for Nitrite & LE, with gross Pyuria on microscopy. Klebsiella appears pansensitive, but Citrobacter is Multi-Drug Resistant. Sensitivity to TMP-SMX noted, but patient already on three times a week Bactrim and with CKD. As species is sensitive to Carbapenem therapy changed to once daily Ertapenem for completion of a 14 day course - patient has port in place for access. Today is Day #4 of antibiotic therapy. Is being scheduled for outpatient infusion therapy by Case Management. (3) Renal insufficiency: INDERJIT on CKD, with creatinine back to baseline with IVFs. Given sepsis picture a renal ultrasound was obtained showing significant left side hydronephrosis. 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 Avoid nephrotoxins, and renally dose medications. Baseline creatinine is 1.8-2.2 - monitor renal function. (4) Lymphoma: Discovered as patient was found to have an elevated creatinine, with evidence of hydronephrosis on ultrasound. Subsequent CT showed Retroperitoneal Mass, biopsy with Lymphoma in 2015. Follicular B-Cell Lymphoma, recurrent. Has initially undergone multiple cycles of R-CHOP, High dose Methotrexate, and is s/p Autologous Stem Cell Transplant. Her Lymphoma relapsed, and then recurred despite treatment with Lenalidomide and Rituximab. Patient is also s/p cycles of R-DHAP & R-ICE. Last oncology note with report of patient on Obinotuzimab and Bendamustine, confirmed via conversation with [facility] Hematology. (5) Pancytopenia: Noted. Worsened initially with IVF resuscitation, but has remained stable. Currently not neutropenic, but hgb with significant previous drop, s/p 2 units of PRBCs with appropriate response. Discussed numbers with [facility] Hematology - okay to discharge without further intervention. (6) DVT prophylaxis: Heparin SC was held given drop in platelet count. She was maintained on SCDs, TEDs. Home Meds and New Rx's Prescriptions: New sulfamethoxazole-trimethoprim 800-160 mg Tablet 1 tab PO MoWeFr@0900 Qty: 0 RF: 0 hydromorphone 2 mg Tablet 1 mg PO Q6H PRN PRNQty: 0 RF: 0 folic acid 1 mg Tablet 1 mg PO DAILY Qty: 0 RF: 0 ertapenem [Invanz] 1 gram Recon Soln 1 g IVPB Q24H Qty: 0 RF: 0 Continued albuterol sulfate [ProAir HFA] 90 mcg/actuation HFA aerosol inhaler 1 - 2 puff Inhalation QID PRN (Reason: bronchospasm) Qty: 1 RF: 4 acyclovir 800 MG tablet 800 mg PO BID Qty: 180 RF: 4 escitalopram oxalate [Lexapro] 20 MG tablet 20 mg PO QAM Qty: 90 RF: 4 bupropion HCl [Wellbutrin XL] 300 MG tablet extended release 24 hr 300 mg PO DAILY Qty: 90 RF: 4 acetaminophen [Tylenol Extra Strength] 500 mg Tablet 1,000 mg PO Q6H PRNRF: 0 doxycycline hyclate 100 mg Capsule 100 mg PO Q12H Qty: 60 RF: 0 albuterol sulfate 2.5 MG/3 ML solution for nebulization 2.5 mg UPD Q4H PRNQty: 20 RF: 0 Discharge Instructions Stand Alone Forms: Nursing Discharge Form Referrals: Uvaldo Lopez [ [facility] STAFF PHYSICIAN] - 12/05/18 10:40 am Activity:: No Strenuous Activity Equipment/Supplies:: No Equipment Needed Diet:: As Tolerated Discharge Orders Discharge Orders: Discharge Order (Routine); Ordered 11/24/18 Ordered By: Rod Sands DS: Data Vitals/I&O Vitals and I&O: Vital Signs Temperature 36.4 C L 11/24/18 07:20 Temperature Source Tympanic 11/24/18 07:20 Pulse 78 11/24/18 07:20 Pulse Rhythm Regular 11/24/18 07:51 Pulse 87 11/23/18 14:40 Respiratory Rate 14 11/24/18 07:20 Respiratory Effort Non-Labored 11/24/18 07:51 Respiratory Depth Normal 11/24/18 07:51 Respiratory Pattern Normal 11/24/18 07:51 Blood Pressure 118/83 11/24/18 07:20 Blood Pressure Mean 81 11/23/18 14:05 Blood Pressure Position Supine 11/22/18 15:56 Pulse Oximetry 100 11/24/18 07:20 Oxygen Delivery Method Room Air 11/24/18 07:20 Oxygen Flow Rate 0 11/24/18 07:20 Pain Level 0 11/24/18 07:51 Comment 11/23/18 17:16 Intake & Output 11/23/18 11/24/18 11/24/18 23:59 11:59 23:59 Intake Total 420 / 2720 1572.916 / 2392.916 820 / 2392.916 Output Total 900 / 2250 650 / 1450 800 / 1450 Balance -480 / 470 922.916 / 942.916 20 / 942.916 Intake: IV 100 / 2200 1332.916 / 1852.916 520 / 1852.916 Oral 320 / 520 240 / 540 300 / 540 Output: Urine 900 / 2250 650 / 1450 800 / 1450 Other: Urine Color Yellow Pale Pale Yellow Yellow Urine Appearance Clear Cloudy Cloudy Urine Odor Normal None None Comment Felton catheter in place. Void x1 in the toilet. Void x1 in the toilet. Stool Occult Blood Negative Stool Size Moderate Stool Characteristics Liquid Brown Voiding Methods Toilet Toilet Toilet Completed studies during hospitalization [Text1]: Exam(s) 11/[address]:CT head & cervical spine wo SYMPTOMS/DIAGNOSIS: S/P FALL, ? ACUTE PROCESS CT BRAIN: Noncontrast examination was performed. Comparison 05/30/18. The ventricles and sulci are consistent with the patient's age. No evidence of an acute intracranial hemorrhage, midline shift or mass effect is identified. There are areas of decreased attenuation in the white matter suggesting small vessel ischemic disease or other demyelinating process. These areas appear stable compared to 05/30/18. No skull fracture is seen. There is near complete opacification of the maxillary sinuses. There is thickening of the simeon of the maxillary sinuses. These findings are suggestive of chronic sinusitis. IMPRESSION: No acute intracranial process. CT SCAN OF THE CERVICAL SPINE. Multiple contiguous axial images of the cervical spine were obtained. Sagittal and coronal reformatted images were evaluated on the Siemens workstation. There is normal alignment. No acute fractures or subluxations are seen. The prevertebral soft tissues are unremarkable. IMPRESSION: No acute fracture or subluxation in the cervical spine. Exam(s) 11/21 a RAD:XR chest 1V in DI dept a RAD:XR knee LT 4V AP,lat,olga,pat a RAD:XR knee RT 4V AP,lat,olga,pat a RAD:XR pelvis AP SYMPTOMS/DIAGNOSIS: S/P FALL, ? ACUTE FRACTURE, COUGH, ? ACUTE DISEASE/PNEUMONIA LEFT KNEE: Four views. No acute fracture or dislocation is identified. RIGHT KNEE: Four views. No acute fracture or dislocation is identified. No radiopaque foreign bodies are seen in the soft tissues. There are degenerative changes seen in the knee. IMPRESSION: No acute fracture or dislocation. PELVIS: Single view. No acute fracture or dislocation is seen. The bones are normally mineralized. The sacroiliac joints and symphysis pubis are intact. The soft tissues are unremarkable. IMPRESSION: No acute fracture or dislocation. AP CHEST: Comparison 10/20/18. The heart size and pulmonary vasculature are within normal limits. The lungs are clear and well expanded. No effusions or pneumothoraces are identified. The tip of the indwelling central venous catheter is in good position in the region of the junction of the superior vena cava and right atrium. The bones appear intact. IMPRESSION: No acute pulmonary process. Exam(s)11/22 a US:US renal SYMPTOM/DIAGNOSIS: UROSEPSIS, UTI RENAL ULTRASOUND: Routine examination. Comparison is made with 02/06/14. The right kidney measures 11.5 cm. long. No renal mass, calculus or obstruction is seen. There is blood flow to the right kidney. The left kidney measures 9.5 cm. long. There is marked hydronephrosis. No obstructing stone is seen. The degree of dilatation of the collecting system is slightly more prominent compared to the examination from 2013. No solid renal mass is seen. There is blood flow to the left kidney. The prevoid urinary bladder volume is 50 cc's. The ureteral jets were not visualized. The patient has a felton catheter in place. The bladder wall is not thickened. Note is made of free fluid in the pelvis and a small left pleural effusion. IMPRESSION: 1. Marked left hydronephrosis. No evidence of an obstructing stone. 2. Small left pleural effusion. 3. Free fluid in the pelvis. Exam(s) a RAD:XR chest 2V PA & lateral SYMPTOMS/DIAGNOSIS: ? PNEUMONIA, SEPSIS PA AND LATERAL CHEST: Comparison 10/20/18 and 11/21/18. The heart size and pulmonary vasculature are within normal limits. There is unchanged mild elevation of the left hemidiaphragm. No infiltrates or effusions are seen. No pneumothorax is identified. The tip of the indwelling central venous catheter is in good position at the junction of the superior vena cava and right atrium. Mild degenerative changes are seen in the spine. IMPRESSION: No acute pulmonary process. Labs on day of discharge: Labs from last 24 hours 11/24/18 11/24/18 06:55 06:55 WBC 1.48 L* D RBC 2.79 L Hgb 8.3 L Hct 25.5 L MCV 91.4 MCH 29.7 MCHC 32.5 RDW 18.8 H Plt Count 72 L MPV 10.8 Immature Gran % See Differential Neutrophils % 60.0 Band Neutrophils % 3.0 Lymphocytes % 4.0 Monocytes % 27.0 Eosinophils % 4.0 Basophils % 0.0 Myelocytes % 2.0 Absolute Neutrophils 0.93 L Absolute Lymphocytes 0.06 L Absolute Monocytes 0.40 Absolute Eosinophils 0.06 Absolute Basophils 0.00 Differential Comment Manual differential RBC Morphology See below Polychromasia Present Poikilocytosis 1+ Anisocytosis 2+ Sodium 139 Potassium 4.0 Chloride 109 H Carbon Dioxide 21.8 Anion Gap 8.2 BUN 18 Creatinine 1.98 H Estimated GFR/1.73 m2 27.26 Glucose 84 Calcium 8.5 Magnesium 1.6 L Preliminary micro results at discharge 11/21/18 10:20 Blood Culture - Preliminary Blood NO GROWTH 72 HOURS 11/21/18 14:52 Blood Culture - Preliminary Blood NO GROWTH 48 HOURS [facility] Medical History Renal insufficiency (Chronic 06/03/15) Obesity (Chronic) Multiple sclerosis (Chronic 01/19/13) Lymphoma (Chronic 05/03/14) Irregular menstruation (Chronic 09/14/13) Gouty arthritis (Chronic 04/05/17) Essential hypertension (Chronic 09/04/13) Depression (Chronic 09/03/14) Thrombocytopenia (Chronic) DVT prophylaxis (Acute) Pancytopenia (Chronic) Polycystic ovarian syndrome (Chronic) Depression (Chronic) Cellulitis of left arm (Resolved 01/15/14) Pleural effusion associated with pulmonary infection (Resolved) Pneumonia (Resolved) Chronic deep vein thrombosis (DVT) of both femoral veins (Chronic) 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 (Acute) Chronic renal insufficiency (Acute) Hypokalemia (Acute) PCOS (polycystic ovarian syndrome) (Acute) Pneumonia (Acute) Reactive arthritis of knee (Acute) DVT (deep venous thrombosis) (Chronic) Depression (Chronic) Multiple sclerosis (Chronic) Surgical History History of surgery (Chronic) Cholecystectomy Social History Smoking and Tabacco status: Former Tobacco Use
--- NOTE | 2018-11-24 14:20 | DSE_ITS ---
Date of service: 11/24/18 Time of Service: 14:18 DS: Diagnosis Discharge Diagnosis (1) Sepsis: Status: Acute (2) UTI (urinary tract infection): Status: Acute (3) Renal insufficiency: Status: Chronic (4) Lymphoma: Status: Chronic (5) Pancytopenia: Status: Chronic Discharge Plan Disposition Patient Disposition: HOME Condition: Stable Discharge Details Chief Complaint: GenMedical Reason For Visit: SEPSIS, UTI Admit Date/Time: 11/21/18 13:36 Admit Provider: Rod Sands Attending Provider: Rod Sands Primary Care Provider: Christy Enrique ED Provider: Pricilla Art Hospital Course Hospital Course: CC: Fall HPI: 43 year old woman with a history of Recurrent Lymphoma, Pancytopenia, and prior Neutropenic Fever with PNA, referred for admission on 11/21 from [facility] Emergency Department with a diagnosis of Sepsis. Ms. Lugo has a history of MS, HTN, Gout, and CKD. 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 She also follows with [facility] for recurrent Follicular B-Cell Lymphoma, currently on chemotherapy. The patient reported feeling weak at home, with onset of fever 2 days prior to admission, as well as a 2 week history of coughing. She suffered a fall on the night prior to admission without striking her head, but could not get back up from the floor. Her 9 year old daughter made her a soft bedding on the floor, and in the morning she was discovered by her brother. She was transported to the ED by EMS, and found to be hypotensive, tachycardic, and eventually with an altered mental status consisting of somnolence. Labwork was significant for pancytopenia, mild INDERJIT on CKD, hypokalemia, hypomagnesemia, and a UTI. Her CPK was checked and minimally elevated only, and improved by the next morning. Imaging with CT of the brain, Pelvic Xray, b/l knee xray, and CXR were all negative. She was referred for admission at that time. The patient was significantly hypotensive following admission, but responded well to fluid resuscitation. Her tachycardia resolved, and her mental status is at baseline, as is her renal function. Urine Cultures are growing an essentially pansensitive Klebsiella, and a MDR Citrobacter Freundii. She remains afebrile. Hospital Course: (1) Sepsis: Based on evidence of Tachycardia, Hypotension, altered mental status, with a urinary source for infection. Patient also with low WBC and platelet count, but chronic (history of pancytopenia). Appears resolved. Broad Coverage to include MRSA and ESBL with Vanco and Meropenem, renally dosed, changed to single agent Meropenem due to culture results. Repeat lactate normalized. Patient was changed to Once daily Ertapenem for ease of administration, with plans for completion of a 14 day course with outpatient infusion via patien'ts port. (2) UTI (urinary tract infection): Urine with only 50-100,000 growth of Citrobacter Freundii and Klebsiella, but with Urinalysis positive for Nitrite & LE, with gross Pyuria on microscopy. Klebsiella appears pansensitive, but Citrobacter is Multi-Drug Resistant. Sensitivity to TMP-SMX noted, but patient already on three times a week Bactrim and with CKD. As species is sensitive to Carbapenem therapy changed to once daily Ertapenem for completion of a 14 day course - patient has port in place for access. Today is Day #4 of antibiotic therapy. Is being scheduled for outpatient infusion therapy by Case Management. (3) Renal insufficiency: INDERJIT on CKD, with creatinine back to baseline with IVFs. Given sepsis picture a renal ultrasound was obtained showing significant left side hydronephrosis. 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 Avoid nephrotoxins, and renally dose medications. Baseline creatinine is 1.8-2.2 - monitor renal function. (4) Lymphoma: Discovered as patient was found to have an elevated creatinine, with evidence of hydronephrosis on ultrasound. Subsequent CT showed Retroperitoneal Mass, biopsy with Lymphoma in 2015. Follicular B-Cell Lymphoma, recurrent. Has initially undergone multiple cycles of R-CHOP, High dose Methotrexate, and is s/p Autologous Stem Cell Transplant. Her Lymphoma relapsed, and then recurred despite treatment with Lenalidomide and Rituximab. Patient is also s/p cycles of R-DHAP & R-ICE. Last oncology note with report of patient on Obinotuzimab and Bendamustine, confirmed via conversation with [facility] Hematology. (5) Pancytopenia: Noted. Worsened initially with IVF resuscitation, but has remained stable. Currently not neutropenic, but hgb with significant previous drop, s/p 2 units of PRBCs with appropriate response. Discussed numbers with [facility] Hematology - okay to discharge without further intervention. (6) DVT prophylaxis: Heparin SC was held given drop in platelet count. She was maintained on SCDs, TEDs. Home Meds and New Rx's Prescriptions: New sulfamethoxazole-trimethoprim 800-160 mg Tablet 1 tab PO MoWeFr@0900 Qty: 0 RF: 0 hydromorphone 2 mg Tablet 1 mg PO Q6H PRN PRNQty: 0 RF: 0 folic acid 1 mg Tablet 1 mg PO DAILY Qty: 0 RF: 0 ertapenem [Invanz] 1 gram Recon Soln 1 g IVPB Q24H Qty: 0 RF: 0 Continued albuterol sulfate [ProAir HFA] 90 mcg/actuation HFA aerosol inhaler 1 - 2 puff Inhalation QID PRN (Reason: bronchospasm) Qty: 1 RF: 4 acyclovir 800 MG tablet 800 mg PO BID Qty: 180 RF: 4 escitalopram oxalate [Lexapro] 20 MG tablet 20 mg PO QAM Qty: 90 RF: 4 bupropion HCl [Wellbutrin XL] 300 MG tablet extended release 24 hr 300 mg PO DAILY Qty: 90 RF: 4 acetaminophen [Tylenol Extra Strength] 500 mg Tablet 1,000 mg PO Q6H PRNRF: 0 doxycycline hyclate 100 mg Capsule 100 mg PO Q12H Qty: 60 RF: 0 albuterol sulfate 2.5 MG/3 ML solution for nebulization 2.5 mg UPD Q4H PRNQty: 20 RF: 0 Discharge Instructions Stand Alone Forms: Nursing Discharge Form Referrals: Uvaldo Lopez [ [facility] STAFF PHYSICIAN] - 12/05/18 10:40 am Activity:: No Strenuous Activity Equipment/Supplies:: No Equipment Needed Diet:: As Tolerated Discharge Orders Discharge Orders: Discharge Order (Routine); Ordered 11/24/18 Ordered By: Rod Sands DS: Data Vitals/I&O Vitals and I&O: Vital Signs Temperature 36.4 C L 11/24/18 07:20 Temperature Source Tympanic 11/24/18 07:20 Pulse 78 11/24/18 07:20 Pulse Rhythm Regular 11/24/18 07:51 Pulse 87 11/23/18 14:40 Respiratory Rate 14 11/24/18 07:20 Respiratory Effort Non-Labored 11/24/18 07:51 Respiratory Depth Normal 11/24/18 07:51 Respiratory Pattern Normal 11/24/18 07:51 Blood Pressure 118/83 11/24/18 07:20 Blood Pressure Mean 81 11/23/18 14:05 Blood Pressure Position Supine 11/22/18 15:56 Pulse Oximetry 100 11/24/18 07:20 Oxygen Delivery Method Room Air 11/24/18 07:20 Oxygen Flow Rate 0 11/24/18 07:20 Pain Level 0 11/24/18 07:51 Comment 11/23/18 17:16 Intake & Output 11/23/18 11/24/18 11/24/18 23:59 11:59 23:59 Intake Total 420 / 2720 1572.916 / 2392.916 820 / 2392.916 Output Total 900 / 2250 650 / 1450 800 / 1450 Balance -480 / 470 922.916 / 942.916 20 / 942.916 Intake: IV 100 / 2200 1332.916 / 1852.916 520 / 1852.916 Oral 320 / 520 240 / 540 300 / 540 Output: Urine 900 / 2250 650 / 1450 800 / 1450 Other: Urine Color Yellow Pale Pale Yellow Yellow Urine Appearance Clear Cloudy Cloudy Urine Odor Normal None None Comment Felton catheter in place. Void x1 in the toilet. Void x1 in the toilet. Stool Occult Blood Negative Stool Size Moderate Stool Characteristics Liquid Brown Voiding Methods Toilet Toilet Toilet Completed studies during hospitalization [Text1]: Exam(s) 11/[address]:CT head & cervical spine wo SYMPTOMS/DIAGNOSIS: S/P FALL, ? ACUTE PROCESS CT BRAIN: Noncontrast examination was performed. Comparison 05/30/18. The ventricles and sulci are consistent with the patient's age. No evidence of an acute intracranial hemorrhage, midline shift or mass effect is identified. There are areas of decreased attenuation in the white matter suggesting small vessel ischemic disease or other demyelinating process. These areas appear stable compared to 05/30/18. No skull fracture is seen. There is near complete opacification of the maxillary sinuses. There is thickening of the simeon of the maxillary sinuses. These findings are suggestive of chronic sinusitis. IMPRESSION: No acute intracranial process. CT SCAN OF THE CERVICAL SPINE. Multiple contiguous axial images of the cervical spine were obtained. Sagittal and coronal reformatted images were evaluated on the Siemens workstation. There is normal alignment. No acute fractures or subluxations are seen. The prevertebral soft tissues are unremarkable. IMPRESSION: No acute fracture or subluxation in the cervical spine. Exam(s) 11/21 a RAD:XR chest 1V in DI dept a RAD:XR knee LT 4V AP,lat,ogla,pat a RAD:XR knee RT 4V AP,lat,olga,pat a RAD:XR pelvis AP SYMPTOMS/DIAGNOSIS: S/P FALL, ? ACUTE FRACTURE, COUGH, ? ACUTE DISEASE/PNEUMONIA LEFT KNEE: Four views. No acute fracture or dislocation is identified. RIGHT KNEE: Four views. No acute fracture or dislocation is identified. No radiopaque foreign bodies are seen in the soft tissues. There are degenerative changes seen in the knee. IMPRESSION: No acute fracture or dislocation. PELVIS: Single view. No acute fracture or dislocation is seen. The bones are normally mineralized. The sacroiliac joints and symphysis pubis are intact. The soft tissues are unremarkable. IMPRESSION: No acute fracture or dislocation. AP CHEST: Comparison 10/20/18. The heart size and pulmonary vasculature are within normal limits. The lungs are clear and well expanded. No effusions or pneumothoraces are identified. The tip of the indwelling central venous catheter is in good position in the region of the junction of the superior vena cava and right atrium. The bones appear intact. IMPRESSION: No acute pulmonary process. Exam(s)11/22 a US:US renal SYMPTOM/DIAGNOSIS: UROSEPSIS, UTI RENAL ULTRASOUND: Routine examination. Comparison is made with 02/06/14. The right kidney measures 11.5 cm. long. No renal mass, calculus or obstruction is seen. There is blood flow to the right kidney. The left kidney measures 9.5 cm. long. There is marked hydronephrosis. No obstructing stone is seen. The degree of dilatation of the collecting system is slightly more prominent compared to the examination from 2013. No solid renal mass is seen. There is blood flow to the left kidney. The prevoid urinary bladder volume is 50 cc's. The ureteral jets were not visualized. The patient has a felton catheter in place. The bladder wall is not thickened. Note is made of free fluid in the pelvis and a small left pleural effusion. IMPRESSION: 1. Marked left hydronephrosis. No evidence of an obstructing stone. 2. Small left pleural effusion. 3. Free fluid in the pelvis. Exam(s) a RAD:XR chest 2V PA & lateral SYMPTOMS/DIAGNOSIS: ? PNEUMONIA, SEPSIS PA AND LATERAL CHEST: Comparison 10/20/18 and 11/21/18. The heart size and pulmonary vasculature are within normal limits. There is unchanged mild elevation of the left hemidi aphragm. No infiltrates or effusions are seen. No pneumothorax is identified. The tip of the indwelling central venous catheter is in good position at the junction of the superior vena cava and right atrium. Mild degenerative changes are seen in the spine. IMPRESSION: No acute pulmonary process. Labs on day of discharge: Labs from last 24 hours 11/24/18 11/24/18 06:55 06:55 WBC 1.48 L* D RBC 2.79 L Hgb 8.3 L Hct 25.5 L MCV 91.4 MCH 29.7 MCHC 32.5 RDW 18.8 H Plt Count 72 L MPV 10.8 Immature Gran % See Differential Neutrophils % 60.0 Band Neutrophils % 3.0 Lymphocytes % 4.0 Monocytes % 27.0 Eosinophils % 4.0 Basophils % 0.0 Myelocytes % 2.0 Absolute Neutrophils 0.93 L Absolute Lymphocytes 0.06 L Absolute Monocytes 0.40 Absolute Eosinophils 0.06 Absolute Basophils 0.00 Differential Comment Manual differential RBC Morphology See below Polychromasia Present Poikilocytosis 1+ Anisocytosis 2+ Sodium 139 Potassium 4.0 Chloride 109 H Carbon Dioxide 21.8 Anion Gap 8.2 BUN 18 Creatinine 1.98 H Estimated GFR/1.73 m2 27.26 Glucose 84 Calcium 8.5 Magnesium 1.6 L Preliminary micro results at discharge 11/21/18 10:20 Blood Culture - Preliminary Blood NO GROWTH 72 HOURS 11/21/18 14:52 Blood Culture - Preliminary Blood NO GROWTH 48 HOURS [facility] Medical History Renal insufficiency (Chronic 06/03/15) Obesity (Chronic) Multiple sclerosis (Chronic 01/19/13) Lymphoma (Chronic 05/03/14) Irregular menstruation (Chronic 09/14/13) Gouty arthritis (Chronic 04/05/17) Essential hypertension (Chronic 09/04/13) Depression (Chronic 09/03/14) Thrombocytopenia (Chronic) DVT prophylaxis (Acute) Pancytopenia (Chronic) Polycystic ovarian syndrome (Chronic) Depression (Chronic) Cellulitis of left arm (Resolved 01/15/14) Pleural effusion associated with pulmonary infection (Resolved) Pneumonia (Resolved) Chronic deep vein thrombosis (DVT) of both femoral veins (Chronic) 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 (Acute) Chronic renal insufficiency (Acute) Hypokalemia (Acute) PCOS (polycystic ovarian syndrome) (Acute) Pneumonia (Acute) Reactive arthritis of knee (Acute) DVT (deep venous thrombosis) (Chronic) Depression (Chronic) Multiple sclerosis (Chronic) Surgical History History of surgery (Chronic) Cholecystectomy Social History Smoking and Tabacco status: Former Tobacco Use
[2018-11-24] MEDS: Heparin 500 UNITS/5 ML SYRINGE IV (15:25)
--- NOTE | 2018-11-24 15:33 | PT.INNT ---
Date of service: 11/24/18 Time of Service: 15:33 PT Notes 11/24/18 Attempted PT consult again this am, although patient was resting and unable to participate. She is now planned for discharge today, and has reportedly been ambulating with nursing without difficulty. PT evaluation was unable to be completed, and patient will now be discharged from PT services. Lucina Clay, PT, DPT
== END 2018-11-24 15:57 | disposition home or self-care (01) | DRG 872 ==
LOC: ER 14:31 → ICU 15:47 → MS 11-23 15:13
PROVIDERS: Admitting Provider Internal Medicine; Emergency Provider Physician Assistant; PCP Family Medicine; Visit Provider Internal Medicine
DX: A41.9 Sepsis, unspecified organism (principal); N39.0 Urinary tract infection, site not specified; D61.818 Other pancytopenia; C82.80 Other types of follicular lymphoma, unspecified site; N17.9 Acute kidney failure, unspecified; N13.30 Unspecified hydronephrosis; N18.9 Chronic kidney disease, unspecified; G35 Multiple sclerosis; I10 Essential (primary) hypertension; Z79.899 Other long term (current) drug therapy; W19.XXXA Unspecified fall, initial encounter; E87.6 Hypokalemia; E83.42 Hypomagnesemia; Z45.2 Encounter for adjustment and management of vascular access device; B96.89 Other specified bacterial agents as the cause of diseases classified elsewhere; B96.1 Klebsiella pneumoniae [K. pneumoniae] as the cause of diseases classified elsewhere; Z16.19 Resistance to other specified beta lactam antibiotics; Z16.23 Resistance to quinolones and fluoroquinolones; Z16.11 Resistance to penicillins; Z23 Encounter for immunization; R29.6 Repeated falls
CPT/HCPCS: 36415; 36430; 36591; 76770; 80048; 80053; 82550; 83690; 86850; 86900; 86901; 86920; 86945; 87040; 87077; 87449; 93005; 94640; 96361; 96365; 99222; 99233; 99239; 99285; 70450; 71045; 71046; 72125; 72170; 73564; 81003; 81015; 81025; 83605; 83735; 84484; 85025; 86644; 87086; 87186; 93010; J0696; J1335; J1644; J3475; J7620; P9016

== ENCOUNTER 2018-12-04 02:05 | Outpatient (RCR) | payer MEDICARE, BC, SELFPAY ==
[2018-11-25 13:58] VITALS: BP 110/80; PULSE 88; RESP 18; TEMP 36.2; O2SAT 100
[2018-11-25] MEDS: Normal Saline 500 ML 200 ML IV (14:15)
[2018-11-25] MEDS: Normal Saline Flush 10 ML SYR IVP (14:23)
[2018-11-25] MEDS: Heparin 500 UNITS/5 ML SYRINGE IV (14:24)
[2018-11-26 14:00] VITALS: BP 114/82; PULSE 82; RESP 16; TEMP 36.5; O2SAT 100
[2018-11-26] MEDS: Normal Saline 500 ML 200 ML IV (14:12)
[2018-11-26] MEDS: Heparin 500 UNITS/5 ML SYRINGE IV (14:18)
[2018-11-26] MEDS: Normal Saline Flush 10 ML SYR IVP (14:18)
[2018-11-27] MEDS: Normal Saline Flush 10 ML SYR IVP (14:18)
[2018-11-27] MEDS: Heparin 500 UNITS/5 ML SYRINGE IV (14:19)
[2018-11-27 14:25] VITALS: BP 105/71; PULSE 87; RESP 18; TEMP 36; O2SAT 100
[2018-11-28] MEDS: Normal Saline Flush 10 ML SYR IVP (14:10)
[2018-11-28] MEDS: Heparin 500 UNITS/5 ML SYRINGE IV (14:27)
[2018-11-28 14:35] LABS: Abs Immature Grans 0.02 k/cumm (0.0-0.09); Absolute Basophil Count 0.03 k/cumm (0.0-0.2); Absolute Eosinophil Count 0.26 k/cumm (0.0-0.7); Absolute Lymphocyte Count 0.25 k/cumm (1.2-3.4); Basophils % 1.6; HGB 8.9 g/dL (12.0-15.5); Immature Grans % 1.1; Lymphocytes % 13.4; Mean Corp. HGB Concentration 31.8 g/dL (32.0-36.0); Mean Corpuscular Hemoglobin 29.6 pg (27.0-33.0); Mean Platelet Volume 11.7 fL (8.0-11.0); Monocytes % 21.5; Neutrophils % 48.4; RBC 3.01 m/cumm (4.00-5.20); RBC Distribution Width 17.8 % (11.7-14.6)
[2018-11-28 15:20] LABS: Anisocytosis 2+; Diff Comment Diff Reviewed; Platelet Count 76 x1000/uL (130-400); White Blood Cell Count 1.86 k/cumm (4.4-10.8)
[2018-11-28 15:21] LABS: Poikilocytes 1+; Polychromasia Present
[2018-11-29 14:16] VITALS: BP 110/81; PULSE 85; RESP 18; TEMP 36.1; O2SAT 98
[2018-11-29] MEDS: Normal Saline Flush 10 ML SYR IVP (14:21)
[2018-11-29] MEDS: Heparin 500 UNITS/5 ML SYRINGE IV (14:22)
[2018-11-30] MEDS: Normal Saline Flush 10 ML SYR IVP (14:08)
[2018-11-30 14:18] VITALS: BP 103/69; PULSE 86; RESP 18; TEMP 36.5; O2SAT 100
[2018-11-30] MEDS: Heparin 500 UNITS/5 ML SYRINGE IV (14:55)
[2018-12-04] MEDS: Heparin 500 UNITS/5 ML SYRINGE IV (14:08)
[2018-12-04] MEDS: Normal Saline Flush 10 ML SYR IVP (14:08)
== END 2018-12-24 23:59 | disposition home or self-care (01) ==
LOC: INF 02:05
PROVIDERS: PCP Family Medicine; Visit Provider Internal Medicine
DX: A41.9 Sepsis, unspecified organism (principal); N39.0 Urinary tract infection, site not specified; C82.80 Other types of follicular lymphoma, unspecified site
CPT/HCPCS: 36591; 96365; 96523; 85025; J1335

== ENCOUNTER 2019-02-28 08:35 | Outpatient (REF) | payer MEDICARE, BC, SELFPAY ==
[2019-03-01 09:06] LABS: Creatinine,Urine 44.48 mg/dL
[2019-03-01 09:33] LABS: Creatinine Clearance Urine 24 mls/min (97-137); Total Volume 1700 ml
== END 2019-02-28 08:55 ==
LOC: LBN 08:35
PROVIDERS: PCP Family Medicine; Visit Provider Internal Medicine Hematology & Oncology
DX: R79.89 Other specified abnormal findings of blood chemistry (principal)
CPT/HCPCS: 81050; 82575

== ENCOUNTER 2019-03-01 08:59 | Outpatient (RCR) | payer MEDICARE, BC, SELFPAY ==
[2019-03-01] MEDS: Normal Saline Flush 10 ML SYR IVP (09:08)
[2019-03-01] MEDS: Heparin 500 UNITS/5 ML SYRINGE IV (09:08)
[2019-03-01 09:31] LABS: ALT 14 U/L (12-78); AST 18 U/L (15-37); Alkaline Phosphatase 91 U/L (46-116); Anion Gap 13.8 mmol/L (3-11); BUN 26 mg/dL (7-18); Bilirubin, Total 0.2 mg/dL (0.2-1.0); CO2 21.2 mmol/L (21.0-32.0); Calcium 8.6 mg/dL (8.5-10.1); Chloride 102 mmol/L (98-107); Estimated GFR 24.14 (mL/min/1.73m2); Glucose 104 mg/dL (70-100); Potassium 3.5 mmol/L (3.5-5.1); Sodium 137 mmol/L (136-145)
== END 2019-03-25 23:59 | disposition home or self-care (01) ==
LOC: INF 08:59
PROVIDERS: PCP Family Medicine; Visit Provider Internal Medicine Hematology & Oncology
DX: C83.38 Diffuse large B-cell lymphoma, lymph nodes of multiple sites (principal); Z45.2 Encounter for adjustment and management of vascular access device
CPT/HCPCS: 36591; 80053

== ENCOUNTER 2019-03-12 22:13 | Inpatient (IN) | payer MEDICARE, BC, SELFPAY ==
[2019-03-12] VITALS (15 sets, daily range): BP systolic 123–129; BP diastolic 74–87; PULSE 102–121; RESP 19–32; TEMP 38; O2SAT 94–99
--- NOTE | 2019-03-12 00:40 | DI.RAD_ITS ---
SYMPTOM/DIAGNOSIS: FEVER AP AND LATERAL CHEST: Comparison is made with 22 Nov 2018. A Port is again noted over the right chest with the tip in the SVC. Heart size is normal. There is a small right pleural effusion. Increased densities are also seen above the left lung base which is suspicious for pneumonia. The remainder of the lung padron appear clear. IMPRESSION: Left lower lobe pneumonia and small left pleural effusion.
--- NOTE | 2019-03-12 22:20 | W.ED.GENAD ---
Discharge Plan Disposition Patient Disposition: [facility] INPATIENT Condition: Critical Discharge Details Chief Complaint: Nausea/Vomit/Diar Clinical Impression: Pneumonia, Thrombocytopenia, Sepsis, Leukopenia Primary Care Provider: Christy Enrique ED Provider: Zackery Tom Home Meds and New Rx's Prescriptions: No Action prednisone 20 mg tablet 20 mg PO DAILY RF: 0 acyclovir 800 MG tablet 800 mg PO BID Qty: 180 RF: 4 escitalopram oxalate [Lexapro] 20 MG tablet 20 mg PO QAM Qty: 90 RF: 4 bupropion HCl [Wellbutrin XL] 300 MG tablet extended release 24 hr 300 mg PO DAILY Qty: 90 RF: 4 acetaminophen [Tylenol Extra Strength] 500 mg Tablet 1,000 mg PO Q6H PRNRF: 0 doxycycline hyclate 100 mg Capsule 100 mg PO Q12H Qty: 60 RF: 0 sulfamethoxazole-trimethoprim 800-160 mg Tablet 1 tab PO MoWeFr@0900 Qty: 0 RF: 0 hydromorphone 2 mg Tablet 1 mg PO Q6H PRN PRNQty: 0 RF: 0 folic acid 1 mg Tablet 1 mg PO DAILY Qty: 0 RF: 0 Medical Decision Making 10:25 --43-year-old female with non-Hodgkin's lymphoma, recently started new chemotherapy, here with generalized weakness, lethargy, fever today. Patient is tachycardic. Afebrile. Normotensive. Concern for neutropenic fever. Consider sepsis. We will initiate IV fluid resuscitation. 11:35 -- Port accessed by nursing. Patient difficult IV access. I attempted rt EJ after verbal consent - patient did not tolerate attempt secondary to pain. Plan for additional IV fluid resuscitation. Labs reviewed. Elevated lactate. Leukopenia. Absolute neutrophil count 1.5. Will initiate antiboitic coverage with cefepime 2g IV. cxr pending. 12:00 -- 20g peripheral IV placed left arm with US guidance by nursing. Patient on second liter NS and still tachycardic. Will add liter LR to IV line. 12:40 -- cxr reviewed and interpreted by me: LLL infiltrate, retrocardiac and seen on lateral. Plan to broaden coverage with levaquin 750mg IV. Patient reassessed and continues to be tachycardic. Blood pressure stable. Patient has received almost 3 L at this point. 12:45 -- I spoke with Dr. Gusman who will admit the patient. We discussed ED presentation and course including diagnostic results. He request bridging orders be placed to the ICU. Care transition to Dr. Gusman. Lab Data Lab results narrative: 03/13/19 00:00 Blood Blood Culture - Pending 03/12/19 22:30 Blood Blood Culture - Pending Laboratory Tests Range/Units 03/12/19 03/12/19 03/12/19 22:30 22:30 22:30 WBC (4.4-10.8) k/cumm 2.08 L RBC (4.00-5.20) m/cumm 3.29 L Hgb (12.0-15.5) g/dL 10.5 L Hct (36.0-46.0) % 32.0 L MCV (80-95) fL 97.3 H MCH (27.0-33.0) pg 31.9 MCHC (32.0-36.0) g/dL 32.8 RDW (11.7-14.6) % 24.1 H Plt Count (130-400) x1000/uL 88 L MPV (8.0-11.0) fL 9.6 Immature Gran % See Differential Neutrophils % 67.0 Band Neutrophils % % 7.0 Lymphocytes % 13.0 Monocytes % 10.0 Eosinophils % 0.0 Basophils % 0.0 Metamyelocytes % % 2.0 Myelocytes % % 1.0 Absolute Neutrophils (1.2-6.7) k/cumm 1.54 Absolute Lymphocytes (1.2-3.4) k/cumm 0.27 L Absolute Monocytes (0.11-0.7) k/cumm 0.21 Absolute Eosinophils (0.0-0.7) k/cumm 0.00 Absolute Basophils (0.0-0.2) k/cumm 0.00 Differential Comment Manual differential RBC Morphology See below Polychromasia Present Anisocytosis 2+ Macrocytosis 1+ Stomatocytes 2+ Sodium (136-145) mmol/L 135 L Potassium (3.5-5.1) mmol/L 4.2 Chloride (98-107) mmol/L 98 Carbon Dioxide (21.0-32.0) mmol/L 24.0 Anion Gap (3-11) mmol/L 13.0 H BUN (7-18) mg/dL 29 H Creatinine (0.55-1.02) mg/dL 2.06 H Estimated GFR/1.73 m2 (mL/min/1.73m2) 26.04 Glucose (70-100) mg/dL 92 Lactate (0.6-1.4) mmol/L 2.0 H Calcium (8.5-10.1) mg/dL 9.0 Total Bilirubin (0.2-1.0) mg/dL 0.6 AST (15-37) U/L 27 ALT (12-78) U/L 17 Alkaline Phosphatase (46-116) U/L 91 Total Protein (6.4-8.2) g/dL 6.5 Albumin (3.4-5.0) g/dL 3.1 L Procalcitonin ng/mL Range/Units 03/12/19 22:30 WBC (4.4-10.8) k/cumm RBC (4.00-5.20) m/cumm Hgb (12.0-15.5) g/dL Hct (36.0-46.0) % MCV (80-95) fL MCH (27.0-33.0) pg MCHC (32.0-36.0) g/dL RDW (11.7-14.6) % Plt Count (130-400) x1000/uL MPV (8.0-11.0) fL Immature Gran % Neutrophils % Band Neutrophils % % Lymphocytes % Monocytes % Eosinophils % Basophils % Metamyelocytes % % Myelocytes % % Absolute Neutrophils (1.2-6.7) k/cumm Absolute Lymphocytes (1.2-3.4) k/cumm Absolute Monocytes (0.11-0.7) k/cumm Absolute Eosinophils (0.0-0.7) k/cumm Absolute Basophils (0.0-0.2) k/cumm Differential Comment RBC Morphology Polychromasia Anisocytosis Macrocytosis Stomatocytes Sodium (136-145) mmol/L Potassium (3.5-5.1) mmol/L Chloride (98-107) mmol/L Carbon Dioxide (21.0-32.0) mmol/L Anion Gap (3-11) mmol/L BUN (7-18) mg/dL Creatinine (0.55-1.02) mg/dL Estimated GFR/1.73 m2 (mL/min/1.73m2) Glucose (70-100) mg/dL Lactate (0.6-1.4) mmol/L Calcium (8.5-10.1) mg/dL Total Bilirubin (0.2-1.0) mg/dL AST (15-37) U/L ALT (12-78) U/L Alkaline Phosphatase (46-116) U/L Total Protein (6.4-8.2) g/dL Albumin (3.4-5.0) g/dL Procalcitonin ng/mL 0.1 HPI General Mode of arrival: ambulatory. Date/Time Provider Initiated Documentation: 03/12/19 22:18. Limitations to Documentation: no limitations. Information obtained by: patient. HPI Narrative: 43-year-old female with history of non-Hodgkin's lymphoma, recently started new chemotherapy, here with chief complaint of generalized weakness. Weakness is severe. Weakness has progressed all day today since onset yesterday. No modifiers. She has associated fever. She has had recent cough. No abdominal pain. No dysuria. No headache or neck stiffness. Related Data Home Medications Medication Instructions Recorded Confirmed acyclovir 800 mg PO BID #180 tab-cap 10/18/15 02/23/19 escitalopram oxalate [Lexapro] 20 mg PO QAM #90 tab-cap 09/09/17 02/23/19 bupropion HCl [Wellbutrin XL] 300 mg PO DAILY #90 tab-cap 03/30/18 02/23/19 acetaminophen [Tylenol Extra 1,000 mg PO Q6H PRN 05/30/18 02/23/19 Strength] doxycycline hyclate 100 mg PO Q12H #60 cap 06/10/18 02/23/19 folic acid 1 mg PO DAILY #0 tab 11/24/18 02/23/19 hydromorphone 1 mg PO Q6H PRN PRN #0 tab 11/24/18 02/23/19 sulfamethoxazole-trimethoprim 1 tab PO MoWeFr@0900 #0 tab 11/24/18 02/23/19 prednisone 20 mg tablet 20 mg PO DAILY 02/23/19 02/23/19 Previous Rx's Medication Instructions Recorded escitalopram oxalate [Lexapro] 20 mg PO QAM #90 tab-cap 09/09/17 bupropion HCl [Wellbutrin XL] 300 mg PO DAILY #90 tab-cap 03/30/18 doxycycline hyclate 100 mg PO Q12H #60 cap 06/10/18 folic acid 1 mg PO DAILY #0 tab 11/24/18 hydromorphone 1 mg PO Q6H PRN PRN #0 tab 11/24/18 sulfamethoxazole-trimethoprim 1 tab PO MoWeFr@0900 #0 tab 11/24/18 Allergies Allergy/AdvReac Type Severity Reaction Status Date / Time cytarabine AdvReac Severe neurological Verified 12/20/18 11:47 sxs NSAIDS (Non-Steroidal AdvReac Severe lymphoma/ki Verified 12/20/18 11:47 Anti-Inflamma dney General Stated Complaint: Nausea/Vomit/Diar LIAT: 3 Review of Systems Review of Systems All systems reviewed & are unremarkable except as noted in HPI and below Constitutional Reports fever(s) and Denies headache(s) ENT Denies headache(s) and Denies sore throat Cardiovascular Denies dyspnea Respiratory Reports cough and Denies dyspnea Gastrointestinal Denies abdominal pain Genitourinary Denies dysuria Musculoskeletal Reports arthralgias Integumentary/Breasts Denies rash Neurologic Denies headache(s) PFSH Medical History Dyspnea on minimal exertion (Chronic) Generalized weakness (Chronic) Diffuse large B cell lymphoma (Chronic) Follicular lymphoma (Chronic) Frequent falls (Chronic) Ataxia (Chronic) Palliative care patient (Chronic) Renal insufficiency (Chronic 06/03/15) Obesity (Chronic) Multiple sclerosis (Chronic 01/19/13) Lymphoma (Chronic 05/03/14) Irregular menstruation (Chronic 09/14/13) Gouty arthritis (Chronic 04/05/17) Essential hypertension (Chronic 09/04/13) Depression (Chronic 09/03/14) Thrombocytopenia (Chronic) DVT prophylaxis (Acute) Pancytopenia (Chronic) Polycystic ovarian syndrome (Chronic) Depression (Chronic) Cellulitis of left arm (Resolved 01/15/14) Pleural effusion associated with pulmonary infection (Resolved) Pneumonia (Resolved) Chronic deep vein thrombosis (DVT) of both femoral veins (Chronic) 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 (Acute) Chronic renal insufficiency (Acute) Hypokalemia (Acute) PCOS (polycystic ovarian syndrome) (Acute) Pneumonia (Acute) Reactive arthritis of knee (Acute) DVT (deep venous thrombosis) (Chronic) Depression (Chronic) Multiple sclerosis (Chronic) Surgical History History of surgery (Chronic) Cholecystectomy Family History Brother No problems noted. Brother No problems noted. Brother No problems noted. Social History Smoking/Tobacco Use Status: Former Tobacco Use Alcohol Intake: former Drug use: Never Substance use type: does not use Adopted: No Caregiver/Support person: Yes Household members: none Housing: house Number of Children: 2 Pets and animals: No What is your relationship status?: How often do you talk on the phone with friends or family?: three or more times per week How often do you get together with friends or relatives?: three or more times per week Panel score (0-1 are the most socially isolated patients): 1 What type of physical activity do you participate in: none Special ashley needs: No Agree to transfusion: Yes Do you feel safe at home: Yes Do you feel safe in your relationship?: Yes Additional Social history: brother Jitendra and Lisa caring for her 2 children, both adopted. Brother Manuelito brings her to doctor's apts, is her main support person. Has other family/friends involved, including Samara Katz, who asked me to see Sherine initially. Exam Const General: cooperative, not in acute distress and lethargic [facility] Head: normocephalic and atraumatic Mouth: moist mucous membranes Eyes Conjunctivae: normal conjunctivae Sclera: normal sclerae EOM: EOM intact bilaterally Neck Neck: trachea midline and supple Resp Auscultation: clear to auscultation bilaterally, no rales, no rhonchi and no wheezes Cardio Jugular venous pressure: no JVD Rate: tachycardic Rhythm: regular rhythm GI Palpation: soft, not firm, no guarding, no masses, not rigid and nontender Skin General skin exam: no rashes or lesions noted Neuro General: alert, awake, oriented x3 and other (generalized weakness, nonfocal neuro exam) Extrem General: no edema Course Vital Signs Temperature 38 C H 03/12/19 22:10 Pulse 106 H 03/12/19 22:10 Respiratory Rate 32 H 03/12/19 22:10 Blood Pressure 123/87 03/12/19 22:10 Pulse Oximetry 98 03/12/19 22:10 Temperature 38 C H 03/12/19 22:10 Temperature Source Skin 03/12/19 22:10 Pulse 106 H 03/12/19 22:10 Respiratory Rate 32 H 03/12/19 22:10 Blood Pressure 123/87 03/12/19 22:10 Blood Pressure Position Supine 03/12/19 22:10 Pulse Oximetry 98 03/12/19 22:10 Oxygen Delivery Method Room Air 03/12/19 22:10 Oxygen Flow Rate 0 03/12/19 22:10 Lab/Test Results Lab/Test Results: 03/12/19 22:19 Blood Blood Culture - Pending 03/12/19 22:19 Blood Blood Culture - Pending Critical Care Time Critical Care Time: Yes Total Critical Care Time: 70 Attestation: I spent greater than 70 minutes addressing this patient's immediate life threats
[2019-03-12] MEDS: Normal Saline 1,000 ML 1000 ML IV (22:32)
[2019-03-12 23:05] LABS: ALT 17 U/L (12-78); AST 27 U/L (15-37); Albumin 3.1 g/dL (3.4-5.0); Alkaline Phosphatase 91 U/L (46-116); BUN 29 mg/dL (7-18); Bilirubin, Total 0.6 mg/dL (0.2-1.0); CREATININE 2.06 mg/dL (0.55-1.02); Chloride 98 mmol/L (98-107); Estimated GFR 26.04 (mL/min/1.73m2); Glucose 92 mg/dL (70-100); Potassium 4.2 mmol/L (3.5-5.1); Sodium 135 mmol/L (136-145); Total Protein 6.5 g/dL (6.4-8.2)
[2019-03-12 23:10] LABS: Abs Immature Grans 0.16 k/cumm (0.0-0.09); HGB 10.5 g/dL (12.0-15.5); Mean Corp. HGB Concentration 32.8 g/dL (32.0-36.0); Mean Corpuscular Hemoglobin 31.9 pg (27.0-33.0); Mean Corpuscular Volume 97.3 fL (80-95); Mean Platelet Volume 9.6 fL (8.0-11.0); Platelet Count 88 x1000/uL (130-400); RBC 3.29 m/cumm (4.00-5.20); RBC Distribution Width 24.1 % (11.7-14.6); White Blood Cell Count 2.08 k/cumm (4.4-10.8)
[2019-03-12 23:11] LABS: Absolute Lymphocyte Count 0.27 k/cumm (1.2-3.4); Absolute Neutrophil Count 1.54 k/cumm (1.2-6.7)
[2019-03-12 23:12] LABS: Absolute Monocyte Count 0.21 k/cumm (0.11-0.7); Anisocytosis 2+; Diff Comment Manual Differential; Macrocytosis 1+; Polychromasia Present; Stomatocytes 2+
[2019-03-12 23:19] LABS: Procalcitonin 0.1 ng/mL
[2019-03-13] VITALS (63 sets, daily range): BP systolic 82–128; BP diastolic 50–80; PULSE 53–144; RESP 13–57; TEMP 36.3–38; O2SAT 95–100
[2019-03-13] MEDS: Normal Saline 1,000 ML 1000 ML IV (00:01)
[2019-03-13] MEDS: CEFEPIME 2 GM in Normal Saline 100 ML IVPB (00:13)
[2019-03-13] MEDS: Lactated Ringers 1,000 ML 1000 ML IV (00:14)
[2019-03-13] MEDS: Normal Saline 100 ML 200 ML (00:15)
--- NOTE | 2019-03-13 01:05 | DI.VRAD_ITS ---
EXAM: XR Chest, 2 Views EXAM DATE/TIME: 03/12/2019 10:20 PM CLINICAL HISTORY: 43 years old, female; Signs and symptoms; Fever; Prior surgery; Surgery date: 6+ months; Surgery type: Port TECHNIQUE: Imaging protocol: XR of the chest, 2 views. COMPARISON: CR XR CHEST 2V PA LATERAL 22/11/2018 11:59 FINDINGS: Tubes, catheters and devices: There is a right IJ Port-A-Cath in place similar to the prior study of October 2018. Lungs: There is a left lower lobe posterior segment pneumonia with blunting of the posterior and left lateral costophrenic angle. Pleural space: Blunted lateral and posterior costophrenic angle. No pneumothorax. Heart/Mediastinum: The heart and mediastinum are unchanged. Bones/joints: There is multilevel degenerative changes of the thoracic spine. IMPRESSION: Left lower lobe posterior segment pneumonia. Dictated and Authenticated by: Carmela Carrera MD. Ordering:JORDAN Vizcarra MD
[2019-03-13] MEDS: ACETAMINOPHEN 1,000 MG/100 ML BTL 400 MG IVPB ×5 (01:07→23:38)
[2019-03-13] MEDS: levoFLOXacin 750 MG/150 ML BAG 100 MG IVPB (01:09)
[2019-03-13] MEDS: Normal Saline 1,000 ML 250 ML IV ×3 (01:57→11:33)
[2019-03-13] MEDS: Lactated Ringers 1,000 ML 250 ML IV (02:00)
--- NOTE | 2019-03-13 02:00 | W.PM.HP.N ---
Date of service: 03/13/19 Time of Service: 02:01 Assessment and Plan (1) Pneumonia: Start date: 03/12/19 Current visit: No Status: Resolved This is a 43-year-old lady recent new chemotherapy for recurring diffuse large B-cell lymphoma. She presents with weakness and may be adrenal insufficient because of her chronic steroid use with her chemotherapy. She has been on high-dose prednisone recently. She has a fever with neutropenia and sepsis syndrome though not severe with a low procalcitonin. She does have tachycardia and is being IV fluid resuscitated which will continue with IV antibiotic therapy for her pneumonia. She also will receive hydrocortisone at stress doses for probable adrenal insufficiency with chronic steroid use. Patient is responding slowly to therapy but is still critical and will be admitted to the ICU. Qualifiers: Laterality: left Lung location: lower lobe of lung Pneumonia type: due to unspecified organism Qualified Code(s): J18.1 - Lobar pneumonia, unspecified organism (2) Sepsis: Start date: 03/12/19 Current visit: No Status: Acute Patient meets criteria for sepsis syndrome with a low procalcitonin and will continue IV fluid resuscitation with treatment of her left lower lobe pneumonia. She may appear more critically ill because of adrenal insufficiency at stress dose hydrocortisone will be given IV. Qualifiers: Sepsis type: sepsis due to unspecified organism Qualified Code(s): A41.9 - Sepsis, unspecified organism (3) Neutropenic fever: Start date: 03/12/19 Current visit: No Status: Acute The source of fever may be pneumonia with IV Levaquin and cefepime to be given as treatment should be adequate with her after being fever. Follow-up chest x-ray to assure no progression of her pneumonia. Continue to monitor labs. IV Tylenol was given for fever. This may help with her discomfort. (4) Diffuse large B cell lymphoma: Current visit: No Status: Chronic Patient has had a 5-year history of lymphoma with remission and recurrence is now with a recurrence on the chemotherapy. She will continue to follow-up with oncology. She is a full code. Qualifiers: Lymphoma site: unspecified region Qualified Code(s): C83.30 - Diffuse large B-cell lymphoma, unspecified site (5) Adrenal insufficiency: Start date: 03/12/19 Current visit: Yes Status: Acute Patient is on chronic high-dose steroids and with stress of her fever and pneumonia she will require stress steroids with hydrocortisone 100 mg IV every 8 hours to be given. History of Present Illness Chief Complaint: Nausea with extreme weakness and fever Narrative: This is a 43-year-old lady with a diagnosis of diffuse large B-cell lymphoma diagnosed 5 years ago having had chemotherapy with several remissions during that time and recently restarted on new chemotherapy having her last course 4 days ago. On the evening of admission the patient began having extreme weakness with nausea no diarrhea. She also has had a recent cough weakness did begin the day prior to admission. She does have a headache the time that I saw her but no stiffness in her neck. She was tachycardic and clinically septic in the ED with tachycardia persisted despite fluid resuscitation. She has been on steroids chronically up to 100 mg a day and she may be suppressed with hydrocortisone IV to be given. This may be causing some of her weakness with her acute distress. At this time I saw the patient she was smiling intermittently and comfortable though intermittently restless and drowsy. She does appear chronically ill. Her chronic medical problems also include CKD which is stable and a history of multiple sclerosis. She is on several antidepressants. In the ED with evaluation she was found to have a left lower lobe pneumonia and was neutropenic but not severely with her absolute neutrophil count above 1000. Her fever persisted at 30 ?C and she did receive IV Tylenol which will be continued. Review of Systems Review of Systems 13 point review of systems otherwise unrevealing or stable. Patient has a history of obesity but appears to have lost weight. [facility] Medical History Dyspnea on minimal exertion (Chronic) Generalized weakness (Chronic) Diffuse large B cell lymphoma (Chronic) Follicular lymphoma (Chronic) Frequent falls (Chronic) Ataxia (Chronic) Palliative care patient (Chronic) Renal insufficiency (Chronic 06/03/15) Obesity (Chronic) Multiple sclerosis (Chronic 01/19/13) Lymphoma (Chronic 05/03/14) Irregular menstruation (Chronic 09/14/13) Gouty arthritis (Chronic 04/05/17) Essential hypertension (Chronic 09/04/13) Depression (Chronic 09/03/14) Thrombocytopenia (Chronic) DVT prophylaxis (Acute) Pancytopenia (Chronic) Polycystic ovarian syndrome (Chronic) Depression (Chronic) Cellulitis of left arm (Resolved 01/15/14) Pleural effusion associated with pulmonary infection (Resolved) Pneumonia (Resolved) Chronic deep vein thrombosis (DVT) of both femoral veins (Chronic) 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 (Acute) Chronic renal insufficiency (Acute) Hypokalemia (Acute) PCOS (polycystic ovarian syndrome) (Acute) Pneumonia (Acute) Reactive arthritis of knee (Acute) DVT (deep venous thrombosis) (Chronic) Depression (Chronic) Multiple sclerosis (Chronic) Surgical History History of surgery (Chronic) Cholecystectomy Family History Brother No problems noted. Brother No problems noted. Brother No problems noted. Social History Smoking/Tobacco Use Status: Former Tobacco Use Alcohol Intake: former Drug use: Never Substance use type: does not use Adopted: No Caregiver/Support person: Yes Household members: none Housing: house Number of Children: 2 Pets and animals: No What is your relationship status?: How often do you talk on the phone with friends or family?: three or more times per week How often do you get together with friends or relatives?: three or more times per week Panel score (0-1 are the most socially isolated patients): 1 What type of physical activity do you participate in: none Special ashley needs: No Agree to transfusion: Yes Do you feel safe at home: Yes Do you feel safe in your relationship?: Yes Additional Social history: brother Jitendra and Lisa caring for her 2 children, both adopted. Brother Manuelito brings her to doctor's apts, is her main support person. Has other family/friends involved, including Samara Katz, who asked me to see Sherine initially. Meds Home Medications Medication Instructions Recorded Confirmed Type acyclovir 800 mg PO BID #180 tab-cap 10/18/15 03/13/19 History escitalopram oxalate [Lexapro] 20 mg PO QAM #90 tab-cap 09/09/17 03/13/19 Rx bupropion HCl [Wellbutrin XL] 300 mg PO DAILY #90 tab-cap 03/30/18 03/13/19 Rx acetaminophen [Tylenol Extra 1,000 mg PO Q6H PRN 05/30/18 03/13/19 History Strength] doxycycline hyclate 100 mg PO Q12H #60 cap 06/10/18 03/13/19 Rx folic acid 1 mg PO DAILY #0 tab 11/24/18 03/13/19 Rx hydromorphone 1 mg PO Q6H PRN PRN #0 tab 11/24/18 03/13/19 Rx sulfamethoxazole-trimethoprim 1 tab PO MoWeFr@0900 #0 tab 11/24/18 03/13/19 Rx prednisone 20 mg tablet 20 mg PO DAILY 02/23/19 03/13/19 History Allergies Allergy/AdvReac Type Severity Reaction Status Date / Time cytarabine AdvReac Severe neurological Verified 12/20/18 11:47 sxs NSAIDS (Non-Steroidal AdvReac Severe lymphoma/ki Verified 12/20/18 11:47 Anti-Inflamma dney Exam Narrative Exam Narrative: General: Patient appears older than stated age, skin is darkened diffusely appearing tanned though she does not get a sign and she has a moderate distress with her nausea and weakness. Her affect is flat but eye contact fair. She intermittently has slurred speech and is drowsy. She is alert and oriented to person and place at least. HEENT: Normocephalic with eyes revealing pupils equal and reactive to light symmetrically, extraocular movement intact and sclera anicteric. External ears are normal. Oropharynx with fair dentition and discolored teeth with very dry mucosa. Neck: Supple with no meningismus and no JVD. Lungs: Fair aeration with poor inspiratory effort no focalizing rales or rhonchi. Back: Stooped posture with no CVA tenderness. Heart: Tachycardic rate with normal rhythm and no appreciable murmur gallop. Breasts: Exam deferred. Abdomen: Obese contour, soft and nontender with no palpable hepatosplenomegaly and bowel sounds present but decreased in all quadrants. Genitalia/rectal: Exam deferred. Extremities: Mild nonpitting edema with shiny atrophic skin over lower extremities and loss of hair. No joint swelling with fair range of motion of the joints. The IP joints and some of her larger joints did have some chronic arthritic changes with a history of gout. Skin: Appears hyperpigmented variably as if darkly tanned, warm and dry. Neuro: Patient is drowsy but has no focal motor deficits and cranial nerves II through XII appear to be grossly intact. Psych: Depressed mood with flattened affect. Recent and remote memory appear to be grossly intact except the patient's drowsiness with some slow mentation with her responses. Results Imaging Imaging Studies: EXAM: XR Chest, 2 Views EXAM DATE/TIME: 03/12/2019 10:20 PM CLINICAL HISTORY: 43 years old, female; Signs and symptoms; Fever; Prior surgery; Surgery date: 6+ months; Surgery type: Port TECHNIQUE: Imaging protocol: XR of the chest, 2 views. COMPARISON: CR XR CHEST 2V PA LATERAL 22/11/2018 11:59 FINDINGS: Tubes, catheters and devices: There is a right IJ Port-A-Cath in place similar to the prior study of October 2018. Lungs: There is a left lower lobe posterior segment pneumonia with blunting of the posterior and left lateral costophrenic angle. Pleural space: Blunted lateral and posterior costophrenic angle. No pneumothorax. Heart/Mediastinum: The heart and mediastinum are unchanged. Bones/joints: There is multilevel degenerative changes of the thoracic spine. IMPRESSION: Left lower lobe posterior segment pneumonia. Dictated and Authenticated by: Carmela Carrera MD. Labs : 03/12/19 22:30 03/12/19 22:30 Laboratory Results - last 24 hr 03/12/19 03/12/19 03/12/19 22:30 22:30 22:30 WBC 2.08 L RBC 3.29 L Hgb 10.5 L Hct 32.0 L MCV 97.3 H MCH 31.9 MCHC 32.8 RDW 24.1 H Plt Count 88 L MPV 9.6 Immature Gran % See Differential Neutrophils % 67.0 Band Neutrophils % 7.0 Lymphocytes % 13.0 Monocytes % 10.0 Eosinophils % 0.0 Basophils % 0.0 Metamyelocytes % 2.0 Myelocytes % 1.0 Absolute Neutrophils 1.54 Absolute Lymphocytes 0.27 L Absolute Monocytes 0.21 Absolute Eosinophils 0.00 Absolute Basophils 0.00 Differential Comment Manual differential RBC Morphology See below Polychromasia Present Anisocytosis 2+ Macrocytosis 1+ Stomatocytes 2+ Sodium 135 L Potassium 4.2 Chloride 98 Carbon Dioxide 24.0 Anion Gap 13.0 H BUN 29 H Creatinine 2.06 H Estimated GFR/1.73 m2 26.04 Glucose 92 Lactate 2.0 H Calcium 9.0 Total Bilirubin 0.6 AST 27 ALT 17 Alkaline Phosphatase 91 Total Protein 6.5 Albumin 3.1 L Procalcitonin 03/12/19 22:30 WBC RBC Hgb Hct MCV MCH MCHC RDW Plt Count MPV Immature Gran % Neutrophils % Band Neutrophils % Lymphocytes % Monocytes % Eosinophils % Basophils % Metamyelocytes % Myelocytes % Absolute Neutrophils Absolute Lymphocytes Absolute Monocytes Absolute Eosinophils Absolute Basophils Differential Comment RBC Morphology Polychromasia Anisocytosis Macrocytosis Stomatocytes Sodium Potassium Chloride Carbon Dioxide Anion Gap BUN Creatinine Estimated GFR/1.73 m2 Glucose Lactate Calcium Total Bilirubin AST ALT Alkaline Phosphatase Total Protein Albumin Procalcitonin 0.1 Last Vital Signs Temp 38 C H 03/13/19 01:07 Pulse 118 H 03/13/19 01:01 Resp 23 03/13/19 01:01 BP 126/75 03/13/19 01:01 Pulse Ox 96 03/13/19 01:01
[2019-03-13 02:17] LABS: Bilirubin Negative (Negative); Blood Moderate (Negative); Clarity Sl Cloudy; Glucose Negative (Negative); Ketones Negative (Negative); Leukocyte Esterase Moderate (Negative); Nitrite Negative (Negative); Specific Gravity 1.015 (1.005-1.025); Urobilinogen 0.2 EU/dL (Up TO 0.2)
[2019-03-13 02:25] LABS: Bacteria Moderate HPF (Negative); C & S Indicated? No/Sq. Contamination; Casts Negative LPF (Negative); Crystals Negative HPF (Negative); Epithelial Cells Many HPF (Negative); Mucus Negative (Negative); Other Cells Few Renal (Negative); WBC 20-50 HPF (0-5)
[2019-03-13] MEDS: Hydrocortisone SOD SUC. 100 MG VIAL IVP (03:39)
[2019-03-13] MEDS: Normal Saline Flush 10 ML SYR IVP ×3 (03:40→22:34)
[2019-03-13 07:19] LABS: ALT 10 U/L (12-78); AST 20 U/L (15-37); Albumin 2.1 g/dL (3.4-5.0); Alkaline Phosphatase 64 U/L (46-116); Anion Gap 9.3 mmol/L (3-11); BUN 25 mg/dL (7-18); Bilirubin, Total 0.7 mg/dL (0.2-1.0); CO2 21.7 mmol/L (21.0-32.0); CREATININE 1.88 mg/dL (0.55-1.02); Calcium 7.8 mg/dL (8.5-10.1); Chloride 107 mmol/L (98-107); Estimated GFR 28.94 (mL/min/1.73m2); Glucose 104 mg/dL (70-100); Potassium 4.1 mmol/L (3.5-5.1); Sodium 138 mmol/L (136-145); Total Protein 4.7 g/dL (6.4-8.2)
--- NOTE | 2019-03-13 08:14 | PDOC.CMIN ---
Care Management Initial Assess REASON FOR HOSPITALIZATION:: LLL Pneumonia, Sepsis, Neutropenic Fever w/NHL, Chemotherapy PAST MEDICAL HISTORY/PAST SURGICAL HISTORY:: Follicular B-cell lymphoma, Chronic renal insufficiency stage 4, Multiple sclerosis, Anxiety & Depression, H/O herpes simplex, Anemia, Carpal tunnel release, S/P cholecystectomy, S/P knee aspiration, S/P (R) knee arthroscopy PREVIOUS FUNCTIONAL STATUS/SOCIAL/FAMILY SUPPORTS:: Stacey lives in [place], [place] in her own home. She is , she has two school age children a son and daughter. She has a large family support system and friends in the community. Stacey is disabled. CURRENT FUNCTIONAL STATUS:: Stacey was lying in bed, eyes closed. She stirred a bit but did not become alert enough to engage with this data analyst report writer. ADVANCE DIRECTIVES:: None on file- CM provided forms for her to review Has patient been provided with information about the portal?: Yes Did the patient sign up for the portal?: No CODE STATUS:: Full Code INSURANCE COVERAGE / FINANCIAL ISSUES:: Medicare and BCBS CURRENT HOME/COMMUNITY SERVICES/EQUIPMENT:: [facility] PRIMARY CARE PHYSICIAN:: POTENTIAL DISCHARGE NEEDS:: Follow-up appointment primary care, and oncologist as directed. PATIENT/FAMILY EDUCATION NEEDS:: Discharge education, limitations, follow-up plan of care, asked me 3 and self-management. ANTICIPATED BARRIERS TO DISCHARGE:: None identified. TRANSPORTATION:: Via private car with family at time of discharge. PLAN:: CM will continue to follow and support discharge planning considerations.
--- NOTE | 2019-03-13 08:17 | INITIAL_ITS ---
Care Management Initial Assess REASON FOR HOSPITALIZATION:: LLL Pneumonia, Sepsis, Neutropenic Fever w/NHL, Chemotherapy PAST MEDICAL HISTORY/PAST SURGICAL HISTORY:: Follicular B-cell lymphoma, Chronic renal insufficiency stage 4, Multiple sclerosis, Anxiety & Depression, H/O herpes simplex, Anemia, Carpal tunnel release, S/P cholecystectomy, S/P knee aspiration, S/P (R) knee arthroscopy PREVIOUS FUNCTIONAL STATUS/SOCIAL/FAMILY SUPPORTS:: Stacey lives in [place], [place] in her own home. She is , she has two school age children a son and daughter. She has a large family support system and friends in the community. Stacey is disabled. CURRENT FUNCTIONAL STATUS:: Stacey was lying in bed, eyes closed. She stirred a bit but did not become alert enough to engage with this service writer advisor. ADVANCE DIRECTIVES:: None on file- CM provided forms for her to review Has patient been provided with information about the portal?: Yes Did the patient sign up for the portal?: No CODE STATUS:: Full Code INSURANCE COVERAGE / FINANCIAL ISSUES:: Medicare and BCBS CURRENT HOME/COMMUNITY SERVICES/EQUIPMENT:: [facility] PRIMARY CARE PHYSICIAN:: POTENTIAL DISCHARGE NEEDS:: Follow-up appointment primary care, and oncologist as directed. PATIENT/FAMILY EDUCATION NEEDS:: Discharge education, limitations, follow-up plan of care, asked me 3 and self-management. ANTICIPATED BARRIERS TO DISCHARGE:: None identified. TRANSPORTATION:: Via private car with family at time of discharge. PLAN:: CM will continue to follow and support discharge planning considerations.
[2019-03-13 08:18] LABS: HCT 25.3 % (36.0-46.0); HGB 8.1 g/dL (12.0-15.5); Mean Corpuscular Hemoglobin 31.9 pg (27.0-33.0); Mean Corpuscular Volume 99.6 fL (80-95); Mean Platelet Volume 10.3 fL (8.0-11.0); RBC 2.54 m/cumm (4.00-5.20); RBC Distribution Width 23.9 % (11.7-14.6)
[2019-03-13 08:19] LABS: Lactate-non-spesis 0.8 mmol/l (0.6-1.4)
--- NOTE | 2019-03-13 08:26 | PGE_ITS ---
Date of Service Date of service: 03/13/19 Time of Service: 08:22 Assessment and Plan (1) Sepsis: Current visit: No Status: Acute With unclear source right now, but in setting of neutropenia post chemo. BP's are only now coming up, but did have impending shock on presentation. Continue aggressive IVF. Blood and urine C&S are pending, including culture from the port. In October of 2018, the patient grew citrobacter and Klebsiella in her urine, and the citrobacter was resistant to cephalosporins - for this reason I have changed her antibiotics to vancomycin, zosyn, levofloxacin. Continue stress dose steroids. She will need a lengthy steroid taper on discharge. Qualifiers: Sepsis type: sepsis due to unspecified organism Qualified Code(s): A41.9 - Sepsis, unspecified organism (2) Adrenal insufficiency: Current visit: Yes Status: Acute As above (3) CAP (community acquired pneumonia): Current visit: Yes Status: Acute LLL. As above (4) Neutropenic fever: Current visit: No Status: Acute As above. Not requiring neutropenic precautions (5) UTI (urinary tract infection): Current visit: No Status: Acute As above. Await culture (6) Diffuse large B cell lymphoma: Current visit: No Status: Chronic Follow up as outpatient. Palliative care consulted Qualifiers: Lymphoma site: unspecified region Qualified Code(s): C83.30 - Diffuse large B-cell lymphoma, unspecified site (7) Renal insufficiency: Current visit: No Status: Chronic Chronic, no change in tx (8) Multiple sclerosis: Current visit: No Status: Chronic Consult PT/OT (9) Pancytopenia: Current visit: No Status: Chronic Due to chemo - recheck bloodwork in am (10) DVT prophylaxis: Current visit: No Status: Acute TEDs + SCDs (11) Discharge planning issues: Current visit: Yes Status: Acute Full code Palliative care consulted. A total of 35 minutes were spent providing critical care as well as on documentation for this patient. Subjective Interval history since last seen: BP's are improving to low 100 SBP, Afebrile overnight. Feels dehydrated, has no evidence of fluid overload even though she is on her 7th liter of NS. Mentating well. Asymptomatic of BP's while in bed. Does not have a felton and would prefer not having it. The patient states that she has not had any dysuria, frequency or urgency. She has had a chronic nonproductive cough. She just felt tired after her last chemo, but there was nothing specific about her symptoms other than that. She also reports constipation - just had a BM with the bowel regimen she received in the ICU. She states that she is going home tomorrow no matter what because her birthday is the day after tomorrow. Exam Narrative Exam Narrative: General: Very pleasant middle-aged female, looks very dehydrated, A&Ox3, no shortness of breath noted while laying flat in bed, looks carvalho HEENT: EOMI, dry MM Heart: RRR, no m/r/g Lungs: very slight crackles at B bases that resolve with deep breathing GI: abdomen is soft, nontender, nondistended Extremities: no e/c/c BLE's, visibly dry/dehydarted Objective Objective Clinical Data: Abnormal lab results 03/12/19 03/12/19 03/12/19 Range/Units 22:30 22:30 22:30 WBC 2.08 L (4.4-10.8) k/cumm RBC 3.29 L (4.00-5.20) m/cumm Hgb 10.5 L (12.0-15.5) g/dL Hct 32.0 L (36.0-46.0) % MCV 97.3 H (80-95) fL RDW 24.1 H (11.7-14.6) % Plt Count 88 L (130-400) x1000/uL Absolute Lymphocytes 0.27 L (1.2-3.4) k/cumm Sodium 135 L (136-145) mmol/L Anion Gap 13.0 H (3-11) mmol/L BUN 29 H (7-18) mg/dL Creatinine 2.06 H (0.55-1.02) mg/dL Glucose (70-100) mg/dL Lactate 2.0 H (0.6-1.4) mmol/L Calcium (8.5-10.1) mg/dL ALT (12-78) U/L Total Protein (6.4-8.2) g/dL Albumin 3.1 L (3.4-5.0) g/dL Urine Protein (Negative) mg/dL Urine Blood (Negative) Ur Leukocyte Esterase (Negative) Urine RBC (0-2) 03/13/19 03/13/19 Range/Units 02:00 06:20 WBC (4.4-10.8) k/cumm RBC (4.00-5.20) m/cumm Hgb (12.0-15.5) g/dL Hct (36.0-46.0) % MCV (80-95) fL RDW (11.7-14.6) % Plt Count (130-400) x1000/uL Absolute Lymphocytes (1.2-3.4) k/cumm Sodium (136-145) mmol/L Anion Gap (3-11) mmol/L BUN 25 H (7-18) mg/dL Creatinine 1.88 H (0.55-1.02) mg/dL Glucose 104 H (70-100) mg/dL Lactate (0.6-1.4) mmol/L Calcium 7.8 L (8.5-10.1) mg/dL ALT 10 L (12-78) U/L Total Protein 4.7 L (6.4-8.2) g/dL Albumin 2.1 L (3.4-5.0) g/dL Urine Protein 30 H (Negative) mg/dL Urine Blood Moderate H (Negative) Ur Leukocyte Esterase Moderate H (Negative) Urine RBC 5-10 H (0-2) Vital Signs Temperature 38.0 C H 03/13/19 02:50 Temperature Source Temporal Artery Scan 03/13/19 02:50 Pulse 76 03/13/19 07:00 Pulse 74 03/13/19 07:30 Respiratory Rate 17 03/13/19 07:30 Respiratory Effort 03/13/19 02:50 Respiratory Depth Normal 03/13/19 02:50 Respiratory Pattern Normal 03/13/19 02:50 Blood Pressure 95/62 L 03/13/19 07:00 Blood Pressure Mean 70 03/13/19 07:00 Blood Pressure Position Supine 03/12/19 22:10 Pulse Oximetry 98 03/13/19 07:30 Oxygen Delivery Method Room Air 03/13/19 02:50 Oxygen Flow Rate 0 03/13/19 02:50 Pain Level 0 03/13/19 05:45 Intake & Output 03/12/19 03/12/19 03/13/19 11:59 23:59 11:59 Intake Total 10 5550 / 5550 Output Total 1225 / 1225 Balance 4325 / 4325 Weight 78.8 kg 79.3 kg Intake: IV 5450 / 5450 Oral 100 / 100 Output: Urine 1225 / 1225 Other: Urine Color Dark Leidy Urine Appearance Clear Urine Odor None Comment Pt voiding QS on Fracture bedpan. Emesis Description Bile Voiding Methods Bedpan Laboratory Results WBC 2.08 k/cumm (4.4-10.8) L 03/12/19 22:30 RBC 3.29 m/cumm (4.00-5.20) L 03/12/19 22:30 Hgb 10.5 g/dL (12.0-15.5) L 03/12/19 22:30 Hct 32.0 % (36.0-46.0) L 03/12/19 22:30 MCV 97.3 fL (80-95) H 03/12/19 22:30 MCH 31.9 pg (27.0-33.0) 03/12/19 22:30 MCHC 32.8 g/dL (32.0-36.0) 03/12/19 22:30 RDW 24.1 % (11.7-14.6) H 03/12/19 22:30 Plt Count 88 x1000/uL (130-400) L 03/12/19 22:30 MPV 9.6 fL (8.0-11.0) 03/12/19 22:30 Immature Gran % See Differential 03/12/19 22:30 Neutrophils % 67.0 03/12/19 22:30 Band Neutrophils % 7.0 % 03/12/19 22:30 Lymphocytes % 13.0 03/12/19 22:30 Monocytes % 10.0 03/12/19 22:30 Eosinophils % 0.0 03/12/19 22:30 Basophils % 0.0 03/12/19 22:30 Metamyelocytes % 2.0 % 03/12/19 22:30 Myelocytes % 1.0 % 03/12/19 22:30 Absolute Neutrophils 1.54 k/cumm (1.2-6.7) 03/12/19 22:30 Absolute Lymphocytes 0.27 k/cumm (1.2-3.4) L 03/12/19 22:30 Absolute Monocytes 0.21 k/cumm (0.11-0.7) 03/12/19 22:30 Absolute Eosinophils 0.00 k/cumm (0.0-0.7) 03/12/19 22:30 Absolute Basophils 0.00 k/cumm (0.0-0.2) 03/12/19 22:30 Differential Comment Manual differential 03/12/19 22:30 RBC Morphology See below 03/12/19 22:30 Polychromasia Present 03/12/19 22:30 Anisocytosis 2+ 03/12/19 22:30 Macrocytosis 1+ 03/12/19 22:30 Stomatocytes 2+ 03/12/19 22:30 Sodium 138 mmol/L (136-145) 03/13/19 06:20 Potassium 4.1 mmol/L (3.5-5.1) 03/13/19 06:20 Chloride 107 mmol/L (98-107) 03/13/19 06:20 Carbon Dioxide 21.7 mmol/L (21.0-32.0) 03/13/19 06:20 Anion Gap 9.3 mmol/L (3-11) 03/13/19 06:20 BUN 25 mg/dL (7-18) H 03/13/19 06:20 Creatinine 1.88 mg/dL (0.55-1.02) H 03/13/19 06:20 Estimated GFR/1.73 m2 28.94 (mL/min/1.73m2) 03/13/19 06:20 Glucose 104 mg/dL (70-100) H 03/13/19 06:20 Lactate 0.8 mmol/l (0.6-1.4) 03/13/19 08:09 Calcium 7.8 mg/dL (8.5-10.1) L 03/13/19 06:20 Total Bilirubin 0.7 mg/dL (0.2-1.0) 03/13/19 06:20 AST 20 U/L (15-37) 03/13/19 06:20 ALT 10 U/L (12-78) L 03/13/19 06:20 Alkaline Phosphatase 64 U/L (46-116) 03/13/19 06:20 Total Protein 4.7 g/dL (6.4-8.2) L 03/13/19 06:20 Albumin 2.1 g/dL (3.4-5.0) L 03/13/19 06:20 Procalcitonin 0.1 ng/mL 03/12/19 22:30 Urine Color Yellow (Yellow) 03/13/19 02:00 Urine Clarity Sl cloudy 03/13/19 02:00 Urine pH 7.0 (5-8) 03/13/19 02:00 Ur Specific [place] 1.015 (1.005-1.025) 03/13/19 02:00 Urine Protein 30 mg/dL (Negative) H 03/13/19 02:00 Urine Ketones Negative mg/dL (Negative) 03/13/19 02:00 Urine Blood Moderate (Negative) H 03/13/19 02:00 Urine Nitrite Negative (Negative) 03/13/19 02:00 Urine Bilirubin Negative (Negative) 03/13/19 02:00 Urine Urobilinogen 0.2 EU/dL (Up TO 0.2) 03/13/19 02:00 Ur Leukocyte Esterase Moderate (Negative) H 03/13/19 02:00 Urine RBC 5-10 (0-2) H 03/13/19 02:00 Urine WBC 20-50 HPF (0-5) 03/13/19 02:00 Ur Epithelial Cells Many HPF (Negative) 03/13/19 02:00 Urine Crystals Negative HPF (Negative) 03/13/19 02:00 Urine Bacteria Moderate HPF (Negative) 03/13/19 02:00 Urine Casts Negative LPF (Negative) 03/13/19 02:00 Urine Mucus Negative (Negative) 03/13/19 02:00 Urine Other Few renal (Negative) 03/13/19 02:00 Ur Culture Indicated? No/sq. contamination 03/13/19 02:00 Urine Glucose Negative mg/dL (Negative) 03/13/19 02:00
[2019-03-13] MEDS: buPROPion-XL 150 MG TABCR 300 MG PO (09:00)
[2019-03-13] MEDS: Escitalopram 20 MG TAB PO (09:01)
[2019-03-13] MEDS: Folic Acid 1 MG TAB PO (09:01)
[2019-03-13] MEDS: Acyclovir 400 MG TAB 800 MG PO ×2 (09:01→20:23)
[2019-03-13 09:04] LABS: White Blood Cell Count 1.97 k/cumm (4.4-10.8)
[2019-03-13 09:05] LABS: Absolute Lymphocyte Count 0.06 k/cumm (1.2-3.4); Absolute Neutrophil Count 1.73 k/cumm (1.2-6.7); Platelet Count 70 x1000/uL (130-400)
[2019-03-13 09:06] LABS: Absolute Eosinophil Count 0.02 k/cumm (0.0-0.7); Absolute Monocyte Count 0.12 k/cumm (0.11-0.7); Anisocytosis 2+; Diff Comment Manual Differential; Hypochromasia 1+
[2019-03-13 09:07] LABS: Macrocytosis 1+; Microcytosis 1+; Poikilocytes 1+; Polychromasia Present
[2019-03-13] MEDS: Senna TAB 1 TAB PO ×2 (09:32→20:23)
[2019-03-13] MEDS: Docusate Sodium 100 MG CAP PO ×2 (09:32→20:23)
[2019-03-13] MEDS: Hydrocortisone SOD SUC. 100 MG VIAL 50 MG IVP ×3 (10:06→22:32)
[2019-03-13] MEDS: PIPERACILLIN/TAZO 4.5 GM in Normal Saline 100 ML IVPB ×2 (14:16→22:34)
[2019-03-13] MEDS: Normal Saline 1,000 ML 200 ML IV ×2 (18:01→23:37)
[2019-03-13] MEDS: diphenhydrAMINE 25 MG CAP PO (20:24)
[2019-03-14] VITALS (27 sets, daily range): BP systolic 95–144; BP diastolic 58–87; PULSE 47–91; RESP 13–26; TEMP 36.8–36.9; O2SAT 98–100
[2019-03-14] MEDS: Hydrocortisone SOD SUC. 100 MG VIAL 50 MG IVP (05:01)
[2019-03-14] MEDS: Normal Saline Flush 10 ML SYR IVP ×2 (05:01→09:18)
[2019-03-14] MEDS: ACETAMINOPHEN 1,000 MG/100 ML BTL 400 MG IVPB (05:02)
[2019-03-14] MEDS: PIPERACILLIN/TAZO 4.5 GM in Normal Saline 100 ML IVPB (05:04)
[2019-03-14] MEDS: Normal Saline 1,000 ML 200 ML IV (05:21)
[2019-03-14 07:45] LABS: HCT 23.7 % (36.0-46.0); HGB 7.7 g/dL (12.0-15.5); Mean Corp. HGB Concentration 32.5 g/dL (32.0-36.0); Mean Corpuscular Hemoglobin 32.4 pg (27.0-33.0); Mean Corpuscular Volume 99.6 fL (80-95); Mean Platelet Volume 10.1 fL (8.0-11.0); RBC 2.38 m/cumm (4.00-5.20); RBC Distribution Width 23.7 % (11.7-14.6)
[2019-03-14 07:52] LABS: White Blood Cell Count 1.58 k/cumm (4.4-10.8)
[2019-03-14 07:53] LABS: Anion Gap 10.5 mmol/L (3-11); BUN 25 mg/dL (7-18); CO2 20.5 mmol/L (21.0-32.0); CREATININE 1.83 mg/dL (0.55-1.02); Calcium 7.5 mg/dL (8.5-10.1); Chloride 110 mmol/L (98-107); Estimated GFR 29.85 (mL/min/1.73m2); Glucose 105 mg/dL (70-100); Magnesium 1.4 mg/dL (1.8-2.4); Potassium 3.6 mmol/L (3.5-5.1); Sodium 141 mmol/L (136-145)
[2019-03-14 07:56] LABS: Platelet Count 57 x1000/uL (130-400)
[2019-03-14] MEDS: Docusate Sodium 100 MG CAP PO (08:08)
[2019-03-14] MEDS: Senna TAB 1 TAB PO (08:08)
[2019-03-14] MEDS: Acyclovir 400 MG TAB 800 MG PO (08:09)
[2019-03-14] MEDS: Folic Acid 1 MG TAB PO (08:09)
[2019-03-14] MEDS: buPROPion-XL 150 MG TABCR 300 MG PO (08:09)
[2019-03-14] MEDS: Escitalopram 20 MG TAB PO (08:09)
--- NOTE | 2019-03-14 08:16 | W.PM.PROGNOT ---
Date of Service Date of service: 03/14/19 Time of Service: 08:16 Subjective Interval history since last seen: Afebrile, BP's have improved. Mild SOB when trying to get up. Night time nursing feels patient has crackles. Complains of chronic back pain. Feels better. Objective Objective Clinical Data: Abnormal lab results 03/13/19 03/14/19 03/14/19 Range/Units 08:09 06:45 06:45 WBC 1.97 L* 1.58 L* (4.4-10.8) k/cumm RBC 2.54 L 2.38 L (4.00-5.20) m/cumm Hgb 8.1 L D 7.7 L (12.0-15.5) g/dL Hct 25.3 L D 23.7 L (36.0-46.0) % MCV 99.6 H 99.6 H (80-95) fL RDW 23.9 H 23.7 H (11.7-14.6) % Plt Count 70 L 57 L (130-400) x1000/uL Absolute Lymphocytes 0.06 L (1.2-3.4) k/cumm Chloride 110 H (98-107) mmol/L Carbon Dioxide 20.5 L (21.0-32.0) mmol/L BUN 25 H (7-18) mg/dL Creatinine 1.83 H (0.55-1.02) mg/dL Glucose 105 H (70-100) mg/dL Calcium 7.5 L (8.5-10.1) mg/dL Magnesium 1.4 L (1.8-2.4) mg/dL Vital Signs Temperature 36.8 C 03/14/19 03:30 Temperature Source Temporal Artery Scan 03/14/19 03:30 Pulse 51 L 03/14/19 05:01 Pulse 52 L 03/14/19 05:01 Respiratory Rate 13 03/14/19 05:01 Respiratory Effort 03/14/19 03:30 Respiratory Depth Normal 03/14/19 03:30 Respiratory Pattern Normal 03/14/19 03:30 Blood Pressure 141/87 H 03/14/19 05:01 Blood Pressure Mean 98 03/14/19 05:01 Blood Pressure Position Supine 03/13/19 16:00 Pulse Oximetry 99 06/18/19 21:01 Oxygen Delivery Method Room Air 03/14/19 03:30 Oxygen Flow Rate 0 03/14/19 03:30 Pain Level 0 03/14/19 03:30 Intake & Output 03/13/19 03/13/19 03/14/19 11:59 23:59 11:59 Intake Total 6750 / 9630.0 2880.0 / 9630.0 1200 / 1200 Output Total 207 / 3075 1000 / 3075 800 / 800 Balance 4675 / 6555.0 1880.0 / 6555.0 400 / 400 Weight 79.3 kg 78.8 kg Intake: IV 6650 / 8950.0 2300.0 / 8950.0 1200 / 1200 Oral 100 / 680 580 / 680 Output: Urine 2074 / 3075 1000 / 3075 800 / 800 Other: Urine Color Pale Yellow Yellow Urine Appearance Clear Clear Clear Urine Odor None None Comment pt refused insertion; MD notified. no void yet this shift mixed with stool Stool Occult Blood Negative Stool Size Moderate Moderate Stool Characteristics Soft Soft Formed Brown Voiding Methods Bedside Commode Bedside Commode Bedside Commode Laboratory Results WBC 1.58 k/cumm (4.4-10.8) L* 03/14/19 06:45 RBC 2.38 m/cumm (4.00-5.20) L 03/14/19 06:45 Hgb 7.7 g/dL (12.0-15.5) L 03/14/19 06:45 Hct 23.7 % (36.0-46.0) L 03/14/19 06:45 MCV 99.6 fL (80-95) H 03/14/19 06:45 MCH 32.4 pg (27.0-33.0) 03/14/19 06:45 MCHC 32.5 g/dL (32.0-36.0) 03/14/19 06:45 RDW 23.7 % (11.7-14.6) H 03/14/19 06:45 Plt Count 57 x1000/uL (130-400) L 03/14/19 06:45 MPV 10.1 fL (8.0-11.0) 03/14/19 06:45 Immature Gran % See Differential 03/13/19 08:09 Neutrophils % 59.0 03/13/19 08:09 Band Neutrophils % 29.0 % 03/13/19 08:09 Lymphocytes % 3.0 03/13/19 08:09 Monocytes % 6.0 03/13/19 08:09 Eosinophils % 1.0 03/13/19 08:09 Basophils % 0.0 03/13/19 08:09 Metamyelocytes % 1.0 % 03/13/19 08:09 Myelocytes % 1.0 % 03/13/19 08:09 Absolute Neutrophils 1.73 k/cumm (1.2-6.7) 03/13/19 08:09 Absolute Lymphocytes 0.06 k/cumm (1.2-3.4) L 03/13/19 08:09 Absolute Monocytes 0.12 k/cumm (0.11-0.7) 03/13/19 08:09 Absolute Eosinophils 0.02 k/cumm (0.0-0.7) 03/13/19 08:09 Absolute Basophils 0.00 k/cumm (0.0-0.2) 03/13/19 08:09 Differential Comment Manual differential 03/13/19 08:09 RBC Morphology See below 03/13/19 08:09 Polychromasia Present 03/13/19 08:09 Hypochromasia 1+ 03/13/19 08:09 Poikilocytosis 1+ 03/13/19 08:09 Anisocytosis 2+ 03/13/19 08:09 Microcytosis 1+ 03/13/19 08:09 Macrocytosis 1+ 03/13/19 08:09 Stomatocytes 2+ 03/12/19 22:30 Sodium 141 mmol/L (136-145) 03/14/19 06:45 Potassium 3.6 mmol/L (3.5-5.1) 03/14/19 06:45 Chloride 110 mmol/L (98-107) H 03/14/19 06:45 Carbon Dioxide 20.5 mmol/L (21.0-32.0) L 03/14/19 06:45 Anion Gap 10.5 mmol/L (3-11) 03/14/19 06:45 BUN 25 mg/dL (7-18) H 03/14/19 06:45 Creatinine 1.83 mg/dL (0.55-1.02) H 03/14/19 06:45 Estimated GFR/1.73 m2 29.85 (mL/min/1.73m2) 03/14/19 06:45 Glucose 105 mg/dL (70-100) H 03/14/19 06:45 Lactate 0.8 mmol/l (0.6-1.4) 03/13/19 08:09 Calcium 7.5 mg/dL (8.5-10.1) L 03/14/19 06:45 Magnesium 1.4 mg/dL (1.8-2.4) L 03/14/19 06:45 Total Bilirubin 0.7 mg/dL (0.2-1.0) 03/13/19 06:20 AST 20 U/L (15-37) 03/13/19 06:20 ALT 10 U/L (12-78) L 03/13/19 06:20 Alkaline Phosphatase 64 U/L (46-116) 03/13/19 06:20 Total Protein 4.7 g/dL (6.4-8.2) L 03/13/19 06:20 Albumin 2.1 g/dL (3.4-5.0) L 03/13/19 06:20 Procalcitonin 0.1 ng/mL 03/12/19 22:30 Urine Color Yellow (Yellow) 03/13/19 02:00 Urine Clarity Sl cloudy 03/13/19 02:00 Urine pH 7.0 (5-8) 03/13/19 02:00 Ur Specific [place] 1.015 (1.005-1.025) 03/13/19 02:00 Urine Protein 30 mg/dL (Negative) H 03/13/19 02:00 Urine Ketones Negative mg/dL (Negative) 03/13/19 02:00 Urine Blood Moderate (Negative) H 03/13/19 02:00 Urine Nitrite Negative (Negative) 03/13/19 02:00 Urine Bilirubin Negative (Negative) 03/13/19 02:00 Urine Urobilinogen 0.2 EU/dL (Up TO 0.2) 03/13/19 02:00 Ur Leukocyte Esterase Moderate (Negative) H 03/13/19 02:00 Urine RBC 5-10 (0-2) H 03/13/19 02:00 Urine WBC 20-50 HPF (0-5) 03/13/19 02:00 Ur Epithelial Cells Many HPF (Negative) 03/13/19 02:00 Urine Crystals Negative HPF (Negative) 03/13/19 02:00 Urine Bacteria Moderate HPF (Negative) 03/13/19 02:00 Urine Casts Negative LPF (Negative) 03/13/19 02:00 Urine Mucus Negative (Negative) 03/13/19 02:00 Urine Other Few renal (Negative) 03/13/19 02:00 Ur Culture Indicated? No/sq. contamination 03/13/19 02:00 Urine Glucose Negative mg/dL (Negative) 03/13/19 02:00
[2019-03-14] MEDS: Hydrocortisone SOD SUC. 100 MG VIAL 25 MG IVP (09:16)
--- NOTE | 2019-03-14 09:44 | OT.INIE ---
Occupational Therapy Notes Inpatient Occupational Therapy Evaluation Date: 03/14/19 Referring Doctor: Alyson Trevino MD OT Orders: Eval and Treat Precautions: Fall, Standard PATIENT PROFILE/ADMITTING DIAGNOSIS: Pt is a 43 year old female who was admitted through the ER on 03/12/19 for diagnosis of nausea with extreme weakness and fever she was PMHx of diffuse large B-cell lymphoma diagnosed 5 years ago having had chemotherapy with several remissions during that time and recently restarted on new chemotherapy having her last course 4 days ago. She was referred to OT services for assessment of ADLs/IADLs and functional (I) in her daily activities. Past Medical History: Medical History Dyspnea on minimal exertion (Chronic) Generalized weakness (Chronic) Diffuse large B cell lymphoma (Chronic) Follicular lymphoma (Chronic) Frequent falls (Chronic) Ataxia (Chronic) Palliative care patient (Chronic) Renal insufficiency (Chronic 06/03/15) Obesity (Chronic) Multiple sclerosis (Chronic 01/19/13) Lymphoma (Chronic 05/03/14) Irregular menstruation (Chronic 09/14/13) Gouty arthritis (Chronic 04/05/17) Essential hypertension (Chronic 09/04/13) Depression (Chronic 09/03/14) Thrombocytopenia (Chronic) DVT prophylaxis (Acute) Pancytopenia (Chronic) Polycystic ovarian syndrome (Chronic) Depression (Chronic) Cellulitis of left arm (Resolved 01/15/14) Pleural effusion associated with pulmonary infection (Resolved) Pneumonia (Resolved) Chronic deep vein thrombosis (DVT) of both femoral veins (Chronic) 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 (Acute) Chronic renal insufficiency (Acute) Hypokalemia (Acute) PCOS (polycystic ovarian syndrome) (Acute) Pneumonia (Acute) Reactive arthritis of knee (Acute) DVT (deep venous thrombosis) (Chronic) Depression (Chronic) Multiple sclerosis (Chronic) Surgical History History of surgery (Chronic) Cholecystectomy Social History/Home Situation: Pt refers to herself as disabled. She lives in a private home with her children. She has a two story home with two bathrooms. One is a tub/shower combination and the other is a walk in shower. She states that she is totally (I) with ADLs/IADLs at her baseline level of function. She reports that she does not use an assisted device at baseline however she has a wheelchair that she uses in the community in case she gets tired. Equipment owned/DME: Wheelchair, cane, FWW, grab bars, shower bench SUBJECTIVE: Pt was lying in bed when OT arrived. She was agreeable to OT session. OBJECTIVE: General Observation: Vargas, Telemetry, IV (R) UE Mental Status: A&Ox3 Pain: no c/o pain ROM: RUE AROM WNL L UE AROM WNL STRENGTH: RUE Shoulder flexion 4+/5, elbow 4/5, manager company is strong and symmetrical LUE Shoulder flexion 4/5, elbow 4+/5, manager company is strong and symmetrical FUNCTIONAL MOBILITY/ADLS: Transfers Supine-sit (I) Sit-supine (I) Dressing- Pt was able to (I) don and doff (B) socks in seated position. EATING (I) sitting in bed BALANCE: Static sitting Normal Dynamic Sitting Normal SPECIAL TESTS: Daily Activity Limitations Standardized Measure [facility] AM -PAC ?6 clicks? Daily Activity Inpatient Short Form: Raw score: 22 CMS score: 25.80% INFORMED CONSENT/EDUCATION: Pt instructed in purpose of OT Consult and plan of care. ASSESSMENT: Patient is a 43-year-old female referred to occupational therapy services with diagnosis of nausea with extreme weakness and fever she was PMHx of diffuse large B-cell lymphoma diagnosed 5 years ago having had chemotherapy with several remissions during that time and recently restarted on new chemotherapy having her last course 4 days ago. Patient presents with clinical signs and symptoms consistent with dx. Pt was seen for OT consult only. She states that she is (I) with all ADLs/IADLs and does not require OT services. She was able to demonstrate functional (I) but denied getting out of bed so OT was unable to assess pts functional mobility required for ADLs. Pt has good strength and AROM in (B) UE. AMPAC score 22, CMS score 25.80% Patient is assessed as a Low [id number] complexity based on the following: History: See Above Examination: See Above Presentation: Evolving Decision Making: AMPAC score 22, CMS score 25.80% GOALS N/A PLAN OF CARE/TREATMENT PLAN: OT consult only. DISCHARGE RECOMMENDATIONS Home when medically cleared per MD. TREATMENT TIME/MINUTES/CODES 04297, 10 minutes (08:25) Ju Agee, OTR/L [facility]
--- NOTE | 2019-03-14 09:47 | OTIE_ITS ---
Occupational Therapy Notes Inpatient Occupational Therapy Evaluation Date: 03/14/19 Referring Doctor: Alyson Trevino MD OT Orders: Eval and Treat Precautions: Fall, Standard PATIENT PROFILE/ADMITTING DIAGNOSIS: Pt is a 43 year old female who was admitted through the ER on 03/12/19 for diagnosis of nausea with extreme weakness and fever she was PMHx of diffuse large B-cell lymphoma diagnosed 5 years ago having had chemotherapy with several remissions during that time and recently restarted on new chemotherapy having her last course 4 days ago. She was referred to OT services for assessment of ADLs/IADLs and functional (I) in her daily activities. Past Medical History: Medical History Dyspnea on minimal exertion (Chronic) Generalized weakness (Chronic) Diffuse large B cell lymphoma (Chronic) Follicular lymphoma (Chronic) Frequent falls (Chronic) Ataxia (Chronic) Palliative care patient (Chronic) Renal insufficiency (Chronic 06/03/15) Obesity (Chronic) Multiple sclerosis (Chronic 01/19/13) Lymphoma (Chronic 05/03/14) Irregular menstruation (Chronic 09/14/13) Gouty arthritis (Chronic 04/05/17) Essential hypertension (Chronic 09/04/13) Depression (Chronic 09/03/14) Thrombocytopenia (Chronic) DVT prophylaxis (Acute) Pancytopenia (Chronic) Polycystic ovarian syndrome (Chronic) Depression (Chronic) Cellulitis of left arm (Resolved 01/15/14) Pleural effusion associated with pulmonary infection (Resolved) Pneumonia (Resolved) Chronic deep vein thrombosis (DVT) of both femoral veins (Chronic) 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 (Acute) Chronic renal insufficiency (Acute) Hypokalemia (Acute) PCOS (polycystic ovarian syndrome) (Acute) Pneumonia (Acute) Reactive arthritis of knee (Acute) DVT (deep venous thrombosis) (Chronic) Depression (Chronic) Multiple sclerosis (Chronic) Surgical History History of surgery (Chronic) Cholecystectomy Social History/Home Situation: Pt refers to herself as disabled. She lives in a private home with her children. She has a two story home with two bathrooms. One is a tub/shower combination and the other is a walk in shower. She states that she is totally (I) with ADLs/IADLs at her baseline level of function. She reports that she does not use an assisted device at baseline however she has a wheelchair that she uses in the community in case she gets tired. Equipment owned/DME: Wheelchair, cane, FWW, grab bars, shower bench SUBJECTIVE: Pt was lying in bed when OT arrived. She was agreeable to OT session. OBJECTIVE: General Observation: Vargas, Telemetry, IV (R) UE Mental Status: A&Ox3 Pain: no c/o pain ROM: RUE AROM WNL L UE AROM WNL STRENGTH: RUE Shoulder flexion 4+/5, elbow 4/5, automation qa analyst is strong and symmetrical LUE Shoulder flexion 4/5, elbow 4+/5, automation qa analyst is strong and symmetrical FUNCTIONAL MOBILITY/ADLS: Transfers Supine-sit (I) Sit-supine (I) Dressing- Pt was able to (I) don and doff (B) socks in seated position. EATING (I) sitting in bed BALANCE: Static sitting Normal Dynamic Sitting Normal SPECIAL TESTS: Daily Activity Limitations Standardized Measure [facility] AM -PAC ?6 clicks? Daily Activity Inpatient Short Form: Raw score: 22 CMS score: 25.80% INFORMED CONSENT/EDUCATION: Pt instructed in purpose of OT Consult and plan of care. ASSESSMENT: Patient is a 43-year-old female referred to occupational therapy services with diagnosis of nausea with extreme weakness and fever she was PMHx of diffuse large B-cell lymphoma diagnosed 5 years ago having had chemotherapy with several remissions during that time and recently restarted on new chemotherapy having her last course 4 days ago. Patient presents with clinical signs and symptoms consistent with dx. Pt was seen for OT consult only. She states that she is (I) with all ADLs/IADLs and does not require OT services. She was able to demonstrate functional (I) but denied getting out of bed so OT was unable to assess pts functional mobility required for ADLs. Pt has good strength and AROM in (B) UE. AMPAC score 22, CMS score 25.80% Patient is assessed as a Low 88636 complexity based on the following: History: See Above Examination: See Above Presentation: Evolving Decision Making: AMPAC score 22, CMS score 25.80% GOALS N/A PLAN OF CARE/TREATMENT PLAN: OT consult only. DISCHARGE RECOMMENDATIONS Home when medically cleared per MD. TREATMENT TIME/MINUTES/CODES 44199, 10 minutes (08:25) Ju Agee, OTR/L [facility]
[2019-03-14] MEDS: MAGNESIUM SULFATE 4 GM/100 ML BAG IVPB (10:09)
[2019-03-14 10:24] LABS: Bilirubin Negative (Negative); Blood Trace-lysed (Negative); Clarity Sl Cloudy; Glucose 100 mg/dL (Negative); Ketones Negative (Negative); Leukocyte Esterase Negative (Negative); Nitrite Negative (Negative); Specific Gravity 1.025 (1.005-1.025); Urobilinogen 0.2 EU/dL (Up TO 0.2)
[2019-03-14 10:48] LABS: Bacteria Negative HPF (Negative); Crystals Moderate Amorphous HPF (Negative); Epithelial Cells Rare HPF (Negative); RBC Negative (0-2); WBC Negative HPF (0-5)
[2019-03-14 10:49] LABS: C & S Indicated? No; Casts Negative LPF (Negative); Mucus Negative (Negative)
--- NOTE | 2019-03-14 11:27 | DSE_ITS ---
Date of service: 03/14/19 Time of Service: 11:26 DS: Diagnosis Discharge Diagnosis (1) Sepsis: Status: Acute (2) Adrenal insufficiency: Status: Acute (3) CAP (community acquired pneumonia): Status: Acute (4) UTI (urinary tract infection): Status: Ruled-out (5) Pancytopenia: Status: Chronic (6) Diffuse large B cell lymphoma: Status: Chronic (7) Renal insufficiency: Status: Chronic (8) Multiple sclerosis: Status: Chronic Discharge Plan Disposition Patient Disposition: HOME Condition: Stable Discharge Details Reason For Visit: LLL PNEUMONIA,SEPSIS,NEUTOPENIC FEVER W/NHL CHEMOT Admit Date/Time: 03/13/19 00:48 Admit Provider: Jordi Gusman Attending Provider: Jordi Gusman Primary Care Provider: [facility] Course Hospital Course: Ms Lugo is a 43 year old female with PMHx of NHL on chemo/chronic prednisone ( 60 mg PO daily), MS, pancytopenia, ambulatory dysfunction, admitted to [facility] ICU on 03/13/19 for sepsis due to left lower lower pneumonia, accompanied by acute adrenal insufficiency, presenting as shock. The patient responded to IV antibiotics, IV fluids and stress dose steroids. Her microbiology data is negative to date. She is pancytopenic, but not neutropenic, not actively bleeding, and not requiring transfusion. It is felt that with stabilization of her blood pressures, she is stable for discharge home today to complete 5 more days of antibiotics (levofloxacin) with follow up with her oncology team. The suspicion for UTI on this admission was ruled out with a repeat negative UA. A total of 45 minutes were spent on providing care and completing the discharge summary for this patient today. Home Meds and New Rx's Prescriptions: New sennosides [Senokot] 8.6 mg Tablet 8.6 mg PO BID Qty: 60 RF: 0 docusate sodium [Colace] 100 mg Capsule 100 mg PO BID Qty: 60 RF: 0 levofloxacin 750 mg tablet 750 mg PO DAILY Qty: 5 RF: 0 Continued prednisone 20 mg tablet 60 mg PO DAILY RF: 0 acyclovir 800 MG tablet 800 mg PO BID Qty: 180 RF: 4 escitalopram oxalate [Lexapro] 20 MG tablet 20 mg PO QAM Qty: 90 RF: 4 bupropion HCl [Wellbutrin XL] 300 MG tablet extended release 24 hr 300 mg PO DAILY Qty: 90 RF: 4 acetaminophen [Tylenol Extra Strength] 500 mg Tablet 1,000 mg PO Q6H PRNRF: 0 doxycycline hyclate 100 mg Capsule 100 mg PO Q12H Qty: 60 RF: 0 sulfamethoxazole-trimethoprim 800-160 mg Tablet 1 tab PO MoWeFr@0900 Qty: 0 RF: 0 hydromorphone 2 mg Tablet 1 mg PO Q6H PRN PRNQty: 0 RF: 0 folic acid 1 mg Tablet 1 mg PO DAILY Qty: 0 RF: 0 Discharge Instructions Instructions: Levofloxacin (By mouth), Bacterial Pneumonia (DC) Additional Instructions: Finish antibiotics as prescribed. Return to the hospital with any fever, bleeding, chest pain, or shortness of breath. Measure your blood pressures daily - call your PCP if you are noticing your systolic blood pressure is in the 90's or lower. Follow up with your oncology and PCP within 1-2 weeks. Bloodwork in 1 week. Drink plenty of water for the next 2 days. Activity:: Activity as Tolerated Equipment/Supplies:: No Equipment Needed Diet:: As Tolerated Discharge Orders Discharge Orders: Discharge Order (Routine); Ordered 03/14/19 Ordered By: Alyson Trevino Other Ambulatory Orders: Basic Metabolic Panel (Routine) Timeframe: 1 Week Location: Determined by Patient Ordered By: Alyson Trevino Complete Blood Count w/Diff (Routine) Timeframe: 1 Week Location: Determined by Patient Ordered By: Alyson Trevino Magnesium (Routine) Timeframe: 1 Week Location: Determined by Patient Ordered By: Alyson Trevino Exam Narrative Exam Narrative: General: Very pleasant middle-aged female, looks better A&Ox3, no shortness of breath noted while laying flat in bed, looks carvalho HEENT: EOMI, dry MM Heart: RRR, no m/r/g Lungs: Crackles mostly at L base GI: abdomen is soft, nontender, nondistended Extremities: no e/c/c BLE's DS: Data Vitals/I&O Vitals and I&O: Vital Signs Temperature 36.8 C 03/14/19 03:30 Temperature Source Temporal Artery Scan 03/14/19 03:30 Pulse 77 03/14/19 09:44 Pulse 63 03/14/19 11:00 Respiratory Rate 16 03/14/19 11:00 Respiratory Effort 03/14/19 09:40 Respiratory Depth Normal 03/14/19 09:40 Respiratory Pattern Normal 03/14/19 09:40 Blood Pressure 95/58 L 03/14/19 09:36 Blood Pressure Mean 67 03/14/19 09:36 Blood Pressure Position Supine 03/13/19 16:00 Pulse Oximetry 100 03/14/19 08:01 Oxygen Delivery Method Room Air 03/14/19 03:30 Oxygen Flow Rate 0 03/14/19 03:30 Pain Level 0 03/14/19 09:40 Intake & Output 03/13/19 03/13/19 03/14/19 11:59 23:59 11:59 Intake Total 6750 / 9630.0 2880.0 / 9630.0 1200 / 1200 Output Total 2075 / 3075 1000 / 3075 900 / 900 Balance 4675 / 6555.0 1880.0 / 6555.0 300 / 300 Weight 79.3 kg 78.8 kg Intake: IV 6650 / 8950.0 2300.0 / 8950.0 1200 / 1200 Oral 100 / 680 580 / 680 Output: Urine 2075 / 3075 1000 / 3075 800 / 800 Stool 100 / 100 Other: Urine Color Pale Yellow Yellow Urine Appearance Clear Clear Clear Urine Odor None None Comment pt refused insertion; MD notified. no void yet this shift mixed with stool Stool Occult Blood Negative Stool Size Moderate Moderate Stool Characteristics Soft Liquid Formed Voiding Methods Bedside Commode Bedside Commode Bedside Commode Completed studies during hospitalization [Text1]: CXR: Left lower lobe pneumonia and small left pleural effusion. Labs on day of discharge: Labs from last 24 hours 03/14/19 03/14/19 03/14/19 10:10 06:45 06:45 WBC 1.58 L* RBC 2.38 L Hgb 7.7 L Hct 23.7 L MCV 99.6 H MCH 32.4 MCHC 32.5 RDW 23.7 H Plt Count 57 L MPV 10.1 Sodium 141 Potassium 3.6 Chloride 110 H Carbon Dioxide 20.5 L Anion Gap 10.5 BUN 25 H Creatinine 1.83 H Estimated GFR/1.73 m2 29.85 Glucose 105 H Calcium 7.5 L Magnesium 1.4 L Urine Color Yellow Urine Clarity Sl cloudy Urine pH 5.0 Ur Specific Jackson 1.025 Urine Protein 30 H Urine Ketones Negative Urine Blood Trace-lysed H Urine Nitrite Negative Urine Bilirubin Negative Urine Urobilinogen 0.2 Ur Leukocyte Esterase Negative Urine RBC Negative Urine WBC Negative Ur Epithelial Cells Rare Urine Crystals Moderate amorphous Urine Bacteria Negative Urine Casts Negative Urine Mucus Negative Ur Culture Indicated? No Urine Glucose 100 Preliminary micro results at discharge 03/13/19 00:00 Blood Culture - Preliminary Blood NO GROWTH 24 HOURS 03/12/19 22:30 Blood Culture - Preliminary Blood NO GROWTH 24 HOURS [facility] Medical History Dyspnea on minimal exertion (Chronic) Generalized weakness (Chronic) Diffuse large B cell lymphoma (Chronic) Follicular lymphoma (Chronic) Frequent falls (Chronic) Ataxia (Chronic) Palliative care patient (Chronic) Renal insufficiency (Chronic 06/03/15) Obesity (Chronic) Multiple sclerosis (Chronic 01/19/13) Lymphoma (Chronic 05/03/14) Irregular menstruation (Chronic 09/14/13) Gouty arthritis (Chronic 04/05/17) Essential hypertension (Chronic 09/04/13) Depression (Chronic 09/03/14) Thrombocytopenia (Chronic) DVT prophylaxis (Acute) Pancytopenia (Chronic) Polycystic ovarian syndrome (Chronic) Depression (Chronic) Cellulitis of left arm (Resolved 01/15/14) Pleural effusion associated with pulmonary infection (Resolved) Pneumonia (Resolved) Chronic deep vein thrombosis (DVT) of both femoral veins (Chronic) 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 (Acute) Chronic renal insufficiency (Acute) Hypokalemia (Acute) PCOS (polycystic ovarian syndrome) (Acute) Pneumonia (Acute) Reactive arthritis of knee (Acute) DVT (deep venous thrombosis) (Chronic) Depression (Chronic) Multiple sclerosis (Chronic) Surgical History History of surgery (Chronic) Cholecystectomy Family History Brother No problems noted. Brother No problems noted. Brother No problems noted. Social History Smoking/Tobacco Use Status: Former Tobacco Use Alcohol Intake: former Drug use: Never Substance use type: does not use Adopted: No Caregiver/Support person: Yes Household members: none Housing: house Number of Children: 2 Pets and animals: No What is your relationship status?: How often do you talk on the phone with friends or family?: three or more times per week How often do you get together with friends or relatives?: three or more times per week Panel score (0-1 are the most socially isolated patients): 1 What type of physical activity do you participate in: none Special ashley needs: No Agree to transfusion: Yes Do you feel safe at home: Yes Do you feel safe in your relationship?: Yes Additional Social history: brother Jitendra and Lisa caring for her 2 childr irish, both adopted. Brother Manuelito brings her to doctor's apts, is her main support person. Has other family/friends involved, including Samara Katz, who asked me to see Sherine initially.
[2019-03-14] MEDS: predniSONE 20 MG TAB 60 MG PO (12:47)
--- NOTE | 2019-03-14 12:54 | IN_ITS ---
Date of service: 03/14/19 Time of Service: 09:28 PT Notes Inpatient Physical Therapy Evaluation Date: 03/14/2019 Referring Doctor: Alyson Trevino MD PT Orders: PT CONSULT: Eval/treat Precautions: Fall. Standard. Activity as tolerated. Patient Profile/Admitting Diagnosis: Patient is a 43-year-old female with past medical history significant for diffuse large B-cell lymphoma recently started on chemotherapy who presented to the ED on 03/12/2019 with chief complaints of nausea, vomiting, diarrhea, generalized weakness, lethargy, and fever. Patient was diagnosed with pneumonia and sepsis. PMHX: Medical History Dyspnea on minimal exertion (Chronic) Generalized weakness (Chronic) Diffuse large B cell lymphoma (Chronic) Follicular lymphoma (Chronic) Frequent falls (Chronic) Ataxia (Chronic) Palliative care patient (Chronic) Renal insufficiency (Chronic 06/03/15) Obesity (Chronic) Multiple sclerosis (Chronic 01/19/13) Lymphoma (Chronic 05/03/14) Irregular menstruation (Chronic 09/14/13) Gouty arthritis (Chronic 04/05/17) Essential hypertension (Chronic 09/04/13) Depression (Chronic 09/03/14) Thrombocytopenia (Chronic) DVT prophylaxis (Acute) Pancytopenia (Chronic) Polycystic ovarian syndrome (Chronic) Depression (Chronic) Cellulitis of left arm (Resolved 01/15/14) Pleural effusion associated with pulmonary infection (Resolved) Pneumonia (Resolved) Chronic deep vein thrombosis (DVT) of both femoral veins (Chronic) 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 (Acute) Chronic renal insufficiency (Acute) Hypokalemia (Acute) PCOS (polycystic ovarian syndrome) (Acute) Pneumonia (Acute) Reactive arthritis of knee (Acute) DVT (deep venous thrombosis) (Chronic) Depression (Chronic) Multiple sclerosis (Chronic) Surgical History History of surgery (Chronic) Cholecystectomy Social History/Home Situation: Patient lives with 2 kids 17 years old and 9 years old. She states she has 3 steps to enter the house with rails on both sides. Inside she has 16 steps to the second floor of the house. She was independent with all aspects of ADLs without the need for an assistive ambulatory device nor adaptive equipment. She still drives. Current Functional Limitations: Limited activity tolerance, need for assistance with all transfer and ambulation task performance Equipment Owned/DME: Patient states that she does not use any assistive ambulatory device although she verbalized to occupational therapist early this morning that she has a wheelchair, cane, FWW, grab bars, shower bench. Subjective: Patient agreeable to a PT consult today. She looks forward to going home as soon as she is safe to do so. She states that she feels fatigued and seems to have limited endurance to doing activities. She is not agreeable to recommendations of having home health physical therapy once she goes home and she states that she will be able to manage. She refused sitting on the recliner as she states that her back is not comfortable on it. At time of evaluation patient denied any chest pain, headache, and back pain. Objective: General Observation: Patient seen resting in bed telemetry monitoring in place. Finger pulse oximeter on. BP cuff on right arm. Mental Status: Alert and oriented x 40/10 Pain: 0/10 Vital Signs: Patient's heart rate ranged from 81 bpm through 136 bpm throughout gait activity ROM: Right Upper Extremity: Shoulder Flexion WFL. Shoulder abduction WFL. Elbow flexion WFL. Wrist flexion WFL. Functional opening and closing of hand WFL. Left Upper Extremity: Shoulder Flexion WFL. Shoulder abduction WFL. Elbow flexion WFL. Wrist flexion WFL. Functional opening and closing of hand WFL. Right Lower Extremity: Hip flexion WFL. Hip abduction WFL. Knee flexion WFL. Ankle dorsiflexion WFL. Ankle plantarflexion WFL. Left Lower Extremity: Hip flexion WFL. Hip abduction WFL. Knee flexion WFL. Ankle dorsiflexion WFL. Ankle plantarflexion WFL. Strength: Right Upper Extremity: Shoulder flexors 5/5. Shoulder abductors 5/5. Elbow flexors 5/5. Elbow extensors 5/5. Enamel Pulverizer strong. Left Upper Extremity: Shoulder flexors 5/5. Shoulder abductors 5/5. Elbow flexors 5/5. Elbow extensors 5/5. Enamel Pulverizer strong. Right Lower Extremity: Hip flexors 4/5. Hip abductors 4/5. Knee flexors 5/5. Knee extensors 4/5. Ankle dorsiflexors 5/5. Ankle plantarflexors 5/5. Left Lower Extremity: Hip flexors 4/5. Hip abductors 4/5. Knee flexors 5/5. Knee extensors 4/5. Ankle dorsiflexors 5/5. Ankle plantarflexors 5/5. Sensation: Intact as to pain and pressure on bilateral lower extremities Bed Mobility/Transfers: Supine to sit SBA Sit to supine SBA Sit to stand SBA Stand to sit SBA Bed to chair SBA Chair to bed SBA Gait: Patient was able to tolerate level surface ambulation using F WW with FWB and CGA of this PT for 80 feet without resting and without any shortness of breath. No remarkable remarkable gait abnormalities observed. Balance: Static Sitting: Normal Dynamic Sitting: Normal Static Standing: Good Dynamic Standing: Fair Special Tests: Mobility Limitations Standardized Measure [facility] 6 clicks Basic Mobility Inpatient Short Form: Raw Score: 18 CMS Score: 47% deficit Informed Consent/Education: Patient instructed in purpose of PT consult and plan of care. Assessment: Patient presents with clinical signs and symptoms consistent with current/admitting diagnoses that have resulted to mobility limitations, gait instability, generalized weakness, and impairment of motor control as demonstrated by the following impairment level findings: 1. Decreased strength to B LE major muscle groups 2. Impaired sitting/standing balance 3. Impaired activity tolerance Impairments are contributing to the following functional limitations: 1. Increased dependence with transfers 2. Inability to safely ambulate without assistive device and physical assistance 3. Increase completion time for mobility ADL performance 4. Increased fall risk 5. Inability to negotiate steps alone safely Patient is assessed as a 35933 low complexity based on the following: History: 43-year-old female with diagnosis of pneumonia and sepsis with past medical history significant for Hodgkin's lymphoma currently on chemotherapy Examination: Underlying impairments and functional limitations as noted above Presentation:Evolving Decision Makin low complexity DISCHARGE RECOMMENDATIONS: Patient is discharged to home today with recommendations for home health PT. However, patient refused home health services. TREATMENT CODE/TIME: 04171 for 27 minutes beginning at 9 9:28 AM. Thank you very much for this referral. Vesta Garay PT, DPT, CLT [facility]
--- NOTE | 2019-03-14 15:53 | PDOC.CMDIS ---
LACE Index Scoring Tool - Questions: Length of Stay (in days): 1 Acuity (Admit via E.D.?): Yes Comorbidities: Mild Liver/Renal Disease, Any Tumor E.D. Visits: 4 - Answers: Total Score: 13 Risk of Readmission: High Risk Care Management Discharge Reason for Hospitalization: LLL Pneumonia, Sepsis, Neutropenic Fever w/NHL, Chemotherapy Discharge Plan: Stacey will return home when ready per MD, she will complete 5 more days of antibiotics (levofloxacin) with follow up with her oncology team per MD. She will transport via private vehicle with family. Patient/Family Education Needs: Review discharge instructions, discuss Ask Me Three.
== END 2019-03-14 15:10 | disposition home or self-care (01) | DRG 840 ==
LOC: ER 03-13 00:59 → ICU 03-13 02:32
PROVIDERS: Admitting Provider Family Medicine; Emergency Provider Student in an Organized Health Care Education/Training Program; PCP Family Medicine; Visit Provider Internal Medicine
DX: C83.30 Diffuse large B-cell lymphoma, unspecified site (principal); J18.1 Lobar pneumonia, unspecified organism; A41.9 Sepsis, unspecified organism; E27.40 Unspecified adrenocortical insufficiency; D61.818 Other pancytopenia; N39.0 Urinary tract infection, site not specified; D70.9 Neutropenia, unspecified; T45.1X5A Adverse effect of antineoplastic and immunosuppressive drugs, initial encounter; N18.9 Chronic kidney disease, unspecified; G35 Multiple sclerosis; K59.00 Constipation, unspecified; Z79.899 Other long term (current) drug therapy; Z79.52 Long term (current) use of systemic steroids; Z95.828 Presence of other vascular implants and grafts
CPT/HCPCS: 36415; 80048; 80053; 84145; 85027; 87040; 96361; 96365; 96366; 96368; 96375; 97161; 97165; 99223; 99239; 99291; 71046; 81003; 81015; 83605; 83735; 85025; J0131; J1720; J1956; J2543; J3475; J7512